=== PATIENT | male | born 1950 | race Caucasian/White ===

== ENCOUNTER 2020-05-22 09:05 | Outpatient (CLI) | payer MEDICARE, SELFPAY ==
--- NOTE | ~2020-05-22 | XR_ITS ---
EXAMINATION: XR hand BI arthritis min 3V DATE: 05/22/2020 09:31 INDICATION: Unspecified osteoarthritis, unspecified site. TECHNIQUE: 4 views of right hand of 4 views of left hand on a total of 7 radiographs were obtained. COMPARISON: Left hand radiographs 12/06/2004 FINDINGS: RIGHT HAND: There is radial subluxation of third distal phalanx with respect to the middle phalanx. N o fracture. There is moderate osteoarthritis of distal radioulnar joint. There is sclerosis of distal ulna and proximal lunate with bone remodeling, consistent with ulnolunate impaction syndrome. There is mild osteoarthritis of first carpometacarpal joint. There is severe osteoarthritis of first, secon d, and third metacarpophalangeal joints and mild osteoarthritis of fourth metacarpophalangeal joint. There is severe osteoarthritis of second and third distal interphalangeal joints, moderate osteoarthr itis of fourth distal interphalangeal joint, and mild osteoarthritis of many other interphalangeal zachery ints. LEFT HAND: Bone alignment is normal. No fracture. There is mild osteoarthritis of triscaphe joint and severe osteoarthritis of first carpometacarpal joint. There is severe osteoarthritis of second and t hird metacarpophalangeal joints. There is moderate osteoarthritis of first metacarpophalangeal joint and mild osteoarthritis of fourth and fifth metacarpophalangeal joints and many of the interphalangea l joints. There is moderate osteoarthritis of second-fourth distal interphalangeal joints and severe osteoarthritis of second proximal interphalangeal joint. There is a loose body dorsal to the carpus. IMPRESSION: 1. Polyarticular osteoarthritis. Reviewed, dictated and finalized at location A. SLITTER
== END 2020-05-22 09:06 | disposition home or self-care (01) ==
PROVIDERS: PCP Family Medicine; Visit Provider Family Medicine
DX: M19.042 Primary osteoarthritis, left hand (principal)
CPT/HCPCS: 73130

== ENCOUNTER 2020-06-18 14:14 | Outpatient (RCR) | payer MEDICARE, SELFPAY ==
--- NOTE | 2020-06-18 16:10 | OTOPEVAL ---
OCCUPATIONAL THERAPY EVALUATION REPORT 06/18/2020 Portillo presents to outpatient OT with dx of OA of bilateral hands. He is 1 week s/p joint injections which has relieved all of his symptoms at this time. He has been educated on joint protection, body mechanics, AROM, and gentle resistive strengthening and is happy with this for now. Recommend that he monitors his symptoms over the next 4 weeks and makes an appointment to return for therapy if he feels his pain returning. If the patient does not follow up in 4 weeks he will be discharged. Thank you for referring Portillo Cooley to [facility] The patient is scheduled to be seen for therapy? 0-1x/week for 4weeks. Please review, sign, date and return this plan of care XIMENA. I agree with and certify that the following plan of care is medically necessary. Referring Physician Date Referring Provider: Blake Henderson MD *OT Outpatient Evaluation Start: 06/18/20 14:28 Freq: Status: Active Protocol: Document 06/18/20 14:30 IGOR (Rec: 06/18/20 16:10 IGOR [id number]) Therapy Assessment Status Assessment Status Assessment Status Evaluation Outpatient Past Medical History Cardiovascular History Hx Hypertension Yes Musculoskeletal History Hx Orthopedic Surgery Yes: left RCR 2009, manish TKR Hx Spinal Surgery Yes: back surgery 09/25/18 Hx Other Musculoskeletal Disorders Yes: tendon tear of right arm Evaluation Information Problem Diagnosis Primary OA bilateral hands Subjective Information Portillo reports long-term Query Text:As Reported By Patient/ degenerative changes in Family bilateral hands and wrists over the past 20+ years. 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 He states that a few weeks ago the pain in his hands got progressively worse to the point where he was unable to work on his cars, make a fist, or even do a light activity like pet his dog without severe pain. He states that a week ago he received injections in both hands from Dr. Henderson and since then he has had no pain and has been feeling great. He states he has returned to working on cars as normally as he was before and is able
--- NOTE | 2020-07-16 10:31 | OTOPEVAL ---
OCCUPATIONAL THERAPY DISCHARGE NOTE 07/16/20 Portillo Cooley was initially seen by OT on 06/18/20 with dx of OA of bilateral hands. He had just received joint injections which had relieved all of his symptoms at that time. On the day of the evaluation he was educated on joint protection, body mechanics, AROM, and gentle resistive strengthening. His chart was left open x4 weeks to allow him to return for therapy if his pain returned. At this time he has not returned for appointments and is being discharged. Goals not re-assessed. Thank you for referring Portillo Cooley to [facility][Note 3].? Please review, sign, date and return this D/C Note XIMENA. I agree with and certify that the following plan of care is medically necessary. Referring Physician Date Referring Provider: Blake Henderson MD
== END 2020-07-16 13:36 | disposition home or self-care (01) ==
LOC: ANHOT 14:14
PROVIDERS: PCP Family Medicine; Referring Provider Orthopaedic Surgery; Visit Provider Orthopaedic Surgery
DX: M19.041 Primary osteoarthritis, right hand (principal); M19.042 Primary osteoarthritis, left hand
CPT/HCPCS: 97165; 97530

== ENCOUNTER → 2021-01-09 07:04 | Outpatient (CLI) | payer MEDICARE, SELFPAY ==
[2021-01-09 17:20] LABS: SARS-CoV-2 RNA PCR Positive
== END ==
PROVIDERS: PCP Family Medicine; Visit Provider Family Medicine
DX: U07.1 COVID-19 (principal)
CPT/HCPCS: C9803; U0003; U0005

== ENCOUNTER 2021-01-10 20:11 | Inpatient (IN) | payer MEDICARE, SELFPAY ==
--- NOTE | ~2021-01-10 | XR_ITS ---
EXAMINATION: XR abdomen NG/feed tube insert INDICATION: OG placement TECHNIQUE: Portable AP KUB-NG at 0811 hours COMPARISON: None available FINDINGS: The enteric tube is in the stomach. There are diffuse patchy opacities of the lungs. Cholec ystectomy clips are noted in the right upper quadrant. IMPRESSION: 1. Enteric tube in the stomach. Reviewed, dictated and finalized at location A.
--- NOTE | ~2021-01-10 | XR_ITS ---
XR chest 1V portable DATE: 02/10/2021 06:00 INDICATION: Pneumonia TECHNIQUE: Portable upright AP chest on 02/10/2021 at 0545 hours COMPARISON: 02/07/2021 portable AP chest at 0513 hours FINDINGS: Tracheostomy tube in satisfactory position. Right upper stomach the catheter tip overlies t he superior vena cava. There are extensive bilateral patchy pulmonary infiltrates, relatively stable since 02/07/2021. No pleu ral effusion or pneumothorax. IMPRESSION: Extensive bilateral patchy pulmonary infiltrates, relatively stable since 02/07/2021 Reviewed, dictated and finalized at location A.
--- NOTE | ~2021-01-10 | XR_ITS ---
EXAMINATION: XR chest ET placement EXAM DATE: 01/21/2021 23:12 INDICATION: Respiratory failure. COVID pneumonia. Desaturation. TECHNIQUE: Portable AP frontal chest x-ray was obtained. Comparison is made to prior examination from earlier same date. FINDINGS: Endotracheal tube tip is 3 centimeters above the heather. There is a nasogastric tube seen with tip collimated off the study, but below the left hemidiaphragm. There is a right-sided PICC line . There is a moderate amount of patchy bilateral acute airspace disease, pneumonia. There is more confl uent consolidation in the left lower lobe, retrocardiac region. There are no sizable pleural effusio ns. There is no pneumothorax suspected. The cardiomediastinal silhouette is prominent but magnifi ed on this AP technique. There are bony degenerative changes. Progression in the retrocardiac consolidation compared to earlier same date. IMPRESSION: 1. Line and tube(s) in position. 2. Moderate bilateral acute airspace disease, some progression in the left lower lobe. Reviewed, dictated and finalized at location G. IMPRESSION: 1. Line and tube(s) in position. 2. Moderate bilateral acute airspace disease, some progression in the left low er lobe.
--- NOTE | ~2021-01-10 | XR_ITS ---
XR chest 1V portable INDICATION: Cough. TECHNIQUE: 2 view chest. FINDINGS: 05/11/2015 There is mild bilateral interstitial prominence and peribronchial cuffing. There is no focal consoli dation, pleural effusion, or pneumothorax. The cardiomediastinal silhouette is normal.] IMPRESSION: 1. Findings most consistent with bronchiolitis versus an atypical or viral pneumonia. Reviewed, dictated and finalized at location A. IMPRESSION: 1. Findings most consistent with bronchiolitis versus an atypical or viral [facility].
--- NOTE | ~2021-01-10 | XR_ITS ---
EXAMINATION: XR chest ET placement INDICATION: Endotracheal tube insertion TECHNIQUE: Portable AP chest at 0716 hours COMPARISON: 01/13/2021 FINDINGS: The endotracheal tube ends 1.9 cm above the heather. Diffuse opacities are present throughou t all lung zones with slight improvement in the lung bases. The cardiomediastinal silhouette is yaima l. There is no pleural effusion or pneumothorax. IMPRESSION: 1. Endotracheal tube 1.9 cm above the heather. 2. Diffuse lung disease with interval improvement, consistent with pneumonia and/or pulmonary edema a nd/or acute respiratory distress syndrome (ARDS). Reviewed, dictated and finalized at location A. IMPRESSION: 1. Endotracheal tube 1.9 cm above the heather. 2. Diffuse lung disease with interval improvement, consistent with pneumonia an d/or pulmonary edema and/or acute respiratory distress syndrome (ARDS).
--- NOTE | ~2021-01-10 | XR_ITS ---
EXAMINATION: XR chest 1V portable INDICATION: Respiratory failure TECHNIQUE: Portable AP chest at 0532 hours COMPARISON: 01/19/2021 FINDINGS: The endotracheal tube ends approximately 2.5 cm above the heather. The nasogastric tube is f ollowed as far as the stomach. Its tip is beyond the inferior margin of the radiograph. A right upper extremity PICC ends with its tip at the superior cavoatrial junction. There is no pleural effusion o r pneumothorax. Diffuse opacities persist throughout all lung zones without significant change. IMPRESSION: 1. Stable diffuse lung disease, consistent with pneumonia and/or pulmonary edema and/or acute respira tory distress syndrome (ARDS). Reviewed, dictated and finalized at location D. IMPRESSION: 1. Stable diffuse lung disease, consistent with pneumonia and/or pulmonary otto a and/or acute respiratory distress syndrome (ARDS).
--- NOTE | ~2021-01-10 | XR_ITS ---
XR chest 1V portable 01/29/2021 05:29 Indication: Acute respiratory failure Procedure: AP portable chest Comparison: Comparison to multiple prior studies sequentially, with oldest reviewed study dated 01/25. Findings: NG tube in the stomach. Endotracheal tube tip 5.4 cm above the heather. PICC line tip in the SVC. Persistent patchy bilateral airspace disease, consistent with pneumonia. No significant effusio n or pneumothorax. Lung apices excluded. Impression: 1: Persistent patchy bilateral airspace disease, compatible with pneumonia. Reviewed, dictated and finalized at location A. Impression: 1: Persistent patchy bilateral airspace disease, compatible with pneumonia.
--- NOTE | ~2021-01-10 | XR_ITS ---
XR chest 1V portable 01/26/2021 05:46 Indication: Respiratory failure Procedure: AP portable chest Comparison: Comparison to multiple prior studies sequentially, with oldest reviewed study dated 01/21. Findings: Persistent extensive patchy bilateral airspace disease. No significant change. Endotracheal tube 3.6 cm above the heather. NG tube in the stomach. No significant effusion. No pneumothorax. No a cute osseous abnormality. Impression: 1: Extensive patchy bilateral airspace disease without significant change, pneumonia versus edema. Reviewed, dictated and finalized at location A. Impression: 1: Extensive patchy bilateral airspace disease without significant change, pneu monia versus edema.
--- NOTE | ~2021-01-10 | CT_ITS ---
EXAMINATION: CTA chest PE protocol DATE: 01/10/2021 22:35 INDICATION: Shortness of breath. Cough. COVID-19 positive on 01/09/21. TECHNIQUE: Computed tomography angiography (CTA) of the chest was performed with 100 mL Omnipaque-350 intravenous contrast timed to evaluate the pulmonary arteries. Coronal maximum intensity projection 3D-reconstructions were created by the technologist. Automated exposure control and iterative reconst ruction technique were employed. The dose-length product was 431.36 mGy-cm. COMPARISON: Chest CT 07/28/2009 FINDINGS: There is chronic mild elevation of right hemidiaphragm. There are patchy groundglass opacit ies involving all lobes. There is mild atelectasis bilaterally. No pleural effusion. There is an aber rant right subclavian artery. The heart size is normal. There is no pulmonary embolus. There are martin ges of cholecystectomy. There are bridging endplate osteophytes at multiple levels in the spine, cons istent with diffuse idiopathic skeletal hyperostosis (DISH). IMPRESSION: 1. No pulmonary embolus. 2. 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 Reviewed, dictated and finalized at location A.
--- NOTE | ~2021-01-10 | XR_ITS ---
EXAMINATION: XR chest 1V portable DATE: 02/04/2021 05:49 INDICATION: Respiratory failure TECHNIQUE: frontal view of the chest was obtained. COMPARISON: Chest radiograph dated 02/03/2021 FINDINGS: Endotracheal tube tip 8.3 cm above the heather. Right upper extremity peripherally inserted central ve nous catheter (PICC) tip at the caudal superior vena cava. No significant interval change in patchy airspace opacities throughout both lungs. No pneumothorax or pleural effusion. The cardiomediastinal silhouette is normal. Cholecystectomy clips at the right upp er quadrant. IMPRESSION: 1. No significant change in patchy bilateral lung disease consistent with pneumonia. Reviewed, dictated and finalized at location A. IMPRESSION: 1. No significant change in patchy bilateral lung disease consistent with pneum onia.
--- NOTE | ~2021-01-10 | XR_ITS ---
EXAMINATION: XR chest 1V portable INDICATION: Endotracheal tube repositioning TECHNIQUE: Portable AP chest at 0812 hours COMPARISON: 0716 hours FINDINGS: The repositioned endotracheal tube ends 3.8 cm above the heather. A nasogastric tube has bee n inserted which is followed as far as stomach. Its tip projects beyond the inferior margin of the ra diograph. Diffuse airspace opacities persist in all lung zones without significant change. The cardio mediastinal silhouette is normal. Cholecystectomy clips are noted in the right upper quadrant. IMPRESSION: 1. Repositioned endotracheal tube 3.8 cm above the heather. Nasogastric tube inserted and followed to the stomach. Otherwise, no significant change. Reviewed, dictated and finalized at location A. IMPRESSION: 1. Repositioned endotracheal tube 3.8 cm above the heather. Nasogastric tube ins erted and followed to the stomach. Otherwise, no significant change.
--- NOTE | ~2021-01-10 | XR_ITS ---
XR chest 1V portable 02/07/2021 05:59 Indication: Respiratory failure. Pneumonia. Procedure: AP portable chest Comparison: Comparison to multiple prior studies sequentially, with oldest reviewed study dated 09/2020. Findings: Tracheostomy catheter present. PICC line tip in the SVC. Heart size normal. Diffuse bilater al airspace disease unchanged. No significant effusion or pneumothorax. No acute osseous abnormality. Impression: 1: Diffuse bilateral airspace disease which may represent pneumonia and/or edema. Reviewed, dictated and finalized at location A. Impression: 1: Diffuse bilateral airspace disease which may represent pneumonia and/or otto a.
--- NOTE | ~2021-01-10 | XR_ITS ---
EXAMINATION: XR chest 1V portable DATE: 01/23/2021 06:36 INDICATION: COVID pneumonia. Acute respiratory failure. TECHNIQUE: frontal view of the chest was obtained. COMPARISON: Chest radiograph dated 01/21/2021 FINDINGS: Endotracheal tube tip 5.3 cm above the heather. Nasogastric tube extends below the left hemidiaphragm with distal tip collimated off the study. Right upper extremity peripherally inserted central venous catheter (PICC) tip at the superior vena cava. Opacities scattered throughout both lungs, relatively mild and unchanged in the right lung with more prominent patchy opacities at the left lower and mid lung zones with some progression at the latter. No pleural effusion or pneumothorax. The cardiomediastinal silhouette is normal. IMPRESSION: 1. Diffuse bilateral lung disease most prominent and less interval progression in the left midlung zo ne consistent with pneumonia. Reviewed, dictated and finalized at location A. IMPRESSION: 1. Diffuse bilateral lung disease most prominent and less interval progression in the left midlung zone consistent with pneumonia.
--- NOTE | ~2021-01-10 | XR_ITS ---
EXAMINATION: XR chest 1V portable INDICATION: Respiratory failure TECHNIQUE: Portable AP chest at 0522 hours COMPARISON: 01/17/2021 FINDINGS: The endotracheal tube ends approximately 4.5 cm above the heather. The nasogastric tube is f ollowed as far as the stomach. Its tip is beyond the inferior margin of the radiograph. A right upper extremity PICC ends with its tip in the distal superior vena cava. Diffuse airspace opacities persis t in all lung zones with slight worsening in the upper lung zones. IMPRESSION: 1. Diffuse lung disease with interval worsening in the upper lung zones, consistent with pneumonia an d/or pulmonary edema and/or acute respiratory distress syndrome (ARDS). Reviewed, dictated and finalized at location A. IMPRESSION: 1. Diffuse lung disease with interval worsening in the upper lung zones, consis tent with pneumonia and/or pulmonary edema and/or acute respiratory distress sy ndrome (ARDS).
--- NOTE | ~2021-01-10 | XR_ITS ---
EXAMINATION: XR chest 1V portable DATE: 02/06/2021 05:51 INDICATION: Respiratory failure TECHNIQUE: frontal view of the chest was obtained. COMPARISON: Chest radiograph dated 02/05/2021 FINDINGS: Tracheostomy tube at the thoracic inlet. No significant interval change in patchy airspace opacities throughout both lungs. No pleural effusion or pneumothorax. The cardiomediastinal silhouette is yaima l. Cholecystectomy clips in right upper quadrant. IMPRESSION: 1. Unchanged patchy bilateral lung disease consistent with pneumonia. Reviewed, dictated and finalized at location A.
--- NOTE | ~2021-01-10 | US_ITS ---
EXAMINATION: US venous doppler UE DATE: 02/07/2021 09:08 INDICATION: Fevers and extremity swelling TECHNIQUE: Casarez scale images with and without compression and Doppler images of the right and left up per extremity veins were obtained. COMPARISON: None. FINDINGS: The right and left internal jugular vein, subclavian vein, axillary vein, brachial veins, basilic vei n, cephalic vein, radial vein, and ulnar vein are patent. IMPRESSION: 1. Patent bilateral upper extremity veins. No evidence of deep venous thrombosis. Reviewed, dictated and finalized at location A. IMPRESSION: 1. Patent bilateral upper extremity veins. No evidence of deep venous thrombosi s.
--- NOTE | ~2021-01-10 | XR_ITS ---
XR chest 1V portable 01/28/2021 05:55 Indication: Acute respiratory failure Procedure: AP portable chest Comparison: Comparison to multiple prior studies sequentially, with oldest reviewed study dated 01/24. Findings: Endotracheal tube tip 6.2 cm above the heather. PICC line tip in the SVC. NG tube in the sto mach. Heart size normal. Patchy bilateral airspace disease, left greater than right. No pneumothorax. Impression: 1: Unchanged patchy bilateral airspace disease, compatible with pneumonia. Reviewed, dictated and finalized at location A. Impression: 1: Unchanged patchy bilateral airspace disease, compatible with pneumonia.
--- NOTE | ~2021-01-10 | XR_ITS ---
EXAMINATION: XR chest 1V portable DATE: 02/02/2021 06:00 INDICATION: Respiratory failure TECHNIQUE: frontal view of the chest was obtained. COMPARISON: Chest radiograph dated 02/01/2021 FINDINGS: Endotracheal tube tip 4.5 cm above the heather. Nasogastric tube tube with proximal side-port in the body of stomach and with distal tip collimated off the study. Right upper extremity peripherally inse rted central venous catheter (PICC) tip at the superior vena cava. Again seen are diffuse bilateral patchy airspace opacities throughout both lungs with some improvemen t in aeration at the lung bases. No pneumothorax or definitive pleural effusion. The cardiomediastina l silhouette is normal. Cholecystectomy clips in right upper quadrant. IMPRESSION: 1. Patchy bilateral lung disease consistent with pneumonia with some improvement in aeration at the l bill bases. Reviewed, dictated and finalized at location A. IMPRESSION: 1. Patchy bilateral lung disease consistent with pneumonia with some improvemen t in aeration at the lung bases.
--- NOTE | ~2021-01-10 | XR_ITS ---
EXAMINATION: XR chest 1V portable DATE: 01/19/2021 06:36 INDICATION: Respiratory failure TECHNIQUE: frontal view of the chest was obtained. COMPARISON: Chest radiograph dated 01/18/2021 FINDINGS: Endotracheal tube tip 2.8 cm above the heather. Nasogastric tube extends below the left hemidiaphragm with distal tip collimated off the study. Right upper extremity peripherally inserted central venous catheter (PICC) tip at the caudal superior vena cava. Persistent airspace opacities scattered throughout the left lung and in the right upper lung zone. No pleural effusion or pneumothorax. Heart size is normal. IMPRESSION: 1. No significant change in scattered bilateral lung disease consistent with COVID pneumonia. Reviewed, dictated and finalized at location A. IMPRESSION: 1. No significant change in scattered bilateral lung disease consistent with CO VID pneumonia.
--- NOTE | ~2021-01-10 | XR_ITS ---
EXAMINATION: XR chest PICC line INDICATION: PICC insertion TECHNIQUE: Portable AP chest at 1035 hours COMPARISON: 0812 hours FINDINGS: A right upper extremity PICC has been inserted which ends with its tip in the midsuperior v alli cava. The endotracheal tube is 4.1 cm above the heather. The nasogastric tube is followed as far a s the stomach. Its tip is beyond the inferior margin of the radiograph. Diffuse airspace opacities pe rsist in all lung zones without significant change. The cardiomediastinal silhouette is normal. IMPRESSION: 1. Right upper extremity PICC inserted ending with its tip in the midsuperior vena cava, otherwise no significant change. Reviewed, dictated and finalized at location A. IMPRESSION: 1. Right upper extremity PICC inserted ending with its tip in the midsuperior v alli cava, otherwise no significant change.
--- NOTE | ~2021-01-10 | XR_ITS ---
XR chest 1V portable DATE: 02/13/2021 05:57 INDICATION: Pneumonia TECHNIQUE: Portable upright AP chest on 02/13/2021 at 0530 hours COMPARISON: 02/11/2021 portable AP chest at 0526 hours FINDINGS: Tracheostomy tube is again noted. Right upper stomach the catheter tip overlying superior vena cava. There are persistent relatively stable extensive bilateral patchy consolidating pulmonary infiltrates scattered throughout both lungs. Heart size appears within normal range. No pleural effusion or pneumothorax. Surgical clips, right upper quadrant, likely due to cholecystectomy. Degenerative spurring of the thoracic spine. IMPRESSION: Persistent extensive bilateral patchy pulmonary consolidation, relatively unchanged since 02/11/2021 Reviewed, dictated and finalized at location A. IMPRESSION: Persistent extensive bilateral patchy pulmonary consolidation, rela tively unchanged since 02/11/2021
--- NOTE | ~2021-01-10 | XR_ITS ---
XR chest 1V portable 01/30/2021 05:35 Indication: Acute respiratory failure Procedure: AP portable chest Comparison: Comparison to multiple prior studies sequentially, with oldest reviewed study dated . Findings: Endotracheal tube tip 4.4 cm above the heather. NG tube in the stomach. PICC line tip in the CC. Patchy diffuse bilateral airspace disease, compatible with pneumonia. No significant effusion or pneumothorax. No acute osseous abnormality. Impression: 1: No significant change to patchy bilateral airspace disease, compatible with pneumonia. Reviewed, dictated and finalized at location A. Impression: 1: No significant change to patchy bilateral airspace disease, compatible with pneumonia.
--- NOTE | ~2021-01-10 | XR_ITS ---
EXAMINATION: XR chest 1V portable DATE: 01/31/2021 06:23 INDICATION: Acute respiratory failure TECHNIQUE: frontal view of the chest was obtained. COMPARISON: Chest radiograph dated 01/30/2021 FINDINGS: Endotracheal tube tip 4.5 cm above the heather. Nasogastric tube in proximal side port in the body of the stomach and distal tip collimated off the study. Right upper extremity peripherally inserted cent ral venous catheter (PICC) tip at the superior vena cava. No significant interval change in bilateral patchy airspace opacities consistent with pneumonia. No p leural effusion or pneumothorax. The cardiomediastinal silhouette is normal. IMPRESSION: 1. No significant change in scattered patchy bilateral airspace opacities consistent with pneumonia. Reviewed, dictated and finalized at location A. IMPRESSION: 1. No significant change in scattered patchy bilateral airspace opacities consi stent with pneumonia.
--- NOTE | ~2021-01-10 | XR_ITS ---
EXAMINATION: XR chest 1V portable DATE: 02/03/2021 05:44 INDICATION: Respiratory failure TECHNIQUE: frontal view of the chest was obtained. COMPARISON: Chest radiograph dated 02/02/2021 FINDINGS: Endotracheal tube tip 3.3 cm above the heather.. Right upper extremity peripherally inserted central v enous catheter (PICC) tip at the mid superior vena cava. No significant interval change in bilateral patchy airspace opacities throughout both lungs. No pneum othorax or definitive pleural effusion. The cardiomediastinal silhouette is normal. Cholecystectomy c lips in right upper quadrant. IMPRESSION: 1. No interval change in patchy bilateral lung disease consistent with pneumonia Reviewed, dictated and finalized at location A. IMPRESSION: 1. No interval change in patchy bilateral lung disease consistent with pneumoni a
--- NOTE | ~2021-01-10 | US_ITS ---
EXAMINATION:US venous doppler LE BI INDICATION:Fever and leg swelling TECHNIQUE: Multiple grayscale, color flow and Doppler images of the right and left lower extremity de ep venous systems were obtained and reviewed. COMPARISON:No prior studies for comparison. FINDINGS: The common femoral, superficial femoral and popliteal veins demonstrate normal respiratory variation, augmentation and compressibility. Color flow is also seen within the posterior tibial, pe roneal, greater saphenous and profunda veins. IMPRESSION: 1: No lower extremity deep venous thrombosis. Reviewed, dictated and finalized at location A.
--- NOTE | ~2021-01-10 | XR_ITS ---
XR chest 1V portable 01/27/2021 05:55 Indication: Acute respiratory failure Procedure: AP portable chest Comparison: Comparison to multiple prior studies sequentially, with oldest reviewed study dated 01/23. Findings: Endotracheal tube tip 5 cm above the heather. NG tube in the stomach. PICC line tip in the S VC. Persistent patchy bilateral airspace disease without significant change. No significant effusion. No pneumothorax. No acute osseous abnormality. Impression: 1: Stable patchy bilateral airspace disease which may represent pneumonia or edema. Reviewed, dictated and finalized at location A. Impression: 1: Stable patchy bilateral airspace disease which may represent pneumonia or ed marguerite.
--- NOTE | ~2021-01-10 | XR_ITS ---
XR chest 1V portable DATE: 01/25/2021 05:31 INDICATION: Covid 19 pneumonia. Acute respiratory failure. TECHNIQUE: Portable AP chest on 01/25/2021 at 0518 hours COMPARISON: 01/24/2021 portable AP chest at 0519 hours FINDINGS: ET tube in satisfactory position 4.5 cm above heather. NG tube in stomach. Right upper extremity PIC catheter tip overlies superior vena cava. There are diffuse patchy bilateral pulmonary infiltrates, left greater than right, relatively stable since 05/27/2021. No pleural effusion or pneumothorax. Heart size appears normal. Aortic calcification. Diffuse idiopathic skeletal hyperostosis of the thoracic spine. IMPRESSION: No significant changes bilateral patchy pulmonary infiltrates since 01/20/2021 Reviewed, dictated and finalized at location A.
--- NOTE | ~2021-01-10 | XR_ITS ---
EXAMINATION: XR chest 1V portable DATE: 02/05/2021 05:54 INDICATION: Respiratory failure TECHNIQUE: frontal view of the chest was obtained. COMPARISON: Chest radiograph dated 02/04/2021 FINDINGS: Endotracheal tube tip 2.8 cm above the heather. Right upper extremity peripherally inserted central ve nous catheter (PICC) tip at the superior vena cava. No significant change accounting for differences in technique in scattered patchy airspace opacities throughout both lungs. No pleural effusion or pneumothorax. The cardiomediastinal silhouette is yaima l. Cholecystectomy clips in right upper quadrant. IMPRESSION: 1. Unchanged patchy bilateral lung disease consistent with pneumonia Reviewed, dictated and finalized at location A.
--- NOTE | ~2021-01-10 | US_ITS ---
EXAMINATION: US right upper quadrant EXAM DATE: 01/20/2021 17:07 INDICATION: Elevated liver function tests. TECHNIQUE: Multiple grayscale and Doppler images of the abdomen right upper quadrant were obtained (b y a technologist who performed the scan) and subsequently reviewed. There is no prior study for eleazar fischer. FINDINGS: The pancreatic head and body are normal in appearance. The pancreatic tail is not visualized. There is echogenic liver parenchyma with poor penetration, hepatic steatosis. There are no focal liver le sions identified. There is no evidence of intrahepatic biliary duct dilation. Portal venous flow w as seen in the hepatopedal, normal direction and has normal Doppler waveform. No right-sided hydrone phrosis. Common bile duct measures 5 mm, which is normal. The gallbladder fossa is unremarkable. IMPRESSION: 1. Hepatic steatosis. Reviewed, dictated and finalized at location A. IMPRESSION: 1. Hepatic steatosis.
--- NOTE | ~2021-01-10 | XR_ITS ---
EXAMINATION: XR chest 1V portable DATE: 01/21/2021 05:50 INDICATION: COVID pneumonia TECHNIQUE: frontal view of the chest was obtained. COMPARISON: Chest radiograph dated 01/20/2021 FINDINGS: Endotracheal tube tip 1.1 cm above the heather. Nasogastric tube extends below the left hemidiaphragm with distal tip collimated off the study. Right upper extremity peripherally inserted central venous catheter (PICC) tip at the caudal superior vena cava. No significant interval change in mild bilateral scattered airspace opacities including linear discoi d atelectasis/scarring at the left lower lung zone. No pleural effusion or pneumothorax. The cardiome diastinal silhouette is normal. IMPRESSION: 1. No significant change in scattered bilateral lung disease consistent with atelectasis and/or pneum onia. Reviewed, dictated and finalized at location A. IMPRESSION: 1. No significant change in scattered bilateral lung disease consistent with at electasis and/or pneumonia.
--- NOTE | ~2021-01-10 | XR_ITS ---
XR chest 1V portable DATE: 01/24/2021 05:33 INDICATION: Acute respiratory failure. Pneumonia. TECHNIQUE: Portable AP chest on 01/20/2021 at 0519 hours COMPARISON: 01/23/2021 portable AP chest at 0610 hours FINDINGS: ET tube in satisfactory position 3.7 cm above heather. NG tube in stomach in satisfactory po sition. Right upper extremity PIC catheter tip overlies superior vena cava. There are patchy bilateral pulmonary infiltrates, left greater than right, increased since 05/26/2021 . No pleural effusion or pneumothorax is detected. Heart size appears normal. IMPRESSION: Patchy left greater than right bilateral pulmonary infiltrates, increased since 01/23/2021 Reviewed, dictated and finalized at location A. IMPRESSION: Patchy left greater than right bilateral pulmonary infiltrates, inc reased since 01/23/2021
--- NOTE | ~2021-01-10 | XR_ITS ---
XR chest 1V portable DATE: 02/11/2021 05:38 INDICATION: Respiratory failure TECHNIQUE: Portable AP chest on 02/11/2021 at 0526 hours COMPARISON: Portable AP chest on 02/10/2021 at 0545 hours FINDINGS: Tracheostomy tube in satisfactory position. Right upper extremity PIC catheter tip overlies the superior vena cava. Heart size appears within normal range. There are extensive patchy bilateral pulmonary infiltrates wi thout improvement since 02/10/2021. Surgical clips overlie the right upper quadrant, consistent with cholecystectomy. IMPRESSION: Extensive bilateral pulmonary infiltrates without significant change since 02/10/2021 Reviewed, dictated and finalized at location A. IMPRESSION: Extensive bilateral pulmonary infiltrates without significant partida e since 02/10/2021
--- NOTE | ~2021-01-10 | CT_ITS ---
EXAMINATION: CT chest abdomen pelvis wo con DATE: 02/11/2021 09:04 INDICATION: Fever. TECHNIQUE: Computed tomography (CT) of the chest, abdomen, and pelvis was performed without intraveno us contrast. Automated exposure control and iterative reconstruction technique were employed. The dos e-length product was 1629.57 mGy-cm. COMPARISON: Chest CT 01/10/2021 FINDINGS: CHEST CT: There are airspace and groundglass opacities throughout the lungs bilaterally without bronchograms. T here is volume loss of the lungs bilaterally. There are small bilateral pleural effusions. The heart size is normal. No pericardial effusion. A right upper extremity peripherally inserted central venous catheter (PICC) is seen with tip in the superior vena cava. There is an aberrant right subclavian ar faith. A tracheostomy tube is noted in expected position. ABDOMEN/PELVIS CT: The liver and spleen are normal. There are changes of cholecystectomy. The pancreas, adrenal glands, and kidneys are normal. There is no urolithiasis. The prostate is mildly enlarged. There is a Flores c atheter in expected position. There is a small volume of hyperdense material in the bladder. There is diverticulosis of the colon without evidence of diverticulitis. There are no dilated loops of bowel. The appendix is normal. There is a gastrostomy tube in expected position. There are changes of right inguinal hernia repair. There are no pathologically enlarged lymph nodes. There is no free intraperi toneal fluid. There is severe lumbar spondylosis. There are changes of posterior fusion procedure fro m L3 to L5 with pedicle screws. There are lucencies around the L5 screws, consistent with loosening. IMPRESSION: 1. Diffuse lung disease, consistent with COVID-19 pneumonia and acute respiratory distress syndrome ( ARDS). 2. Small bilateral pleural effusions. 3. Small volume of hyperdense material in the bladder, which may be hematoma. Reviewed, dictated and finalized at location A. IMPRESSION: 1. Diffuse lung disease, consistent with COVID-19 pneumonia and acute respirato ry distress syndrome (ARDS). 2. Small bilateral pleural effusions. 3. Small volume of hyperdense material in the bladder, which may be hematoma.
--- NOTE | ~2021-01-10 | XR_ITS ---
EXAMINATION: XR chest 1V portable INDICATION: Respiratory failure TECHNIQUE: Portable AP chest at 0818 hours COMPARISON: 02/13/2021 FINDINGS: A tracheostomy is in expected position. There are diffuse opacities throughout all lung zon es with slight interval improvement. No pleural effusion or pneumothorax is identified. The cardiomed iastinal silhouette is normal. IMPRESSION: 1. Diffuse lung disease with interval improvement, consistent with pneumonia and/or pulmonary edema a nd/or acute respiratory distress syndrome (ARDS). Reviewed, dictated and finalized at location A. IMPRESSION: 1. Diffuse lung disease with interval improvement, consistent with pneumonia an d/or pulmonary edema and/or acute respiratory distress syndrome (ARDS).
--- NOTE | ~2021-01-10 | XR_ITS ---
EXAMINATION: XR chest 1V portable DATE: 02/01/2021 12:43 INDICATION: Respiratory failure TECHNIQUE: frontal view of the chest was obtained. COMPARISON: Chest radiograph dated 01/31/2021 FINDINGS: Endotracheal tube tip 5.0 cm above the heather. Nasogastric tube tip in proximal side port in the body of the stomach. Right upper extremity peripherally inserted central venous catheter (PICC) tip at t he superior vena cava. Again seen are patchy airspace opacities throughout both lungs which have increased at the bilateral lower lung zones. No pneumothorax or definitive pleural effusion. The cardiomediastinal silhouette is normal. Cholecystectomy clips in right upper quadrant. IMPRESSION: 1. Patchy bilateral airspace opacities consistent with pneumonia scattered throughout both lungs with interval worsening at the bilateral lower lung zones. Reviewed, dictated and finalized at location A. IMPRESSION: 1. Patchy bilateral airspace opacities consistent with pneumonia scattered thro ughout both lungs with interval worsening at the bilateral lower lung zones.
--- NOTE | ~2021-01-10 | XR_ITS ---
EXAMINATION: XR chest 1V portable DATE: 01/13/2021 13:45 INDICATION: COVID-19 pneumonia. TECHNIQUE: A single frontal view of the chest was obtained. COMPARISON: Chest single view 01/10/2021, chest CT 01/10/2021 FINDINGS: There is chronic mild elevation of right hemidiaphragm. There are patchy airspace opacities in all lung zones bilaterally. No pleural effusion or pneumothorax. The heart size is normal. IMPRESSION: 1. Diffuse lung disease, worsened from 01/10/2021, consistent with COVID-19 pneumonia. Reviewed, dictated and finalized at location A. IMPRESSION: 1. Diffuse lung disease, worsened from 01/10/2021, consistent with COVID-19 pneu monia.
--- NOTE | 2021-01-10 20:15 | ECG_ITS ---
Measurements Intervals [place] Rate: 79 P: 32 [place]: 167 QRS: -50 QRSD: 118 T: 45 QT: 392 QTc: 450 Interpretive Statements SINUS RHYTHM LEFT ANTERIOR FASCICULAR BLOCK VOLTAGE CRITERIA FOR LVH ABNORMAL ECG Electronically Signed On 01-11-2021 7:04:34 CDT by Jose Sanabria D.O.
[2021-01-10 20:19] VITALS: BP 136/76; PULSE 87; RESP 20; TEMP 37.2; O2SAT 98
[2021-01-10 20:25] VITALS: O2SAT 97
[2021-01-10 20:47] LABS: Basophils Percent Auto 0.2 % (0.2-1.2); Hematocrit 39.8 % (42.0-52.0); Hemoglobin 13.3 g/dL (14.0-18.0); Immature Granulocyte Absolute 0.02 K/mm3 (0.00-0.031); Immature Granulocyte Percent A 0.3 % (0-0.5); Lymphocytes Absolute Auto 0.87 K/mm3 (0.9-3.2); Lymphocytes Percent Auto 14.4 % (18.3-44.2); Mean Corpuscular HGB Conc 33.4 g/dl (32-36); Mean Corpuscular Hemoglobin 30.9 pg (26-34); Mean Corpuscular Volume 92.3 fl (80-100); Mean Platelet Volume 9.3 fl (7.4-10.4); Monocytes Absolute Auto 0.4 K/mm3 (0.1-0.6); Monocytes Percent Auto 6.8 % (2.6-8.5); Neutrophils Absolute Auto 4.8 K/mm3 (1.3-6.7); Neutrophils Percent Auto 78.3 % (45.5-73.1); Platelet Count Result 292 k/mm3 (150-375); Red Blood Count 4.31 M/mm3 (4.6-6.20); Red Cell Distribution Width 12.9 % (11.5-14.5); White Blood Count 6.1 K/mm3 (4.5-10.0)
--- NOTE | 2021-01-10 20:53 | ED.SOB ---
HPI - SOB/Dyspnea General Chief Complaint: Shortness of Breath/Dyspnea Stated Complaint: SOB/ [place]/ Covid + Source: RN notes reviewed History of Present Illness HPI Narrative: Patient presents emergency department from home via EMS for shortness of breath. Patient states he has had progressive shortness of breath over the past 2 days was worse today when EMS arrived patient was at 90% on room air and placed on 2 L nasal cannula patient also states he has had associated frontal headache with the symptoms. Patient states that he had been having upper respiratory symptoms for the past 5 days and went to see his PCP and received a positive COVID-19 test that was done yesterday states he has had both vaccinations with the second vaccination in September he denies any fevers or chills, chest pain abdominal pain nausea vomiting or any other symptoms Related Data Home Medications Medication Instructions Recorded Confirmed aspirin 81 mg tablet,delayed 81 mg PO DAILY 05/14/19 01/08/21 release cholecalciferol (vitamin D3) 75 3,000 unit PO DAILY 05/14/19 01/08/21 mcg (3,000 unit) tablet cinnamon bark 500 mg capsule 500 mg PO DAILY 05/14/19 01/08/21 pyridoxine (vitamin B6) 100 mg 100 mg PO DAILY 05/14/19 01/08/21 tablet valsartan 320 mg PO DAILY 01/10/21 01/10/21 Allergies Allergy/AdvReac Type Severity Reaction Status Date / Time isotretinoin Allergy Mild PANCREATIC Verified 01/10/21 23:30 EFFECTS escitalopram Allergy Unknown Nausea And Verified 01/10/21 23:30 Vomiting hydrocodone Allergy Unknown Unknown Verified 01/10/21 23:30 Review of Systems Review of Systems: Narrative: Gen.: Denies fevers or chills ENT: Denies congestion Respiratory: See HPI CV: Denies chest pain or palpitations GI: Denies abdominal pain nausea, emesis or diarrhea Musculoskeletal: Denies back pain or muscle pain Neuro: Denies numbness, tingling, weakness or focal weakness Skin: Denies rash Except as documented, all other systems reviewed and negative [facility] Past Medical History Medical History (Updated 01/11/21 @ 00:17 by Dilan Negro DO) Acute bronchitis Acute non-recurrent maxillary sinusitis Acute pain of left shoulder Arthritis Arthritis of both hands BMI 30.0-30.9,adult Carpal tunnel syndrome on both sides COVID-19 (01/03/21) COVID-19 01/03/2021 after being fully vaccinated in September 2020 Hearing loss Male erectile dysfunction, unspecified Osteoporosis Surgical History Surgical History H/O shoulder surgery left, Dr. eugene History of appendectomy History of cholecystectomy History of lumbar surgery 09/25/2018, Dr. Mi S/P left rotator cuff repair Status post bilateral knee replacements 05-12-09, Dr. Gonzalez Family History Family History Sibling Patient's sister is , Onset Age: 65 Family history of lung cancer Mother Family history of malignant neoplasm Family history of congestive heart failure, Onset Age: 96 Other Diabetes mellitus Family history of coronary artery disease Family history of malignant neoplasm of gastrointestinal tract Social History Social History Smoking status: Former smoker Alcohol intake: never Gender identity (if verbalized by the patient): Male Exam Narrative: Exam Narrative: APPEARANCE: No acute distress, nontoxic, resting in bed EYES: EOMI HEENT: Normocephalic, atraumatic, OMM RESPIRATORY: No respiratory distress wheezing the bilateral upper lung yung no rhonchi CARDIOVASCULAR: Regular rate and rhythm without murmurs rubs or gallops. ABDOMINAL: Soft, nontender, nondistended, no rebound or guarding MUSCULOSKELETAl: Moves all extremities. No clubbing, cyanosis or edema. NEURO: Awake and alert. Following commands, speech normal, no focal deficits SKIN:: Warm, dry. No rashes lesions or abr
[2021-01-10 20:57] LABS: Alanine Aminotransferase 25 U/L (4-50); Albumin Level 3.7 g/dL (3.5-5.1); Alkaline Phosphatase 79 U/L (38-126); Anion Gap 10 mmol/L (8-16); Aspartate Amino Transferase 40 U/L (17-59); Bilirubin,Total 0.3 mg/dL (0.2-1.3); Blood Urea Nitrogen 17 mg/dL (9-20); Calcium 8.5 mg/dL (8.4-10.2); Carbon Dioxide 25 mmol/L (22-30); Chloride 105 mmol/L (98-107); Estimated CRCL calculation 82 ml/min; Estimated Glomerular Filt Rate > 60; Glucose 108 mg/dL (75-110); Potassium 3.6 mmol/L (3.4-5.0); Sodium 140 mmol/L (137-145)
[2021-01-10] MEDS: ALBUTEROL SULFATE (*SP) AEROSOL 1 PUFF 2 PUFF INHALATION (21:05)
[2021-01-10 21:06] LABS: NT Pro B Type Natriuretic Pept 73 pg/mL (5-100)
[2021-01-10 21:16] VITALS: BP 147/81; PULSE 85; RESP 20; O2SAT 95
[2021-01-10 21:33] LABS: Prothrombin Time 12.6 Seconds (11.1-14.7)
[2021-01-10 21:34] LABS: Partial Thromboplastin Time 36.5 SECONDS (22.3-36.8)
[2021-01-10 22:42] VITALS: BP 146/77; PULSE 84; RESP 24; O2SAT 97
[2021-01-11] VITALS (10 sets, daily range): BP systolic 116–147; BP diastolic 56–88; PULSE 75–99; RESP 18–24; TEMP 36.3–37.1; O2SAT 92–97; BMI 29.3
--- NOTE | 2021-01-11 00:38 | PC.NURSE ---
This patient, Portillo Cooley, was admitted to [facility] Room [facility]01. Patient/family oriented to hospital policies and general routines including ID bracelet, bed and alarms, visiting hours, pain management, procedures, bathroom and other care routines, personal items, smoking policy, room service/diet, and visiting hours. Information on how to activate the Rapid Response Team has been discussed. Patient/Family are encouraged to report perceived risks to care and to ask questions if they do not understand what they are told or what they should do.
--- NOTE | 2021-01-11 01:17 | PCRCNOTE ---
Pt does not use a CPAP at home, and does not want one while here.
[2021-01-11] MEDS: DEXAMETHASONE SOD PHOS INJ 4 MG/ML VIAL 6 MG IV PUSH (01:33)
[2021-01-11 07:22] LABS: Hemoglobin 12.7 g/dL (14.0-18.0); Immature Granulocyte Absolute 0.04 K/mm3 (0.00-0.031); Immature Granulocyte Percent A 0.7 % (0-0.5); Lymphocytes Absolute Auto 0.41 K/mm3 (0.9-3.2); Lymphocytes Percent Auto 6.8 % (18.3-44.2); Mean Corpuscular HGB Conc 31.8 g/dl (32-36); Mean Corpuscular Hemoglobin 30.1 pg (26-34); Mean Corpuscular Volume 94.8 fl (80-100); Mean Platelet Volume 9.9 fl (7.4-10.4); Monocytes Absolute Auto 0.2 K/mm3 (0.1-0.6); Monocytes Percent Auto 3.5 % (2.6-8.5); Neutrophils Absolute Auto 5.4 K/mm3 (1.3-6.7); Platelet Count Result 296 k/mm3 (150-375); Red Blood Count 4.22 M/mm3 (4.6-6.20)
[2021-01-11 07:47] LABS: Alanine Aminotransferase 23 U/L (4-50); Albumin Level 3.5 g/dL (3.5-5.1); Alkaline Phosphatase 72 U/L (38-126); Anion Gap 10 mmol/L (8-16); Aspartate Amino Transferase 39 U/L (17-59); Bilirubin,Total 0.4 mg/dL (0.2-1.3); Blood Urea Nitrogen 17 mg/dL (9-20); Calcium 8.1 mg/dL (8.4-10.2); Carbon Dioxide 26 mmol/L (22-30); Chloride 103 mmol/L (98-107); Estimated CRCL calculation 82 ml/min; Estimated Glomerular Filt Rate > 60; Glucose 182 mg/dL (75-110); Potassium 4.4 mmol/L (3.4-5.0); Sodium 139 mmol/L (137-145)
--- NOTE | 2021-01-11 08:27 | PM.IMHP ---
H&P: HPI History of Present Illness Date/Time: 01/11/21 08:27 Chief Complaint: SOB Narrative: Pt is a 70-year-old male who has a past medical history hypertension, both his COVID-19 vaccines (Moderna), and T2DM who presented emergency room for shortness of breath after being COVID-19 positive. patient states he was at a car cruise with many friends last weekend and that next Tuesday he started feeling bad. His symptoms started as weakness and poor appetite with body aches. His friends at the car show ( who were also vaccinated) had similar symptoms but much more mild than he did and did not get tested. He still was not feeling well and started feeling short of breath Tuesday night so he went to his primary care physician on who tested him for COVID-19 the next day 01/09/21 and was positive. he came into the emergency room because his worsening shortness of breath. He states that he had some chest pain when he was very short of breath prior to the ambulance arriving. He said his muscles and chest hurt because he was trying so hard to breathe. Hes not had any CP here. He is not coughing much but is not taking big breaths because it hurts. No diarrhea, leg swelling, abdominal pain, nausea or vomiting. His appetite is good but he can't really smell or taste anything. Review of Systems Review of Systems: All systems reviewed & are unremarkable except as noted in HPI and below PMFSH Past Medical History Medical History (Updated 01/11/21 @ 08:54 by Kimberly Adams PA-C) Acute bronchitis Acute non-recurrent maxillary sinusitis Acute pain of left shoulder Arthritis Arthritis of both hands BMI 30.0-30.9,adult Carpal tunnel syndrome on both sides COVID-19 (01/03/21) COVID-19 01/03/2021 after being fully vaccinated in September 2020 Essential (primary) hypertension Hearing loss Male erectile dysfunction, unspecified Osteoporosis Surgical History Surgical History H/O shoulder surgery left, Dr. eugene History of appendectomy History of cholecystectomy History of lumbar surgery 09/25/2018, Dr. Mi S/P left rotator cuff repair Status post bilateral knee replacements 05-12-09, Dr. Gonzalez Family History Family History Sibling Patient's sister is , Onset Age: 65 Family history of lung cancer Mother Family history of malignant neoplasm Family history of congestive heart failure, Onset Age: 96 Other Diabetes mellitus Family history of coronary artery disease Family history of malignant neoplasm of gastrointestinal tract Social History Social History (Updated 01/11/21 @ 08:56 by Kimberly Adams PA-C) Social History: patient used to smoke cigarettes but quit in 1983. Prior to that he was smoking 2 packs per day. He also quit drinking in 1982. He does not do marijuana or any drugs. 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 If he is unable to make decisions for himself he would like his , sapphire, to make decisions for him. He would like to be a full code unless I am brain then I want to be taken off . Smoking packs per day: 1.5 Smoking cigarettes per day: 30.0 Smoking status: Former smoker Tobacco type: cigarettes Alcohol intake: never Substance use: never Gender identity (if verbalized by the patient): Male Spiritual care concerns: No Meds Home Medications and Allergies Home Medications Medication Instructions Recorded Confirmed Type aspirin 81 mg tablet,delayed 81 mg PO DAILY 05/14/19 01/11/21 History release cholecalciferol (vitamin D3) 75 1,000 unit PO DAILY 05/14/19 01/11/21 History mcg (3,000 unit) tablet cinnamon bark 500 mg capsule 1,000 mg PO DAILY 05/14/19 01/11/21 History cyanocobalamin (vitamin B-12) 1,000 mcg PO DAILY #30 tablet 05/14/19 01/11/21 Rx 1,000 mcg tablet amlodipine 10 mg tablet 10 mg PO DAILY #90 tablet 1
[2021-01-11 08:35] LABS: Glucose Point of Care 209 mg/dl (65-105)
[2021-01-11] MEDS: ENOXAPARIN 40 MG/0.4 ML SYRINGE SUB-Q ×2 (09:49→21:48)
[2021-01-11] MEDS: amLODIPine BESYLATE 5 MG TABLET 10 MG PO (09:49)
[2021-01-11] MEDS: CYANOCOBALAMIN 1,000 MCG TABLET 1000 MCG PO (09:49)
[2021-01-11] MEDS: buPROPion HCL XL (24 HR) 150 MG TABCR 300 MG PO (09:49)
[2021-01-11] MEDS: metFORMIN HCL XR 500 MG TAB.SR.24H 1000 MG PO ×2 (09:49→17:36)
[2021-01-11] MEDS: ASPIRIN 81 MG ENTERIC TABLET PO (09:49)
[2021-01-11] MEDS: REMDESIVIR 200 MG/NS 250 ML 200 MG/250 ML BAG 250 MG IVPB (09:50)
[2021-01-11 09:51] LABS: INR 0.9
[2021-01-11] MEDS: ALBUTEROL SULFATE (*SP) AEROSOL 1 PUFF 2 PUFF INHALATION ×3 (09:51→21:48)
[2021-01-11 09:59] LABS: CRP 12.1 mg/dL (<1.0); Lactate Dehydrogenase 438 U/L (313-618)
[2021-01-11] MEDS: INSULIN ASPART (*BKC) 100 UNITS/ML SUB-Q (17:36)
[2021-01-11 18:53] LABS: Glucose Point of Care 216 mg/dl (65-105)
[2021-01-11 22:07] LABS: Glucose Point of Care 151 mg/dl (65-105)
[2021-01-12] VITALS (15 sets, daily range): BP systolic 128–168; BP diastolic 68–84; PULSE 65–97; RESP 18–30; TEMP 36.3–36.8; O2SAT 91–95
[2021-01-12] MEDS: DEXAMETHASONE SOD PHOS INJ 4 MG/ML VIAL 6 MG IV PUSH (06:01)
[2021-01-12 06:55] LABS: Hematocrit 38.9 % (42.0-52.0); Hemoglobin 13.1 g/dL (14.0-18.0); Mean Corpuscular HGB Conc 33.7 g/dl (32-36); Mean Corpuscular Volume 92.2 fl (80-100); Mean Platelet Volume 9.5 fl (7.4-10.4); Platelet Count Result 292 k/mm3 (150-375); Red Blood Count 4.22 M/mm3 (4.6-6.20); White Blood Count 7.3 K/mm3 (4.5-10.0)
[2021-01-12 07:03] LABS: Alanine Aminotransferase 25 U/L (4-50); Anion Gap 9 mmol/L (8-16); Blood Urea Nitrogen 22 mg/dL (9-20); Calcium 8.5 mg/dL (8.4-10.2); Carbon Dioxide 25 mmol/L (22-30); Chloride 107 mmol/L (98-107); Estimated CRCL calculation 82 ml/min; Estimated Glomerular Filt Rate > 60; Glucose 112 mg/dL (75-110); Sodium 141 mmol/L (137-145)
[2021-01-12 07:22] LABS: Prothrombin Time 12.8 Seconds (11.1-14.7)
[2021-01-12] MEDS: ALBUTEROL SULFATE (*SP) AEROSOL 1 PUFF 2 PUFF INHALATION (09:02)
[2021-01-12 09:13] LABS: Glucose Point of Care 133 mg/dl (65-105)
[2021-01-12] MEDS: ALBUTEROL SULFATE NEB 2.5 MG/3 ML INH INHALATION ×3 (09:15→20:21)
[2021-01-12] MEDS: buPROPion HCL XL (24 HR) 150 MG TABCR 300 MG PO (10:06)
[2021-01-12] MEDS: ENOXAPARIN 40 MG/0.4 ML SYRINGE SUB-Q ×2 (10:06→21:30)
[2021-01-12] MEDS: metFORMIN HCL XR 500 MG TAB.SR.24H 1000 MG PO ×2 (10:06→18:08)
[2021-01-12] MEDS: amLODIPine BESYLATE 5 MG TABLET 10 MG PO (10:07)
[2021-01-12] MEDS: ASPIRIN 81 MG ENTERIC TABLET PO (10:07)
[2021-01-12] MEDS: REMDESIVIR 100 MG/NS 250 ML 100 MG/250 ML BAG 250 MG IVPB (10:07)
[2021-01-12] MEDS: PANTOPRAZOLE 40 MG TABLET PO (10:07)
[2021-01-12] MEDS: CYANOCOBALAMIN 1,000 MCG TABLET 1000 MCG PO (10:07)
[2021-01-12 10:22] LABS: SARS-CoV-2 IgG Reactive (NonReactive)
[2021-01-12 12:14] LABS: Glucose Point of Care 253 mg/dl (65-105)
[2021-01-12] MEDS: INSULIN ASPART (*BKC) 100 UNITS/ML SUB-Q ×3 (12:59→22:14)
--- NOTE | 2021-01-12 15:46 | PM.IMPN ---
Progress Note: A&P Assessment and Plan (1) Pneumonia due to COVID-19 virus: Code(s): U07.1 - COVID-19; J12.82 - Pneumonia due to coronavirus disease 2019 Status: Acute Assessment and Plan: patient tested COVID-19 positive 01/09/21 after starting have symptoms 01/05/21 -he has been fully vaccinated with Moderna in September; antibodies pending -Will start Remdesivir ( day 2) -continue Lovenox and Decadron (day 3) -Continue o2, albuterol, and continous pulse ox. Pt is taking shallow breaths, order incentive spirometer. I have encouraged deep breaths although the patient is not really participating. -Continue abx started by ER for possible secondary bacterial PNA (2) Acute respiratory failure with hypoxia: Code(s): J96.01 - Acute respiratory failure with hypoxia Status: Acute Assessment and Plan: 2/ to above -Continue o2 (3) Type 2 diabetes mellitus without complication, without long-term current use of insulin: Code(s): E11.9 - Type 2 diabetes mellitus without complications Status: Acute Assessment and Plan: Last glucose 253 -Continue metformin and SSI -A1c last May was 6.9 -Decadron will likely increase the glucose. Will adjust as needed. (4) Essential (primary) hypertension: Code(s): I10 - Essential (primary) hypertension Status: Acute Assessment and Plan: Last bp 142/84 -Continue home amlodipine valsartan Time Spent With Patient Time with patient: 25 - 35 minutes Subjective Date/time seen: 01/12/21 15:46 Interval history: Pt is a 70-year-old male here for COVID-19. Patient was seen today and states he feels better than yesterday. He is able to speak in longer sentences. He is eating and drinking well. He has no nausea, vomiting, fevers, chills, chest pain, abdominal pain or leg swelling. He still can't take a very big breath and when asked why he says he just can't Review of Systems Review of Systems: All systems reviewed & are unremarkable except as noted in HPI and below Exam Narrative: Exam Narrative: General:Well developed well nourished patient HEENT: Normocephalic, atraumatic, PERRL, Sclerae anicteric, oral mucosa moist. Neck: Supple Resp: patient is taking shallow breaths and shallow breathing. He has less conversational dyspnea and is wearing 4 L nasal cannula Heart: RRR with no murmurs. tele NSR. occasional PVCs on tele Abd: Soft, nontender. No pain to palpation. Positive bowel sounds Skin: Warm and dry Extremities: No swelling, erythema or pain to palpation Neuro: Alert and Oriented x4 . CN 2-12 intact. No focal neurological deficits. Objective Data Vital Signs Vital Signs: Vital Signs - 24 hr 01/11/21 16:00 01/11/21 20:00 01/11/21 20:35 Temperature 98.1 F 98.0 F Pulse Rate 88 82 Respiratory Rate 18 18 Blood Pressure 135/77 147/70 H Pulse Oximetry 94 96 92 01/12/21 00:00 01/12/21 04:00 01/12/21 08:00 Temperature 97.9 F 97.4 F L 97.5 F L Pulse Rate 68 74 79 Respiratory Rate 18 18 26 H Blood Pressure 128/72 140/68 163/77 H Pulse Oximetry 94 93 95 01/12/21 09:04 01/12/21 09:15 01/12/21 09:24 Temperature Pulse Rate 79 83 80 Respiratory Rate 26 H 20 22 H Blood Pressure Pulse Oximetry 95 01/12/21 12:00 01/12/21 13:10 01/12/21 14:46 Temperature 98.2 F Pulse Rate 67 82 84 Respiratory Rate 18 24 H Blood Pressure 142/84 H Pulse Oximetry 95 01/12/21 14:55 Temperature Pulse Rate 89 Respiratory Rate 24 H Blood Pressure Pulse Oximetry Intake/Output Intake/Output: Intake & Output 01/09/21 01/10/21 01/11/21 01/12/21 23:59 23:59 23:59 23:59 Intake Total 2370 990 Output Total 1250 350 Balance 1120 640 Meds/Results Medications: Active Medications Generic Name Dose Route Start Last Admin Trade Name Freq PRN Reason Stop Dose Admin Acetaminophen 650 mg 01/12/21 10:34 Acetaminophen 325 Mg Tablet PO Q6H PRN
[2021-01-12] MEDS: ACETAMINOPHEN 325 MG TABLET 650 MG PO (18:13)
[2021-01-12 18:16] LABS: Glucose Point of Care 382 mg/dl (65-105)
[2021-01-12 21:39] LABS: Glucose Point of Care 320 mg/dl (65-105)
[2021-01-13] VITALS (24 sets, daily range): BP systolic 115–161; BP diastolic 65–78; PULSE 61–112; RESP 16–24; TEMP 36.3–36.7; O2SAT 78–100
[2021-01-13 00:25] LABS: Glucose Point of Care 227 mg/dl (65-105)
[2021-01-13] MEDS: ALBUTEROL SULFATE NEB 2.5 MG/3 ML INH INHALATION ×4 (02:31→20:36)
--- NOTE | 2021-01-13 04:46 | PC.NURSE ---
pt dessatting to the high 70s when getting up to bathroom. Is normally on 6L w activity. increased to 15 L hi jason via NC. pulse ox still reading in the low 80s. Hospitalist made aware. ordered to apply non-rebreather and have pt be bedrest and attempt to wean if O2 sats increase. non-rebreather mask applied when in bed. RT at bedside. Pt stated he got flustered when in bathroom d/t having a BM accident and made him anxious.denies SOB. O2 decreased to 10L. wearing both mask and nasal cannula. pt states he breathes mostly through mouth. pulse ox reading 96% now. will ctm.
[2021-01-13 06:56] LABS: Basophils Percent Auto 0.1 % (0.2-1.2); Hematocrit 41.4 % (42.0-52.0); Hemoglobin 13.4 g/dL (14.0-18.0); Immature Granulocyte Absolute 0.08 K/mm3 (0.00-0.031); Immature Granulocyte Percent A 0.9 % (0-0.5); Lymphocytes Absolute Auto 0.81 K/mm3 (0.9-3.2); Lymphocytes Percent Auto 8.7 % (18.3-44.2); Mean Corpuscular HGB Conc 32.4 g/dl (32-36); Mean Corpuscular Hemoglobin 30.3 pg (26-34); Mean Corpuscular Volume 93.7 fl (80-100); Mean Platelet Volume 9.2 fl (7.4-10.4); Monocytes Absolute Auto 0.9 K/mm3 (0.1-0.6); Monocytes Percent Auto 9.8 % (2.6-8.5); Neutrophils Absolute Auto 7.5 K/mm3 (1.3-6.7); Neutrophils Percent Auto 80.5 % (45.5-73.1); Platelet Count Result 327 k/mm3 (150-375); Red Blood Count 4.42 M/mm3 (4.6-6.20); White Blood Count 9.3 K/mm3 (4.5-10.0)
[2021-01-13 08:35] LABS: Alanine Aminotransferase 27 U/L (4-50); Albumin Level 3.7 g/dL (3.5-5.1); Alkaline Phosphatase 88 U/L (38-126); Anion Gap 12 mmol/L (8-16); Aspartate Amino Transferase 37 U/L (17-59); Bilirubin,Total 0.3 mg/dL (0.2-1.3); Blood Urea Nitrogen 22 mg/dL (9-20); CRP 10.9 mg/dL (<1.0); Carbon Dioxide 25 mmol/L (22-30); Chloride 106 mmol/L (98-107); Estimated CRCL calculation 82 ml/min; Estimated Glomerular Filt Rate > 60; Glucose 125 mg/dL (75-110); Lactate Dehydrogenase 517 U/L (313-618); Magnesium 2.1 mg/dL (1.6-2.3); Potassium 3.8 mmol/L (3.4-5.0); Sodium 143 mmol/L (137-145)
[2021-01-13 09:27] LABS: Glucose Point of Care 133 mg/dl (65-105)
[2021-01-13] MEDS: ASPIRIN 81 MG ENTERIC TABLET PO (09:34)
[2021-01-13] MEDS: ENOXAPARIN 40 MG/0.4 ML SYRINGE SUB-Q ×2 (09:34→21:23)
[2021-01-13] MEDS: VALSARTAN 160 MG TABLET 320 MG PO (09:34)
[2021-01-13] MEDS: INSULIN GLARGINE (*BKC) 100 UNITS/ML 10 UNITS SUB-Q (09:34)
[2021-01-13] MEDS: PANTOPRAZOLE 40 MG TABLET PO (09:35)
[2021-01-13] MEDS: amLODIPine BESYLATE 5 MG TABLET 10 MG PO (09:35)
[2021-01-13] MEDS: CYANOCOBALAMIN 1,000 MCG TABLET 1000 MCG PO (09:35)
[2021-01-13] MEDS: metFORMIN HCL XR 500 MG TAB.SR.24H 1000 MG PO ×2 (09:35→17:56)
[2021-01-13] MEDS: buPROPion HCL XL (24 HR) 150 MG TABCR 300 MG PO (09:35)
[2021-01-13] MEDS: DEXAMETHASONE SOD PHOS INJ 4 MG/ML VIAL 6 MG IV PUSH (09:36)
--- NOTE | 2021-01-13 09:46 | PCOTNOTE ---
Attempted OT evaluation, per RN patient has increased respiratory needs at this time and to hold therapy until afternoon. Will follow and attempt at later time.
--- NOTE | 2021-01-13 10:36 | PCPTNOTE ---
Attempted PT evaluation, per RN patient has increased respiratory needs at this time and to hold therapy until afternoon. Will follow and attempt at later time. RAFFI LloydT
[2021-01-13 10:51] LABS: Alveolar/Arterial O2 Gradient 587.1 mmHg; Base Excess ABG 0.9 mEq/l (+/-2.0); Carboxyhemoglobin 0.3 % THb (0-2.0); Fractional Inspired Oxygen 100 %; HCO3 ABG 25.8 mEq/l (22.0-26.0); Methemoglobin ABG 0.4 %THb (0-1.5); Oxygen Content ABG 18.9 %vol (16.0-22.0); Oxygen Saturation ABG 96.3 % (95.0-100.0); Oxyhemoglobin 95.2 % THb (90.0-100.0); PO2 ABG 83.9 mmHg (80.0-100.0); PO2 FiO2 Ratio Arterial Blood 0.84 %; Reduced Hemoglobin 4.1 %THb (0-5.0); Total Hemoglobin 14.1 g/dL (12.0-18.0)
[2021-01-13 10:52] LABS: Modified Allen's Test Pass; Site Drawn RIGHT RADIAL
[2021-01-13 10:53] LABS: Device NON-REBREATHER MASK
[2021-01-13 10:54] LABS: pH ABG 7.406 (7.350-7.450)
[2021-01-13] MEDS: REMDESIVIR 100 MG/NS 250 ML 100 MG/250 ML BAG 250 MG IVPB (11:06)
[2021-01-13] MEDS: ACETAMINOPHEN 325 MG TABLET 650 MG PO (11:07)
--- NOTE | 2021-01-13 12:52 | PCOTNOTE ---
Attempted OT evaluation, per RN hold therapy for today due to increased oxygen needs at this time. Will follow and attempt in AM.
--- NOTE | 2021-01-13 13:22 | PCPTNOTE ---
Attempted PT evaluation, per RN hold therapy for today due to increased oxygen needs at this time. Will follow. RAFFI LloydT
--- NOTE | 2021-01-13 13:22 | PM.IMPN ---
Progress Note: A&P Assessment and Plan (1) Pneumonia due to COVID-19 virus: Code(s): U07.1 - COVID-19; J12.82 - Pneumonia due to coronavirus disease 2019 Status: Acute Assessment and Plan: patient tested COVID-19 positive 01/09/21 after starting have symptoms 01/05/21 -he has been fully vaccinated with Moderna in September; antibodies pending -Will start Remdesivir ( day 3) -continue Lovenox and Decadron (day 4) -Pt now requiring 15L of o2 at rest. His abg with this is perfect. Will wean down little bit -He has significant MOSCOSO with hypoxia, will continue bed rest -Continue o2, albuterol, and continuos pulse ox. Pt is taking shallow breaths -I have encouraged deep breaths and reviewed the incentive spirometer with him. He may have an anxiety component to the big breaths because when he is talking he can take deep breaths but when I ask him to breath deeply he is very choppy. -Continue abx started by ER for possible secondary bacterial PNA -guarded prognosis since he went from 4L-15L over night. Check CXR. ABG looks good. (2) Acute respiratory failure with hypoxia: Code(s): J96.01 - Acute respiratory failure with hypoxia Status: Acute Assessment and Plan: 2/2 to above -Continue o2 (3) Type 2 diabetes mellitus without complication, without long-term current use of insulin: Code(s): E11.9 - Type 2 diabetes mellitus without complications Status: Acute Assessment and Plan: Last glucose 133 -Continue metformin and SSI -A1c last May was 6.9 -Decadron will likely increase the glucose. Will adjust treatment as needed. (4) Essential (primary) hypertension: Code(s): I10 - Essential (primary) hypertension Status: Acute Assessment and Plan: Last bp 115/67 -Continue home amlodipine and valsartan Subjective Date/time seen: 01/13/21 13:22 Interval history: Pt is a 70-year-old male here for COVID-19. Patient was seen today and doing about the same. He had some hypoxia and shortness of breath while walking to the bathroom this morning that freaked him out. He says he still can't take big breaths without the air escaping him . He says the breathing treatments really do help him. He has not been using the spirometer because someone told him not to both with it . He is able to speak in longer sentences. He is eating and drinking well. He has no nausea, vomiting, fevers, chills, chest pain, abdominal pain or leg swelling. Exam Narrative: Exam Narrative: General:Well developed well nourished patient HEENT: Normocephalic, atraumatic, PERRL, Sclerae anicteric, oral mucosa moist. Neck: Supple Resp: patient is taking shallow breaths and shallow breathing. He has less conversational dyspnea and is wearing 15 L nasal cannula Heart: RRR with no murmurs. tele NSR. occasional PVCs on tele Abd: Soft, nontender. No pain to palpation. Positive bowel sounds Skin: Warm and dry Extremities: No swelling, erythema or pain to palpation Neuro: Alert and Oriented x4 . CN 2-12 intact. No focal neurological deficits. Objective Data Vital Signs Vital Signs: Vital Signs - 24 hr 01/12/21 14:46 01/12/21 14:55 01/12/21 16:00 Temperature Pulse Rate 84 89 96 Respiratory Rate 24 H 24 H Blood Pressure Pulse Oximetry 01/12/21 16:40 01/12/21 20:00 01/12/21 20:25 Temperature 97.7 F 98 F Pulse Rate 97 89 82 Respiratory Rate 20 20 30 H Blood Pressure 168/81 H 132/72 Pulse Oximetry 92 92 91 01/12/21 20:41 01/13/21 00:00 01/13/21 02:35 Temperature 97.6 F Pulse Rate 93 63 72 Respiratory Rate 28 H 20 24 H Blood Pressure 145/73 H Pulse Oximetry 93 92 01/13/21 02:43 01/13/21 03:50 01/13/21 03:52 Temperature Pulse Rate 75 Respiratory Rate 24 H Blood Pressure Pulse Oximetry 80 L 78 L 01/13/21 03:55 01/13/21 04:00 01/13/21 04:15 Temperature 97.9 F Pulse Rate 88 Respiratory Rate 24 H Blood Pressure 149/74
[2021-01-13 13:58] LABS: Glucose Point of Care 208 mg/dl (65-105)
[2021-01-13] MEDS: INSULIN ASPART (*BKC) 100 UNITS/ML SUB-Q (14:44)
[2021-01-13 18:01] LABS: Glucose Point of Care 171 mg/dl (65-105)
[2021-01-13 20:47] LABS: Glucose Point of Care 185 mg/dl (65-105)
[2021-01-14] VITALS (26 sets, daily range): BP systolic 132–138; BP diastolic 64–73; PULSE 61–104; RESP 18–28; TEMP 36.5–36.8; O2SAT 77–94
[2021-01-14] MEDS: ALBUTEROL SULFATE NEB 2.5 MG/3 ML INH INHALATION ×3 (02:51→13:59)
[2021-01-14 06:45] LABS: Hematocrit 41.8 % (42.0-52.0); Hemoglobin 13.3 g/dL (14.0-18.0); Mean Corpuscular HGB Conc 31.8 g/dl (32-36); Mean Corpuscular Hemoglobin 30.2 pg (26-34); Mean Platelet Volume 9.9 fl (7.4-10.4); Platelet Count Result 366 k/mm3 (150-375); Red Cell Distribution Width 13.2 % (11.5-14.5); White Blood Count 9.6 K/mm3 (4.5-10.0)
[2021-01-14 07:10] LABS: Alanine Aminotransferase 25 U/L (4-50); Albumin Level 3.5 g/dL (3.5-5.1); Alkaline Phosphatase 85 U/L (38-126); Anion Gap 8 mmol/L (8-16); Aspartate Amino Transferase 37 U/L (17-59); Bilirubin,Total 0.3 mg/dL (0.2-1.3); Blood Urea Nitrogen 24 mg/dL (9-20); CRP 7.9 mg/dL (<1.0); Calcium 8.9 mg/dL (8.4-10.2); Carbon Dioxide 30 mmol/L (22-30); Chloride 106 mmol/L (98-107); Estimated CRCL calculation 93 ml/min; Estimated Glomerular Filt Rate > 60; Glucose 153 mg/dL (75-110); Lactate Dehydrogenase 521 U/L (313-618); Magnesium 2.1 mg/dL (1.6-2.3); Sodium 144 mmol/L (137-145)
[2021-01-14 07:58] LABS: Prothrombin Time 13.1 Seconds (11.1-14.7)
[2021-01-14 08:12] LABS: Glucose Point of Care 135 mg/dl (65-105)
[2021-01-14] MEDS: REMDESIVIR 100 MG/NS 250 ML 100 MG/250 ML BAG 250 MG IVPB (09:41)
[2021-01-14] MEDS: VALSARTAN 160 MG TABLET 320 MG PO (09:42)
[2021-01-14] MEDS: INSULIN GLARGINE (*BKC) 100 UNITS/ML 10 UNITS SUB-Q (09:42)
[2021-01-14] MEDS: CYANOCOBALAMIN 1,000 MCG TABLET 1000 MCG PO (09:43)
[2021-01-14] MEDS: DEXAMETHASONE SOD PHOS INJ 4 MG/ML VIAL 6 MG IV PUSH (09:43)
[2021-01-14] MEDS: buPROPion HCL XL (24 HR) 150 MG TABCR 300 MG PO (09:43)
[2021-01-14] MEDS: amLODIPine BESYLATE 5 MG TABLET 10 MG PO (09:44)
[2021-01-14] MEDS: metFORMIN HCL XR 500 MG TAB.SR.24H 1000 MG PO ×2 (09:44→17:39)
[2021-01-14] MEDS: ASPIRIN 81 MG ENTERIC TABLET PO (09:44)
[2021-01-14] MEDS: ENOXAPARIN 40 MG/0.4 ML SYRINGE SUB-Q ×2 (09:44→22:14)
[2021-01-14] MEDS: PANTOPRAZOLE 40 MG TABLET PO (09:46)
[2021-01-14] MEDS: busPIRone HCL 5 MG TABLET PO ×2 (10:01→22:13)
[2021-01-14] MEDS: guaiFENesin 12 HR 600 MG TABCR PO ×2 (10:01→22:13)
--- NOTE | 2021-01-14 12:39 | PM.IMPN ---
Progress Note: A&P Assessment and Plan (1) Pneumonia due to COVID-19 virus: Code(s): U07.1 - COVID-19; J12.82 - Pneumonia due to coronavirus disease 2019 Status: Acute Assessment and Plan: patient tested COVID-19 positive 01/09/21 after starting have symptoms 01/05/21 -he has been fully vaccinated with Moderna in September; antibodies present, no benefit of plasma. -Continue Remdesivir ( day 4) -continue Lovenox and Decadron (day 5) -Pt now on 50L with 80%FIO2 via airvo. -He has significant MOSCOSO with hypoxia, will continue bed rest -Continue o2, albuterol, and continuos pulse ox. Pt is taking shallow breaths. Start mucinex -I have encouraged deep breaths and reviewed the incentive spirometer with him. He may have an anxiety component, buspar started -Continue abx started by ER for possible secondary bacterial PNA -guarded prognosis since he went from 4L-->15L quickly. -CXR 01/13/21 shows worsening PNA (2) Acute respiratory failure with hypoxia: Code(s): J96.01 - Acute respiratory failure with hypoxia Status: Acute Assessment and Plan: 2/2 to above -Continue o2 (3) Type 2 diabetes mellitus without complication, without long-term current use of insulin: Code(s): E11.9 - Type 2 diabetes mellitus without complications Status: Acute Assessment and Plan: Last glucose 152 -Continue metformin and SSI -A1c last May was 6.9 -Decadron will likely increase the glucose. Will adjust treatment as needed. (4) Essential (primary) hypertension: Code(s): I10 - Essential (primary) hypertension Status: Acute Assessment and Plan: Last bp 135/67 -Continue home amlodipine and valsartan Subjective Date/time seen: 01/14/21 12:39 Interval history: Pt is a 70-year-old male here for COVID-19. Patient was seen today and doing about the same. He start arvo and thinks it is helping him breath deeper. He continues to cough but can't get anything up. He says he still can't take big breaths without the air escaping him . He says the breathing treatments really do help him. He is eating and drinking well. He has no nausea, vomiting, fevers, chills, chest pain, abdominal pain or leg swelling. Exam Narrative: Exam Narrative: General:Well developed well nourished patient HEENT: Normocephalic, atraumatic, PERRL, Sclerae anicteric, oral mucosa moist. Neck: Supple Resp: patient is taking shallow breaths and shallow breathing. He has less conversational dyspnea and is wearing airvo. Heart: RRR with no murmurs. tele NSR. occasional PVCs on tele Abd: Soft, nontender. No pain to palpation. Positive bowel sounds Skin: Warm and dry Extremities: No swelling, erythema or pain to palpation Neuro: Alert and Oriented x4 . CN 2-12 intact. No focal neurological deficits. Objective Data Vital Signs Vital Signs: Vital Signs - 24 hr 01/13/21 14:05 01/13/21 14:59 01/13/21 15:10 Temperature 97.8 F Pulse Rate 93 75 68 Respiratory Rate 22 H 24 H 24 H Blood Pressure 154/70 H Pulse Oximetry 93 01/13/21 16:00 01/13/21 20:00 01/13/21 20:36 Temperature 97.4 F L 98.0 F Pulse Rate 79 112 H 72 Respiratory Rate 22 H 20 24 H Blood Pressure 145/72 H 161/78 H Pulse Oximetry 93 93 01/13/21 20:50 01/13/21 23:54 01/14/21 00:00 Temperature 98.0 F Pulse Rate 75 70 92 Respiratory Rate 24 H 20 Blood Pressure 149/65 H Pulse Oximetry 97 100 01/14/21 00:20 01/14/21 02:52 01/14/21 03:00 Temperature Pulse Rate 78 81 Respiratory Rate 24 H 24 H Blood Pressure Pulse Oximetry 85 L 01/14/21 04:00 01/14/21 04:15 01/14/21 04:58 Temperature 97.7 F Pulse Rate 97 Respiratory Rate 22 H Blood Pressure 138/64 Pulse Oximetry 82 L 93 77 L 01/14/21 05:06 01/14/21 08:00 01/14/21 08:51 Temperature 98.2 F Pulse Rate 95 88 Respiratory Rate 18 22 H Blood Pressure 135/67 Pulse Oximetry 91 91 91 01/14/21 09:03 01/14/21 09:50 07
[2021-01-14 12:43] LABS: Glucose Point of Care 152 mg/dl (65-105)
--- NOTE | 2021-01-14 14:50 | PCPTNOTE ---
Attempted PT eval. Clark RN stated to hold PT as pt having decline in respiratory status and transfer to IMU. Will try again tomorrow.
--- NOTE | 2021-01-14 15:15 | PC.NURSE ---
Report given to KEEGAN Zimmer in IMU. Patient made aware of transfer.
--- NOTE | 2021-01-14 16:33 | PC.NURSE ---
This patient, Portillo Swanson Cooley, was received from [facility] on 01/14/21 at 1633. Report received from KEEGAN Clark. Patient oriented to unit policies and routines
[2021-01-14 17:15] LABS: Glucose Point of Care 210 mg/dl (65-105)
[2021-01-14] MEDS: INSULIN ASPART (*BKC) 100 UNITS/ML SUB-Q (17:39)
[2021-01-14 21:34] LABS: Glucose Point of Care 155 mg/dl (65-105)
[2021-01-14] MEDS: ALBUTEROL SULFATE NEB 2.5 MG/3 ML INH (21:34)
[2021-01-15] VITALS (22 sets, daily range): BP systolic 122–156; BP diastolic 68–81; PULSE 65–105; RESP 19–26; TEMP 36.4–37.3; O2SAT 88–95
[2021-01-15] MEDS: ALBUTEROL SULFATE NEB 2.5 MG/3 ML INH INHALATION ×4 (03:00→22:02)
[2021-01-15 05:54] LABS: Prothrombin Time 13.3 Seconds (11.1-14.7)
[2021-01-15 05:55] LABS: Alanine Aminotransferase 27 U/L (4-50); Estimated CRCL calculation 82 ml/min; Estimated Glomerular Filt Rate > 60
[2021-01-15 08:03] LABS: Glucose Point of Care 140 mg/dl (65-105)
[2021-01-15] MEDS: VALSARTAN 160 MG TABLET 320 MG PO (09:23)
[2021-01-15] MEDS: metFORMIN HCL XR 500 MG TAB.SR.24H 1000 MG PO ×2 (09:23→17:16)
[2021-01-15] MEDS: amLODIPine BESYLATE 5 MG TABLET 10 MG PO (09:23)
[2021-01-15] MEDS: ENOXAPARIN 40 MG/0.4 ML SYRINGE SUB-Q ×2 (09:23→21:42)
[2021-01-15] MEDS: CYANOCOBALAMIN 1,000 MCG TABLET 1000 MCG PO (09:24)
[2021-01-15] MEDS: PANTOPRAZOLE 40 MG TABLET PO (09:24)
[2021-01-15] MEDS: buPROPion HCL XL (24 HR) 150 MG TABCR 300 MG PO (09:24)
[2021-01-15] MEDS: guaiFENesin 12 HR 600 MG TABCR PO ×2 (09:24→21:42)
[2021-01-15] MEDS: INSULIN GLARGINE (*BKC) 100 UNITS/ML 10 UNITS SUB-Q (09:25)
[2021-01-15] MEDS: DEXAMETHASONE SOD PHOS INJ 4 MG/ML VIAL 6 MG IV PUSH (09:25)
[2021-01-15] MEDS: ASPIRIN 81 MG ENTERIC TABLET PO (09:25)
--- NOTE | 2021-01-15 10:10 | PCPTNOTE ---
Spoke w/ Dr Ledezma regarding pt's decliine in medical status w/ transfer to IMU. He stated to hold PT today and check again tomorrow.
--- NOTE | 2021-01-15 11:46 | PCOTNOTE ---
Hold skilled OT this date due to decline in medical status. Will attempt OT when medically appropriate
[2021-01-15 12:15] LABS: Glucose Point of Care 165 mg/dl (65-105)
[2021-01-15] MEDS: busPIRone HCL 5 MG TABLET PO ×2 (12:55→21:42)
[2021-01-15] MEDS: REMDESIVIR 100 MG/NS 250 ML 100 MG/250 ML BAG 250 MG IVPB (12:55)
--- NOTE | 2021-01-15 13:35 | PM.IMPN ---
Progress Note: A&P Assessment and Plan (1) Acute respiratory failure with hypoxia: Code(s): J96.01 - Acute respiratory failure with hypoxia Status: Acute Assessment and Plan: Patient with acute hypoxic respiratory failure related to COVID-19. He has completed red does severe. He remains on dexamethasone. CTA chest 01/11 showing no PE but showing COVID. Oxygen requirement is increasing these now to 60 L and 90% Airvo and mask. BuSpar was started for anxiety symptoms. Will check ABG to exclude hypercarbia. Pulmonary consult. Wean oxygen as tolerated. Encourage incentive spirometry use. (2) Pneumonia due to COVID-19 virus: Code(s): U07.1 - COVID-19; J12.82 - Pneumonia due to coronavirus disease 2019 Status: Acute Assessment and Plan: Patient tested COVID-19 positive 01/09/21 after starting have symptoms 01/05/21. He was fully vaccinated with Moderna in September; antibodies present, no benefit of plasma. He completed Remdesivir x5 days. Continue Decadron (Day 5). Continue supplemental O2, albuterol, mucinex and continuos pulse ox. Remains on abx started by ER for possible secondary bacterial PNA though felt less likely. Repeat Remdesivir for another 5 days. (3) Type 2 diabetes mellitus without complication, without long-term current use of insulin: Code(s): E11.9 - Type 2 diabetes mellitus without complications Status: Acute Assessment and Plan: A1c 6.9 in May 2020. The patient's blood glucose was reviewed on 01/15 Glucose remains well controlled. Continue AccuCheks covering with sliding scale. Hypoglycemia protocol available as needed. Continue current medications with metformin and lantus. (4) Essential (primary) hypertension: Code(s): I10 - Essential (primary) hypertension Status: Acute Assessment and Plan: Patient's blood pressure was reviewed on 01/15. Blood pressure elevated at times but overall well controlled. Will continue current medications with home amlodipine and valsartan (5) DVT prophylaxis: Code(s): Z29.9 - Encounter for prophylactic measures, unspecified Status: Acute Assessment and Plan: Lovenox Subjective Date/time seen: 01/15/21 13:35 Interval history: 70yo male here for COVID-19. Assuming care. Chart reviewed. Patient states he feels anxious at times. This is a long-standing problem. He had some mild epigastric /lower chest pain better or after it belching. Shortness of breath is about the same. Cough is improved. Exam Narrative: Exam Narrative: AF 97.7 156/81 92 24 90% 60L 90% AirVo with NRB mask Gen - mildly tachypneic especially when talking Chest - mid and lower lung yung with inspiratory crackles CV - RRR S1/S2; Tele showing no significnant dysrhythmias Abd - Soft, NT/ND, Positive BS Ext - No pedal edema Psych - mildly anxious Skin - Warm and dry Objective Data Vital Signs Vital Signs: Vital Signs - 24 hr 01/14/21 14:01 01/14/21 14:10 01/14/21 14:54 Temperature Pulse Rate 83 77 65 Respiratory Rate 24 H 22 H 22 H Blood Pressure Pulse Oximetry 92 01/14/21 16:00 01/14/21 16:40 01/14/21 16:50 Temperature 97.9 F Pulse Rate 85 88 Respiratory Rate 20 20 Blood Pressure 134/73 Pulse Oximetry 94 91 92 01/14/21 18:00 01/14/21 20:00 01/14/21 21:34 Temperature 97.9 F Pulse Rate 76 61 95 Respiratory Rate 28 H 24 H Blood Pressure 132/72 Pulse Oximetry 93 01/14/21 21:49 01/14/21 21:50 01/14/21 22:00 Temperature Pulse Rate 89 61 Respiratory Rate 24 H Blood Pressure Pulse Oximetry 91 01/15/21 00:00 01/15/21 02:00 01/15/21 02:45 Temperature 97.9 F Pulse Rate 66 84 90 Respiratory Rate 24 H 24 H Blood Pressure 125/79 Pulse Oximetry 95 01/15/21 03:01 01/15/21 04:00 01/15/21 06:00 Temperature 97.8 F Pulse Rate 79 65 66 Respiratory Rate 24 H 22 H Blood Pressure 129/75 Pulse Oximetry 90 0
[2021-01-15 15:21] LABS: Alveolar/Arterial O2 Gradient 615.2 mmHg; Base Excess ABG 1.8 mEq/l (+/-2.0); Fractional Inspired Oxygen 100 %; HCO3 ABG 25.5 mEq/l (22.0-26.0); Oxygen Content ABG 18.1 %vol (16.0-22.0); Oxygen Saturation ABG 92.6 % (95.0-100.0); Oxyhemoglobin 91.2 % THb (90.0-100.0); PCO2 ABG 36.9 mmHg (35.0-45.0); PO2 ABG 60.9 mmHg (80.0-100.0); PO2 FiO2 Ratio Arterial Blood 0.61 %; Total Hemoglobin 14.1 g/dL (12.0-18.0); pH ABG 7.457 (7.350-7.450)
[2021-01-15 15:22] LABS: Device HIGH FLOW THERAPY; Modified Allen's Test Pass; Site Drawn LEFT RADIAL
[2021-01-15 16:16] LABS: Glucose Point of Care 171 mg/dl (65-105)
--- NOTE | 2021-01-15 17:04 | PCRCNOTE ---
PT. STATES HE HAS A HOME CPAP BUT HAS NOT WORN IT IN YEARS.
--- NOTE | 2021-01-15 18:53 | PM.CNPUL ---
Assessment and Plan Assessment and plan (1) Acute respiratory failure with hypoxia: Code(s): J96.01 - Acute respiratory failure with hypoxia Status: Acute Assessment and Plan: COVID pneumonia with acute hypoxemic respiratory failure, on high amounts of O2, Airvo 60 L/min and 90% with progressive infiltrates; has had no convalescent plasma as he has antibodies that prevent cross match. He has had remdesivir and dexamethasone, is not able to tolerate being prone. He is at risk for deterioration. He is a full code, wants intubation if absolutely necessary. He is receiving DVT prophylaxis with enoxaparin, and glucose control, as well as azithromycin and ceftriaxone for empiric coverage of community acquired co-pathogens. (2) Pneumonia due to COVID-19 virus: Code(s): U07.1 - COVID-19; J12.82 - Pneumonia due to coronavirus disease 2018 Status: Acute Assessment and Plan: see above History of Present Illness History of Present Illness Consult date: 01/15/21 Requesting physician: Prasad Ledezma MD Chief complaint: COVID 19, Hypoxia Narrative: NEW: Portillo Cooley is a 70-year-old man who has had a COVID vaccine; a week ago on a Tuesday night he was with a group of 7 people eating dinner at a restaurant. The next day he developed cough, runny nose, and later shortness of breath. His symptoms worsen. The following Tuesday his COVID test was positive. Was more short of breath. He presents to the hospital and was admitted. He is currently on 60 L a minute and 90% as well as a high-flow nasal cannula. Chest CTA on 01/11/2021 = No pulmonary embolus. 2. 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 He cannot have convalescent plasma due to antibodies. He has had Remdesivir and dexamethasone. He is eating with reduced appetite. Smoked until 1984. worked in the [employer]. Has shortness of breath with exertion at baseline. He does not take inhalers for any lung disease. Has EKTA and is not on treatment for this. Review of Systems Review of Systems: All systems reviewed & are unremarkable except as noted in HPI and below (HPI) [facility] Past Medical History Medical History Acute bronchitis Acute non-recurrent maxillary sinusitis Acute pain of left shoulder Arthritis Arthritis of both hands BMI 30.0-30.9,adult Carpal tunnel syndrome on both sides COVID-19 (01/03/21) COVID-19 01/03/2021 after being fully vaccinated in September 2020 Essential (primary) hypertension Hearing loss Male erectile dysfunction, unspecified Osteoporosis Surgical History Surgical History H/O shoulder surgery left, Dr. eugene History of appendectomy History of cholecystectomy History of lumbar surgery 09/25/2018, Dr. Mi S/P left rotator cuff repair Status post bilateral knee replacements 05-12-09, Dr. Gonzalez Family History Family History Sibling Patient's sister is , Onset Age: 65 Family history of lung cancer Mother Family history of malignant neoplasm Family history of congestive heart failure, Onset Age: 96 Other Diabetes mellitus Family history of coronary artery disease Family history of malignant neoplasm of gastrointestinal tract Social History Social History Social History: patient used to smoke cigarettes but quit in 1983. Prior to that he was smoking 2 packs per day. He also quit drinking in 1982. He does not do marijuana or any drugs. He is retired [employer] worker. If he is unable to make decisions for himself he would like his , sapphire, to make decisions for him. He would like to be a full code unless I am brain then I want t
[2021-01-15 20:22] LABS: Glucose Point of Care 197 mg/dl (65-105)
[2021-01-15 23:54] LABS: Alveolar/Arterial O2 Gradient 621.6 mmHg; Base Excess ABG 0.6 mEq/l (+/-2.0); Carboxyhemoglobin 0.3 % THb (0-2.0); Fractional Inspired Oxygen 100 %; HCO3 ABG 24.4 mEq/l (22.0-26.0); Methemoglobin ABG 0.4 %THb (0-1.5); Oxygen Content ABG 16.9 %vol (16.0-22.0); Oxygen Saturation ABG 89.9 % (95.0-100.0); Oxyhemoglobin 88.4 % THb (90.0-100.0); PCO2 ABG 36.5 mmHg (35.0-45.0); PO2 ABG 54.9 mmHg (80.0-100.0); PO2 FiO2 Ratio Arterial Blood 0.55 %; Reduced Hemoglobin 10.9 %THb (0-5.0); Total Hemoglobin 13.6 g/dL (12.0-18.0); pH ABG 7.443 (7.350-7.450)
[2021-01-15 23:55] LABS: Device HIGH FLOW THERAPY; Modified Allen's Test Pass; Site Drawn RIGHT RADIAL
[2021-01-16] VITALS (24 sets, daily range): BP systolic 100–150; BP diastolic 56–79; PULSE 61–99; RESP 16–42; TEMP 36.1–37.1; O2SAT 90–98
[2021-01-16] MEDS: ALBUTEROL SULFATE NEB 2.5 MG/3 ML INH INHALATION ×3 (03:53→21:15)
[2021-01-16 05:27] LABS: Hematocrit 39.9 % (42.0-52.0); Hemoglobin 13.4 g/dL (14.0-18.0); Mean Corpuscular HGB Conc 33.6 g/dl (32-36); Mean Corpuscular Hemoglobin 30.9 pg (26-34); Mean Corpuscular Volume 92.1 fl (80-100); Mean Platelet Volume 9.6 fl (7.4-10.4); Platelet Count Result 373 k/mm3 (150-375); Red Blood Count 4.33 M/mm3 (4.6-6.20); Red Cell Distribution Width 13.1 % (11.5-14.5); White Blood Count 13.3 K/mm3 (4.5-10.0)
[2021-01-16 05:39] LABS: Alanine Aminotransferase 27 U/L (4-50); Albumin Level 3.5 g/dL (3.5-5.1); Alkaline Phosphatase 93 U/L (38-126); Anion Gap 9 mmol/L (8-16); Aspartate Amino Transferase 38 U/L (17-59); Bilirubin,Total 0.5 mg/dL (0.2-1.3); Blood Urea Nitrogen 28 mg/dL (9-20); CRP 5.4 mg/dL (<1.0); Calcium 8.7 mg/dL (8.4-10.2); Carbon Dioxide 26 mmol/L (22-30); Chloride 108 mmol/L (98-107); Estimated CRCL calculation 82 ml/min; Estimated Glomerular Filt Rate > 60; Glucose 126 mg/dL (75-110); Potassium 4.1 mmol/L (3.4-5.0); Sodium 143 mmol/L (137-145)
[2021-01-16 05:46] LABS: Prothrombin Time 13.4 Seconds (11.1-14.7)
[2021-01-16] MEDS: buPROPion HCL XL (24 HR) 150 MG TABCR 300 MG PO (09:07)
[2021-01-16] MEDS: ASPIRIN 81 MG ENTERIC TABLET PO (09:07)
[2021-01-16] MEDS: metFORMIN HCL XR 500 MG TAB.SR.24H 1000 MG PO (09:08)
[2021-01-16] MEDS: VALSARTAN 160 MG TABLET 320 MG PO (09:09)
[2021-01-16] MEDS: guaiFENesin 12 HR 600 MG TABCR PO ×2 (09:09→19:51)
[2021-01-16] MEDS: busPIRone HCL 5 MG TABLET PO ×2 (09:09→19:51)
[2021-01-16] MEDS: amLODIPine BESYLATE 5 MG TABLET 10 MG PO (09:09)
[2021-01-16] MEDS: PANTOPRAZOLE 40 MG TABLET PO (09:10)
[2021-01-16] MEDS: CYANOCOBALAMIN 1,000 MCG TABLET 1000 MCG PO (09:10)
[2021-01-16] MEDS: DEXAMETHASONE SOD PHOS INJ 4 MG/ML VIAL 6 MG IV PUSH (09:10)
[2021-01-16] MEDS: ENOXAPARIN 40 MG/0.4 ML SYRINGE SUB-Q ×2 (09:10→19:51)
[2021-01-16] MEDS: REMDESIVIR 100 MG/NS 250 ML 100 MG/250 ML BAG 250 MG IVPB (09:11)
[2021-01-16 09:50] LABS: Glucose Point of Care 132 mg/dl (65-105)
--- NOTE | 2021-01-16 10:04 | PM.IMPN ---
Progress Note: A&P Assessment and Plan (1) Acute respiratory failure with hypoxia: Code(s): J96.01 - Acute respiratory failure with hypoxia Status: Acute Assessment and Plan: Patient with acute hypoxic respiratory failure related to COVID-19. CTA chest 01/11 showing no PE but showing COVID. Oxygen requirement is increasing these now on BiPAP. He remains on dexamethasone and Remdesivir. BuSpar was started for anxiety symptoms. ABG 7.44/36/55 on Airvo. Pulmonary following along and appreciate their input. Move to ICU 38 minutes spent on critical care time (2) Pneumonia due to COVID-19 virus: Code(s): U07.1 - COVID-19; J12.82 - Pneumonia due to coronavirus disease 2018 Status: Acute Assessment and Plan: Patient tested COVID-19 positive 01/09/21 after starting have symptoms 01/05/21. He was fully vaccinated with Moderna in September; antibodies present, no benefit of plasma. Remdesivir and Decadron say 6. Continue supportive care with BiPAP, supplemental O2, albuterol, mucinex and continuos pulse ox. Remains on abx started by ER for possible secondary bacterial PNA though felt less likely. Move to ICU given the worsening O2 requirement. Discussed about benefits of lying prone but he is not sure he could handle this. Discussed with measurement specialist. (3) Type 2 diabetes mellitus without complication, without long-term current use of insulin: Code(s): E11.9 - Type 2 diabetes mellitus without complications Status: Acute Assessment and Plan: A1c 6.9 in May 2020. The patient's blood glucose was reviewed on 01/16 Glucose remains well controlled. Continue AccuCheks covering with sliding scale. Hypoglycemia protocol available as needed. Not eating so will hold lantus. (4) Essential (primary) hypertension: Code(s): I10 - Essential (primary) hypertension Status: Acute Assessment and Plan: Patient's blood pressure was reviewed on 01/16 Blood pressure overall well controlled. Will continue current medications with home amlodipine and valsartan (5) DVT prophylaxis: Code(s): Z29.9 - Encounter for prophylactic measures, unspecified Status: Acute Assessment and Plan: Lovenox Subjective Date/time seen: 01/16/21 10:04 Interval history: 70yo male here for COVID-19. More hypoxic overnight requiring BiPAP. Slept okay with the BiPAP. No CP. Cough is persistent. Has trouble providing hx due conversational dyspnea. Exam Narrative: Exam Narrative: AF 97.2 150/79 70 32 90% BiPAP Gen - conversational dyspnea Chest - mid and lower lung yung with inspiratory crackles CV - RRR S1/S2; Tele showing no significant dysrhythmias Abd - Soft, NT/ND, Positive BS Ext - No pedal edema Psych - anxious Skin - cool and dry Objective Data Vital Signs Vital Signs: Vital Signs - 24 hr 01/15/21 12:00 01/15/21 14:00 01/15/21 14:19 Temperature 97.7 F Pulse Rate 88 82 95 Respiratory Rate 24 H 24 H Blood Pressure 156/81 H Pulse Oximetry 90 92 01/15/21 14:34 01/15/21 15:52 01/15/21 16:00 Temperature 99.2 F Pulse Rate 98 91 96 Respiratory Rate 22 H 24 H Blood Pressure 122/68 Pulse Oximetry 90 90 01/15/21 18:00 01/15/21 20:00 01/15/21 22:00 Temperature 97.5 F L Pulse Rate 79 105 H 101 H Respiratory Rate 22 H Blood Pressure 148/68 H Pulse Oximetry 90 01/15/21 22:02 01/15/21 22:15 01/15/21 22:39 Temperature Pulse Rate 95 96 95 Respiratory Rate 26 H 24 H Blood Pressure Pulse Oximetry 88 L 01/16/21 00:00 01/16/21 02:00 01/16/21 03:53 Temperature 97.5 F L Pulse Rate 86 91 70 Respiratory Rate 22 H 25 H Blood Pressure 119/56 L Pulse Oximetry 90 01/16/21 03:54 01/16/21 03:58 01/16/21 04:00 Temperature 97.2 F L Pulse Rate 72 69 63 Respiratory Rate 24 H 30 H Blood Pressure 150/79 H Pulse Oximetry 92 90 01/16/21 06:00 01/16/21 07:58 01/16/21 08:22 Temperature Pul
--- NOTE | 2021-01-16 10:51 | PC.NURSE ---
This patient, Portillo Swanson Cooley, was transferred to ICU 10 on 01/16/21 at 1051. Personal belongings sent with patient. Report given to Danette Holguin RN. Appropriate documentation sent with patient.
--- NOTE | 2021-01-16 11:18 | WPDCNINT ---
Assessment and Plan Assessment and plan (1) Acute respiratory failure with hypoxia: Code(s): J96.01 - Acute respiratory failure with hypoxia Status: Acute Assessment and Plan: Acute Respiratory failure secondary to COVID-19 pneumonia worsening hypoxia through the hospital course Now on BiPAP. settings changed to 14/8. currently on 100% Continue NIPPV support to prevent hypoxemia/hypercarbia and end organ damage. Continue close monitoring as if he continues to worsen or does not improve then he will need intubation and mechanical ventilation. He is unable to lay in prone position at this time due to BiPAP ABG and PCXR reviewed Bronchodilators (2) Pneumonia due to COVID-19 virus: Code(s): U07.1 - COVID-19; J12.82 - Pneumonia due to coronavirus disease 2018 Status: Acute Assessment and Plan: patient received Madonna vaccine in September of 2020 has still developed significant COVID-19 pneumonia. his COVID-19 PCR and antibody are both reactive. patient is on Rocephin and azithromycin. he will complete his 5 day course today continue dexamethasone (started 01/12) he has completed a 5 day course of Remdesivir and has been extended to 10 day course initially his CRP was high 12.1 but most recent CRP is 5.4 hence not high enough to start Tocilizumab continue monitoring inflammatory markers isolation (3) Diabetes mellitus: Code(s): E11.9 - Type 2 diabetes mellitus without complications Status: Acute Assessment and Plan: continue metformin Lantus and sliding scale (4) Essential (primary) hypertension: Code(s): I10 - Essential (primary) hypertension Status: Acute Assessment and Plan: continue Diovan Additional Plan DVT prophylaxis - Lovenox q.12 hours Stress ulcer prophylaxis - PPI Nutrition - Tube Feeds Code Status - I spoke to patient in detail and discussed possible need for intubation. Patient is agreeable to intubation if needed and wants to be full code. Total Critical Care Time - 40 minutes Due to a high probability of clinically significant, life threatening deterioration, the patient required my highest level of preparedness to intervene emergently and I personally spent this critical care time directly and personally managing the patient. This critical care time included obtaining a history; examining the patient; pulse oximetry; ordering and review of studies; arranging urgent treatment with development of a management plan; evaluation of patient's response to treatment; frequent reassessment; and discussions with other providers. It was exclusive of separately billable procedures and treating other patients and teaching time. Please see Assessment and Plan section and the rest of the note for further information on patient assessment and treatment Mix Chemist Consult Note Consult date: 01/16/21 Time Seen: 11:00 HPI: Portillo Cooley is a 70 year old male who has a past medical history hypertension, COVID-19 vaccinated (Moderna), and T2DM who presented emergency room for shortness of breath after being COVID-19 positive. patient states he was at a car cruise with many friends last weekend and that next Tuesday he started feeling bad. His symptoms started as weakness and poor appetite with body aches. His friends at the car show ( who were also vaccinated) had similar symptoms but much more mild than he did and did not get tested. He still was not feeling well and started feeling short of breath 01/07 night so he went to his primary care physician on 01/08 who tested him for COVID-19 the next day 01/09 and he was positive. He came into the emergency room because his worsening shortness of breath on 01/11. chest x-ray on presentation showed bilateral infiltrates. patient was admitted with diagnosis of COVID-[address] a of lung did not show any PE and showed multifocal lung disease. patient was started on steroids and remdesivir. Over the course o
[2021-01-16 13:58] LABS: Glucose Point of Care 178 mg/dl (65-105)
--- NOTE | 2021-01-16 14:01 | PCPTNOTE ---
Pt had decline in medical status w/ transfer to ICU. Spoke w/ Dr Almazan, stated to hold therapy. Will reorder when medically stable.
[2021-01-16] MEDS: INSULIN ASPART (*BKC) 100 UNITS/ML SUB-Q (17:41)
[2021-01-16 17:47] LABS: Glucose Point of Care 229 mg/dl (65-105)
--- NOTE | 2021-01-16 19:45 | PM.PNPUL ---
Progress Note: A&P Assessment and Plan (1) Acute respiratory failure with hypoxia: Code(s): J96.01 - Acute respiratory failure with hypoxia Status: Acute Assessment and Plan: Now in the ICU with COVID pneumonia with acute hypoxemic respiratory failure, on high amounts of O2, Airvo 60 L/min and 90% with progressive infiltrates; has had no convalescent plasma as he has antibodies that prevent cross match. He has had remdesivir and dexamethasone, is not able to tolerate being prone. He is at risk for deterioration. He is a full code, wants intubation if absolutely necessary. He is receiving DVT prophylaxis with enoxaparin, and glucose control, as well as azithromycin and ceftriaxone for empiric coverage of community acquired co-pathogens. (2) Pneumonia due to COVID-19 virus: Code(s): U07.1 - COVID-19; J12.82 - Pneumonia due to coronavirus disease 2018 Status: Acute Assessment and Plan: see above Subjective Date/time seen: 01/16/21 19:45 Portillo Cooley is a 70 year old man transferred to ICU for desaturation and worsening COVID pneumonia. He is A&O, able to answer questions. He is NPO due to marginal status and potential for intubation. He drops his saturation to 60% easily with any activity or drinking water. Review of Systems Review of Systems: All systems reviewed & are unremarkable except as noted in HPI and below Exam Narrative: Exam Narrative: GEN: alert, moderately dyspneic, sitting up in bed watching TV, not in distress HEENT: pupils equal, face symmetric NECK: no visible abnormalities, no lymphadenopathy, trachea is midline CHEST: equal expansion; fine crackles especially the right base CV: regular S1-S2 no m/g/r ABD : obese distended active bowel sounds Extremities : no clubbing or cyanosis PSYCH: mild to moderate anxiety; speech is normal. Objective Data Vital Signs Vital Signs: Vital Signs - 24 hr 01/15/21 20:00 01/15/21 22:00 01/15/21 22:02 Temperature 36.4 C L Pulse Rate 105 H 101 H 95 Respiratory Rate 22 H 26 H Blood Pressure 148/68 H Pulse Oximetry 90 01/15/21 22:15 01/15/21 22:39 01/16/21 00:00 Temperature 36.4 C L Pulse Rate 96 95 86 Respiratory Rate 24 H 22 H Blood Pressure 119/56 L Pulse Oximetry 88 L 90 01/16/21 02:00 01/16/21 03:53 01/16/21 03:54 Temperature Pulse Rate 91 70 72 Respiratory Rate 25 H Blood Pressure Pulse Oximetry 92 01/16/21 03:58 01/16/21 04:00 01/16/21 06:00 Temperature 36.2 C L Pulse Rate 69 63 92 Respiratory Rate 24 H 30 H Blood Pressure 150/79 H Pulse Oximetry 90 01/16/21 07:58 01/16/21 08:00 01/16/21 08:22 Temperature 36.1 C L Pulse Rate 70 99 89 Respiratory Rate 28 H 24 H 32 H Blood Pressure 136/77 Pulse Oximetry 91 91 01/16/21 10:00 01/16/21 11:06 01/16/21 12:00 Temperature 37.0 C Pulse Rate 95 86 76 Respiratory Rate 16 25 H Blood Pressure 126/64 Pulse Oximetry 92 90 01/16/21 14:00 01/16/21 16:00 01/16/21 16:58 Temperature 37.0 C Pulse Rate 84 74 90 Respiratory Rate 26 H 34 H Blood Pressure 113/63 Pulse Oximetry 96 98 01/16/21 18:00 Temperature Pulse Rate 66 Respiratory Rate Blood Pressure Pulse Oximetry Intake/Output Intake/Output: Intake & Output 01/13/21 01/14/21 01/15/21 01/16/21 23:59 23:59 23:59 23:59 Intake Total 1480 3420 1580 1205 Output Total 1050 1135 1480 Balance 430 2285 100 1205 Meds/Results Medications: Active Medications Generic Name Dose Route Start Last Admin Trade Name Freq PRN Reason Stop Dose Admin Acetaminophen 650 mg 01/12/21 10:34 01/13/21 11:07 Acetaminophen 325 Mg Tablet PO 650 mg Q6H PRN Administration Mild Pain (1-3) or Fever Albuterol 2.5 mg 01/12/21 09:14 01/16/21 07:56 Albuterol Sulfate Neb 2.5 Mg/3 Ml Inh INHALATION
[2021-01-16 20:10] LABS: Glucose Point of Care 215 mg/dl (65-105)
[2021-01-16] MEDS: ALBUTEROL SULFATE NEB 2.5 MG/0.5 ML INH (21:10)
[2021-01-16 23:25] LABS: Glucose Point of Care 174 mg/dl (65-105)
[2021-01-17] VITALS (43 sets, daily range): BP systolic 86–128; BP diastolic 51–73; PULSE 55–122; RESP 20–45; TEMP 35.9–37.6; O2SAT 92–99
[2021-01-17] MEDS: ALBUTEROL SULFATE NEB 2.5 MG/3 ML INH INHALATION ×4 (03:15→21:08)
[2021-01-17 05:49] LABS: Basophils Absolute Auto 0.1 K/mm3 (0.0-0.1); Basophils Percent Auto 0.3 % (0.2-1.2); Hematocrit 42.9 % (42.0-52.0); Hemoglobin 13.8 g/dL (14.0-18.0); Immature Granulocyte Absolute 0.25 K/mm3 (0.00-0.031); Immature Granulocyte Percent A 1.5 % (0-0.5); Lymphocytes Absolute Auto 0.69 K/mm3 (0.9-3.2); Mean Corpuscular HGB Conc 32.2 g/dl (32-36); Mean Corpuscular Hemoglobin 30.7 pg (26-34); Mean Corpuscular Volume 95.5 fl (80-100); Mean Platelet Volume 9.6 fl (7.4-10.4); Monocytes Absolute Auto 0.6 K/mm3 (0.1-0.6); Monocytes Percent Auto 3.4 % (2.6-8.5); Neutrophils Absolute Auto 15.7 K/mm3 (1.3-6.7); Neutrophils Percent Auto 90.8 % (45.5-73.1); Platelet Count Result 363 k/mm3 (150-375); Red Blood Count 4.49 M/mm3 (4.6-6.20); Red Cell Distribution Width 13.3 % (11.5-14.5); White Blood Count 17.2 K/mm3 (4.5-10.0)
[2021-01-17 06:02] LABS: Alanine Aminotransferase 27 U/L (4-50); Albumin Level 3.3 g/dL (3.5-5.1); Alkaline Phosphatase 85 U/L (38-126); Anion Gap 9 mmol/L (8-16); Aspartate Amino Transferase 39 U/L (17-59); Bilirubin,Total 0.6 mg/dL (0.2-1.3); Blood Urea Nitrogen 25 mg/dL (9-20); Calcium 8.5 mg/dL (8.4-10.2); Carbon Dioxide 27 mmol/L (22-30); Chloride 109 mmol/L (98-107); Estimated CRCL calculation 93 ml/min; Estimated Glomerular Filt Rate > 60; Glucose 147 mg/dL (65-110); Magnesium 2.4 mg/dL (1.6-2.3); Phosphorus 3.2 mg/dL (2.5-4.5); Potassium 4.1 mmol/L (3.4-5.0); Sodium 145 mmol/L (137-145)
[2021-01-17 06:10] LABS: INR 1.3; Prothrombin Time 15.8 Seconds (11.1-14.7)
--- NOTE | 2021-01-17 07:14 | WPDPROCEDUR ---
Procedures Intubation Intubation Date: 01/17/21 Intubation Time: 06:52 A pre-procedural Time-Out was completed immediately before starting the procedure and confirmed: Patient Identification, Site, Procedure, Patient Position and the Availability of Requisite Equipment: Yes Sedative: etomidate Mg given: 15 Paralytic: rocuronium Mg given: 100 Laryngoscope: fiber optic video scope Assist device used: fiber optic device ET tube size: 8 Tube secured depth (cm): 26 Tube secured location: teeth Tube placement confirmation: visualized tube passing through cords Patient tolerated procedure: well and no complications Intubation complications: none
[2021-01-17] MEDS: LORazepam INJ (*CRX) 2 MG/ML VIAL 0.5 MG IV PUSH (07:38)
[2021-01-17] MEDS: FENTANYL 2,500MCG/NS250ML(*CRX 2,500 MCG/250 ML BAG IV CONT (07:39)
[2021-01-17] MEDS: MIDAZOLAM 100MG/NS 100ML(*CRX) 100 MG/100 ML BAG IV CONT (07:40)
[2021-01-17] MEDS: RAPID SEQUENCE INTUBATION KIT 1 EACH (07:43)
[2021-01-17] MEDS: MIDAZOLAM HCL (*CRX) 2 MG/2 ML VIAL 5 MG IV PUSH (07:47)
[2021-01-17 08:22] LABS: Alveolar/Arterial O2 Gradient 615.5 mmHg; Base Excess ABG 2.2 mEq/l (+/-2.0); Fractional Inspired Oxygen 100 %; HCO3 ABG 26.8 mEq/l (22.0-26.0); Oxygen Content ABG 17.7 %vol (16.0-22.0); Oxygen Saturation ABG 89.7 % (95.0-100.0); Oxyhemoglobin 88.4 % THb (90.0-100.0); PCO2 ABG 41.8 mmHg (35.0-45.0); PO2 ABG 55.7 mmHg (80.0-100.0); PO2 FiO2 Ratio Arterial Blood 0.56 %; Total Hemoglobin 14.3 g/dL (12.0-18.0); pH ABG 7.425 (7.350-7.450)
[2021-01-17 08:23] LABS: Device VENTILATOR; Modified Allen's Test Pass; Site Drawn LEFT BRACHIAL
[2021-01-17 08:25] LABS: Arterial Blood Gas PEEP 10 cmH2O; Arterial Blood Gas Tidal Volume 500 ml; Arterial Blood Gas Vent Mode CMV; Arterial Blood Gas Ventilator rate 20 /MIN
--- NOTE | 2021-01-17 08:48 | WPDINTPN ---
Progress Note: A&P Assessment and Plan (1) Acute respiratory failure with hypoxia: Code(s): J96.01 - Acute respiratory failure with hypoxia Status: Acute Assessment and Plan: Acute Respiratory failure secondary to COVID-19 pneumonia with worsening hypoxia through the hospital course Bipap 01/16, intubated 01/17 Continue mechanical ventilation support to prevent hypoxemia/hypercarbia and end organ damage. ABG and PCXR reviewed Bronchodilators change tidal volume to 450 continue sedation with Versed and fentanyl. patient given NMB bolus and may need neuromuscular dayan infusion ETT adjusted after chest x-ray review will plan to prone patient today (2) Pneumonia due to COVID-19 virus: Code(s): U07.1 - COVID-19; J12.82 - Pneumonia due to coronavirus disease 2018 Status: Acute Assessment and Plan: patient received Madonna vaccine in September of 2020 has still developed significant COVID-19 pneumonia. his COVID-19 PCR and antibody are both reactive. patient has completed a course Rocephin and azithromycin. continue dexamethasone (started 01/12) he has completed a 5 day course of Remdesivir and has been extended to 10 day course initially his CRP was high 12.1 but most recent CRP is 5.4 hence not high enough to start Tocilizumab continue monitoring inflammatory markers isolation (3) Diabetes mellitus: Code(s): E11.9 - Type 2 diabetes mellitus without complications Status: Acute Assessment and Plan: continue Lantus and sliding scale start tube feeds (4) Essential (primary) hypertension: Code(s): I10 - Essential (primary) hypertension Status: Acute Assessment and Plan: treat as needed hold p.o. meds as patient is now sedated and blood pressure is controlled Additional Plan DVT prophylaxis - Lovenox q.12 hours Stress ulcer prophylaxis - PPI Nutrition - start Tube Feeds Code Status - I patient is full code. I called and spoke to Taryn diaz patient's . I updated her with overnight events, patient's current status, current treatment plan Total Critical Care Time - 35 minutes Due to a high probability of clinically significant, life threatening deterioration, the patient required my highest level of preparedness to intervene emergently and I personally spent this critical care time directly and personally managing the patient. This critical care time included obtaining a history; examining the patient; pulse oximetry; ordering and review of studies; arranging urgent treatment with development of a management plan; evaluation of patient's response to treatment; frequent reassessment; and discussions with other providers. It was exclusive of separately billable procedures and treating other patients and teaching time. Please see Assessment and Plan section and the rest of the note for further information on patient assessment and treatment Subjective Date/time seen: 01/17/21 overnight patient continued to be hypoxic. Per nurse he was not tolerating his BiPAP and would continue desat with coughing bouts. He was given a low dose of Ativan but that did not help. patient had to be intubated early this morning I overnight physician. Currently sedated intubated Review of Systems Review of Systems: ROS unobtainable: Yes unobtainable due to endotracheal tube Exam Narrative: Exam Narrative: General: Pt is sedated, intubated and on mechanical ventilation Lungs/Chest: Trachea central Coarse BS B/L, No crackles or wheezing. Cardiac: RRR. Normal S1 S2. No murmurs Circulation: Pedal pulses are intact and symmetrical. Abdomen: Decreased bowel sounds. Obese. Soft. NT. ND. Extremities: No clubbing, cyanosis or edema. Warm : Flores in place Neurologic: Unable to assess due to sedation. patient is sedated and chemically paralyzed. PERRL Objective Data Vital Signs Vital Signs: Vital Signs - 24 hr 01/16/21 10:00 01/16/21
[2021-01-17] MEDS: ROCURONIUM BROMIDE 50 MG/5 ML VIAL IV PUSH (08:49)
[2021-01-17] MEDS: PANTOPRAZOLE SODIUM IV 40 MG VIAL IV PUSH (08:50)
[2021-01-17] MEDS: REMDESIVIR 100 MG/NS 250 ML 100 MG/250 ML BAG 250 MG IVPB (09:35)
[2021-01-17] MEDS: ENOXAPARIN 40 MG/0.4 ML SYRINGE SUB-Q ×2 (09:35→21:00)
[2021-01-17] MEDS: ASPIRIN 81 MG ENTERIC TABLET PO (09:36)
[2021-01-17] MEDS: DEXAMETHASONE SOD PHOS INJ 4 MG/ML VIAL 6 MG IV PUSH (09:36)
[2021-01-17] MEDS: ROCURONIUM BROMIDE 50 MG/5 ML VIAL (10:40)
[2021-01-17] MEDS: CISATRACURIUM BESYLATE 200 MG in DEXTROSE 5% 80 ML 8.59 ML IV CONT (12:32)
[2021-01-17 12:43] LABS: Glucose Point of Care 167 mg/dl (65-105)
--- NOTE | 2021-01-17 14:53 | PM.IMPN ---
Progress Note: A&P Assessment and Plan (1) Acute respiratory failure with hypoxia: Code(s): J96.01 - Acute respiratory failure with hypoxia Status: Acute Assessment and Plan: Acute Respiratory failure secondary to COVID-19 pneumonia with worsening hypoxia through the hospital course Bipap 01/16, intubated 01/17 Continue mechanical ventilation support to prevent hypoxemia/hypercarbia and end organ damage. wean FiO2 and PEEP if tolerated. Lung protective strategies should be employed. ABG and PCXR reviewed. Continue to monitor ABG and chest x-ray. Continue bronchodilators. continue sedation with Versed and fentanyl. patient given NMB bolus and may need neuromuscular dayan infusion If continued to have worsening hypoxia. Prone for 16-18 hours a day if tolerated. CT of the chest done 01/11 showed no PE but showed bilateral ground-glass opacities suggestive of COVID-19 infection with acute lung injury/ ARDS. Pulmonary service following and they recommendations appreciated. (2) Pneumonia due to COVID-19 virus: Code(s): U07.1 - COVID-19; J12.82 - Pneumonia due to coronavirus disease 2018 Status: Acute Assessment and Plan: patient received Moderna vaccine in September of 2020 has still developed significant COVID-19 pneumonia. He was tested positive on 01/09 after starting having symptoms starting 01/05. his COVID-19 PCR and antibody are both reactive. patient has completed a course Rocephin and azithromycin. continue dexamethasone (started 01/12). I will recommend to use higher dose of 20 mg IV once a day for 5 days and then decrease it to 10 mg IV once a day considering recent literature. he has completed a 5 day course of Remdesivir and has been extended to 10 day course initially his CRP was high 12.1 but most recent CRP is 5.4 hence not high enough to start Tocilizumab continue monitoring inflammatory markers Continue isolation precaution. (3) Diabetes mellitus: Code(s): E11.9 - Type 2 diabetes mellitus without complications Status: Acute Assessment and Plan: continue Lantus and sliding scale start tube feeds Continue to monitor blood sugar closely. Hemoglobin A1c in May 2020 was 6.9. (4) Essential (primary) hypertension: Code(s): I10 - Essential (primary) hypertension Status: Acute Assessment and Plan: Currently home amlodipine and valsartan is on hold. 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 PICC line was placed today. He is sedated with fentanyl and Versed. He was requiring 100% FiO2 and 10 of PEEP. Review of Systems Review of Systems: All systems reviewed & are unremarkable except as noted in HPI and below ( HPI) ROS unobtainable: Yes unobtainable due to endotracheal tube Exam Narrative: Exam Narrative: General: Pt is sedated, intubated and on mechanical ventilation Lungs/Chest: Trachea central Coarse BS B/L, No crackles or wheezing. Cardiac: RRR. Normal S1 S2. No murmurs Circulation: Pedal pulses are intact and symmetrical. Abdomen: Decreased bowel sounds. Obese. Soft. NT. ND. Extremities: No clubbing, cyanosis or edema. Warm : Flores in place Neurologic: Unable to assess due to sedation. patient is sedated Objective Data Vital Signs Vital Signs: Vital Signs - 24 hr 01/16/21 16:00 01/16/21 16:58 01/16/21 18:00 Temperature 37.0 C Pulse Rate 74 90 66 Respiratory Rate 26 H 34 H Blood Pressure 113/63 Pulse Oximetry 96 98 01/16/21 20:00 01/16/21 21:11 01/16/21 21:23 Temperature 37.1 C Pulse Rate 87 61 62 Respiratory Rate 20 33 H 24 H Blood Pressure 130/70 Pulse Oximetry 93 97 01/16/21 21:25 01/16/21
[2021-01-17] MEDS: MINERAL OIL/WHITE PETROLATUM OINTMENT 1 APPLIC EACH EYE ×2 (18:49→21:00)
[2021-01-17] MEDS: INSULIN ASPART (*BKC) 100 UNITS/ML SUB-Q (18:49)
[2021-01-17 19:03] LABS: Glucose Point of Care 256 mg/dl (65-105)
--- NOTE | 2021-01-17 20:00 | PC.NURSE ---
Versed gtt infusing at 4 mg/hr at first assessment. Reported from med RN at 4 mg/hr and charted at 2 mg/hr.
[2021-01-17] MEDS: CENTRAL LINE FLUSH 10 ML IV PUSH (21:01)
[2021-01-17] MEDS: SODIUM CHLORIDE 0.9% IV 500 ML IV CONT (22:46)
[2021-01-18] VITALS (51 sets, daily range): BP systolic 84–136; BP diastolic 43–70; PULSE 48–101; RESP 20–24; TEMP 35.8–37.4; O2SAT 92–100
[2021-01-18 00:19] LABS: Glucose Point of Care 187 mg/dl (65-105)
[2021-01-18] MEDS: FENTANYL 2,500MCG/NS250ML(*CRX 2,500 MCG/250 ML BAG 12.5 MCG IV CONT (02:13)
[2021-01-18] MEDS: ALBUTEROL SULFATE NEB 2.5 MG/3 ML INH INHALATION ×3 (03:30→14:06)
[2021-01-18] MEDS: NOREPINEPHRINE 8 MG/D5W 250 ML 8 MG/250 ML BAG 9.38 MG IV CONT (04:23)
[2021-01-18] MEDS: CISATRACURIUM BESYLATE 200 MG in DEXTROSE 5% 80 ML IV CONT (04:25)
[2021-01-18 06:13] LABS: Alveolar/Arterial O2 Gradient 370.6 mmHg; Base Excess ABG 1.1 mEq/l (+/-2.0); Carboxyhemoglobin 0.3 % THb (0-2.0); Fractional Inspired Oxygen 85 %; HCO3 ABG 26.7 mEq/l (22.0-26.0); Methemoglobin ABG 0.3 %THb (0-1.5); Oxygen Content ABG 19.1 %vol (16.0-22.0); Oxygen Saturation ABG 99.3 % (95.0-100.0); PO2 ABG 187.7 mmHg (80.0-100.0); PO2 FiO2 Ratio Arterial Blood 2.21 %; Reduced Hemoglobin 1.4 %THb (0-5.0); Total Hemoglobin 13.6 g/dL (12.0-18.0); pH ABG 7.381 (7.350-7.450)
[2021-01-18 06:15] LABS: Device VENTILATOR; Modified Allen's Test Pass; Site Drawn LEFT RADIAL
[2021-01-18 06:17] LABS: Arterial Blood Gas PEEP 10 cmH2O; Arterial Blood Gas Tidal Volume 450 ml; Arterial Blood Gas Vent Mode CMV; Arterial Blood Gas Ventilator rate 20 /MIN
[2021-01-18 06:50] LABS: INR 1.2; Prothrombin Time 14.8 Seconds (11.1-14.7)
[2021-01-18] MEDS: CENTRAL LINE FLUSH 10 ML IV PUSH ×3 (06:50→20:54)
[2021-01-18 06:51] LABS: Hematocrit 36.9 % (42.0-52.0); Hemoglobin 11.7 g/dL (14.0-18.0); Mean Corpuscular HGB Conc 31.7 g/dl (32-36); Mean Corpuscular Hemoglobin 30.1 pg (26-34); Mean Corpuscular Volume 94.9 fl (80-100); Mean Platelet Volume 10.2 fl (7.4-10.4); Platelet Count Result 391 k/mm3 (150-375); Red Blood Count 3.89 M/mm3 (4.6-6.20); Red Cell Distribution Width 13.7 % (11.5-14.5); White Blood Count 13.6 K/mm3 (4.5-10.0)
[2021-01-18 06:55] LABS: Alanine Aminotransferase 87 U/L (4-50); Albumin Level 2.7 g/dL (3.5-5.1); Alkaline Phosphatase 124 U/L (38-126); Anion Gap 7 mmol/L (8-16); Aspartate Amino Transferase 129 U/L (17-59); Bilirubin,Total 0.5 mg/dL (0.2-1.3); Blood Urea Nitrogen 36 mg/dL (9-20); Calcium 8.5 mg/dL (8.4-10.2); Carbon Dioxide 28 mmol/L (22-30); Chloride 110 mmol/L (98-107); Estimated CRCL calculation 61 ml/min; Estimated Glomerular Filt Rate > 60; Glucose 226 mg/dL (65-110); Magnesium 2.7 mg/dL (1.6-2.3); Potassium 4.5 mmol/L (3.4-5.0); Sodium 145 mmol/L (137-145)
[2021-01-18] MEDS: INSULIN ASPART (*BKC) 100 UNITS/ML SUB-Q ×3 (06:57→17:17)
[2021-01-18] MEDS: MIDAZOLAM 100MG/NS 100ML(*CRX) 100 MG/100 ML BAG IV CONT (07:15)
--- NOTE | 2021-01-18 08:16 | WPDINTPN ---
Progress Note: A&P Assessment and Plan (1) Acute respiratory failure with hypoxia: Code(s): J96.01 - Acute respiratory failure with hypoxia Status: Acute Assessment and Plan: Acute Respiratory failure secondary to COVID-19 pneumonia with worsening hypoxia through the hospital course Bipap 01/16, intubated 01/17 placed in prone position- continue daily prone ventilation for 16 hours as tolerated Continue mechanical ventilation support to prevent hypoxemia/hypercarbia and end organ damage. ABG and PCXR reviewed. advance ET tube by 1 cm Bronchodilators continue current vent settings FiO2 currently on 80% and PEEP at 10 continue sedation with Versed and fentanyl. patient also on neuromuscular dayan infusion (2) Pneumonia due to COVID-19 virus: Code(s): U07.1 - COVID-19; J12.82 - Pneumonia due to coronavirus disease 2018 Status: Acute Assessment and Plan: patient received Madonna vaccine in September of 2020 has still developed significant COVID-19 pneumonia. his COVID-19 PCR and antibody are both reactive. patient has completed a course Rocephin and azithromycin. continue dexamethasone (started 01/12) he has completed a 5 day course of Remdesivir and has been extended to 10 day course initially his CRP was high 12.1 but most recent CRP is 5.4 hence not high enough to start Tocilizumab continue monitoring inflammatory markers isolation (3) Diabetes mellitus: Code(s): E11.9 - Type 2 diabetes mellitus without complications Status: Acute Assessment and Plan: increase Lantus and continue sliding scale continue tube feeds (4) Essential (primary) hypertension: Code(s): I10 - Essential (primary) hypertension Status: Acute Assessment and Plan: treat as needed hold p.o. meds as patient is now sedated and blood pressure is controlled (5) Hypotension: Code(s): I95.9 - Hypotension, unspecified Status: Acute Assessment and Plan: mostly secondary to sedation but patient could be intravascularly dry will give 1 L of half-normal saline today conservative fluid management due to COVID-19 pneumonia and ARDS continue Levophed titration to maintain adequate map Additional Plan DVT prophylaxis - Lovenox q.12 hours Stress ulcer prophylaxis - PPI Nutrition - continue Tube Feeds Code Status - I patient is full code. I called and spoke to Taryn diaz patient's 01/17. I updated her with overnight events, patient's current status, current treatment plan Total Critical Care Time - 30 minutes Due to a high probability of clinically significant, life threatening deterioration, the patient required my highest level of preparedness to intervene emergently and I personally spent this critical care time directly and personally managing the patient. This critical care time included obtaining a history; examining the patient; pulse oximetry; ordering and review of studies; arranging urgent treatment with development of a management plan; evaluation of patient's response to treatment; frequent reassessment; and discussions with other providers. It was exclusive of separately billable procedures and treating other patients and teaching time. Please see Assessment and Plan section and the rest of the note for further information on patient assessment and treatment Subjective Date/time seen: 01/18/21 08:16 Overnight events reviewed. Afebrile Continues to be on mechanical ventilation Patient was started on Levophed for low blood pressure He was placed in prone position overnight Sedated and chemically paralyzed Review of Systems Review of Systems: All systems reviewed & are unremarkable except as noted in HPI and below ( HPI) ROS unobtainable: Yes unobtainable due to endotracheal tube Exam Narrative: Exam Narrative: General: Pt is sedated, intubated and In prone position on mechanical ventilation Lungs/Chest: Trachea cent
[2021-01-18] MEDS: SODIUM CHLORIDE 0.45% 1,000 ML 100 ML IV CONT (08:28)
[2021-01-18] MEDS: INSULIN GLARGINE (*BKC) 100 UNITS/ML 15 UNITS SUB-Q (08:32)
[2021-01-18] MEDS: ENOXAPARIN 40 MG/0.4 ML SYRINGE SUB-Q ×2 (08:33→20:53)
[2021-01-18] MEDS: ASPIRIN 81 MG ENTERIC TABLET PO (08:34)
[2021-01-18] MEDS: DEXAMETHASONE SOD PHOS INJ 4 MG/ML VIAL 6 MG IV PUSH (08:34)
[2021-01-18] MEDS: MINERAL OIL/WHITE PETROLATUM OINTMENT 1 APPLIC EACH EYE ×2 (08:37→20:53)
[2021-01-18] MEDS: PANTOPRAZOLE SODIUM IV 40 MG VIAL IV PUSH (08:54)
[2021-01-18] MEDS: REMDESIVIR 100 MG/NS 250 ML 100 MG/250 ML BAG 250 MG IVPB (10:37)
[2021-01-18 11:38] LABS: Glucose Point of Care 234 mg/dl (65-105)
[2021-01-18 17:22] LABS: Glucose Point of Care 305 mg/dl (65-105)
--- NOTE | 2021-01-18 20:00 | PC.NURSE ---
Levophed found infusing at 2 mcg and reported as such by med [facility]. Charted at 6 mcg.
[2021-01-18] MEDS: CISATRACURIUM BESYLATE 200 MG in DEXTROSE 5% 80 ML 8.59 ML IV CONT (23:00)
--- NOTE | 2021-01-18 23:41 | PM.PNPUL ---
Progress Note: A&P Assessment and Plan (1) Acute respiratory failure with hypoxia: Code(s): J96.01 - Acute respiratory failure with hypoxia Status: Acute Assessment and Plan: Worsening COVID pneumonia with acute hypoxemic respiratory failure, intubated 01/17 with falling saturation using Airvo 60 L/min and 90% with worsening infiltrates; hypotension due to intubation and possible volume depletion; he has not had much fluid in attempt to keep him on the dry side to avoid worsening hypoxemia; on norepinephrine; has had no convalescent plasma as he has antibodies that prevent cross match. He has had remdesivir and dexamethasone, was not able to tolerate being prone before intubation. He is receiving DVT prophylaxis with enoxaparin, and glucose control, as well as azithromycin and ceftriaxone for empiric coverage of community acquired co-pathogens. (2) Pneumonia due to COVID-19 virus: Code(s): U07.1 - COVID-19; J12.82 - Pneumonia due to coronavirus disease 2019 Status: Acute Assessment and Plan: see above Subjective Date/time seen: 01/18/21 13:27 Portillo Cooley is a 70-year-old man who has had a COVID vaccine; developed COVID after eating dinner in a restaurant with 7 others who also became ill with COVID, admitted with increased shortness of breath, required intubation 01/17 early am as he was not able to oxygenated on AirVo 60 L/minute 90% with high-flow nasal cannula. He is sedated with versed, fentanyl, and paralyzed with Nimbex. He is on norepinephrine for hypotension which occurred after intubation; has a PICC line and 2 peripherals. CXR Shows worsening bilateral infiltrates. Chest CTA on 01/11/2021 = No pulmonary embolus. 2. 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 01/18 CXR Diffuse lung disease with interval worsening in the upper lung zones, consistent with pneumonia and/or pulmonary edema and/or acute respiratory distress syndrome (ARDS). Review of Systems Review of Systems: All systems reviewed & are unremarkable except as noted in HPI and below (HPI) Exam Narrative: Exam Narrative: GEN: sedated, HOB elevated, not in distress HEENT: orally intubated, face symmetric NECK: no visible abnormalities, no lymphadenopathy, trachea is midline CHEST: equal expansion; decreased breath sounds in bases, fine crackles right base CV: regular S1-S2 no m/g/r ABD : obese distended, active bowel sounds Extremities : no clubbing or cyanosis PSYCH: sedated and paralyzed Objective Data Vital Signs Vital Signs: Vital Signs - 24 hr 01/18/21 00:00 01/18/21 00:01 01/18/21 00:10 Temperature 35.8 C L 35.8 C L Pulse Rate 57 L 57 L 59 L Respiratory Rate 20 20 Blood Pressure 101/55 L Pulse Oximetry 98 99 01/18/21 01:28 01/18/21 02:00 01/18/21 02:01 Temperature 36.2 C L 36.3 C L Pulse Rate 59 L 59 L Respiratory Rate 20 Blood Pressure 104/54 L Pulse Oximetry 98 01/18/21 02:13 01/18/21 03:30 01/18/21 03:32 Temperature Pulse Rate 60 62 61 Respiratory Rate 20 20 Blood Pressure Pulse Oximetry 98 01/18/21 03:37 01/18/21 04:00 01/18/21 04:23 Temperature 37.4 C Pulse Rate 62 61 62 Respiratory Rate 20 20 Blood Pressure 92/52 L 84/46 L Pulse Oximetry 98 01/18/21 04:40 01/18/21 05:37 01/18/21 06:00 Temperature Pulse Rate 60 58 L 55 L Respiratory Rate 20 Blood Pressure 86/43 L Pulse Oximetry 99 01/18/21 06:12 01/18/21 08:00 01/18/21 08:01 Temperature 37.4 C 36.4 C L Pulse Rate 55 L 52 L 68 Respiratory Rate 20 20 20 Blood Pressure 108/50 L 131/57 L Pulse Oximetry 99 99 01/18/21 08:03 01/18/21 08:29 01/18/21 08:37 Temperature Pulse Rate 73 77 62 Respiratory Rate 20 Blood Pressure 122/58 L 122/58 L Pulse Oximetry 99 01/18/21 08:38 01/18/21 08:39 01/18/21 10:00 Temperat
[2021-01-19] VITALS (33 sets, daily range): BP systolic 97–132; BP diastolic 48–73; PULSE 56–669; RESP 18–23; TEMP 36.5–36.7; O2SAT 93–100; BMI 29.1
[2021-01-19] MEDS: FENTANYL 2,500MCG/NS250ML(*CRX 2,500 MCG/250 ML BAG 12.5 MCG IV CONT ×2 (00:21→20:56)
[2021-01-19] MEDS: INSULIN ASPART (*BKC) 100 UNITS/ML SUB-Q ×6 (00:27→20:59)
[2021-01-19 00:43] LABS: Glucose Point of Care 298 mg/dl (65-105)
[2021-01-19] MEDS: MIDAZOLAM 100MG/NS 100ML(*CRX) 100 MG/100 ML BAG IV CONT (04:10)
[2021-01-19 05:21] LABS: Hematocrit 33.9 % (42.0-52.0); Mean Corpuscular HGB Conc 32.4 g/dl (32-36); Mean Corpuscular Hemoglobin 30.1 pg (26-34); Mean Corpuscular Volume 92.9 fl (80-100); Mean Platelet Volume 10.4 fl (7.4-10.4); Platelet Count Result 357 k/mm3 (150-375); Red Blood Count 3.65 M/mm3 (4.6-6.20); Red Cell Distribution Width 13.6 % (11.5-14.5); White Blood Count 11.4 K/mm3 (4.5-10.0)
[2021-01-19 05:32] LABS: Alanine Aminotransferase 120 U/L (4-50); Albumin Level 2.3 g/dL (3.5-5.1); Alkaline Phosphatase 195 U/L (38-126); Anion Gap 8 mmol/L (8-16); Aspartate Amino Transferase 172 U/L (17-59); Bilirubin,Total 0.4 mg/dL (0.2-1.3); Blood Urea Nitrogen 30 mg/dL (9-20); Calcium 8.4 mg/dL (8.4-10.2); Carbon Dioxide 29 mmol/L (22-30); Chloride 109 mmol/L (98-107); Estimated CRCL calculation 82 ml/min; Estimated Glomerular Filt Rate > 60; Glucose 262 mg/dL (65-110); Magnesium 2.7 mg/dL (1.6-2.3); Potassium 4.5 mmol/L (3.4-5.0); Sodium 146 mmol/L (137-145)
[2021-01-19 05:36] LABS: Alveolar/Arterial O2 Gradient 263.2 mmHg; Base Excess ABG 3.8 mEq/l (+/-2.0); Carboxyhemoglobin 0.2 % THb (0-2.0); Fractional Inspired Oxygen 65 %; Methemoglobin ABG 0.3 %THb (0-1.5); Oxygen Saturation ABG 98.9 % (95.0-100.0); Oxyhemoglobin 97.6 % THb (90.0-100.0); PCO2 ABG 46.5 mmHg (35.0-45.0); PO2 ABG 149.7 mmHg (80.0-100.0); Reduced Hemoglobin 1.9 %THb (0-5.0); Total Hemoglobin 12.2 g/dL (12.0-18.0); pH ABG 7.413 (7.350-7.450)
[2021-01-19 05:37] LABS: INR 1.1; Prothrombin Time 14.5 Seconds (11.1-14.7)
[2021-01-19 05:38] LABS: Arterial Blood Gas Vent Mode CMV; Arterial Blood Gas Ventilator rate 20 /MIN; Device VENTILATOR; Modified Allen's Test Pass; Site Drawn LEFT RADIAL
[2021-01-19 05:39] LABS: Arterial Blood Gas PEEP 10 cmH2O; Arterial Blood Gas Tidal Volume 450 ml
[2021-01-19] MEDS: CENTRAL LINE FLUSH 10 ML IV PUSH ×3 (06:54→21:00)
[2021-01-19 07:01] LABS: Glucose Point of Care 313 mg/dl (65-105)
--- NOTE | 2021-01-19 08:29 | WPDINTPN ---
Progress Note: A&P Assessment and Plan (1) Acute respiratory failure with hypoxia: Code(s): J96.01 - Acute respiratory failure with hypoxia Status: Acute Assessment and Plan: Acute Respiratory failure secondary to COVID-19 pneumonia with worsening hypoxia through the hospital course Bipap 01/16, intubated 01/17 Placed in prone position- continue daily prone ventilation for 16 hours as tolerated FiO2 is down to 65% and peep is a 10 Continue mechanical ventilation support to prevent hypoxemia/hypercarbia and end organ damage. ABG and PCXR reviewed. Bronchodilators Continue sedation with Versed and fentanyl. patient also on neuromuscular dayan infusion (2) Pneumonia due to COVID-19 virus: Code(s): U07.1 - COVID-19; J12.82 - Pneumonia due to coronavirus disease 2018 Status: Acute Assessment and Plan: patient received [employer] vaccine in September of 2020 has still developed significant COVID-19 pneumonia. his COVID-19 PCR and antibody are both reactive. patient has completed a course Rocephin and azithromycin. continue dexamethasone (started 01/12) he has completed a 5 day course of Remdesivir and has been extended to 10 day course initially his CRP was high 12.1 but most recent CRP is 5.4 hence not high enough to start Tocilizumab continue monitoring inflammatory markers isolation (3) Diabetes mellitus: Code(s): E11.9 - Type 2 diabetes mellitus without complications Status: Acute Assessment and Plan: increase Lantus to 30 units q.day and increase sliding scale to high and every 4 hours continue tube feeds (4) Hypotension: Code(s): I95.9 - Hypotension, unspecified Status: Acute Assessment and Plan: mostly secondary to sedation but patient could be intravascularly dry patient was given 1 L fluid yesterday conservative fluid management due to COVID-19 pneumonia and ARDS currently off of Levophed (5) Hypernatremia: Code(s): E87.0 - Hyperosmolality and hypernatremia Status: Acute Assessment and Plan: increase free water flush with tube feeding 200 mL Additional Plan DVT prophylaxis - Lovenox q.12 hours Stress ulcer prophylaxis - PPI Nutrition - continue Tube Feeds Code Status - patient is full code Total Critical Care Time - 30 minutes Due to a high probability of clinically significant, life threatening deterioration, the patient required my highest level of preparedness to intervene emergently and I personally spent this critical care time directly and personally managing the patient. This critical care time included obtaining a history; examining the patient; pulse oximetry; ordering and review of studies; arranging urgent treatment with development of a management plan; evaluation of patient's response to treatment; frequent reassessment; and discussions with other providers. It was exclusive of separately billable procedures and treating other patients and teaching time. Please see Assessment and Plan section and the rest of the note for further information on patient assessment and treatment Subjective Date/time seen: 01/19/21 08:29 Overnight events reviewed. Afebrile Continues to be on mechanical ventilation . He was placed in prone position overnight FiO2 is down to 65% and peep is a 10 Continues to be on sedatives and neuromuscular blockers Vitals acceptable Review of Systems Review of Systems: All systems reviewed & are unremarkable except as noted in HPI and below ( HPI) ROS unobtainable: Yes unobtainable due to endotracheal tube Exam Narrative: Exam Narrative: General: Pt is sedated, intubated and In prone position on mechanical ventilation Lungs/Chest: Trachea central Coarse BS B/L, No crackles or wheezing. Cardiac: RRR. Normal S1 S2. No murmurs Circulation: Pedal pulses are intact and symmetrical. Abdomen: Decreased bowel sounds. Obese. Soft. NT. ND. Extremities: No clubbing, cyan
[2021-01-19] MEDS: ALBUTEROL SULFATE NEB 2.5 MG/0.5 ML INH INHALATION ×3 (08:39→20:08)
[2021-01-19] MEDS: INSULIN GLARGINE (*BKC) 100 UNITS/ML 30 UNITS SUB-Q (08:42)
[2021-01-19] MEDS: PANTOPRAZOLE SODIUM IV 40 MG VIAL IV PUSH (08:48)
[2021-01-19] MEDS: MINERAL OIL/WHITE PETROLATUM OINTMENT 1 APPLIC EACH EYE ×2 (08:48→20:58)
[2021-01-19] MEDS: ENOXAPARIN 40 MG/0.4 ML SYRINGE SUB-Q ×2 (08:48→20:57)
[2021-01-19] MEDS: ASPIRIN 81 MG ENTERIC TABLET PO (08:49)
[2021-01-19] MEDS: DEXAMETHASONE SOD PHOS INJ 4 MG/ML VIAL 6 MG IV PUSH (08:49)
[2021-01-19 09:03] LABS: Glucose Point of Care 281 mg/dl (65-105)
[2021-01-19] MEDS: REMDESIVIR 100 MG/NS 250 ML 100 MG/250 ML BAG 250 MG IVPB (10:39)
[2021-01-19] MEDS: CISATRACURIUM BESYLATE 200 MG in DEXTROSE 5% 80 ML 7.16 ML IV CONT (12:24)
[2021-01-19 14:05] LABS: Glucose Point of Care 263 mg/dl (65-105)
--- NOTE | 2021-01-19 14:55 | PCRCNOTE ---
01/19/21 0200 Albuterol dose not given. Window of time for administration has passed. See next scheduled administration.
--- NOTE | 2021-01-19 16:16 | PM.IMPN ---
Progress Note: A&P Assessment and Plan (1) Acute respiratory failure with hypoxia: Code(s): J96.01 - Acute respiratory failure with hypoxia Status: Acute Assessment and Plan: Patient with acute hypoxic respiratory failure related to COVID-19. CTA chest 01/11 showing no PE but showing COVID. Oxygen requirement has been increasing to the point of requiring intubation on 01/17/21. He remains on dexamethasone and Remdesivir. Pulmonary and intensivsit following along and appreciate their input. Prone positioning as tolerated. (2) Hypotension: Code(s): I95.9 - Hypotension, unspecified Status: Acute Assessment and Plan: Patient became HoTN requiring pressor therapy with Levophed yesterday morning possibly related to sedation. Able to be weaned off yesterday evening. Contineu to monitor. (3) Pneumonia due to COVID-19 virus: Code(s): U07.1 - COVID-19; J12.82 - Pneumonia due to coronavirus disease 2019 Status: Acute Assessment and Plan: Patient tested COVID-19 positive 01/09/21 after starting have symptoms 01/05/21. He was fully vaccinated with Moderna in September; antibodies present, no benefit of plasma. Remdesivir and Decadron say 9. Abx have been stopped. Continue supportive care. (4) Type 2 diabetes mellitus without complication, without long-term current use of insulin: Code(s): E11.9 - Type 2 diabetes mellitus without complications Status: Acute Assessment and Plan: A1c 6.9 in May 2020. The patient's blood glucose was reviewed on 01/19 Glucose remains elevated in the 200-300 range. Tolerating TF. Started on lantus this morning. Continue AccuCheks covering with sliding scale. Hypoglycemia protocol available as needed. (5) Essential (primary) hypertension: Code(s): I10 - Essential (primary) hypertension Status: Acute Assessment and Plan: Patient's blood pressure was reviewed on 01/19 Blood pressure overall better. Will continue to hold amlodipine and valsartan (6) DVT prophylaxis: Code(s): Z29.9 - Encounter for prophylactic measures, unspecified Status: Acute Assessment and Plan: Lovenox (7) Elevated LFTs: Code(s): R79.89 - Other specified abnormal findings of blood chemistry Status: Acute Assessment and Plan: AST/ALT climbing. Possibly related to mediations. Follow closely. Subjective Date/time seen: 01/19/21 16:16 Interval history: 70yo male with DM and HTN here for COVID-19 PNA. Assuming care. Chart reviewed. Patient currently intubated, sedated and paralyzed. He was intubated on the morning January 17. He is being placed prone as he tolerates. Tolerating tube feedings. Review of Systems Review of Systems: ROS unobtainable: Yes unobtainable due to endotracheal tube Exam Narrative: Exam Narrative: AF 98.0 104/51 64 20 97% MV Gen - intubated, sedated and paralyzed HEENT - OGT and ETT secured. Chest - clear anteriroly with a few rhonci appreciated in the flanks CV - RRR S1/S2; Tele showing no significant dysrhythmias Abd - Soft, ND, +BS - Flores secured draining clear yellow urine in the bag Ext - trace pedal edema Neuro - paralyzed at this time Skin - cool and dry Objective Data Vital Signs Vital Signs: Vital Signs - 24 hr 01/18/21 17:00 01/18/21 17:10 01/18/21 17:12 Temperature Pulse Rate 51 L 56 L 56 L Respiratory Rate 20 Blood Pressure 136/69 136/69 Pulse Oximetry 97 01/18/21 17:14 01/18/21 17:15 01/18/21 17:16 Temperature Pulse Rate 56 L 56 L 48 L Respiratory Rate 20 20 20 Blood Pressure Pulse Oximetry 01/18/21 18:00 01/18/21 20:00 01/18/21 20:01 Temperature 97.5 F L 97.7 F Pulse Rate 58 L 55 L 55 L Respiratory Rate 20 20 20 Blood Pressure 128/65 127/65 Pulse Oximetry 97 99 01/18/21 20:51 01/18/21 22:00 01/18/21 22:01 Temperature 97.8 F Pulse Rate 101 H 69 69 Respiratory R
[2021-01-19 17:45] LABS: Glucose Point of Care 315 mg/dl (65-105)
[2021-01-19 21:05] LABS: Glucose Point of Care 261 mg/dl (65-105)
[2021-01-20] VITALS (36 sets, daily range): BP systolic 105–151; BP diastolic 53–73; PULSE 57–117; RESP 17–22; TEMP 35.9–36.9; O2SAT 94–98
[2021-01-20] MEDS: INSULIN ASPART (*BKC) 100 UNITS/ML SUB-Q ×6 (00:02→19:48)
[2021-01-20] MEDS: CISATRACURIUM BESYLATE 200 MG in DEXTROSE 5% 80 ML 10.02 ML IV CONT (00:03)
[2021-01-20 01:06] LABS: Glucose Point of Care 240 mg/dl (65-105)
[2021-01-20] MEDS: ALBUTEROL SULFATE NEB 2.5 MG/0.5 ML INH INHALATION ×4 (01:58→21:21)
[2021-01-20] MEDS: MIDAZOLAM 100MG/NS 100ML(*CRX) 100 MG/100 ML BAG IV CONT (03:55)
[2021-01-20 04:30] LABS: Hematocrit 37.8 % (42.0-52.0); Hemoglobin 11.8 g/dL (14.0-18.0); Mean Corpuscular HGB Conc 31.2 g/dl (32-36); Mean Corpuscular Volume 96.2 fl (80-100); Mean Platelet Volume 10.2 fl (7.4-10.4); Platelet Count Result 387 k/mm3 (150-375); Red Blood Count 3.93 M/mm3 (4.6-6.20); Red Cell Distribution Width 14.3 % (11.5-14.5); White Blood Count 13.5 K/mm3 (4.5-10.0)
[2021-01-20 04:42] LABS: Alanine Aminotransferase 221 U/L (4-50); Albumin Level 2.6 g/dL (3.5-5.1); Alkaline Phosphatase 249 U/L (38-126); Anion Gap 5 mmol/L (8-16); Aspartate Amino Transferase 213 U/L (17-59); Bilirubin,Total 0.5 mg/dL (0.2-1.3); Blood Urea Nitrogen 33 mg/dL (9-20); Calcium 8.4 mg/dL (8.4-10.2); Carbon Dioxide 31 mmol/L (22-30); Chloride 110 mmol/L (98-107); Estimated CRCL calculation 93 ml/min; Estimated Glomerular Filt Rate > 60; Glucose 272 mg/dL (65-110); Magnesium 2.6 mg/dL (1.6-2.3); Potassium 4.8 mmol/L (3.4-5.0); Sodium 146 mmol/L (137-145)
[2021-01-20 05:09] LABS: Alveolar/Arterial O2 Gradient 185.2 mmHg; Base Excess ABG 4.2 mEq/l (+/-2.0); Carboxyhemoglobin 0.1 % THb (0-2.0); Device VENTILATOR; Fractional Inspired Oxygen 50 %; HCO3 ABG 31.7 mEq/l (22.0-26.0); Methemoglobin ABG 0.4 %THb (0-1.5); Modified Allen's Test Unable to perform; Oxygen Content ABG 21.5 %vol (16.0-22.0); Oxygen Saturation ABG 97.5 % (95.0-100.0); Oxyhemoglobin 96.8 % THb (90.0-100.0); PCO2 ABG 58.7 mmHg (35.0-45.0); PO2 ABG 105.3 mmHg (80.0-100.0); PO2 FiO2 Ratio Arterial Blood 2.11 %; Reduced Hemoglobin 2.7 %THb (0-5.0); Site Drawn LEFT RADIAL; Total Hemoglobin 15.7 g/dL (12.0-18.0)
[2021-01-20 05:10] LABS: Arterial Blood Gas PEEP 10 cmH2O; Arterial Blood Gas Tidal Volume 450 ml; Arterial Blood Gas Vent Mode CMV; Arterial Blood Gas Ventilator rate 20 /MIN
[2021-01-20 06:03] LABS: Glucose Point of Care 258 mg/dl (65-105)
[2021-01-20] MEDS: ENOXAPARIN 40 MG/0.4 ML SYRINGE SUB-Q ×2 (08:37→19:49)
[2021-01-20] MEDS: PANTOPRAZOLE SODIUM IV 40 MG VIAL IV PUSH (08:37)
[2021-01-20] MEDS: ASPIRIN 81 MG ENTERIC TABLET PO (08:37)
[2021-01-20] MEDS: DEXAMETHASONE SOD PHOS INJ 4 MG/ML VIAL 6 MG IV PUSH (08:38)
[2021-01-20] MEDS: CENTRAL LINE FLUSH 10 ML IV PUSH ×3 (08:38→19:49)
[2021-01-20] MEDS: MINERAL OIL/WHITE PETROLATUM OINTMENT 1 APPLIC EACH EYE ×2 (08:38→19:49)
[2021-01-20] MEDS: INSULIN GLARGINE (*BKC) 100 UNITS/ML 38 UNITS SUB-Q (08:39)
[2021-01-20 08:49] LABS: Glucose Point of Care 270 mg/dl (65-105)
--- NOTE | 2021-01-20 10:10 | PM.IMPN ---
Progress Note: A&P Assessment and Plan (1) Acute respiratory failure with hypoxia: Code(s): J96.01 - Acute respiratory failure with hypoxia Status: Acute Assessment and Plan: Patient with acute hypoxic respiratory failure related to COVID-19. CTA chest 01/11 showing no PE but showing COVID. Oxygen requirement has been increasing to the point of requiring intubation on 01/17/21. He now has completed 10 days of dexamethasone and Remdesivir. FiO2 able to be weaned. Pulmonary and intensivsit following along and appreciate their input. Prone positioning as he tolerates. (2) Hypotension: Code(s): I95.9 - Hypotension, unspecified Status: Acute Assessment and Plan: Patient became HoTN requiring pressor therapy with Levophed 01/18 possibly related to sedation. Able to be weaned off that evening and BP remained stable since. Continue to monitor. (3) Pneumonia due to COVID-19 virus: Code(s): U07.1 - COVID-19; J12.82 - Pneumonia due to coronavirus disease 2019 Status: Acute Assessment and Plan: Patient tested COVID-19 positive 01/09/21 after starting have symptoms 01/05/21. He was fully vaccinated with Moderna in September; antibodies present, no benefit of plasma. Remdesivir and Decadron day 10. Abx have been stopped. Continue supportive care. (4) Type 2 diabetes mellitus without complication, without long-term current use of insulin: Code(s): E11.9 - Type 2 diabetes mellitus without complications Status: Acute Assessment and Plan: A1c 6.9 in May 2020. The patient's blood glucose was reviewed on 01/20 Glucose remains elevated in the 200 range. Tolerating TF. Started on lantus 01/19. Continue AccuCheks covering with sliding scale. Hypoglycemia protocol available as needed. Advance as needed (5) Essential (primary) hypertension: Code(s): I10 - Essential (primary) hypertension Status: Acute Assessment and Plan: Patient's blood pressure was reviewed on 01/20 Blood pressure stable. Will continue to hold amlodipine and valsartan (6) Elevated LFTs: Code(s): R79.89 - Other specified abnormal findings of blood chemistry Status: Acute Assessment and Plan: AST/ALT climbing still. Possibly related to Remdesivir. Remdesivir has addis stopped. Check RUQ. Follow closely. (7) DVT prophylaxis: Code(s): Z29.9 - Encounter for prophylactic measures, unspecified Status: Acute Assessment and Plan: Kriss Subjective Date/time seen: 01/20/21 10:10 Interval history: 70yo male with DM and HTN here for COVID-19 PNA. Patient remains intubated, sedated and paralyzed. He was intubated on the morning January 17. He is being placed prone as he tolerates. Review of Systems Review of Systems: ROS unobtainable: Yes unobtainable due to endotracheal tube Exam Narrative: Exam Narrative: AF 96.7 128/69 66 20 98% MV 35% FiO2, 10 PEEP Gen - intubated, sedated and paralyzed; currently lying prone HEENT - OGT and ETT secured. Chest - improved air exchange posteriroly CV - RRR S1/S2; Tele showing brief run of ATach Abd - Soft, +BS - Flores secured draining clear yellow urine in the bag Ext - trace pedal edema; 2+ DP bilaterally Neuro - sedated and paralyzed Skin - cool and dry; right foot cooler then left Objective Data Vital Signs Vital Signs: Vital Signs - 24 hr 01/19/21 10:54 01/19/21 12:00 01/19/21 14:00 Temperature 98 F Pulse Rate 93 71 64 Respiratory Rate 20 Blood Pressure 104/51 L Pulse Oximetry 98 97 98 01/19/21 14:45 01/19/21 14:47 01/19/21 14:53 Temperature Pulse Rate 69 75 64 Respiratory Rate 20 20 Blood Pressure Pulse Oximetry 97 01/19/21 16:00 01/19/21 17:39 01/19/21 18:00 Temperature 97.9 F Pulse Rate 78 68 70 Respiratory Rate 20 20 Blood Pressure 111/53 L 111/53 L Pulse Oximetry 94 94 94 01/19/21 20:09 01/19/21 20:10
[2021-01-20] MEDS: REMDESIVIR 100 MG/NS 250 ML 100 MG/250 ML BAG 250 MG IVPB (10:48)
[2021-01-20] MEDS: CISATRACURIUM BESYLATE 200 MG in DEXTROSE 5% 80 ML 8.59 ML IV CONT ×2 (12:26→23:55)
--- NOTE | 2021-01-20 12:45 | PCDIET ---
Nutrition Follow-Up Complete: Nutrition Diagnosis: Inadequate oral intake related to oral intubation as evidenced by need for tube feedings. Nutrition Goal: Patient to meet estimated nutritional needs. Goal in progress. Patient tolerating Glucerna 1.2 at 50mL/hr with 100mL water flush every 4 hours. Clarified with RN that Glucerna 1.2 being provided. Recommend goal rate of 70mL/hr Glucerna 1.2 as glucose levels improve. Last recorded weight is 94.6 kg which is stable. Bowel Motility: +BM today. Labs Reviewed: WBC (13.5), RBC (3.93), Hgb (11.8), Hct (37.8), Glu (272), Na (146), Alb (2.6) Meds Noted: Albuterol, Fentanyl, Novolog, Protonix, Nimbex, Lantus, Versed Additional Notes: Left upper lip abrasion. Chin with unstageable area. Will continue to monitor with same goals. Nutrition Monitoring and Evaluation: Follow up every Tuesday/Tuesday. Follow daily in ICU rounds.
--- NOTE | 2021-01-20 13:47 | WPDINTPN ---
Progress Note: A&P Assessment and Plan (1) Acute respiratory failure with hypoxia: Code(s): J96.01 - Acute respiratory failure with hypoxia Status: Acute Assessment and Plan: Acute Respiratory failure secondary to COVID-19 pneumonia with worsening hypoxia through the hospital course Bipap 01/16, intubated 01/17 Placed in prone position- continue daily prone ventilation for 16 hours as tolerated FiO2 is down to 50% and peep is a 10, wean FiO2 as tolerated Continue mechanical ventilation support to prevent hypoxemia/hypercarbia and end organ damage. ABG and PCXR reviewed. Bronchodilators Continue sedation with Versed and fentanyl. patient also on neuromuscular dayan infusion (2) Pneumonia due to COVID-19 virus: Code(s): U07.1 - COVID-19; J12.82 - Pneumonia due to coronavirus disease 2018 Status: Acute Assessment and Plan: Patient received Moderna vaccine in September of 2020 has still developed significant COVID-19 pneumonia. his COVID-19 PCR and antibody are both reactive. patient has completed a course Rocephin and azithromycin. continue dexamethasone (started 01/12) he has completed a 5 day course of Remdesivir and has been extended to 10 day course initially his CRP was high 12.1 but most recent CRP is 5.4 hence not high enough to start Tocilizumab continue monitoring inflammatory markers isolation (3) Diabetes mellitus: Code(s): E11.9 - Type 2 diabetes mellitus without complications Status: Acute Assessment and Plan: increase Lantus - continue high-dose sliding scale continue tube feeds (4) Hypotension: Code(s): I95.9 - Hypotension, unspecified Status: Acute Assessment and Plan: mostly secondary to sedation but patient could be intravascularly dry patient responded well to IV fluids that for given on 01/19. conservative fluid management due to COVID-19 pneumonia and ARDS currently off of Levophed (5) Hypernatremia: Code(s): E87.0 - Hyperosmolality and hypernatremia Status: Acute Assessment and Plan: increase free water flush with tube feeding 200 mL Additional Plan DVT prophylaxis - Lovenox q.12 hours Stress ulcer prophylaxis - PPI Nutrition - continue Tube Feeds Code Status - patient is full code Total Critical Care Time - 34 minutes Due to a high probability of clinically significant, life threatening deterioration, the patient required my highest level of preparedness to intervene emergently and I personally spent this critical care time directly and personally managing the patient. This critical care time included obtaining a history; examining the patient; pulse oximetry; ordering and review of studies; arranging urgent treatment with development of a management plan; evaluation of patient's response to treatment; frequent reassessment; and discussions with other providers. It was exclusive of separately billable procedures and treating other patients and teaching time. Please see Assessment and Plan section and the rest of the note for further information on patient assessment and treatment Subjective Date/time seen: 01/20/21 13:47 Interval history: Reason for consult: COVID-19 pneumonia, acute respiratory failure 01/20/2021: Patient seen and examined the ICU, remains on mechanical ventilation, CMV mode, peep of 10 and 50% FiO2. Patient is sedated with fentanyl, Versed and Nimbex infusion. urine output has been adequate, tolerating tube feeds, hemodynamically stable, afebrile. Positive bowel movements tolerating tube feeds. Patient in prone position Review of Systems Review of Systems: ROS unobtainable: Yes unobtainable due to endotracheal tube Exam Narrative: Exam Narrative: General: Pt is sedated, intubated and In prone position on mechanical ventilation Lungs/Chest: Trachea central Coarse BS B/L, No crackles or wheezing. Cardiac: RRR. Normal S1 S2. No murmurs Circulation:
[2021-01-20] MEDS: FENTANYL 2,500MCG/NS250ML(*CRX 2,500 MCG/250 ML BAG 15 MCG IV CONT (14:39)
[2021-01-20 15:18] LABS: Glucose Point of Care 306 mg/dl (65-105)
[2021-01-20 17:30] LABS: Glucose Point of Care 326 mg/dl (65-105)
[2021-01-20 20:06] LABS: Glucose Point of Care 300 mg/dl (65-105)
--- NOTE | 2021-01-20 22:01 | PC.NURSE ---
Patient placed in prone position.
[2021-01-21] VITALS (45 sets, daily range): BP systolic 107–170; BP diastolic 42–92; PULSE 62–121; RESP 20–22; TEMP 36.2–38.2; O2SAT 92–96
[2021-01-21] MEDS: INSULIN ASPART (*BKC) 100 UNITS/ML SUB-Q ×6 (00:01→21:09)
[2021-01-21 00:06] LABS: Glucose Point of Care 289 mg/dl (65-105)
[2021-01-21] MEDS: MIDAZOLAM 100MG/NS 100ML(*CRX) 100 MG/100 ML BAG 6 MG IV CONT (01:43)
[2021-01-21 04:28] LABS: Hematocrit 34.4 % (42.0-52.0); Hemoglobin 11.2 g/dL (14.0-18.0); Mean Corpuscular HGB Conc 32.6 g/dl (32-36); Mean Corpuscular Hemoglobin 30.3 pg (26-34); Mean Platelet Volume 10.4 fl (7.4-10.4); Platelet Count Result 363 k/mm3 (150-375); Red Cell Distribution Width 14.5 % (11.5-14.5); White Blood Count 12.4 K/mm3 (4.5-10.0)
[2021-01-21 04:38] LABS: Hemoglobin A1C 7.4 % (<5.7)
[2021-01-21 04:40] LABS: Alanine Aminotransferase 284 U/L (4-50); Albumin Level 2.4 g/dL (3.5-5.1); Alkaline Phosphatase 253 U/L (38-126); Anion Gap 2 mmol/L (8-16); Aspartate Amino Transferase 199 U/L (17-59); Bilirubin,Total 0.4 mg/dL (0.2-1.3); Blood Urea Nitrogen 33 mg/dL (9-20); Calcium 8.4 mg/dL (8.4-10.2); Carbon Dioxide 35 mmol/L (22-30); Chloride 105 mmol/L (98-107); Estimated CRCL calculation 93 ml/min; Estimated Glomerular Filt Rate > 60; Glucose 265 mg/dL (65-110); Magnesium 2.4 mg/dL (1.6-2.3); Phosphorus 3.5 mg/dL (2.5-4.5); Potassium 4.8 mmol/L (3.4-5.0); Sodium 142 mmol/L (137-145)
[2021-01-21 05:01] LABS: HCO3 ABG 31.9 mEq/l (22.0-26.0); PCO2 ABG 52.6 mmHg (35.0-45.0); PO2 ABG 92.1 mmHg (80.0-100.0)
[2021-01-21 05:02] LABS: Alveolar/Arterial O2 Gradient 168.9 mmHg; Base Excess ABG 5.8 mEq/l (+/-2.0); Carboxyhemoglobin 0.3 % THb (0-2.0); Fractional Inspired Oxygen 45 %; Methemoglobin ABG 0.3 %THb (0-1.5); Oxygen Content ABG 16.5 %vol (16.0-22.0); Oxygen Saturation ABG 96.9 % (95.0-100.0); Oxyhemoglobin 95.6 % THb (90.0-100.0); PO2 FiO2 Ratio Arterial Blood 2.05 %; Reduced Hemoglobin 3.8 %THb (0-5.0); Total Hemoglobin 12.2 g/dL (12.0-18.0)
[2021-01-21 05:03] LABS: Arterial Blood Gas PEEP 10 cmH2O; Arterial Blood Gas Vent Mode CMV; Arterial Blood Gas Ventilator rate 20 /MIN; Device VENTILATOR; Modified Allen's Test Pass; Site Drawn LEFT RADIAL
[2021-01-21 05:04] LABS: Arterial Blood Gas Tidal Volume 450 ml
[2021-01-21] MEDS: FENTANYL 2,500MCG/NS250ML(*CRX 2,500 MCG/250 ML BAG 15 MCG IV CONT (05:24)
[2021-01-21] MEDS: CENTRAL LINE FLUSH 10 ML IV PUSH ×3 (05:25→19:43)
[2021-01-21] MEDS: ALBUTEROL SULFATE NEB 2.5 MG/0.5 ML INH INHALATION ×3 (08:38→20:58)
[2021-01-21] MEDS: MINERAL OIL/WHITE PETROLATUM OINTMENT 1 APPLIC EACH EYE ×2 (08:46→19:42)
[2021-01-21] MEDS: PANTOPRAZOLE SODIUM IV 40 MG VIAL IV PUSH (08:46)
[2021-01-21] MEDS: ASPIRIN 81 MG ENTERIC TABLET PO (08:46)
[2021-01-21] MEDS: ENOXAPARIN 40 MG/0.4 ML SYRINGE SUB-Q ×2 (08:46→19:42)
[2021-01-21 09:04] LABS: Glucose Point of Care 240 mg/dl (65-105)
[2021-01-21 09:26] LABS: CRP 4.5 mg/dL (<1.0); Lactate Dehydrogenase 1079 U/L (313-618)
[2021-01-21] MEDS: CISATRACURIUM BESYLATE 200 MG in DEXTROSE 5% 80 ML 8.59 ML IV CONT (10:54)
[2021-01-21] MEDS: INSULIN GLARGINE (*BKC) 100 UNITS/ML 50 UNITS SUB-Q (10:55)
--- NOTE | 2021-01-21 11:01 | PCDIET ---
ICU Rounding Note: Patient tolerating Glucerna 1.2 at 50mL/hr with 100mL water flush every 4 hours. Lantus increased due to high blood sugars. Recommend adding Pro-Stat (100kcal, 15g protein) TID for total of 1620kcal and 111g protein daily, given tube feeding infusion x 22 hours/day. This should optimize glucose control versus increasing tube feeding rate since blood sugars were up to 300mg/dL range prior to insulin increase. Last recorded weight is 97.3kg which is increased from last review. Bowel Motility: BM x 1 on 01/20/21. Labs Reviewed: WBC (12.4), RBC (3.70), Hgb (11.2), Hct (34.4), Glu (265), Alb (2.4) Meds Noted: Albuterol, Nimbex, Fentanyl, Novolog, Lantus, Versed, Protonix Additional Notes: Pressure injury to upper lip. Unstageable area to chin. Following daily in ICU rounds. Assessing/reassessing every Tuesday/Tuesday.
[2021-01-21 13:19] LABS: Glucose Point of Care 251 mg/dl (65-105)
--- NOTE | 2021-01-21 14:34 | WPDINTPN ---
Progress Note: A&P Assessment and Plan (1) Acute respiratory failure with hypoxia: Code(s): J96.01 - Acute respiratory failure with hypoxia Status: Acute Assessment and Plan: Acute Respiratory failure secondary to COVID-19 pneumonia with worsening hypoxia through the hospital course Bipap 01/16, intubated 01/17 Placed in prone position- continue daily prone ventilation for 16 hours as tolerated FiO2 is down to 40% and peep is a 10, wean FiO2 as tolerated Continue mechanical ventilation support to prevent hypoxemia/hypercarbia and end organ damage. ABG and PCXR reviewed. Bronchodilators Continue sedation with Versed and fentanyl. patient also on neuromuscular dayan infusion (2) Pneumonia due to COVID-19 virus: Code(s): U07.1 - COVID-19; J12.82 - Pneumonia due to coronavirus disease 2018 Status: Acute Assessment and Plan: Patient received Moderna vaccine in September of 2020 has still developed significant COVID-19 pneumonia. his COVID-19 PCR and antibody are both reactive. patient has completed a course Rocephin and azithromycin. has completed 10 day course of dexamethasone he has completed a 10 day course of Remdesivir a initially his CRP was high 12.1 but most recent CRP is 5.4 hence not high enough to start Tocilizumab continue monitoring inflammatory markers isolation (3) Diabetes mellitus: Code(s): E11.9 - Type 2 diabetes mellitus without complications Status: Acute Assessment and Plan: increase Lantus - continue high-dose sliding scale continue tube feeds (4) Hypotension: Code(s): I95.9 - Hypotension, unspecified Status: Acute Assessment and Plan: mostly secondary to sedation but patient could be intravascularly dry patient responded well to IV fluids that for given on 01/19. conservative fluid management due to COVID-19 pneumonia and ARDS currently off of Levophed (5) Hypernatremia: Code(s): E87.0 - Hyperosmolality and hypernatremia Status: Acute Assessment and Plan: free water flush with tube feeding 200 mL - sodium levels improving Additional Plan DVT prophylaxis - Lovenox q.12 hours Stress ulcer prophylaxis - PPI Nutrition - continue Tube Feeds Code Status - patient is full code Total Critical Care Time - 33 minutes Due to a high probability of clinically significant, life threatening deterioration, the patient required my highest level of preparedness to intervene emergently and I personally spent this critical care time directly and personally managing the patient. This critical care time included obtaining a history; examining the patient; pulse oximetry; ordering and review of studies; arranging urgent treatment with development of a management plan; evaluation of patient's response to treatment; frequent reassessment; and discussions with other providers. It was exclusive of separately billable procedures and treating other patients and teaching time. Please see Assessment and Plan section and the rest of the note for further information on patient assessment and treatment Subjective Date/time seen: 01/21/21 14:34 Interval history: Reason for consult: COVID-19 pneumonia, acute respiratory failure 01/21/2021: Patient seen and examined the ICU, remains on mechanical ventilation, CMV mode, peep of 10 and 40% FiO2. Patient is sedated with fentanyl, Versed and Nimbex infusion. urine output has been adequate, tolerating tube feeds, hemodynamically stable, afebrile. Positive bowel movements tolerating tube feeds. Patient in prone position Review of Systems Review of Systems: ROS unobtainable: Yes unobtainable due to endotracheal tube Exam Narrative: Exam Narrative: General: Pt is sedated, intubated and In prone position on mechanical ventilation Lungs/Chest: Trachea central Coarse BS B/L, No crackles or wheezing. Cardiac: RRR. Normal S1 S2. No murmurs Circulation: Pedal puls
[2021-01-21] MEDS: MIDAZOLAM 100MG/NS 100ML(*CRX) 100 MG/100 ML BAG IV CONT (19:35)
[2021-01-21] MEDS: FENTANYL 2,500MCG/NS250ML(*CRX 2,500 MCG/250 ML BAG 20 MCG IV CONT (19:36)
[2021-01-21] MEDS: CISATRACURIUM BESYLATE 200 MG in DEXTROSE 5% 80 ML 10.02 ML IV CONT (19:38)
[2021-01-21 19:58] LABS: Glucose Point of Care 231 mg/dl (65-105)
[2021-01-21 21:22] LABS: Glucose Point of Care 214 mg/dl (65-105)
--- NOTE | 2021-01-21 23:15 | PCRCNOTE ---
Attempted to prone pt after retaping ETT, pt did not tolerate, SpO2 gradually decreased to 40%, pt placed supine again, bagged, , and tube withdrawn 2 cm to 24 at the lip, and was secured with a [employer] ETT amador. SpO2 gradually increased once again to the 90's.
--- NOTE | 2021-01-21 23:21 | PCRCNOTE ---
Extensive suctioning done, copious amounts thick stroud sputum obtained.
[2021-01-22] VITALS (46 sets, daily range): BP systolic 81–115; BP diastolic 51–76; PULSE 87–123; RESP 20–28; TEMP 37.3–38.3; O2SAT 90–99
[2021-01-22] MEDS: NOREPINEPHRINE 8 MG/D5W 250 ML 8 MG/250 ML BAG 9.38 MG IV CONT (01:04)
[2021-01-22 01:33] LABS: Glucose Point of Care 173 mg/dl (65-105)
[2021-01-22] MEDS: ALBUTEROL SULFATE NEB 2.5 MG/0.5 ML INH INHALATION ×4 (02:56→21:28)
[2021-01-22] MEDS: CISATRACURIUM BESYLATE 200 MG in DEXTROSE 5% 80 ML 10.02 ML IV CONT ×2 (04:33→14:54)
[2021-01-22 04:40] LABS: Alveolar/Arterial O2 Gradient 437.5 mmHg; Base Excess ABG 7.4 mEq/l (+/-2.0); Carboxyhemoglobin 0.3 % THb (0-2.0); Fractional Inspired Oxygen 80 %; HCO3 ABG 33.8 mEq/l (22.0-26.0); Methemoglobin ABG 0.4 %THb (0-1.5); Oxygen Content ABG 16.7 %vol (16.0-22.0); Oxygen Saturation ABG 94.6 % (95.0-100.0); Oxyhemoglobin 93.2 % THb (90.0-100.0); PO2 ABG 74.1 mmHg (80.0-100.0); PO2 FiO2 Ratio Arterial Blood 0.93 %; Reduced Hemoglobin 6.1 %THb (0-5.0); Total Hemoglobin 12.7 g/dL (12.0-18.0); pH ABG 7.399 (7.350-7.450)
[2021-01-22 04:41] LABS: Device VENTILATOR; Modified Allen's Test Pass; Site Drawn LEFT RADIAL
[2021-01-22 04:42] LABS: Arterial Blood Gas PEEP 10 cmH2O; Arterial Blood Gas Tidal Volume 450 ml; Arterial Blood Gas Vent Mode CMV; Arterial Blood Gas Ventilator rate 20 /MIN
[2021-01-22 04:55] LABS: Hematocrit 36.2 % (42.0-52.0); Hemoglobin 11.4 g/dL (14.0-18.0); Mean Corpuscular HGB Conc 31.5 g/dl (32-36); Mean Corpuscular Volume 95.3 fl (80-100); Mean Platelet Volume 10.6 fl (7.4-10.4); Platelet Count Result 316 k/mm3 (150-375); White Blood Count 21.8 K/mm3 (4.5-10.0)
[2021-01-22 05:09] LABS: Alanine Aminotransferase 630 U/L (4-50); Albumin Level 2.3 g/dL (3.5-5.1); Alkaline Phosphatase 301 U/L (38-126); Anion Gap 4 mmol/L (8-16); Aspartate Amino Transferase 736 U/L (17-59); Bilirubin,Total 1.8 mg/dL (0.2-1.3); Blood Urea Nitrogen 36 mg/dL (9-20); Calcium 7.6 mg/dL (8.4-10.2); Carbon Dioxide 33 mmol/L (22-30); Chloride 104 mmol/L (98-107); Estimated CRCL calculation 93 ml/min; Estimated Glomerular Filt Rate > 60; Glucose 203 mg/dL (65-110); Magnesium 2.2 mg/dL (1.6-2.3); Phosphorus 4.5 mg/dL (2.5-4.5); Potassium 4.8 mmol/L (3.4-5.0); Sodium 141 mmol/L (137-145)
[2021-01-22] MEDS: FENTANYL 2,500MCG/NS250ML(*CRX 2,500 MCG/250 ML BAG 20 MCG IV CONT ×2 (06:59→19:57)
[2021-01-22] MEDS: MIDAZOLAM 100MG/NS 100ML(*CRX) 100 MG/100 ML BAG 6 MG IV CONT ×2 (07:03→12:25)
[2021-01-22] MEDS: INSULIN ASPART (*BKC) 100 UNITS/ML SUB-Q ×4 (07:05→23:49)
[2021-01-22] MEDS: CENTRAL LINE FLUSH 10 ML IV PUSH ×3 (07:05→20:14)
[2021-01-22] MEDS: ASPIRIN 81 MG ENTERIC TABLET PO (09:29)
[2021-01-22] MEDS: ENOXAPARIN 40 MG/0.4 ML SYRINGE SUB-Q ×2 (09:29→19:59)
[2021-01-22] MEDS: INSULIN GLARGINE (*BKC) 100 UNITS/ML 60 UNITS SUB-Q (09:30)
[2021-01-22] MEDS: MINERAL OIL/WHITE PETROLATUM OINTMENT 1 APPLIC EACH EYE ×2 (09:30→20:01)
[2021-01-22] MEDS: PANTOPRAZOLE SODIUM IV 40 MG VIAL IV PUSH (09:30)
[2021-01-22 09:41] LABS: Glucose Point of Care 148 mg/dl (65-105)
[2021-01-22 09:56] LABS: Add Urine Microscopic? YES; Appearance Urine Clear (Clear); Bilirubin Urine Negative (Negative); Blood Urine Negative (Negative); Color Urine Amber (Yellow); Glucose Urine UA Negative (Negative); Ketones Urine Negative (Negative); Leukocyte Esterase Ur Negative LEU/UL (NEGATIVE); Mucus Urine Rare /lpf; Nitrate Urine Negative (Negative); Protein Urine Negative (Negative); Squamous Epithelial Cell Urine Rare /hpf (Few); WBC Urine 0-3 /hpf (0-3)
--- NOTE | 2021-01-22 10:47 | PCDIET ---
ICU Rounding Note: Patient tolerating Glucerna 1.2 at 50mL/hr goal rate with 100mL water flush every 4 hours and Pro-Stat protein flush TID. No new recommendations at this time. Last recorded weight is 95kg which is down from last review, but stable with admission. Bowel Motility: Last documented BM on 01/20/21 x 1. Labs Reviewed: WBC (21.8), RBC (3.80), Hgb (11.4), Hct (36.2), Glu (203), BUN (36), Alb (2.3), Han Ca (8.96) Meds Noted: Albuterol, Nimbex, Versed, Protonix, Fentanyl, Novolog, Lantus, Levophed Additional Notes: Upper lip with deep tissue ulcer; chin with unstageable area. Following daily in ICU rounds. Assessing/reassessing every Tuesday/Tuesday.
[2021-01-22 11:25] LABS: Hepatitis B Surface Antigen Negative (Negative)
[2021-01-22 11:31] LABS: HAV RESULT Negative (Negative); Hepatitis B Core IgM Result Negative (Negative)
[2021-01-22 11:42] LABS: Hepatitis C Virus Antibody Negative (Negative)
--- NOTE | 2021-01-22 12:50 | WPDINTPN ---
Progress Note: A&P Assessment and Plan (1) Acute respiratory failure with hypoxia: Code(s): J96.01 - Acute respiratory failure with hypoxia Status: Acute Assessment and Plan: Acute Respiratory failure secondary to COVID-19 pneumonia with worsening hypoxia through the hospital course Bipap 01/16, intubated 01/17 01/21: after being placed in prone position last night patient desaturated, likely his ETT and advanced, patient dropped his blood pressures, so he was placed back in the supine position. FiO2 has increased to 80%, increased the PEEP to 12 this morning - 01/22/2021 chest x-ray shows moderate bilateral airspace disease some progression of the left lower lobe FiO2 is down to 40% and peep is a 10, wean FiO2 as tolerated Continue mechanical ventilation support to prevent hypoxemia/hypercarbia and end organ damage. Bronchodilators Continue sedation with Versed and fentanyl. patient also on neuromuscular dayan infusion (2) Pneumonia due to COVID-19 virus: Code(s): U07.1 - COVID-19; J12.82 - Pneumonia due to coronavirus disease 2018 Status: Acute Assessment and Plan: Patient received Moderna vaccine in September of 2020 has still developed significant COVID-19 pneumonia. his COVID-19 PCR and antibody are both reactive. patient has completed a course Rocephin and azithromycin. has completed 10 day course of dexamethasone he has completed a 10 day course of Remdesivir a initially his CRP was high 12.1 but most recent CRP is 5.4 hence not high enough to start Tocilizumab continue monitoring inflammatory markers isolation (3) Diabetes mellitus: Code(s): E11.9 - Type 2 diabetes mellitus without complications Status: Acute Assessment and Plan: increase Lantus - continue high-dose sliding scale continue tube feeds (4) Hypotension: Code(s): I95.9 - Hypotension, unspecified Status: Acute Assessment and Plan: mostly secondary to sedation but patient could be intravascularly dry patient responded well to IV fluids that for given on 01/19. conservative fluid management due to COVID-19 pneumonia and ARDS 01/22: patient with hypotension, shock. started on Levophed, will maintain MAP > 65 mmHg at all times - will obtain blood, urine, sputum cultures - started on cefepime and vancomycin - source of infection could be urine, lungs, patient has a PICC line which could be a source of infection, (5) Hypernatremia: Code(s): E87.0 - Hyperosmolality and hypernatremia Status: Acute Assessment and Plan: free water flush with tube feeding 200 mL - sodium levels improving (6) Elevated LFTs: Code(s): R79.89 - Other specified abnormal findings of blood chemistry Status: Acute Assessment and Plan: RUQ ultrasound 01/20/2021 showed hepatic steatosis - hepatitis panel was negative - GI has been consulted Additional Plan DVT prophylaxis - Lovenox q.12 hours Stress ulcer prophylaxis - PPI Nutrition - continue Tube Feeds Code Status - patient is full code Total Critical Care Time - 35 minutes Due to a high probability of clinically significant, life threatening deterioration, the patient required my highest level of preparedness to intervene emergently and I personally spent this critical care time directly and personally managing the patient. This critical care time included obtaining a history; examining the patient; pulse oximetry; ordering and review of studies; arranging urgent treatment with development of a management plan; evaluation of patient's response to treatment; frequent reassessment; and discussions with other providers. It was exclusive of separately billable procedures and treating other patients and teaching time. Please see Assessment and Plan section and the rest of the note for further information on patient assessment and treatment Subjective Date/time seen: 01/22/21 12:50 Interval histo
[2021-01-22 14:43] LABS: Glucose Point of Care 140 mg/dl (65-105)
--- NOTE | 2021-01-22 16:42 | WPDGICN ---
Assessment and Plan Assessment and plan (1) Elevated LFTs: Code(s): R79.89 - Other specified abnormal findings of blood chemistry Status: Acute Assessment and Plan: on admission had normal liver enzymes that slowly has gone up probably from severe COVID with respiratory failure, also use of antibiotics and now on pressors ultrasound abdomen reviewed and fatty liver (probably he had some liver dysfunction at baseline from h/o dm, htn) hepatitis panel negative (2) Pneumonia due to COVID-19 virus: Code(s): U07.1 - COVID-19; J12.82 - Pneumonia due to coronavirus disease 2019 Status: Acute Assessment and Plan: by primary team critically ill despite recent vaccine (3) Acute respiratory failure with hypoxia: Code(s): J96.01 - Acute respiratory failure with hypoxia Status: Acute Assessment and Plan: intubated (4) Hypotension: Code(s): I95.9 - Hypotension, unspecified Status: Acute Assessment and Plan: on levophed (5) Type 2 diabetes mellitus without complication, without long-term current use of insulin: Code(s): E11.9 - Type 2 diabetes mellitus without complications Status: Acute GI Consult Note Consult date/time: 01/22/21 16:42 Reason for consult: elevated liver enzymes, COVID-19 HPI: Portillo Cooley is a 70 year old male with history hypertension, DM who received both COVID-19 vaccines (Moderna) admitted to the hospital after worsening shortness of breath after being COVID-19 positive. Noted obtained from records, apparently he was exposed to others in a car event developed cough, feeling sick and lack of taste. Finally admitted to the hospital few days ago, developed respiratory failure and was intubated, now in icu. On admission he had normal liver enzymes but progressively raising transaminases now 600-700. Hepatitis panel negative, abdominal us reviewed with normal doppler, only fatty liver. No previous history of liver disease. Also worsening leukocytosis. BP running low and started on levophed. Treated also for pneumonia. Review of Systems Review of Systems: ROS unobtainable: Yes unobtainable due to endotracheal tube, unobtainable due to medical condition and unobtainable due to mental status PMFSH Past Medical History Medical History Acute bronchitis Acute non-recurrent maxillary sinusitis Acute pain of left shoulder Arthritis Arthritis of both hands BMI 30.0-30.9,adult Carpal tunnel syndrome on both sides COVID-19 (01/03/21) COVID-19 01/03/2021 after being fully vaccinated in September 2020 Essential (primary) hypertension Hearing loss Male erectile dysfunction, unspecified Osteoporosis Surgical History Surgical History H/O shoulder surgery left, Dr. eugene History of appendectomy History of cholecystectomy History of lumbar surgery 09/25/2018, Dr. Mi S/P left rotator cuff repair Status post bilateral knee replacements 05-12-09, Dr. Gonzalez Family History Family History Sibling Patient's sister is , Onset Age: 65 Family history of lung cancer Mother Family history of malignant neoplasm Family history of congestive heart failure, Onset Age: 96 Other Diabetes mellitus Family history of coronary artery disease Family history of malignant neoplasm of gastrointestinal tract Social History Social History Social History: patient used to smoke cigarettes but quit in 1983. Prior to that he was smoking 2 packs per day. He also quit drinking in 1982. He does not do marijuana or any drugs. 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 If he is unable to make decisions for himself he would like his , sapphire, to make decisions for him. He would like to be a full code unless I am brain then I want to be taken off
[2021-01-22 17:12] LABS: Glucose Point of Care 227 mg/dl (65-105)
[2021-01-22 21:19] LABS: Glucose Point of Care 238 mg/dl (65-105)
[2021-01-23] VITALS (72 sets, daily range): BP systolic 73–147; BP diastolic 39–69; PULSE 62–779; RESP 20; TEMP 36.7–37.7; O2SAT 96–100
[2021-01-23] MEDS: ALBUTEROL SULFATE NEB 2.5 MG/0.5 ML INH INHALATION ×4 (02:13→21:14)
[2021-01-23] MEDS: CISATRACURIUM BESYLATE 200 MG in DEXTROSE 5% 80 ML 11.45 ML IV CONT ×2 (02:26→10:49)
[2021-01-23 04:02] LABS: Glucose Point of Care 266 mg/dl (65-105)
[2021-01-23 04:31] LABS: Hematocrit 33.8 % (42.0-52.0); Hemoglobin 10.7 g/dL (14.0-18.0); Mean Corpuscular HGB Conc 31.7 g/dl (32-36); Mean Corpuscular Hemoglobin 30.3 pg (26-34); Mean Corpuscular Volume 95.8 fl (80-100); Mean Platelet Volume 10.8 fl (7.4-10.4); Platelet Count Result 257 k/mm3 (150-375); Red Blood Count 3.53 M/mm3 (4.6-6.20); Red Cell Distribution Width 15.5 % (11.5-14.5); White Blood Count 28.8 K/mm3 (4.5-10.0)
[2021-01-23] MEDS: MIDAZOLAM 100MG/NS 100ML(*CRX) 100 MG/100 ML BAG 6 MG IV CONT ×2 (04:36→20:27)
[2021-01-23 04:42] LABS: Alanine Aminotransferase 596 U/L (4-50); Albumin Level 2.5 g/dL (3.5-5.1); Alkaline Phosphatase 286 U/L (38-126); Anion Gap 3 mmol/L (8-16); Aspartate Amino Transferase 310 U/L (17-59); Bilirubin,Total 0.8 mg/dL (0.2-1.3); Blood Urea Nitrogen 40 mg/dL (9-20); Calcium 8.5 mg/dL (8.4-10.2); Carbon Dioxide 34 mmol/L (22-30); Chloride 98 mmol/L (98-107); Estimated CRCL calculation 67 ml/min; Estimated Glomerular Filt Rate > 60; Glucose 273 mg/dL (65-110); Magnesium 2.7 mg/dL (1.6-2.3); Phosphorus 4.4 mg/dL (2.5-4.5); Potassium 5.2 mmol/L (3.4-5.0); Sodium 135 mmol/L (137-145)
[2021-01-23] MEDS: INSULIN ASPART (*BKC) 100 UNITS/ML SUB-Q ×5 (05:35→20:30)
[2021-01-23] MEDS: CENTRAL LINE FLUSH 10 ML IV PUSH ×3 (05:37→21:34)
[2021-01-23 05:42] LABS: Alveolar/Arterial O2 Gradient 396.2 mmHg; Base Excess ABG 6.2 mEq/l (+/-2.0); Carboxyhemoglobin 0.3 % THb (0-2.0); Fractional Inspired Oxygen 80 %; HCO3 ABG 32.9 mEq/l (22.0-26.0); Methemoglobin ABG 0.4 %THb (0-1.5); Oxygen Content ABG 16.7 %vol (16.0-22.0); Oxygen Saturation ABG 97.9 % (95.0-100.0); PCO2 ABG 57.9 mmHg (35.0-45.0); PO2 ABG 113.4 mmHg (80.0-100.0); PO2 FiO2 Ratio Arterial Blood 1.42 %; Reduced Hemoglobin 2.3 %THb (0-5.0); Total Hemoglobin 12.1 g/dL (12.0-18.0); pH ABG 7.373 (7.350-7.450)
[2021-01-23 05:43] LABS: Device VENTILATOR; Modified Allen's Test Unable to perform; Site Drawn LEFT RADIAL
[2021-01-23 05:44] LABS: Arterial Blood Gas PEEP 12 cmH2O; Arterial Blood Gas Tidal Volume 450 ml; Arterial Blood Gas Vent Mode CMV; Arterial Blood Gas Ventilator rate 20 /MIN
[2021-01-23 06:16] LABS: Glucose Point of Care 267 mg/dl (65-105)
[2021-01-23] MEDS: NOREPINEPHRINE 8 MG/D5W 250 ML 8 MG/250 ML BAG 7.5 MG IV CONT (07:36)
[2021-01-23] MEDS: FENTANYL 2,500MCG/NS250ML(*CRX 2,500 MCG/250 ML BAG 20 MCG IV CONT ×2 (07:37→20:26)
--- NOTE | 2021-01-23 07:44 | P.CDI_ITS ---
CDI Query Clarification Request - patient with hypotension, shock. started on Levophed has been documented Please further specify type of shock: * Anaphylactic * Cardiogenic * Hypovolemic * Septic * Post procedural * Traumatic/ Post traumatic * Other * Unable to determine <Jossie Keene RN - Last Filed: 01/23/21 07:45>
--- NOTE | 2021-01-23 07:44 | WPDCDIQUERY2 ---
CDI Query Clarification Request - patient with hypotension, shock. started on Levophed has been documented Please further specify type of shock: Anaphylactic Cardiogenic Hypovolemic Septic Post procedural Traumatic/ Post traumatic Other Unable to determine <Jossie Keene RN - Last Filed: 01/23/21 07:45>
[2021-01-23] MEDS: ENOXAPARIN 40 MG/0.4 ML SYRINGE SUB-Q ×2 (08:44→20:32)
[2021-01-23] MEDS: ASPIRIN 81 MG ENTERIC TABLET PO (08:44)
[2021-01-23] MEDS: PANTOPRAZOLE SODIUM IV 40 MG VIAL IV PUSH (08:45)
[2021-01-23] MEDS: MINERAL OIL/WHITE PETROLATUM OINTMENT 1 APPLIC EACH EYE ×2 (08:45→20:33)
[2021-01-23 09:27] LABS: Glucose Point of Care 244 mg/dl (65-105)
[2021-01-23 09:40] LABS: D Dimer 0.67 ug/mL (<0.48)
[2021-01-23] MEDS: INSULIN GLARGINE (*BKC) 100 UNITS/ML 40 UNITS SUB-Q ×2 (10:53→21:33)
--- NOTE | 2021-01-23 11:06 | PCDIET ---
Nutrition Follow-Up Complete: Nutrition Diagnosis: Inadequate oral intake related to oral intubation as evidenced by need for tube feedings. Nutrition Goal: Patient to meet estimated nutritional needs. Goal in progress. Patient tolerating Glucerna 1.2 at 50mL/hr goal rate with 100mL water flush every 4 hours and Pro-Stat protein flush TID. Last recorded weight is 95.8 kg which is slightly increased from last review. +I/O. Bowel Motility: Last documented BM on 01/20/21 x 1. Labs Reviewed: WBC (28.8), RBC (3.53), Hgb (10.7), Hct (33.8), Glu (273), BUN (40), K (5.2), Na (135), Alb (2.5), Mg (2.7) Meds Noted: Albuterol, Fentanyl, Versed, Vancomycin, Cefepime, Novolog, Levophed, Nimbex, Lantus, Protonix Additional Notes: RN reporting edema. Residual of 280mL documented overnight, but RN reports 75mL on last check. Monitoring potassium level; if further increases, may need to consider change to Nepro. Will continue to monitor with same goal. Nutrition Monitoring and Evaluation: Follow up every Tuesday/Tuesday. Follow daily in ICU rounds.
[2021-01-23] MEDS: DORNASE ALFA INH SOLN 1 MG/ML 2.5 ML AMP 2.5 MG INHALATION ×2 (11:07→21:15)
[2021-01-23 11:13] LABS: CRP 35.3 mg/dL (<1.0); Lactate Dehydrogenase 470 U/L (313-618)
[2021-01-23 12:59] LABS: Ferritin > 2000.00 ng/mL (11.1-264)
--- NOTE | 2021-01-23 13:23 | WPDGIPROGNO ---
Progress Note: A&P Assessment and Plan (1) Elevated LFTs: Code(s): R79.89 - Other specified abnormal findings of blood chemistry Status: Acute Assessment and Plan: transaminases trending back down today, continue to monitor probably from acute illness/covid pneumonia and most likely he has underlying fatty liver (2) Acute respiratory failure with hypoxia: Code(s): J96.01 - Acute respiratory failure with hypoxia Status: Acute Assessment and Plan: supportive care in icu, still intubated CXR reviewed, persistent infiltrates (3) Pneumonia due to COVID-19 virus: Code(s): U07.1 - COVID-19; J12.82 - Pneumonia due to coronavirus disease 2019 Status: Acute (4) Hypotension: Code(s): I95.9 - Hypotension, unspecified Status: Acute Subjective Date/time seen: 01/23/21 13:23 Interval history: no major changes, still sedated and intubated Review of Systems Review of Systems: All systems reviewed & are unremarkable except as noted in HPI and below Exam Const: Other: acutely ill, intubated and sedated HENMT: General nose exam: Normal nares present Eyes: Sclera: sclerae normal Neck: Neck: supple Resp: Auscultation: rhonchi and diminished lung sounds Cardio: Rate: regular rate GI: GI Palp: Yes Soft to palpation, No Tenderness to palpation present (GI) and No Guarding due to palpation present (GI) Auscultation: normal bowel sounds Skin: General skin exam: no rashes or lesions noted Neuro: Other: sedated, unable to assess Extrem: General: pedal edema Objective Data Vital Signs Vital Signs: Vital Signs - 24 hr 01/22/21 13:45 01/22/21 14:00 01/22/21 14:32 Temperature 100.6 F H Pulse Rate 110 H 110 H 110 H Respiratory Rate 20 20 Blood Pressure 95/76 L 95/76 L 95/76 L Pulse Oximetry 95 01/22/21 14:50 01/22/21 14:54 01/22/21 15:26 Temperature Pulse Rate 104 H 110 H 104 H Respiratory Rate 20 20 Blood Pressure 81/55 L 95/76 L Pulse Oximetry 95 01/22/21 16:00 01/22/21 17:00 01/22/21 17:58 Temperature 99.9 F H Pulse Rate 94 94 93 Respiratory Rate 28 H 28 H Blood Pressure 96/62 L 95/60 L Pulse Oximetry 97 97 01/22/21 18:00 01/22/21 19:29 01/22/21 19:50 Temperature 99.2 F Pulse Rate 94 90 90 Respiratory Rate 28 H 20 20 Blood Pressure 95/60 L 96/54 L Pulse Oximetry 97 01/22/21 19:57 01/22/21 20:00 01/22/21 20:14 Temperature 99.4 F Pulse Rate 90 87 92 Respiratory Rate 20 20 Blood Pressure 101/58 L 101/58 L Pulse Oximetry 98 01/22/21 20:15 01/22/21 21:28 01/22/21 21:38 Temperature Pulse Rate 91 92 97 Respiratory Rate 20 20 20 Blood Pressure Pulse Oximetry 98 01/22/21 22:00 01/22/21 23:15 01/22/21 23:16 Temperature 99.5 F Pulse Rate 97 103 H 102 H Respiratory Rate 20 20 20 Blood Pressure 115/61 108/63 Pulse Oximetry 98 01/22/21 23:17 01/22/21 23:50 01/22/21 23:52 Temperature 99.3 F Pulse Rate 103 H 99 103 H Respiratory Rate 20 Blood Pressure 108/63 111/67 Pulse Oximetry 97 98 01/23/21 00:00 01/23/21 00:04 01/23/21 01:47 Temperature Pulse Rate 106 H 102 H 99 Respiratory Rate 20 Blood Pressure 111/67 103/63 Pulse Oximetry 01/23/21 02:00 01/23/21 02:12 01/23/21 02:19 Temperature 99.3 F Pulse Rate 102 H 104 H 92 Respiratory Rate 20 20 Blood Pressure 103/63 Pulse Oximetry 98 98 01/23/21 02:26 01/23/21 04:00 01/23/21 04:36 Temperature 99 F Pulse Rate 99 96 93 Respiratory Rate 20 20 20 Blood Pressure 103/63 112/59 L Pulse Oximetry 99 01/23/21 04:52 01/23/21 04:53 01/23/21 04:54 Temperature Pulse Rate 103 H 102 H 101 H Respiratory Rate 20 20 Blood Pressure 99/50 L 99/50 L Pulse Oximetry 01/23/21 05:33 01/23/21 06:32 01/23/21 06:46 Temperature 99.0 F Pulse Rate 96 89 88 Respiratory Rate 20 Blood Pressure 87/49 L Pulse Oximetry 99 99 01/23/21 06:48 01/23/21 07:36 01/23/21 07:37 Temperature
[2021-01-23 13:45] LABS: Glucose Point of Care 226 mg/dl (65-105)
--- NOTE | 2021-01-23 13:57 | WPDINTPN ---
Progress Note: A&P Assessment and Plan (1) Septic shock: Code(s): A41.9 - Sepsis, unspecified organism; R65.21 - Severe sepsis with septic shock Status: Acute Assessment and Plan: 01/22/2021: Patient was hypotensive, requiring Levophed, increasing oxygen requirement on mechanical ventilation and slightly worsening chest x-ray - sputum cultures from 01/22 growing gram-negative bacilli - patient was started on cefepime and vancomycin - blood cultures pending - likely related to septic shock from possible ventilator associated pneumonia - infectious disease has been consulted (2) Acute respiratory failure with hypoxia: Code(s): J96.01 - Acute respiratory failure with hypoxia Status: Acute Assessment and Plan: Acute Respiratory failure secondary to COVID-19 pneumonia with worsening hypoxia through the hospital course Bipap 01/16, intubated 01/17 - 01/23: overnight O2 requirements have increasing patient is currently on 80% FiO2. Peep of 12, O2 sats have been between 98-100%, will wean PEEP down to 10 to prevent any pneumothorax/ pneumomediastinum which has been frequently seen in patients COVID-19 19 - will start weaning FiO2 gradually as tolerated to maintain O2 sats > 92% Continue mechanical ventilation support to prevent hypoxemia/hypercarbia and end organ damage. Bronchodilators Continue sedation with Versed and fentanyl. patient also on neuromuscular dayan infusion (3) Pneumonia due to COVID-19 virus: Code(s): U07.1 - COVID-19; J12.82 - Pneumonia due to coronavirus disease 2019 Status: Acute Assessment and Plan: Patient received Moderna vaccine in September of 2020 has still developed significant COVID-19 pneumonia. his COVID-19 PCR and antibody are both reactive. patient has completed a course Rocephin and azithromycin. has completed 10 day course of dexamethasone he has completed a 10 day course of Remdesivir a initially his CRP was high 12.1 but most recent CRP is 5.4 hence not high enough to start Tocilizumab continue monitoring inflammatory markers isolation (4) Diabetes mellitus: Code(s): E11.9 - Type 2 diabetes mellitus without complications Status: Acute Assessment and Plan: change Lantus to b.i.d. - continue high-dose sliding scale continue tube feeds (5) Hypotension: Code(s): I95.9 - Hypotension, unspecified Status: Acute Assessment and Plan: mostly secondary to sedation but patient could be intravascularly dry patient responded well to IV fluids that for given on 01/19. conservative fluid management due to COVID-19 pneumonia and ARDS 01/22: patient with hypotension, shock. started on Levophed, will maintain MAP > 65 mmHg at all times - will obtain blood, urine, sputum cultures - started on cefepime and vancomycin - source of infection could be urine, lungs, patient has a PICC line which could be a source of infection, (6) Hypernatremia: Code(s): E87.0 - Hyperosmolality and hypernatremia Status: Acute Assessment and Plan: sodium levels normalized to 135, - decreased water flushes to 50 mL Q 6 (7) Elevated LFTs: Code(s): R79.89 - Other specified abnormal findings of blood chemistry Status: Acute Assessment and Plan: RUQ ultrasound 01/20/2021 showed hepatic steatosis - hepatitis panel was negative - appreciate GI evaluation recommendation - increase in LFTs could be related to septic shock, shock liver, will continue to maintain mean arterial pressures > 65 mmHg for adequate Additional Plan discussed with Taryn, updated her with patient's condition and plan of care. I answered all questions DVT prophylaxis - Lovenox q.12 hours Stress ulcer prophylaxis - PPI Nutrition - continue Tube Feeds Code Status - patient is full code Total Critical Care Time - 35 minutes Due to a high probability of clinically significant, life threatening d
--- NOTE | 2021-01-23 15:08 | PM.IMPN ---
Progress Note: A&P Assessment and Plan (1) Septic shock: Code(s): A41.9 - Sepsis, unspecified organism; R65.21 - Severe sepsis with septic shock Status: Acute Assessment and Plan: CONTINUE EARLY GOAL-DIRECTED THERAPY 01/22/2021: Patient was hypotensive, requiring Levophed, increasing oxygen requirement on mechanical ventilation and slightly worsening chest x-ray - sputum cultures from 01/22 growing gram-negative bacilli - patient was started on cefepime and vancomycin - blood cultures pending - likely related to septic shock from possible ventilator associated pneumonia - infectious disease has been consulted (2) Acute respiratory failure with hypoxia: Code(s): J96.01 - Acute respiratory failure with hypoxia Status: Acute Assessment and Plan: CONTINUE VENTILATOR SUPPORT Acute Respiratory failure secondary to COVID-19 pneumonia with worsening hypoxia through the hospital course Bipap 01/16, intubated 01/17 - 01/23: overnight O2 requirements have increasing patient is currently on 80% FiO2. Peep of 12, O2 sats have been between 98-100%, will wean PEEP down to 10 to prevent any pneumothorax/ pneumomediastinum which has been frequently seen in patients COVID-19 19 - will start weaning FiO2 gradually as tolerated to maintain O2 sats > 92% Continue mechanical ventilation support to prevent hypoxemia/hypercarbia and end organ damage. Bronchodilators Continue sedation with Versed and fentanyl. patient also on neuromuscular dayan infusion (3) Pneumonia due to COVID-19 virus: Code(s): U07.1 - COVID-19; J12.82 - Pneumonia due to coronavirus disease 2018 Status: Acute Assessment and Plan: CONTINUE PRESENT MANAGEMENT Patient received Moderna vaccine in September of 2020 has still developed significant COVID-19 pneumonia. his COVID-19 PCR and antibody are both reactive. patient has completed a course Rocephin and azithromycin. has completed 10 day course of dexamethasone he has completed a 10 day course of Remdesivir a initially his CRP was high 12.1 but most recent CRP is 5.4 hence not high enough to start Tocilizumab continue monitoring inflammatory markers isolation (4) Diabetes mellitus: Code(s): E11.9 - Type 2 diabetes mellitus without complications Status: Acute Assessment and Plan: change Lantus to b.i.d. - continue high-dose sliding scale continue tube feeds (5) Hypotension: Code(s): I95.9 - Hypotension, unspecified Status: Acute Assessment and Plan: CONTINUE VASOPRESSOR mostly secondary to sedation but patient could be intravascularly dry patient responded well to IV fluids that for given on 01/19. conservative fluid management due to COVID-19 pneumonia and ARDS 01/22: patient with hypotension, shock. started on Levophed, will maintain MAP > 65 mmHg at all times - will obtain blood, urine, sputum cultures - started on cefepime and vancomycin - source of infection could be urine, lungs, patient has a PICC line which could be a source of infection, (6) Hypernatremia: Code(s): E87.0 - Hyperosmolality and hypernatremia Status: Acute Assessment and Plan: CONTINUE TO MONITOR sodium levels normalized to 135, - decreased water flushes to 50 mL Q 6 (7) Elevated LFTs: Code(s): R79.89 - Other specified abnormal findings of blood chemistry Status: Acute Assessment and Plan: RUQ ultrasound 01/20/2021 showed hepatic steatosis - hepatitis panel was negative - appreciate GI evaluation recommendation - increase in LFTs could be related to septic shock, shock liver, will continue to maintain mean arterial pressures > 65 mmHg for adequate Additional Plan discussed with Taryn, updated her with patient's condition and plan of care. I answered all questions DVT prophylaxis - Lovenox q.12 hours Stress ulcer prophylaxis - PPI Nutrition - continue Tube Feeds Code Stat
[2021-01-23 17:35] LABS: Glucose Point of Care 262 mg/dl (65-105)
[2021-01-23] MEDS: CISATRACURIUM BESYLATE 200 MG in DEXTROSE 5% 80 ML 12.88 ML IV CONT (18:22)
[2021-01-23] MEDS: NOREPINEPHRINE 8 MG/D5W 250 ML 8 MG/250 ML BAG 15 MG IV CONT (20:25)
[2021-01-23 21:31] LABS: Glucose Point of Care 224 mg/dl (65-105)
[2021-01-24] VITALS (67 sets, daily range): BP systolic 90–124; BP diastolic 50–78; PULSE 56–74; RESP 19–20; TEMP 36.9–37.8; O2SAT 92–97
[2021-01-24 00:17] LABS: Glucose Point of Care 172 mg/dl (65-105)
[2021-01-24] MEDS: CISATRACURIUM BESYLATE 200 MG in DEXTROSE 5% 80 ML 12.88 ML IV CONT (01:18)
[2021-01-24] MEDS: ALBUTEROL SULFATE NEB 2.5 MG/0.5 ML INH INHALATION ×4 (03:01→20:21)
[2021-01-24 03:06] LABS: Vancomycin Trough 12.3 ug/mL (10.0-20.0)
[2021-01-24 05:08] LABS: Hematocrit 27.8 % (42.0-52.0); Hemoglobin 8.7 g/dL (14.0-18.0); Mean Corpuscular HGB Conc 31.3 g/dl (32-36); Mean Corpuscular Volume 95.9 fl (80-100); Mean Platelet Volume 11.5 fl (7.4-10.4); Platelet Count Result 185 k/mm3 (150-375); White Blood Count 18.5 K/mm3 (4.5-10.0)
[2021-01-24 05:32] LABS: Alanine Aminotransferase 298 U/L (4-50); Albumin Level 2.1 g/dL (3.5-5.1); Alkaline Phosphatase 212 U/L (38-126); Anion Gap 2 mmol/L (8-16); Aspartate Amino Transferase 76 U/L (17-59); Bilirubin,Total 0.5 mg/dL (0.2-1.3); Blood Urea Nitrogen 31 mg/dL (9-20); Calcium 7.9 mg/dL (8.4-10.2); Carbon Dioxide 33 mmol/L (22-30); Chloride 95 mmol/L (98-107); Estimated CRCL calculation 93 ml/min; Estimated Glomerular Filt Rate > 60; Glucose 320 mg/dL (65-110); Lactic Acid Reflex 1.2 mmol/L (0.7-2.1); Magnesium 2.3 mg/dL (1.6-2.3); Phosphorus 2.5 mg/dL (2.5-4.5); Potassium 4.5 mmol/L (3.4-5.0); Sodium 130 mmol/L (137-145)
[2021-01-24] MEDS: INSULIN ASPART (*BKC) 100 UNITS/ML SUB-Q (06:06)
[2021-01-24] MEDS: CENTRAL LINE FLUSH 10 ML IV PUSH ×3 (06:07→21:33)
[2021-01-24 06:42] LABS: Alveolar/Arterial O2 Gradient 309.2 mmHg; Base Excess ABG 7.3 mEq/l (+/-2.0); Carboxyhemoglobin 0.3 % THb (0-2.0); Fractional Inspired Oxygen 60 %; HCO3 ABG 31.7 mEq/l (22.0-26.0); Methemoglobin ABG 0.4 %THb (0-1.5); Oxygen Content ABG 13.8 %vol (16.0-22.0); Oxygen Saturation ABG 94.9 % (95.0-100.0); Oxyhemoglobin 93.9 % THb (90.0-100.0); PCO2 ABG 44.4 mmHg (35.0-45.0); PO2 ABG 69.8 mmHg (80.0-100.0); PO2 FiO2 Ratio Arterial Blood 1.16 %; Reduced Hemoglobin 5.4 %THb (0-5.0); Total Hemoglobin 10.4 g/dL (12.0-18.0); pH ABG 7.472 (7.350-7.450)
[2021-01-24 06:43] LABS: Arterial Blood Gas Vent Mode CMV; Arterial Blood Gas Ventilator rate 20 /MIN; Device VENTILATOR; Modified Allen's Test Pass; Site Drawn RIGHT RADIAL
[2021-01-24 06:44] LABS: Arterial Blood Gas PEEP 10 cmH2O; Arterial Blood Gas Tidal Volume 450 ml
[2021-01-24] MEDS: FENTANYL 2,500MCG/NS250ML(*CRX 2,500 MCG/250 ML BAG 20 MCG IV CONT ×2 (07:10→18:58)
[2021-01-24] MEDS: CISATRACURIUM BESYLATE 200 MG in DEXTROSE 5% 80 ML 14.31 ML IV CONT (08:03)
[2021-01-24] MEDS: MIDAZOLAM 100MG/NS 100ML(*CRX) 100 MG/100 ML BAG 6 MG IV CONT (08:04)
[2021-01-24] MEDS: PANTOPRAZOLE SODIUM IV 40 MG VIAL IV PUSH (08:10)
[2021-01-24] MEDS: MINERAL OIL/WHITE PETROLATUM OINTMENT 1 APPLIC EACH EYE ×2 (08:10→20:00)
[2021-01-24] MEDS: ASPIRIN 81 MG ENTERIC TABLET PO (08:10)
[2021-01-24] MEDS: ENOXAPARIN 40 MG/0.4 ML SYRINGE SUB-Q ×2 (08:10→19:56)
[2021-01-24] MEDS: INSULIN GLARGINE (*BKC) 100 UNITS/ML 50 UNITS SUB-Q ×2 (08:11→19:57)
[2021-01-24] MEDS: DORNASE ALFA INH SOLN 1 MG/ML 2.5 ML AMP 2.5 MG INHALATION ×2 (08:37→20:21)
--- NOTE | 2021-01-24 08:56 | WPDINFPN2 ---
Progress Note: A&P Assessment and Plan (1) Pneumonia due to COVID-19 virus: Code(s): U07.1 - COVID-19; J12.82 - Pneumonia due to coronavirus disease 2019 Status: Acute Assessment and Plan: IMP SARS CoV2 infection (vaccinated) with viral pneumonia, treated, now with breakthrough leukocytosis and pressor dependence and mildly worse CXR, suspect superimposed bacterial HCAP REC Sputum in process, Cefepime #3, hold vanc. Adjust gram negative treatment based on culture. Call if Qs Subjective Date/time seen: 01/24/21 08:56 Objective Data Vital Signs Vital Signs: Vital Signs - 24 hr 01/23/21 09:05 01/23/21 09:07 01/23/21 09:19 Temperature Pulse Rate 80 Respiratory Rate 20 Blood Pressure 73/51 L 73/41 L 101/45 L Pulse Oximetry 01/23/21 09:22 01/23/21 09:23 01/23/21 09:28 Temperature Pulse Rate 78 108 H 99 Respiratory Rate 20 20 Blood Pressure Pulse Oximetry 99 01/23/21 10:00 01/23/21 10:39 01/23/21 10:49 Temperature 37.2 C Pulse Rate 779 H 74 Respiratory Rate 20 20 20 Blood Pressure 98/58 L 97/54 L Pulse Oximetry 100 01/23/21 10:51 01/23/21 10:52 01/23/21 10:53 Temperature Pulse Rate 74 77 Respiratory Rate 20 20 Blood Pressure 97/54 L Pulse Oximetry 01/23/21 11:08 01/23/21 12:00 01/23/21 13:16 Temperature 37.2 C Pulse Rate 70 71 66 Respiratory Rate 20 Blood Pressure 98/52 L 98/49 L Pulse Oximetry 100 100 01/23/21 13:17 01/23/21 13:18 01/23/21 13:19 Temperature Pulse Rate 63 65 71 Respiratory Rate 20 20 20 Blood Pressure 98/52 L Pulse Oximetry 01/23/21 14:00 01/23/21 15:18 01/23/21 15:25 Temperature 37.1 C Pulse Rate 77 69 76 Respiratory Rate 20 20 Blood Pressure 115/63 Pulse Oximetry 98 100 01/23/21 15:27 01/23/21 16:00 01/23/21 16:30 Temperature 36.7 C Pulse Rate 74 71 72 Respiratory Rate 20 20 20 Blood Pressure 147/68 H 143/68 H Pulse Oximetry 98 01/23/21 16:31 01/23/21 16:33 01/23/21 16:44 Temperature Pulse Rate 72 72 71 Respiratory Rate 20 20 Blood Pressure 142/69 H 136/67 Pulse Oximetry 01/23/21 17:42 01/23/21 17:43 01/23/21 17:45 Temperature Pulse Rate 70 73 67 Respiratory Rate 20 20 Blood Pressure 133/61 Pulse Oximetry 01/23/21 17:46 01/23/21 18:00 01/23/21 18:11 Temperature 36.8 C Pulse Rate 65 71 68 Respiratory Rate 20 20 Blood Pressure 134/63 122/63 Pulse Oximetry 99 99 01/23/21 18:22 01/23/21 19:51 01/23/21 19:54 Temperature 37.2 C Pulse Rate 74 90 Respiratory Rate 20 20 Blood Pressure 127/65 119/57 L Pulse Oximetry 99 99 01/23/21 20:00 01/23/21 20:25 01/23/21 20:26 Temperature Pulse Rate 73 71 74 Respiratory Rate 20 Blood Pressure 116/60 Pulse Oximetry 01/23/21 20:27 01/23/21 20:28 01/23/21 21:00 Temperature Pulse Rate 72 71 72 Respiratory Rate 20 20 20 Blood Pressure 116/60 Pulse Oximetry 01/23/21 21:05 01/23/21 21:08 01/23/21 22:00 Temperature 37.4 C Pulse Rate 78 75 72 Respiratory Rate 20 20 Blood Pressure 108/60 Pulse Oximetry 96 96 01/23/21 23:45 01/23/21 23:53 01/23/21 23:54 Temperature Pulse Rate 72 66 63 Respiratory Rate 20 Blood Pressure 104/50 L 104/50 L Pulse Oximetry 96 01/23/21 23:55 01/23/21 23:59 01/24/21 00:00 Temperature 37.7 C H Pulse Rate 62 71 65 Respiratory Rate 20 20 Blood Pressure 104/50 L Pulse Oximetry 96 95 01/24/21 01:18 01/24/21 02:00 01/24/21 02:37 Temperature 37.8 C H Pulse Rate 62 69 69 Respiratory Rate 20 20 20 Blood Pressure 90/50 L 107/53 L 106/53 L Pulse Oximetry 96 01/24/21 02:38 01/24/21 02:47 01/24/21 02:49 Temperature Pulse Rate 69 66 66 Respiratory Rate 20 19 Blood Pressure Pulse Oximetry 96 01/24/21 02:59 01/24/21 04:00 01/24/21 04:47 Temperature 37.7 C H Pulse Rate 66 67 67 Respiratory Rate 20 20 20 Blood Pressure 124/61 124/61 Pulse Oximetry 96 01/24/21 04:
[2021-01-24 09:40] LABS: Glucose Point of Care 151 mg/dl (65-105)
--- NOTE | 2021-01-24 12:23 | CONS_ITS ---
DATE OF CONSULTATION: 01/24/2021 REASON FOR CONSULTATION: Leukocytosis. HISTORY OF PRESENT ILLNESS: 70-year-old male who cannot provide any history as he is sedated, intubated, and paralyzed. He was originally admitted to the hospital on January 10 with 2 days of shortness of breath and onset of hypoxemia. He also had had 5 days of headache and coryza. He had a positive coronavirus test one day before admission despite Moderna vaccine series in September. His hospital course here has been complicated by respiratory failure requiring mechanical ventilation, hyperglycemia, electrolyte abnormalities, elevated liver function tests, and finding of hepatic steatosis. He earlier received remdesivir and dexamethasone with the steroids being stopped approximately 4 days ago. He also received for unknown reasons, ceftriaxone, azithromycin, and vancomycin earlier in his hospital stay. His nurse says no bowel movements in the last 4 days. He has tolerated tube feeding without difficulty. He is now on norepinephrine 5 mcg. ALLERGIES: NONE PERTINENT. HABITS: Ex-smoker 1983 and no alcohol since 1982. PRESENT MEDICATIONS: No ongoing immunosuppressants. List reviewed. PAST MEDICAL HISTORY: In addition to the above, bilateral knee replacements or knee surgery, rotator cuff repair, lumbar spine surgery, removal of appendix and gallbladder, shoulder surgery, osteoporosis, ED, hearing loss, hypertension, CTS, acute sinusitis and bronchitis in the past. REVIEW OF SYSTEMS: 14-point review otherwise negative, not obtainable from the patient, however, due to intubated status. SOCIAL HISTORY: He is . No family at the bedside. FAMILY HISTORY: Diabetes, CAD, lung cancer. PHYSICAL EXAMINATION: GENERAL: This is an elderly male, who appears older than his actual age. Well nourished. No acute distress. VITAL SIGNS: T-max 37.8, three days ago up to 38.3, and previously was afebrile. Temperature on admission was normal. 93/57, 64, 20, 60% FiO2. SKIN: No rashes. Warm and dry. NODES: He has no axillary or cervical adenopathy. 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 No neck masses. No asymmetry. EENT: Paranasal sinuses without erythema, warmth or focal swelling. Pupils are miotic. No conjunctival injection. The oral mucosa is obscured by tubes but inspection normal. LUNGS: Rales in the right mid to lower lung field. Breath sounds are vesicular. Clear to percussion. No crepitus. CARDIAC: Distant S1, S2. No murmur or gallop. ABDOMEN: Normal bowel sounds. Nondistended. No mass. No organomegaly. : Flores catheter draining clear yellow urine. No scrotal edema. EXTREMITIES: He has dressings in place from previous prone positioning but no decubitus ulcers. 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 LAB: Sputum with moderate white cells, moderate gram-negative rods to be identified. Blood cultures, no growth after 2 days incubation. Urine culture, no pathogens. White blood cell count normal on admission, marianne up to 13.3 eight days ago, 28.8 yesterday, 18.5 today; hemoglobin 8.7; platelets are 185. Other recent labs notable for 7.47, 44, 70, 32, 95% on the noted ventilator settings. He has mild hyponatremia, CO2 elevated at 33, BUN 31, creatinine 0.8. Accu-Cheks high and variable. A1c 7.4% without prior history of diabetes. Ferritin over 2000, previously 1650. Bilirubin marianne briefly, now normal. Transaminases also high, though declined since yesterday. LDH normal. CRP 35. Urinalysis, no evidence of infection. Hepatitis panel nonreactive. RADIOLOGY: I personally reviewed his chest x-ray. He has diffuse interstitial lung infiltrates, most prominent left upper lobe and right perihilar, the latter is more prominent compared to recent days.
[2021-01-24] MEDS: polyethylene glycoL 3350 17 GM POWD.PACK PO (12:39)
[2021-01-24 12:54] LABS: Glucose Point of Care 130 mg/dl (65-105)
--- NOTE | 2021-01-24 13:08 | WPDINTPN ---
Progress Note: A&P Assessment and Plan (1) Septic shock: Code(s): A41.9 - Sepsis, unspecified organism; R65.21 - Severe sepsis with septic shock Status: Acute Assessment and Plan: 01/22/2021: Patient was hypotensive, requiring Levophed, increasing oxygen requirement on mechanical ventilation and slightly worsening chest x-ray - sputum cultures from 01/22 growing pseudomonas, sensitivities Pending - blood cultures coag neg staph - likely related to septic shock from possible ventilator associated pneumonia - Appreciated ID evaluation and recommendations, continue cefepime, D/c Vancomycin (2) Acute respiratory failure with hypoxia: Code(s): J96.01 - Acute respiratory failure with hypoxia Status: Acute Assessment and Plan: Acute Respiratory failure secondary to COVID-19 pneumonia with worsening hypoxia through the hospital course Bipap 01/16, intubated 01/17 - 01/23: overnight O2 requirements have increasing patient is currently on 80% FiO2. Peep of 10, O2 sats have been between 98-100%, - will start weaning FiO2 gradually as tolerated to maintain O2 sats > 92% Continue mechanical ventilation support to prevent hypoxemia/hypercarbia and end organ damage. Bronchodilators Continue sedation with Versed and fentanyl. patient also on neuromuscular dayan infusion (3) Pneumonia due to COVID-19 virus: Code(s): U07.1 - COVID-19; J12.82 - Pneumonia due to coronavirus disease 2019 Status: Acute Assessment and Plan: Patient received Moderna vaccine in September of 2020 has still developed significant COVID-19 pneumonia. his COVID-19 PCR and antibody are both reactive. patient has completed a course Rocephin and azithromycin. has completed 10 day course of dexamethasone he has completed a 10 day course of Remdesivir a initially his CRP was high 12.1 but most recent CRP is 5.4 hence not high enough to start Tocilizumab continue monitoring inflammatory markers isolation (4) Diabetes mellitus: Code(s): E11.9 - Type 2 diabetes mellitus without complications Status: Acute Assessment and Plan: change Lantus to b.i.d. - continue high-dose sliding scale continue tube feeds (5) Hypotension: Code(s): I95.9 - Hypotension, unspecified Status: Acute Assessment and Plan: mostly secondary to sedation but patient could be intravascularly dry patient responded well to IV fluids that for given on 01/19. conservative fluid management due to COVID-19 pneumonia and ARDS 01/22: patient with hypotension, shock. started on Levophed, will maintain MAP > 65 mmHg at all times - will obtain blood, urine, sputum cultures - started on cefepime and vancomycin - source of infection could be urine, lungs, patient has a PICC line which could be a source of infection, (6) Hypernatremia: Code(s): E87.0 - Hyperosmolality and hypernatremia Status: Acute Assessment and Plan: sodium levels normalized to 135, - decreased water flushes to 50 mL Q 6 (7) Elevated LFTs: Code(s): R79.89 - Other specified abnormal findings of blood chemistry Status: Acute Assessment and Plan: RUQ ultrasound 01/20/2021 showed hepatic steatosis - hepatitis panel was negative - appreciate GI evaluation recommendation - increase in LFTs could be related to septic shock, shock liver, will continue to maintain mean arterial pressures > 65 mmHg for adequate Additional Plan discussed with Taryn, updated her with patient's condition and plan of care. I answered all questions DVT prophylaxis - Lovenox q.12 hours Stress ulcer prophylaxis - PPI Nutrition - continue Tube Feeds Code Status - patient is full code D/w Dr. Dang Total Critical Care Time - 32 minutes Due to a high probability of clinically significant, life threatening deterioration, the patient required my highest level of preparedness to intervene emergently and I
--- NOTE | 2021-01-24 13:52 | WPDGIPROGNO ---
Progress Note: A&P Assessment and Plan (1) Elevated LFTs: Code(s): R79.89 - Other specified abnormal findings of blood chemistry Status: Acute Assessment and Plan: transaminases improving probably from acute sickness and hypotension- treated medically and weaning levophed (2) Septic shock: Code(s): A41.9 - Sepsis, unspecified organism; R65.21 - Severe sepsis with septic shock Status: Acute Assessment and Plan: started on levophed 2 days ago, weaning as tolerated on antibiotics (3) Acute respiratory failure with hypoxia: Code(s): J96.01 - Acute respiratory failure with hypoxia Status: Acute Assessment and Plan: on iv antibiotics, remained intubated, ID on board (4) Pneumonia due to COVID-19 virus: Code(s): U07.1 - COVID-19; J12.82 - Pneumonia due to coronavirus disease 2019 Status: Acute (5) Leukocytosis: Code(s): D72.829 - Elevated white blood cell count, unspecified Status: Acute Assessment and Plan: trending down Subjective Date/time seen: 01/24/21 13:52 Interval history: still intubated, weaning levophed with improvement of BP Review of Systems Review of Systems: All systems reviewed & are unremarkable except as noted in HPI and below Exam Const: Other: acutely ill, intubated and sedated HENMT: General nose exam: Normal nares present Other: tube feeding by OGT Eyes: Sclera: sclerae normal Neck: Neck: supple Resp: Auscultation: rhonchi and diminished lung sounds Cardio: Rate: regular rate GI: GI Palp: Yes Soft to palpation, No Tenderness to palpation present (GI) and No Guarding due to palpation present (GI) Auscultation: normal bowel sounds Skin: General skin exam: no rashes or lesions noted Neuro: Other: sedated, unable to assess Extrem: General: pedal edema Objective Data Vital Signs Vital Signs: Vital Signs - 24 hr 01/23/21 14:00 01/23/21 15:18 01/23/21 15:25 Temperature 98.8 F Pulse Rate 77 69 76 Respiratory Rate 20 20 Blood Pressure 115/63 Pulse Oximetry 98 100 01/23/21 15:27 01/23/21 16:00 01/23/21 16:30 Temperature 98.0 F Pulse Rate 74 71 72 Respiratory Rate 20 20 20 Blood Pressure 147/68 H 143/68 H Pulse Oximetry 98 01/23/21 16:31 01/23/21 16:33 01/23/21 16:44 Temperature Pulse Rate 72 72 71 Respiratory Rate 20 20 Blood Pressure 142/69 H 136/67 Pulse Oximetry 01/23/21 17:42 01/23/21 17:43 01/23/21 17:45 Temperature Pulse Rate 70 73 67 Respiratory Rate 20 20 Blood Pressure 133/61 Pulse Oximetry 01/23/21 17:46 01/23/21 18:00 01/23/21 18:11 Temperature 98.3 F Pulse Rate 65 71 68 Respiratory Rate 20 20 Blood Pressure 134/63 122/63 Pulse Oximetry 99 99 01/23/21 18:22 01/23/21 19:51 01/23/21 19:54 Temperature 98.9 F Pulse Rate 74 90 Respiratory Rate 20 20 Blood Pressure 127/65 119/57 L Pulse Oximetry 99 99 01/23/21 20:00 01/23/21 20:25 01/23/21 20:26 Temperature Pulse Rate 73 71 74 Respiratory Rate 20 Blood Pressure 116/60 Pulse Oximetry 01/23/21 20:27 01/23/21 20:28 01/23/21 21:00 Temperature Pulse Rate 72 71 72 Respiratory Rate 20 20 20 Blood Pressure 116/60 Pulse Oximetry 01/23/21 21:05 01/23/21 21:08 01/23/21 22:00 Temperature 99.4 F Pulse Rate 78 75 72 Respiratory Rate 20 20 Blood Pressure 108/60 Pulse Oximetry 96 96 01/23/21 23:45 01/23/21 23:53 01/23/21 23:54 Temperature Pulse Rate 72 66 63 Respiratory Rate 20 Blood Pressure 104/50 L 104/50 L Pulse Oximetry 96 01/23/21 23:55 01/23/21 23:59 01/24/21 00:00 Temperature 99.8 F H Pulse Rate 62 71 65 Respiratory Rate 20 20 Blood Pressure 104/50 L Pulse Oximetry 96 95 01/24/21 01:18 01/24/21 02:00 01/24/21 02:37 Temperature 100.1 F H Pulse Rate 62 69 69 Respiratory Rate 20 20 20 Blood Pressure 90/50 L 107/53 L 106/53 L Pulse Oximetry 96 01/24/21 02:38 07/24/21 02:47 07
--- NOTE | 2021-01-24 14:28 | P.PNIM_ITS ---
Progress Note: A&P Assessment and Plan (1) Septic shock: Code(s): A41.9 - Sepsis, unspecified organism; R65.21 - Severe sepsis with septic shock Status: Acute Assessment and Plan: 01/22/2021: Patient was hypotensive, requiring Levophed, increasing oxygen requirement on mechanical ventilation and slightly worsening chest x-ray - sputum cultures from 01/22 growing pseudomonas, sensitivities Pending - blood cultures coag neg staph - likely related to septic shock from possible ventilator associated pneumonia - Appreciated ID evaluation and recommendations, continue cefepime, D/c Vancomycin (2) Acute respiratory failure with hypoxia: Code(s): J96.01 - Acute respiratory failure with hypoxia Status: Acute Assessment and Plan: Acute Respiratory failure secondary to COVID-19 pneumonia with worsening hypoxia through the hospital course Bipap 01/16, intubated 01/17 - 01/23: overnight O2 requirements have increasing patient is currently on 80% FiO2. Peep of 10, O2 sats have been between 98-100%, - will start weaning FiO2 gradually as tolerated to maintain O2 sats > 92% Continue mechanical ventilation support to prevent hypoxemia/hypercarbia and end organ damage. Bronchodilators Continue sedation with Versed and fentanyl. patient also on neuromuscular dayan infusion (3) Pneumonia due to COVID-19 virus: Code(s): U07.1 - COVID-19; J12.82 - Pneumonia due to coronavirus disease 2019 Status: Acute Assessment and Plan: Patient received Moderna vaccine in September of 2020 has still developed significant COVID-19 pneumonia. his COVID-19 PCR and antibody are both reactive. patient has completed a course Rocephin and azithromycin. has completed 10 day course of dexamethasone he has completed a 10 day course of Remdesivir a initially his CRP was high 12.1 but most recent CRP is 5.4 hence not high enough to start Tocilizumab continue monitoring inflammatory markers isolation (4) Diabetes mellitus: Code(s): E11.9 - Type 2 diabetes mellitus without complications Status: Acute Assessment and Plan: change Lantus to b.i.d. - continue high-dose sliding scale continue tube feeds (5) Hypotension: Code(s): I95.9 - Hypotension, unspecified Status: Acute Assessment and Plan: mostly secondary to sedation but patient could be intravascularly dry patient responded well to IV fluids that for given on 01/19. conservative fluid management due to COVID-19 pneumonia and ARDS 01/22: patient with hypotension, shock. started on Levophed, will maintain MAP > 65 mmHg at all times - will obtain blood, urine, sputum cultures - started on cefepime and vancomycin - source of infection could be urine, lungs, patient has a PICC line which could be a source of infection, (6) Hypernatremia: Code(s): E87.0 - Hyperosmolality and hypernatremia Status: Acute Assessment and Plan: sodium levels normalized to 135, - decreased water flushes to 50 mL Q 6 (7) Elevated LFTs: Code(s): R79.89 - Other specified abnormal findings of blood chemistry Status: Acute Assessment and Plan: RUQ ultrasound 01/20/2021 showed hepatic steatosis - hepatitis panel was negative - appreciate GI evaluation recommendation - increase in LFTs could be related to septic shock, shock liver, will continue to maintain mean arterial pressures > 65 mmHg for adequate Additional Plan discussed with Taryn, updated her with patient's condition and plan of care. I answered all questions DVT prophy
[2021-01-24] MEDS: CISATRACURIUM BESYLATE 200 MG in DEXTROSE 5% 80 ML 15.74 ML IV CONT (14:57)
[2021-01-24 17:46] LABS: Glucose Point of Care 112 mg/dl (65-105)
[2021-01-24 20:27] LABS: Glucose Point of Care 109 mg/dl (65-105)
[2021-01-24] MEDS: CISATRACURIUM BESYLATE 200 MG in DEXTROSE 5% 80 ML 17.17 ML IV CONT (21:23)
[2021-01-25] VITALS (54 sets, daily range): BP systolic 89–120; BP diastolic 52–69; PULSE 59–85; RESP 18–20; TEMP 35.8–37.3; O2SAT 92–98
[2021-01-25 00:14] LABS: Glucose Point of Care 99 mg/dl (65-105)
[2021-01-25] MEDS: MIDAZOLAM 100MG/NS 100ML(*CRX) 100 MG/100 ML BAG 6 MG IV CONT ×2 (01:00→16:03)
[2021-01-25] MEDS: CISATRACURIUM BESYLATE 200 MG in DEXTROSE 5% 80 ML 17.17 ML IV CONT ×2 (01:08→10:37)
[2021-01-25] MEDS: ALBUTEROL SULFATE NEB 2.5 MG/0.5 ML INH INHALATION ×4 (03:22→19:29)
[2021-01-25 05:29] LABS: Alveolar/Arterial O2 Gradient 235.2 mmHg; Carboxyhemoglobin 0.3 % THb (0-2.0); Device VENTILATOR; Fractional Inspired Oxygen 50 %; HCO3 ABG 31.1 mEq/l (22.0-26.0); Methemoglobin ABG 0.2 %THb (0-1.5); Modified Allen's Test Unable to perform; Oxygen Content ABG 13.7 %vol (16.0-22.0); Oxygen Saturation ABG 95.7 % (95.0-100.0); Oxyhemoglobin 93.8 % THb (90.0-100.0); PCO2 ABG 42.5 mmHg (35.0-45.0); PO2 ABG 73.5 mmHg (80.0-100.0); PO2 FiO2 Ratio Arterial Blood 1.47 %; Reduced Hemoglobin 5.7 %THb (0-5.0); Site Drawn RIGHT RADIAL; Total Hemoglobin 10.3 g/dL (12.0-18.0); pH ABG 7.482 (7.350-7.450)
[2021-01-25 05:30] LABS: Arterial Blood Gas PEEP 10 cmH2O; Arterial Blood Gas Tidal Volume 450 ml; Arterial Blood Gas Vent Mode CMV; Arterial Blood Gas Ventilator rate 20 /MIN
[2021-01-25 06:27] LABS: Basophils Percent Auto 0.4 % (0.2-1.2); Eosinophils Absolute Auto 0.2 K/mm3 (0-0.3); Eosinophils Percent Auto 1.9 % (0-4.4); Hemoglobin 8.9 g/dL (14.0-18.0); Immature Granulocyte Absolute 0.71 K/mm3 (0.00-0.031); Immature Granulocyte Percent A 6.7 % (0-0.5); Lymphocytes Absolute Auto 0.78 K/mm3 (0.9-3.2); Lymphocytes Percent Auto 7.4 % (18.3-44.2); Mean Corpuscular Hemoglobin 30.2 pg (26-34); Mean Corpuscular Volume 91.5 fl (80-100); Mean Platelet Volume 11.5 fl (7.4-10.4); Monocytes Absolute Auto 0.6 K/mm3 (0.1-0.6); Monocytes Percent Auto 5.9 % (2.6-8.5); Neutrophils Absolute Auto 8.2 K/mm3 (1.3-6.7); Neutrophils Percent Auto 77.7 % (45.5-73.1); Platelet Count Result 193 k/mm3 (150-375); Red Blood Count 2.95 M/mm3 (4.6-6.20); Red Cell Distribution Width 15.1 % (11.5-14.5); White Blood Count 10.5 K/mm3 (4.5-10.0)
[2021-01-25] MEDS: FENTANYL 2,500MCG/NS250ML(*CRX 2,500 MCG/250 ML BAG 20 MCG IV CONT ×2 (06:28→18:22)
[2021-01-25] MEDS: CISATRACURIUM BESYLATE 200 MG in DEXTROSE 5% 80 ML 18.6 ML IV CONT (06:30)
[2021-01-25] MEDS: CENTRAL LINE FLUSH 10 ML IV PUSH ×3 (06:32→20:56)
[2021-01-25 06:48] LABS: Alanine Aminotransferase 206 U/L (4-50); Albumin Level 2.2 g/dL (3.5-5.1); Alkaline Phosphatase 187 U/L (38-126); Anion Gap 5 mmol/L (8-16); Aspartate Amino Transferase 50 U/L (17-59); Bilirubin,Total 0.5 mg/dL (0.2-1.3); Blood Urea Nitrogen 33 mg/dL (9-20); Calcium 8.4 mg/dL (8.4-10.2); Carbon Dioxide 32 mmol/L (22-30); Chloride 97 mmol/L (98-107); Estimated CRCL calculation 94 ml/min; Estimated Glomerular Filt Rate > 60; Glucose 141 mg/dL (65-110); Lactate Dehydrogenase 299 U/L (313-618); Magnesium 2.1 mg/dL (1.6-2.3); Phosphorus 4.5 mg/dL (2.5-4.5); Potassium 4.5 mmol/L (3.4-5.0); Sodium 134 mmol/L (137-145)
[2021-01-25 06:55] LABS: CRP 26.8 mg/dL (<1.0)
[2021-01-25] MEDS: MINERAL OIL/WHITE PETROLATUM OINTMENT 1 APPLIC EACH EYE ×2 (08:10→20:55)
[2021-01-25] MEDS: polyethylene glycoL 3350 17 GM POWD.PACK PO (08:10)
[2021-01-25] MEDS: ASPIRIN 81 MG ENTERIC TABLET PO (08:10)
[2021-01-25] MEDS: PANTOPRAZOLE SODIUM IV 40 MG VIAL IV PUSH (08:10)
[2021-01-25] MEDS: ENOXAPARIN 40 MG/0.4 ML SYRINGE SUB-Q ×2 (08:10→20:55)
[2021-01-25 09:26] LABS: Glucose Point of Care 81 mg/dl (65-105)
[2021-01-25] MEDS: DORNASE ALFA INH SOLN 1 MG/ML 2.5 ML AMP 2.5 MG INHALATION ×2 (10:21→19:44)
[2021-01-25 15:11] LABS: Glucose Point of Care 85 mg/dl (65-105)
--- NOTE | 2021-01-25 15:32 | WPDINTPN ---
Progress Note: A&P Assessment and Plan (1) Septic shock: Code(s): A41.9 - Sepsis, unspecified organism; R65.21 - Severe sepsis with septic shock Status: Acute Assessment and Plan: 01/22/2021: Patient was hypotensive, requiring Levophed, increasing oxygen requirement on mechanical ventilation and slightly worsening chest x-ray - sputum cultures from 01/22 growing pseudomonas, Pansensitive - blood cultures coag neg staph - likely related to septic shock from possible ventilator associated pneumonia - Appreciated ID evaluation and recommendations, continue cefepime (initiated on 01/22) - Vancomycin was discotinued on 01/24 (2) Acute respiratory failure with hypoxia: Code(s): J96.01 - Acute respiratory failure with hypoxia Status: Acute Assessment and Plan: Acute Respiratory failure secondary to COVID-19 pneumonia with worsening hypoxia through the hospital course Bipap 01/16, intubated 01/17 - 01/23: overnight O2 requirements have increasing patient is currently on 80% FiO2. Peep of 10, O2 sats have been between 98-100%, - will start weaning FiO2 gradually as tolerated to maintain O2 sats > 92% Continue mechanical ventilation support to prevent hypoxemia/hypercarbia and end organ damage. - no polyp patient developed Pseudomonas pneumonia on top of COVID-19 pneumonia Bronchodilators Continue sedation with Versed and fentanyl. - start weaning Nimbex (3) Pneumonia due to COVID-19 virus: Code(s): U07.1 - COVID-19; J12.82 - Pneumonia due to coronavirus disease 2019 Status: Acute Assessment and Plan: Patient received Moderna vaccine in September of 2020 has still developed significant COVID-19 pneumonia. his COVID-19 PCR and antibody are both reactive. patient has completed a course Rocephin and azithromycin. has completed 10 day course of dexamethasone he has completed a 10 day course of Remdesivir a initially his CRP was high 12.1 but most recent CRP is 5.4 hence not high enough to start Tocilizumab continue monitoring inflammatory markers isolation (4) Diabetes mellitus: Code(s): E11.9 - Type 2 diabetes mellitus without complications Status: Acute Assessment and Plan: change Lantus to b.i.d. - continue high-dose sliding scale continue tube feeds (5) Hypotension: Code(s): I95.9 - Hypotension, unspecified Status: Acute Assessment and Plan: mostly secondary to sedation but patient could be intravascularly dry patient responded well to IV fluids that for given on 01/19. conservative fluid management due to COVID-19 pneumonia and ARDS 01/22: patient with hypotension, shock. started on Levophed, will maintain MAP > 65 mmHg at all times - sputum cultures growing Pseudomonas, pansensitive, continue cefepime - (6) Hypernatremia: Code(s): E87.0 - Hyperosmolality and hypernatremia Status: Acute Assessment and Plan: sodium levels normalized to 135, - decreased water flushes to 50 mL Q 6 (7) Elevated LFTs: Code(s): R79.89 - Other specified abnormal findings of blood chemistry Status: Acute Assessment and Plan: RUQ ultrasound 01/20/2021 showed hepatic steatosis - hepatitis panel was negative - appreciate GI evaluation recommendation - increase in LFTs could be related to septic shock, shock liver, will continue to maintain mean arterial pressures > 65 mmHg for adequate Additional Plan discussed with Taryn, updated her with patient's condition and plan of care. I answered all questions DVT prophylaxis - Lovenox q.12 hours Stress ulcer prophylaxis - PPI Nutrition - continue Tube Feeds Code Status - full code Total Critical Care Time: 2 4 minutes Due to a high probability of clinically significant, life threatening deterioration, the patient required my highest level of preparedness to intervene emergently and I personally spent this critical care time directly a
--- NOTE | 2021-01-25 15:49 | PM.IMPN ---
Progress Note: A&P Assessment and Plan (1) Septic shock: Code(s): A41.9 - Sepsis, unspecified organism; R65.21 - Severe sepsis with septic shock Status: Acute Assessment and Plan: continue present management 01/22/2021: Patient was hypotensive, requiring Levophed, increasing oxygen requirement on mechanical ventilation and slightly worsening chest x-ray - sputum cultures from 01/22 growing pseudomonas, Pansensitive - blood cultures coag neg staph - likely related to septic shock from possible ventilator associated pneumonia - Appreciated ID evaluation and recommendations, continue cefepime (initiated on 01/22) - Vancomycin was discotinued on 01/24 (2) Acute respiratory failure with hypoxia: Code(s): J96.01 - Acute respiratory failure with hypoxia Status: Acute Assessment and Plan: ventilator management as per Critical Care Acute Respiratory failure secondary to COVID-19 pneumonia with worsening hypoxia through the hospital course Bipap 01/16, intubated 01/17 - 01/23: overnight O2 requirements have increasing patient is currently on 80% FiO2. Peep of 10, O2 sats have been between 98-100%, - will start weaning FiO2 gradually as tolerated to maintain O2 sats > 92% Continue mechanical ventilation support to prevent hypoxemia/hypercarbia and end organ damage. - no polyp patient developed Pseudomonas pneumonia on top of COVID-19 pneumonia Bronchodilators Continue sedation with Versed and fentanyl. - start weaning Nimbex (3) Pneumonia due to COVID-19 virus: Code(s): U07.1 - COVID-19; J12.82 - Pneumonia due to coronavirus disease 2019 Status: Acute Assessment and Plan: Patient received Moderna vaccine in September of 2020 has still developed significant COVID-19 pneumonia. his COVID-19 PCR and antibody are both reactive. patient has completed a course Rocephin and azithromycin. has completed 10 day course of dexamethasone he has completed a 10 day course of Remdesivir a initially his CRP was high 12.1 but most recent CRP is 5.4 hence not high enough to start Tocilizumab continue monitoring inflammatory markers isolation (4) Diabetes mellitus: Code(s): E11.9 - Type 2 diabetes mellitus without complications Status: Acute Assessment and Plan: change Lantus to b.i.d. - continue high-dose sliding scale continue tube feeds (5) Hypotension: Code(s): I95.9 - Hypotension, unspecified Status: Acute Assessment and Plan: mostly secondary to sedation but patient could be intravascularly dry patient responded well to IV fluids that for given on 01/19. conservative fluid management due to COVID-19 pneumonia and ARDS 01/22: patient with hypotension, shock. started on Levophed, will maintain MAP > 65 mmHg at all times - sputum cultures growing Pseudomonas, pansensitive, continue cefepime - (6) Hypernatremia: Code(s): E87.0 - Hyperosmolality and hypernatremia Status: Acute Assessment and Plan: sodium levels normalized to 135, - decreased water flushes to 50 mL Q 6 (7) Elevated LFTs: Code(s): R79.89 - Other specified abnormal findings of blood chemistry Status: Acute Assessment and Plan: RUQ ultrasound 01/20/2021 showed hepatic steatosis - hepatitis panel was negative - appreciate GI evaluation recommendation - increase in LFTs could be related to septic shock, shock liver, will continue to maintain mean arterial pressures > 65 mmHg for adequate Additional Plan discussed with Taryn, updated her with patient's condition and plan of care. I answered all questions DVT prophylaxis - Lovenox q.12 hours Stress ulcer prophylaxis - PPI Nutrition - continue Tube Feeds Code Status - full code Total Critical Care Time: 2 4 minutes Due to a high probability of clinically significant, life threatening deterioration, the patient required my highest level of preparedness to int
[2021-01-25 16:35] LABS: Glucose Point of Care 94 mg/dl (65-105)
[2021-01-25 17:55] LABS: Ferritin > 2000.00 ng/mL (11.1-264)
[2021-01-25 21:05] LABS: Glucose Point of Care 82 mg/dl (65-105)
[2021-01-25] MEDS: CISATRACURIUM BESYLATE 200 MG in DEXTROSE 5% 80 ML 10.02 ML IV CONT (21:38)
[2021-01-25 23:41] LABS: Glucose Point of Care 98 mg/dl (65-105)
[2021-01-26] VITALS (41 sets, daily range): BP systolic 101–137; BP diastolic 58–69; PULSE 67–97; RESP 18–20; TEMP 36.9–37.4; O2SAT 93–96
[2021-01-26] MEDS: ALBUTEROL SULFATE NEB 2.5 MG/0.5 ML INH INHALATION ×4 (02:36→19:47)
[2021-01-26 04:15] LABS: Hemoglobin 9.6 g/dL (14.0-18.0); Mean Corpuscular Hemoglobin 29.5 pg (26-34); Mean Corpuscular Volume 92.3 fl (80-100); Mean Platelet Volume 11.2 fl (7.4-10.4); Platelet Count Result 229 k/mm3 (150-375); Red Blood Count 3.25 M/mm3 (4.6-6.20); Red Cell Distribution Width 15.2 % (11.5-14.5); White Blood Count 11.3 K/mm3 (4.5-10.0)
[2021-01-26 04:26] LABS: Alanine Aminotransferase 200 U/L (4-50); Albumin Level 2.4 g/dL (3.5-5.1); Alkaline Phosphatase 202 U/L (38-126); Anion Gap 1 mmol/L (8-16); Aspartate Amino Transferase 108 U/L (17-59); Bilirubin,Total 0.5 mg/dL (0.2-1.3); Blood Urea Nitrogen 35 mg/dL (9-20); Calcium 8.9 mg/dL (8.4-10.2); Carbon Dioxide 34 mmol/L (22-30); Chloride 100 mmol/L (98-107); Estimated CRCL calculation 93 ml/min; Estimated Glomerular Filt Rate > 60; Glucose 143 mg/dL (65-110); Magnesium 2.3 mg/dL (1.6-2.3); Potassium 5.5 mmol/L (3.4-5.0); Sodium 135 mmol/L (137-145)
[2021-01-26 05:57] LABS: Alveolar/Arterial O2 Gradient 216.8 mmHg; Base Excess ABG 8.8 mEq/l (+/-2.0); Carboxyhemoglobin 0.3 % THb (0-2.0); Device VENTILATOR; Fractional Inspired Oxygen 50 %; Methemoglobin ABG 0.4 %THb (0-1.5); Modified Allen's Test Unable to perform; Oxygen Content ABG 17.1 %vol (16.0-22.0); Oxygen Saturation ABG 95.4 % (95.0-100.0); Oxyhemoglobin 93.9 % THb (90.0-100.0); PCO2 ABG 55.3 mmHg (35.0-45.0); PO2 ABG 77.5 mmHg (80.0-100.0); PO2 FiO2 Ratio Arterial Blood 1.55 %; Reduced Hemoglobin 5.4 %THb (0-5.0); Site Drawn RIGHT RADIAL; Total Hemoglobin 12.9 g/dL (12.0-18.0); pH ABG 7.419 (7.350-7.450)
[2021-01-26 05:58] LABS: Arterial Blood Gas PEEP 10 cmH2O; Arterial Blood Gas Tidal Volume 450 ml; Arterial Blood Gas Vent Mode CMV; Arterial Blood Gas Ventilator rate 18 /MIN
[2021-01-26] MEDS: FENTANYL 2,500MCG/NS250ML(*CRX 2,500 MCG/250 ML BAG 20 MCG IV CONT ×2 (06:02→19:19)
[2021-01-26] MEDS: CENTRAL LINE FLUSH 10 ML IV PUSH ×3 (06:03→20:48)
[2021-01-26] MEDS: DORNASE ALFA INH SOLN 1 MG/ML 2.5 ML AMP 2.5 MG INHALATION ×2 (08:05→19:47)
[2021-01-26 08:39] LABS: Glucose Point of Care 174 mg/dl (65-105)
[2021-01-26] MEDS: MINERAL OIL/WHITE PETROLATUM OINTMENT 1 APPLIC EACH EYE ×2 (08:47→20:48)
[2021-01-26] MEDS: PANTOPRAZOLE SODIUM IV 40 MG VIAL IV PUSH (08:47)
[2021-01-26] MEDS: ENOXAPARIN 40 MG/0.4 ML SYRINGE SUB-Q ×2 (08:50→20:48)
[2021-01-26] MEDS: polyethylene glycoL 3350 17 GM POWD.PACK PO (08:51)
[2021-01-26] MEDS: ASPIRIN 81 MG ENTERIC TABLET PO (08:52)
[2021-01-26] MEDS: MIDAZOLAM 100MG/NS 100ML(*CRX) 100 MG/100 ML BAG 6 MG IV CONT (09:00)
[2021-01-26] MEDS: FUROSEMIDE INJ 40 MG/4 ML VIAL IV PUSH (09:13)
[2021-01-26] MEDS: CISATRACURIUM BESYLATE 200 MG in DEXTROSE 5% 80 ML 7.16 ML IV CONT ×2 (11:00→22:47)
[2021-01-26 11:37] LABS: Glucose Point of Care 196 mg/dl (65-105)
--- NOTE | 2021-01-26 12:11 | PCDIET ---
ICU Rounding Note: Patient tolerating Glucerna 1.2 at 50mL/hr goal rate with Pro-Stat flush TID and 50mL water flush every 4 hours. Discussed increased potassium with MD. No change in tube feeding at this time. Last recorded weight is 100.9kg which is increased from last review. +I/O. Bowel Motility: Last documented BM on 01/20/21 x 1. Discussed during rounds. Labs Reviewed: WBC (11.3), RBC (3.25), Hgb (9.6), Hct (30.0), Glu (143), BUN (35), K (5.5), Alb (2.4) Meds Noted: Albuterol, Versed, Cefepime, Novolog, Nimbex, Fentanyl, Miralax, Lasix Additional Notes: Upper lip and chin with pressure ulcers. No other skin issues reported. Following daily in ICU rounds. Assessing/reassessing every Tuesday/Tuesday.
--- NOTE | 2021-01-26 13:20 | PC.NURSE ---
Updated spouse via telephone on patient progress and plan of care.
--- NOTE | 2021-01-26 13:23 | WPDINTPN ---
Progress Note: A&P Assessment and Plan (1) Septic shock: Code(s): A41.9 - Sepsis, unspecified organism; R65.21 - Severe sepsis with septic shock Status: Acute Assessment and Plan: 01/22/2021: Patient was hypotensive, requiring Levophed, increasing oxygen requirement on mechanical ventilation and slightly worsening chest x-ray - blood cultures coag neg staph - likely related to septic shock from possible ventilator associated pneumonia - sputum cultures from 01/22 growing pseudomonas, Pansensitive - Appreciated ID evaluation and recommendations, continue cefepime (initiated on 01/22) - Vancomycin was discontinued on 01/24 - will repeat sputum cultures (2) Acute respiratory failure with hypoxia: Code(s): J96.01 - Acute respiratory failure with hypoxia Status: Acute Assessment and Plan: Acute Respiratory failure secondary to COVID-19 pneumonia with worsening hypoxia through the hospital course Bipap 01/16, intubated 01/17 - 01/23: overnight O2 requirements have increasing patient is currently on 80% FiO2. Peep of 10, O2 sats have been between 98-100%, - will start weaning FiO2 gradually as tolerated to maintain O2 sats > 92% Continue mechanical ventilation support to prevent hypoxemia/hypercarbia and end organ damage. - no polyp patient developed Pseudomonas pneumonia on top of COVID-19 pneumonia Bronchodilators Continue sedation with Versed and fentanyl. - wean Nimbex (3) Pneumonia due to COVID-19 virus: Code(s): U07.1 - COVID-19; J12.82 - Pneumonia due to coronavirus disease 2019 Status: Acute Assessment and Plan: Patient received Moderna vaccine in September of 2020 has still developed significant COVID-19 pneumonia. his COVID-19 PCR and antibody are both reactive. patient has completed a course Rocephin and azithromycin. has completed 10 day course of dexamethasone he has completed a 10 day course of Remdesivir a initially his CRP was high 12.1 but most recent CRP is 5.4 hence not high enough to start Tocilizumab continue monitoring inflammatory markers isolation (4) Diabetes mellitus: Code(s): E11.9 - Type 2 diabetes mellitus without complications Status: Acute Assessment and Plan: decrease Lantus dose - continue high-dose sliding scale continue tube feeds (5) Hypotension: Code(s): I95.9 - Hypotension, unspecified Status: Acute Assessment and Plan: mostly likely secondary to sedation but patient could be intravascularly dry patient responded well to IV fluids that for given on 01/19. conservative fluid management due to COVID-19 pneumonia and ARDS 01/22: patient with hypotension, shock. started on Levophed, will maintain MAP > 65 mmHg at all times, off Levophed since 01/24 - sputum cultures growing Pseudomonas, pansensitive, continue cefepime - (6) Hypernatremia: Code(s): E87.0 - Hyperosmolality and hypernatremia Status: Acute Assessment and Plan: sodium levels normalized to 135, - decreased water flushes (7) Elevated LFTs: Code(s): R79.89 - Other specified abnormal findings of blood chemistry Status: Acute Assessment and Plan: RUQ ultrasound 01/20/2021 showed hepatic steatosis - hepatitis panel was negative - appreciate GI evaluation recommendation - increase in LFTs could be related to septic shock, shock liver, will continue to maintain mean arterial pressures > 65 mmHg for adequate Additional Plan 01/26/2021: discussed with Taryn, updated her with patient's condition and plan of care. I answered all questions DVT prophylaxis - Lovenox q.12 hours Stress ulcer prophylaxis - PPI Nutrition - continue Tube Feeds Code Status - full code Total Critical Care Time: 34 minutes Due to a high probability of clinically significant, life threatening deterioration, the patient required my highest level of preparedness to intervene emergently and I per
[2021-01-26 16:08] LABS: Glucose Point of Care 181 mg/dl (65-105)
--- NOTE | 2021-01-26 16:26 | PM.IMPN ---
Progress Note: A&P Assessment and Plan (1) Acute respiratory failure with hypoxia: Code(s): J96.01 - Acute respiratory failure with hypoxia Status: Acute Assessment and Plan: Patient with acute hypoxic respiratory failure related to COVID-19. CTA chest 01/11 showing no PE but showing COVID. Oxygen requirement was increasing to the point of requiring intubation on 01/17/21. He now has completed 10 days of dexamethasone and Remdesivir. Pulmonary and psychologist research assistant following along and appreciate their input. Prone positioning as he tolerates. (2) Septic shock: Code(s): A41.9 - Sepsis, unspecified organism; R65.21 - Severe sepsis with septic shock Status: Acute Assessment and Plan: Patient became HoTN requiring pressor therapy with Levophed 01/18 possibly related to sedation. Able to be weaned off but BP dropped again requiring Levophed to 12mcg/min felt related to septic shock but able to be weaned off again 01/24. Continue to monitor. (3) Pneumonia due to COVID-19 virus: Code(s): U07.1 - COVID-19; J12.82 - Pneumonia due to coronavirus disease 2019 Status: Acute Assessment and Plan: Patient tested COVID-19 positive 01/09/21 after starting have symptoms 01/05/21. He was fully vaccinated with Moderna in September; antibodies present, no benefit of plasma. Completed Remdesivir and Decadron. Sputum now positive for Pseudomonas. Continue supportive care. Continue Cefepime. (4) Type 2 diabetes mellitus without complication, without long-term current use of insulin: Code(s): E11.9 - Type 2 diabetes mellitus without complications Status: Acute Assessment and Plan: A1c 6.9 in May 2020. The patient's blood glucose was reviewed on 01/26 Glucose remains well controlled. Tolerating TF. Continue lantus that was started 01/19. Continue AccuCheks covering with sliding scale. Hypoglycemia protocol available as needed. (5) Essential (primary) hypertension: Code(s): I10 - Essential (primary) hypertension Status: Acute Assessment and Plan: Patient's blood pressure was reviewed on 01/26 Blood pressure stable off levophed. Will continue to hold amlodipine and valsartan (6) Elevated LFTs: Code(s): R79.89 - Other specified abnormal findings of blood chemistry Status: Acute Assessment and Plan: AST/ALT better. Possibly related to Remdesivir. Remdesivir has addis stopped. RUQ okay. Follow closely. (7) DVT prophylaxis: Code(s): Z29.9 - Encounter for prophylactic measures, unspecified Status: Acute Assessment and Plan: Lovenox Subjective Date/time seen: 01/26/21 16:26 Interval history: 70yo male with DM and HTN here for COVID-19 PNA. Resuming care. Chart reviewed. Patient remains intubated, sedated and paralyzed. He was intubated on the morning January 17. He is being placed prone as he tolerates. Review of Systems Review of Systems: ROS unobtainable: Yes unobtainable due to endotracheal tube Exam Narrative: Exam Narrative: AF 98.7 119/64 73 18 94% MV Gen - intubated, sedated and paralyzed HEENT - OGT and ETT secured. black eschar to the upper lip and chin Chest - clear, distant BS anteriorly CV - RRR S1/S2; Tele showing no significant dysrhythmias Abd - Soft, +BS - Flores secured draining clear yellow urine in the bag Ext - no pedal edema; 2+ DP bilaterally Neuro - sedated and paralyzed Skin - cool and dry Objective Data Vital Signs Vital Signs: Vital Signs - 24 hr 01/25/21 18:00 01/25/21 18:22 01/25/21 18:25 Temperature 98.2 F Pulse Rate 69 71 71 Respiratory Rate 20 20 20 Blood Pressure 103/52 L 103/52 L Pulse Oximetry 96 01/25/21 19:30 01/25/21 20:00 01/25/21 20:01 Temperature 98.8 F Pulse Rate 76 77 79 Respiratory Rate 18 18 Blood Pressure 108/53 L Pulse Oximetry 97 97 01/25/21 20:30 01/25/21 20:53 01/25/21 21:01 Temperature 98.9 F
[2021-01-26 21:06] LABS: Glucose Point of Care 172 mg/dl (65-105)
[2021-01-27] VITALS (33 sets, daily range): BP systolic 103–153; BP diastolic 49–72; PULSE 65–95; RESP 18–22; TEMP 36.8–37.4; O2SAT 93–97
[2021-01-27 00:02] LABS: Glucose Point of Care 185 mg/dl (65-105)
[2021-01-27] MEDS: MIDAZOLAM 100MG/NS 100ML(*CRX) 100 MG/100 ML BAG 6 MG IV CONT ×2 (01:01→18:42)
[2021-01-27] MEDS: ALBUTEROL SULFATE NEB 2.5 MG/0.5 ML INH INHALATION ×4 (03:10→19:43)
[2021-01-27 04:39] LABS: Hematocrit 30.3 % (42.0-52.0); Hemoglobin 9.8 g/dL (14.0-18.0); Mean Corpuscular HGB Conc 32.3 g/dl (32-36); Mean Corpuscular Hemoglobin 29.8 pg (26-34); Mean Corpuscular Volume 92.1 fl (80-100); Mean Platelet Volume 11.1 fl (7.4-10.4); Platelet Count Result 259 k/mm3 (150-375); Red Blood Count 3.29 M/mm3 (4.6-6.20); Red Cell Distribution Width 15.1 % (11.5-14.5); White Blood Count 9.3 K/mm3 (4.5-10.0)
[2021-01-27 04:51] LABS: Alanine Aminotransferase 172 U/L (4-50); Albumin Level 2.6 g/dL (3.5-5.1); Alkaline Phosphatase 195 U/L (38-126); Anion Gap 2 mmol/L (8-16); Aspartate Amino Transferase 93 U/L (17-59); Bilirubin,Total 0.5 mg/dL (0.2-1.3); Blood Urea Nitrogen 36 mg/dL (9-20); Calcium 8.8 mg/dL (8.4-10.2); Carbon Dioxide 35 mmol/L (22-30); Chloride 99 mmol/L (98-107); Estimated CRCL calculation 105 ml/min; Estimated Glomerular Filt Rate > 60; Glucose 217 mg/dL (65-110); Magnesium 2.2 mg/dL (1.6-2.3); Potassium 4.7 mmol/L (3.4-5.0); Sodium 136 mmol/L (137-145)
[2021-01-27 04:58] LABS: Lactate Dehydrogenase 394 U/L (313-618)
[2021-01-27 05:00] LABS: D Dimer 0.94 ug/mL (<0.48)
[2021-01-27] MEDS: CENTRAL LINE FLUSH 10 ML IV PUSH ×3 (05:11→20:32)
[2021-01-27] MEDS: INSULIN ASPART (*BKC) 100 UNITS/ML SUB-Q (05:11)
[2021-01-27 05:16] LABS: Alveolar/Arterial O2 Gradient 154.1 mmHg; Base Excess ABG 8.4 mEq/l (+/-2.0); Carboxyhemoglobin 0.3 % THb (0-2.0); Fractional Inspired Oxygen 40 %; HCO3 ABG 32.6 mEq/l (22.0-26.0); Methemoglobin ABG 0.2 %THb (0-1.5); Oxygen Content ABG 14.3 %vol (16.0-22.0); Oxygen Saturation ABG 96.6 % (95.0-100.0); Oxyhemoglobin 94.2 % THb (90.0-100.0); PCO2 ABG 44.1 mmHg (35.0-45.0); PO2 ABG 80.4 mmHg (80.0-100.0); PO2 FiO2 Ratio Arterial Blood 2.01 %; Reduced Hemoglobin 5.3 %THb (0-5.0); Total Hemoglobin 10.7 g/dL (12.0-18.0); pH ABG 7.487 (7.350-7.450)
[2021-01-27 05:17] LABS: Device VENTILATOR; Modified Allen's Test Pass; Site Drawn RIGHT RADIAL
[2021-01-27 05:18] LABS: Arterial Blood Gas PEEP 10 cmH2O; Arterial Blood Gas Tidal Volume 450 ml; Arterial Blood Gas Vent Mode CMV; Arterial Blood Gas Ventilator rate 18 /MIN
[2021-01-27 05:20] LABS: CRP 17.7 mg/dL (<1.0)
[2021-01-27 07:15] LABS: Ferritin > 2000.00 ng/mL (11.1-264)
[2021-01-27] MEDS: MINERAL OIL/WHITE PETROLATUM OINTMENT 1 APPLIC EACH EYE ×2 (08:11→20:32)
[2021-01-27] MEDS: ASPIRIN 81 MG ENTERIC TABLET PO (08:11)
[2021-01-27] MEDS: PANTOPRAZOLE SODIUM IV 40 MG VIAL IV PUSH (08:11)
[2021-01-27] MEDS: polyethylene glycoL 3350 17 GM POWD.PACK PO (08:12)
[2021-01-27] MEDS: ENOXAPARIN 40 MG/0.4 ML SYRINGE SUB-Q ×2 (08:12→20:32)
[2021-01-27] MEDS: INSULIN GLARGINE (*BKC) 100 UNITS/ML 20 UNITS SUB-Q ×2 (09:22→20:31)
[2021-01-27] MEDS: FENTANYL 2,500MCG/NS250ML(*CRX 2,500 MCG/250 ML BAG 20 MCG IV CONT ×2 (09:24→20:33)
[2021-01-27 09:34] LABS: Glucose Point of Care 189 mg/dl (65-105)
--- NOTE | 2021-01-27 10:50 | PC.NURSE ---
Updated spouse, Taryn, via telephone with plan of care and patient condition.
--- NOTE | 2021-01-27 11:04 | PCDIET ---
Nutrition Follow-Up Complete: Nutrition Diagnosis: Inadequate oral intake related to oral intubation as evidenced by need for tube feedings. Nutrition Goal: Patient to meet estimated nutritional needs. Goal met. Patient tolerating Glucerna 1.2 at 50mL/hr with 50mL water flush every 4 hours. Pro-Stat flush continued TID. Last recorded weight is 100.3 kg which is slightly down from last review. -I/O. Bowel Motility: Last documented BM on 01/20/21. Miralax given. adding Dulcolax today. Labs Reviewed: RBC (3.29), Hgb (9.8), Hct (30.3), Glu (217), BUN (36), Na (136), Alb (2.6) Meds Noted: Pulmozyme, Albuterol, Cefepime, Fentanyl, Lantus, Versed, Levophed, Protonix Additional Notes: Residuals 300mL and below. Upper lip and chin with deep tissue ulcers. Will continue to monitor with same goal. Nutrition Monitoring and Evaluation: Follow up every Tuesday/Tuesday. Follow daily in ICU rounds.
--- NOTE | 2021-01-27 11:26 | WPDINTPN ---
Progress Note: A&P Assessment and Plan (1) Septic shock: Code(s): A41.9 - Sepsis, unspecified organism; R65.21 - Severe sepsis with septic shock Status: Acute Assessment and Plan: 01/22/2021: Patient was hypotensive, requiring Levophed, increasing oxygen requirement on mechanical ventilation and slightly worsening chest x-ray - blood cultures coag neg staph - likely related to septic shock from possible ventilator associated pneumonia - sputum cultures from 01/22 growing pseudomonas, Pansensitive - Appreciated ID evaluation and recommendations, continue cefepime (initiated on 01/22) - Vancomycin was discontinued on 01/24 - repeat sputum cultures negative [place] now (2) Acute respiratory failure with hypoxia: Code(s): J96.01 - Acute respiratory failure with hypoxia Status: Acute Assessment and Plan: Acute Respiratory failure secondary to COVID-19 pneumonia with worsening hypoxia through the hospital course Bipap 01/16, intubated 01/17. patient has been chemically paralyzed with neuromuscular blockers since then and was prone ventilated for multiple days - will DC NMB infusion today and monitor - currently on 10 of PEEP and 40% FiO2 - Continue mechanical ventilation support to prevent hypoxemia/hypercarbia and end organ damage. - Patient developed Pseudomonas pneumonia on top of COVID-19 pneumonia Bronchodilators Continue sedation with Versed and fentanyl. (3) Pneumonia due to COVID-19 virus: Code(s): U07.1 - COVID-19; J12.82 - Pneumonia due to coronavirus disease 2019 Status: Acute Assessment and Plan: Patient received Moderna vaccine in September of 2020 has still developed significant COVID-19 pneumonia. his COVID-19 PCR and antibody are both reactive. patient has completed a course Rocephin and azithromycin. has completed 10 day course of dexamethasone he has completed a 10 day course of Remdesivir initially his CRP was high 12.1 but his repeat CRP was 5.4 hence not high enough to start Tocilizumab continue monitoring inflammatory markers which continue to be high isolation (4) Diabetes mellitus: Code(s): E11.9 - Type 2 diabetes mellitus without complications Status: Acute Assessment and Plan: continue Lantus and sliding scale continue tube feeds (5) Hypotension: Code(s): I95.9 - Hypotension, unspecified Status: Acute Assessment and Plan: mostly likely secondary to sedation but patient could be intravascularly dry patient responded well to IV fluids that for given on 01/19. conservative fluid management due to COVID-19 pneumonia and ARDS 01/22: patient with hypotension, shock. started on Levophed, will maintain MAP > 65 mmHg at all times, off Levophed since 01/24 - sputum cultures growing Pseudomonas, pansensitive, continue cefepime - (6) Hypernatremia: Code(s): E87.0 - Hyperosmolality and hypernatremia Status: Acute Assessment and Plan: sodium levels normalized to 135, - decreased water flushes (7) Elevated LFTs: Code(s): R79.89 - Other specified abnormal findings of blood chemistry Status: Acute Assessment and Plan: RUQ ultrasound 01/20/2021 showed hepatic steatosis - hepatitis panel was negative - appreciate GI evaluation recommendation - increase in LFTs could be related to septic shock, shock liver, will continue to maintain mean arterial pressures > 65 mmHg for adequate - liver enzymes are decreasing Additional Plan DVT prophylaxis - Lovenox q.12 hours Stress ulcer prophylaxis - PPI Nutrition - continue Tube Feeds Code Status - full code Total Critical Care Time: 30 minutes Due to a high probability of clinically significant, life threatening deterioration, the patient required my highest level of preparedness to intervene emergently and I personally spent this critical care time directly and personally managing the patient. This critical care
[2021-01-27 12:55] LABS: Glucose Point of Care 158 mg/dl (65-105)
--- NOTE | 2021-01-27 14:21 | PM.IMPN ---
Progress Note: A&P Assessment and Plan (1) Acute respiratory failure with hypoxia: Code(s): J96.01 - Acute respiratory failure with hypoxia Status: Acute Assessment and Plan: Patient with acute hypoxic respiratory failure related to COVID-19. CTA chest 01/11 showing no PE but showing COVID. Oxygen requirement was increasing to the point of requiring intubation on 01/17/21. He now has completed 10 days of dexamethasone and Remdesivir. Remains stable on MV. Weaning off paralytic today. Curently on PEEP 10 and 40% FiO2. Wean vent as toelrated Pulmonary and battery technician following along and appreciate their input. (2) Septic shock: Code(s): A41.9 - Sepsis, unspecified organism; R65.21 - Severe sepsis with septic shock Status: Acute Assessment and Plan: Patient became HoTN requiring pressor therapy with Levophed 01/18 possibly related to sedation. Able to be weaned off but BP dropped again requiring Levophed to 12mcg/min felt related to septic shock but able to be weaned off again 01/24. Related to Pseudomonas PNA. Continue to monitor. (3) Pneumonia due to COVID-19 virus: Code(s): U07.1 - COVID-19; J12.82 - Pneumonia due to coronavirus disease 2019 Status: Acute Assessment and Plan: Patient tested COVID-19 positive 01/09/21 after starting have symptoms 01/05/21. He was fully vaccinated with Moderna in September; antibodies present, no benefit of plasma. Completed Remdesivir and Decadron. Sputum now positive for Pseudomonas. Continue supportive care. Continue Cefepime. (4) Type 2 diabetes mellitus without complication, without long-term current use of insulin: Code(s): E11.9 - Type 2 diabetes mellitus without complications Status: Acute Assessment and Plan: A1c 6.9 in May 2020. The patient's blood glucose was reviewed on 01/27 Glucose remains reasonably well controlled. Tolerating TF. Continue Lantus that was started 01/19. Continue AccuCheks covering with sliding scale. Hypoglycemia protocol available as needed. (5) Essential (primary) hypertension: Code(s): I10 - Essential (primary) hypertension Status: Acute Assessment and Plan: Patient's blood pressure was reviewed on 01/27 Blood pressure stable off levophed. Amlodipine and valsartan on hold (6) Elevated LFTs: Code(s): R79.89 - Other specified abnormal findings of blood chemistry Status: Acute Assessment and Plan: AST/ALT slowly improving. RUQ okay. Hepatitis panel negative. [place] related to clinical condition and/or medications. Continue to follow. (7) DVT prophylaxis: Code(s): Z29.9 - Encounter for prophylactic measures, unspecified Status: Acute Assessment and Plan: Lovenox Subjective Date/time seen: 01/27/21 14:21 Interval history: 70yo male with DM and HTN here for COVID-19 PNA. Patient remains intubated, sedated and paralyzed. He was intubated on the morning January 17. Plan to wean off paralytics today. Review of Systems Review of Systems: ROS unobtainable: Yes unobtainable due to endotracheal tube Exam Narrative: Exam Narrative: AF 99.1 115/60 86 18 95% MV Gen - intubated, sedated and paralyzed HEENT - OGT and ETT secured. black eschar to the upper lip and chin Chest - clear, distant BS anteriorly CV - RRR S1/S2; Tele showing no significant dysrhythmias Abd - Soft, +BS - Flores secured draining clear yellow urine Ext - no pedal edema Neuro - sedated and paralyzed Skin - cool and dry Objective Data Vital Signs Vital Signs: Vital Signs - 24 hr 01/26/21 15:00 01/26/21 16:00 01/26/21 17:00 Temperature 98.5 F Pulse Rate 73 72 70 Respiratory Rate 18 18 18 Blood Pressure 119/64 137/67 124/62 Pulse Oximetry 93 01/26/21 17:07 01/26/21 18:00 01/26/21 18:33 Temperature 98.5 F Pulse Rate 69 68 70 Respiratory Rate 18 18 Blood Pressure 112/67 Pulse Oximetry 94 94 07
[2021-01-27 18:59] LABS: Glucose Point of Care 172 mg/dl (65-105)
[2021-01-27] MEDS: DORNASE ALFA INH SOLN 1 MG/ML 2.5 ML AMP 2.5 MG INHALATION (19:43)
[2021-01-27 20:40] LABS: Glucose Point of Care 180 mg/dl (65-105)
[2021-01-28] VITALS (38 sets, daily range): BP systolic 123–188; BP diastolic 69–95; PULSE 22–120; RESP 18–95; TEMP 37.1–38; O2SAT 92–100
[2021-01-28 01:22] LABS: Glucose Point of Care 145 mg/dl (65-105)
[2021-01-28] MEDS: ALBUTEROL SULFATE NEB 2.5 MG/0.5 ML INH INHALATION ×4 (01:58→21:02)
[2021-01-28 04:21] LABS: Hematocrit 30.6 % (42.0-52.0); Hemoglobin 9.8 g/dL (14.0-18.0); Mean Corpuscular Volume 93.6 fl (80-100); Mean Platelet Volume 10.7 fl (7.4-10.4); Platelet Count Result 286 k/mm3 (150-375); Red Blood Count 3.27 M/mm3 (4.6-6.20); Red Cell Distribution Width 15.5 % (11.5-14.5); White Blood Count 10.9 K/mm3 (4.5-10.0)
[2021-01-28 04:41] LABS: Alanine Aminotransferase 139 U/L (4-50); Albumin Level 2.6 g/dL (3.5-5.1); Alkaline Phosphatase 187 U/L (38-126); Anion Gap 3 mmol/L (8-16); Aspartate Amino Transferase 66 U/L (17-59); Bilirubin,Total 0.5 mg/dL (0.2-1.3); Blood Urea Nitrogen 34 mg/dL (9-20); Calcium 8.9 mg/dL (8.4-10.2); Carbon Dioxide 35 mmol/L (22-30); Chloride 101 mmol/L (98-107); Estimated CRCL calculation 121 ml/min; Estimated Glomerular Filt Rate > 60; Glucose 165 mg/dL (65-110); Magnesium 2.1 mg/dL (1.6-2.3); Phosphorus 3.6 mg/dL (2.5-4.5); Potassium 4.5 mmol/L (3.4-5.0); Sodium 139 mmol/L (137-145)
[2021-01-28] MEDS: CENTRAL LINE FLUSH 10 ML IV PUSH ×3 (04:59→20:41)
[2021-01-28 05:03] LABS: Alveolar/Arterial O2 Gradient 145.7 mmHg; Carboxyhemoglobin 0.3 % THb (0-2.0); Fractional Inspired Oxygen 40 %; HCO3 ABG 33.9 mEq/l (22.0-26.0); Methemoglobin ABG 0.2 %THb (0-1.5); Oxygen Content ABG 14.7 %vol (16.0-22.0); Oxygen Saturation ABG 95.4 % (95.0-100.0); Oxyhemoglobin 93.7 % THb (90.0-100.0); PO2 ABG 77.4 mmHg (80.0-100.0); PO2 FiO2 Ratio Arterial Blood 1.94 %; Reduced Hemoglobin 5.8 %THb (0-5.0); Total Hemoglobin 11.1 g/dL (12.0-18.0); pH ABG 7.416 (7.350-7.450)
[2021-01-28 05:04] LABS: Modified Allen's Test Pass; Site Drawn RIGHT RADIAL
[2021-01-28 05:05] LABS: Device VENTILATOR
[2021-01-28] MEDS: DORNASE ALFA INH SOLN 1 MG/ML 2.5 ML AMP 2.5 MG INHALATION ×2 (08:24→22:54)
[2021-01-28 08:48] LABS: Arterial Blood Gas PEEP 10 cmH2O; Arterial Blood Gas Tidal Volume 450 ml; Arterial Blood Gas Vent Mode CMV; Arterial Blood Gas Ventilator rate 18 /MIN
[2021-01-28] MEDS: BISACODYL 10 MG SUPPOSITORY RECTAL (08:57)
[2021-01-28] MEDS: polyethylene glycoL 3350 17 GM POWD.PACK PO (08:57)
[2021-01-28] MEDS: ENOXAPARIN 40 MG/0.4 ML SYRINGE SUB-Q ×2 (08:57→20:34)
[2021-01-28] MEDS: MINERAL OIL/WHITE PETROLATUM OINTMENT 1 APPLIC EACH EYE ×2 (08:58→20:33)
[2021-01-28] MEDS: ASPIRIN 81 MG ENTERIC TABLET PO (08:58)
[2021-01-28] MEDS: INSULIN GLARGINE (*BKC) 100 UNITS/ML 20 UNITS SUB-Q ×2 (08:58→20:41)
[2021-01-28] MEDS: PANTOPRAZOLE SODIUM IV 40 MG VIAL IV PUSH (08:58)
[2021-01-28 09:19] LABS: Glucose Point of Care 144 mg/dl (65-105)
--- NOTE | 2021-01-28 09:28 | WPDINTPN ---
Progress Note: A&P Assessment and Plan (1) Septic shock: Code(s): A41.9 - Sepsis, unspecified organism; R65.21 - Severe sepsis with septic shock Status: Acute Assessment and Plan: 01/22/2021: Patient was hypotensive, requiring Levophed, increasing oxygen requirement on mechanical ventilation and slightly worsening chest x-ray - blood cultures coag neg staph - likely related to septic shock from possible ventilator associated pneumonia - sputum cultures from 01/22 growing pseudomonas, Pansensitive - Appreciated ID evaluation and recommendations, continue cefepime (initiated on 01/22) - Vancomycin was discontinued on 01/24 - repeat sputum cultures negative till now (2) Acute respiratory failure with hypoxia: Code(s): J96.01 - Acute respiratory failure with hypoxia Status: Acute Assessment and Plan: Acute Respiratory failure secondary to COVID-19 pneumonia with worsening hypoxia through the hospital course Bipap 01/16, intubated 01/17. patient has been chemically paralyzed with neuromuscular blockers since then and was prone ventilated for multiple days - 01/27 NMB infusion discontinue - currently on 10 of PEEP and 40% FiO2. will change the PEEP to 8 - sedation holiday today - Continue mechanical ventilation support to prevent hypoxemia/hypercarbia and end organ damage. - Patient developed Pseudomonas pneumonia on top of COVID-19 pneumonia Bronchodilators (3) Pneumonia due to COVID-19 virus: Code(s): U07.1 - COVID-19; J12.82 - Pneumonia due to coronavirus disease 2019 Status: Acute Assessment and Plan: Patient received Moderna vaccine in September of 2020 has still developed significant COVID-19 pneumonia. his COVID-19 PCR and antibody are both reactive. patient has completed a course Rocephin and azithromycin. has completed 10 day course of dexamethasone he has completed a 10 day course of Remdesivir initially his CRP was high 12.1 but his repeat CRP was 5.4 hence not high enough to start Tocilizumab continue monitoring inflammatory markers which continue to be high isolation (4) Diabetes mellitus: Code(s): E11.9 - Type 2 diabetes mellitus without complications Status: Acute Assessment and Plan: continue Lantus and sliding scale continue tube feeds (5) Hypotension: Code(s): I95.9 - Hypotension, unspecified Status: Acute Assessment and Plan: mostly likely secondary to sedation but patient could be intravascularly dry patient responded well to IV fluids that for given on 01/19. conservative fluid management due to COVID-19 pneumonia and ARDS 01/22: patient with hypotension, shock. started on Levophed, will maintain MAP > 65 mmHg at all times, off Levophed since 01/24 - sputum cultures growing Pseudomonas, pansensitive, continue cefepime (6) Elevated LFTs: Code(s): R79.89 - Other specified abnormal findings of blood chemistry Status: Acute Assessment and Plan: RUQ ultrasound 01/20/2021 showed hepatic steatosis - hepatitis panel was negative - appreciate GI evaluation recommendation - increase in LFTs could be related to septic shock, shock liver, will continue to maintain mean arterial pressures > 65 mmHg for adequate - liver enzymes are decreasing Additional Plan DVT prophylaxis - Lovenox q.12 hours Stress ulcer prophylaxis - PPI Nutrition - continue Tube Feeds Code Status - full code Total Critical Care Time: 32 minutes Due to a high probability of clinically significant, life threatening deterioration, the patient required my highest level of preparedness to intervene emergently and I personally spent this critical care time directly and personally managing the patient. This critical care time included obtaining a history; examining the patient; pulse oximetry; ordering and review of studies; arranging urgent treatment with development of a management plan; evaluation of patient
--- NOTE | 2021-01-28 10:45 | PC.NURSE ---
Updated, spouse, Taryn, on plan of care.
--- NOTE | 2021-01-28 13:06 | PCDIET ---
ICU Rounding Note: Patient tolerating Glucerna 1.2 at 50mL/hr goal rate with 50mL water flush every 4 hours. Documented residuals 220mL and below. Last recorded weight is 98.8kg which is down from last review. Bowel Motility: Last documented BM on 01/20/21. Discussed during rounds. Miralax and Dulcolax continued. Labs Reviewed: WBC (10.9), RBC (3.27), Glu (165), BUN (34), Cr (0.6), Alb (2.6) Meds Noted: Albuterol, Dulcolax, Novolog, Cefepime, Lantus, Nimbex, Pulmozyme, Protonix, Miralax Additional Notes: Deep tissue ulcers to chin and upper lip. Following daily in ICU rounds. Assessing/reassessing every Tuesday/Tuesday.
--- NOTE | 2021-01-28 13:13 | PM.IMPN ---
Progress Note: A&P Assessment and Plan (1) Acute respiratory failure with hypoxia: Code(s): J96.01 - Acute respiratory failure with hypoxia Status: Acute Assessment and Plan: Patient with acute hypoxic respiratory failure related to COVID-19. CTA chest 01/11 showing no PE but showing COVID. Oxygen requirement was increasing to the point of requiring intubation on 01/17/21. He now has completed 10 days of dexamethasone and Remdesivir. Remains stable on MV. Off paralytic yesterday. Currently on PEEP 8 and 40% FiO2. Wean vent as toelrated Pulmonary and senior information systems architect following along and appreciate their input. (2) Septic shock: Code(s): A41.9 - Sepsis, unspecified organism; R65.21 - Severe sepsis with septic shock Status: Acute Assessment and Plan: Patient became HoTN requiring pressor therapy with Levophed 01/18 possibly related to sedation. Able to be weaned off but BP dropped again on 01/22 requiring Levophed up to 12mcg/min felt related to septic shock but able to be weaned off again 01/24. Related to Pseudomonas PNA. Continue to monitor. (3) Pneumonia due to COVID-19 virus: Code(s): U07.1 - COVID-19; J12.82 - Pneumonia due to coronavirus disease 2019 Status: Acute Assessment and Plan: Patient tested COVID-19 positive 01/09/21 after starting have symptoms 01/05/21. He was fully vaccinated with Moderna in September; antibodies present, no benefit of plasma. Completed Remdesivir and Decadron. Sputum now positive for Pseudomonas. Continue supportive care. Continue Cefepime. (4) Type 2 diabetes mellitus without complication, without long-term current use of insulin: Code(s): E11.9 - Type 2 diabetes mellitus without complications Status: Acute Assessment and Plan: A1c 6.9 in May 2020. The patient's blood glucose was reviewed on 01/28 Glucose remains reasonably well controlled. Tolerating TF. Continue Lantus that was started 01/19. Continue AccuCheks covering with sliding scale. Hypoglycemia protocol available as needed. (5) Essential (primary) hypertension: Code(s): I10 - Essential (primary) hypertension Status: Acute Assessment and Plan: Patient's blood pressure was reviewed on 01/28 Blood pressure stable off Levophed and now elevated at times. Amlodipine and valsartan remain on hold (6) Elevated LFTs: Code(s): R79.89 - Other specified abnormal findings of blood chemistry Status: Acute Assessment and Plan: AST/ALT slowly improving. RUQ okay. Hepatitis panel negative. [place] related to clinical condition and/or medications. Continue to follow. (7) DVT prophylaxis: Code(s): Z29.9 - Encounter for prophylactic measures, unspecified Status: Acute Assessment and Plan: Lovenox Subjective Date/time seen: 01/28/21 13:13 Interval history: 70yo male with DM and HTN here for COVID-19 PNA. Patient remains intubated and sedated. Paralytics stopped yesterday. He was intubated on the morning January 17. Review of Systems Review of Systems: ROS unobtainable: Yes unobtainable due to endotracheal tube Exam Narrative: AF 997.7 158/79 101 19 96% MV PEEP 8 at 40% FiO2 Gen - intubated and sedated HEENT - OGT and ETT secured. black eschar to the upper lip and chin Chest - clear, distant BS anteriorly CV - RRR S1/S2; Tele showing episodes of bigeminy and PVCs Abd - Soft, +BS - Flores secured draining clear yellow urine Ext - mild diffuse UE/LE edema Neuro - sedated. eyes open but not responsive Skin - cool and dry Objective Data Vital Signs Vital Signs: Vital Signs - 24 hr 01/27/21 14:00 01/27/21 14:05 01/27/21 14:10 Temperature 99.1 F Pulse Rate 66 67 86 Respiratory Rate 18 18 18 Blood Pressure 115/60 Pulse Oximetry 95 96 01/27/21 16:00 01/27/21 17:10 01/27/21 18:00 Temperature 99.3 F 98.9 F Pulse Rate 83 66 90 Respiratory Rate 18 18 Blood Press
[2021-01-28] MEDS: PROPOFOL IV EMULSION 100 ML 2.96 MG IV CONT (16:30)
[2021-01-28] MEDS: ACETAMINOPHEN ELIXIR 325 MG/10.15 ML UDC 650 MG FEED TUBE (16:46)
[2021-01-28 17:15] LABS: Glucose Point of Care 165 mg/dl (65-105)
[2021-01-28 17:15] LABS: Glucose Point of Care 184 mg/dl (65-105)
[2021-01-28 20:46] LABS: Glucose Point of Care 164 mg/dl (65-105)
[2021-01-28] MEDS: PROPOFOL IV EMULSION 100 ML 17.78 MG IV CONT (22:21)
[2021-01-29] VITALS (41 sets, daily range): BP systolic 131–172; BP diastolic 74–106; PULSE 60–116; RESP 20–40; TEMP 36.9–38.4; O2SAT 90–96
[2021-01-29 00:18] LABS: Glucose Point of Care 124 mg/dl (65-105)
[2021-01-29] MEDS: ALBUTEROL SULFATE NEB 2.5 MG/0.5 ML INH INHALATION ×4 (02:57→20:29)
[2021-01-29] MEDS: PROPOFOL IV EMULSION 100 ML 14.82 MG IV CONT (03:47)
[2021-01-29 04:07] LABS: Hematocrit 29.6 % (42.0-52.0); Hemoglobin 9.5 g/dL (14.0-18.0); Mean Corpuscular HGB Conc 32.1 g/dl (32-36); Mean Corpuscular Hemoglobin 29.7 pg (26-34); Mean Corpuscular Volume 92.5 fl (80-100); Mean Platelet Volume 10.2 fl (7.4-10.4); Platelet Count Result 316 k/mm3 (150-375); White Blood Count 9.2 K/mm3 (4.5-10.0)
[2021-01-29 04:20] LABS: D Dimer 1.17 ug/mL (<0.48)
[2021-01-29 04:49] LABS: Alanine Aminotransferase 105 U/L (4-50); Albumin Level 2.5 g/dL (3.5-5.1); Alkaline Phosphatase 171 U/L (38-126); Anion Gap 3 mmol/L (8-16); Aspartate Amino Transferase 48 U/L (17-59); Bilirubin,Total 0.5 mg/dL (0.2-1.3); Blood Urea Nitrogen 27 mg/dL (9-20); CRP 15.1 mg/dL (<1.0); Calcium 8.6 mg/dL (8.4-10.2); Carbon Dioxide 36 mmol/L (22-30); Chloride 100 mmol/L (98-107); Estimated CRCL calculation 120 ml/min; Estimated Glomerular Filt Rate > 60; Glucose 78 mg/dL (65-110); Lactate Dehydrogenase 502 U/L (313-618); Magnesium 2.2 mg/dL (1.6-2.3); Phosphorus 3.2 mg/dL (2.5-4.5); Potassium 3.5 mmol/L (3.4-5.0); Sodium 139 mmol/L (137-145)
[2021-01-29 05:14] LABS: Alveolar/Arterial O2 Gradient 131.3 mmHg; Base Excess ABG 9.4 mEq/l (+/-2.0); Carboxyhemoglobin 0.3 % THb (0-2.0); Fractional Inspired Oxygen 35 %; HCO3 ABG 33.5 mEq/l (22.0-26.0); Methemoglobin ABG 0.2 %THb (0-1.5); Oxygen Content ABG 18.7 %vol (16.0-22.0); Oxygen Saturation ABG 94.9 % (95.0-100.0); PCO2 ABG 43.5 mmHg (35.0-45.0); PO2 ABG 67.7 mmHg (80.0-100.0); PO2 FiO2 Ratio Arterial Blood 1.93 %; Reduced Hemoglobin 6.5 %THb (0-5.0); Total Hemoglobin 14.3 g/dL (12.0-18.0); pH ABG 7.505 (7.350-7.450)
[2021-01-29 05:17] LABS: Modified Allen's Test Pass; Site Drawn RIGHT RADIAL
[2021-01-29 05:18] LABS: Arterial Blood Gas Vent Mode CMV; Arterial Blood Gas Ventilator rate 18 /MIN; Device VENTILATOR
[2021-01-29 05:19] LABS: Arterial Blood Gas PEEP 8 cmH2O; Arterial Blood Gas Tidal Volume 450 ml
--- NOTE | 2021-01-29 05:21 | PCRCNOTE ---
pH critical value 7.505 was called to Felice Turpin RN.
[2021-01-29] MEDS: CENTRAL LINE FLUSH 10 ML IV PUSH ×3 (05:44→21:42)
[2021-01-29 06:15] LABS: Glucose Point of Care 78 mg/dl (65-105)
[2021-01-29] MEDS: DORNASE ALFA INH SOLN 1 MG/ML 2.5 ML AMP 2.5 MG INHALATION ×2 (08:14→20:29)
[2021-01-29] MEDS: ENOXAPARIN 40 MG/0.4 ML SYRINGE SUB-Q ×2 (09:29→20:04)
[2021-01-29] MEDS: PANTOPRAZOLE SODIUM IV 40 MG VIAL IV PUSH (09:30)
[2021-01-29] MEDS: MINERAL OIL/WHITE PETROLATUM OINTMENT 1 APPLIC EACH EYE ×2 (09:30→20:04)
[2021-01-29] MEDS: ASPIRIN 81 MG ENTERIC TABLET PO (09:30)
--- NOTE | 2021-01-29 11:38 | PCDIET ---
ICU Rounding Note: Patient tolerating Glucerna 1.2 at 50mL/hr with 50mL water flush every 4 hours and Pro-Stat flush TID. Last recorded weight is 98.3kg which is stable. Bowel Motility: BM x 2 today. Labs Reviewed: RBC (3.20), Hgb (9.5), Hct (29.6), Glu (124), BUN (27), Cr (0.6), Alb (2.5) Meds Noted: Versed, Cefepime, Albuterol, Fentanyl, Lantus, Protonix Additional Notes: Upper lip and chin with unstageable areas. Following daily in ICU rounds. Assessing/reassessing every Tuesday/Tuesday.
[2021-01-29] MEDS: PROPOFOL IV EMULSION 100 ML 5.93 MG IV CONT (11:46)
--- NOTE | 2021-01-29 11:50 | WPDINTPN ---
Progress Note: A&P Assessment and Plan (1) Septic shock: Code(s): A41.9 - Sepsis, unspecified organism; R65.21 - Severe sepsis with septic shock Status: Acute Assessment and Plan: 01/22/2021: Patient was hypotensive, requiring Levophed, increasing oxygen requirement on mechanical ventilation and slightly worsening chest x-ray - blood cultures coag neg staph - likely related to septic shock from possible ventilator associated pneumonia - sputum cultures from 01/22 growing pseudomonas, Pansensitive. patient was started on cefepime (initiated on 01/22) - Vancomycin was discontinued on 01/24 - repeat sputum cultures on 01/27 is again growing Pseudomonas - will discuss with infectious disease (2) Acute respiratory failure with hypoxia: Code(s): J96.01 - Acute respiratory failure with hypoxia Status: Acute Assessment and Plan: Acute Respiratory failure secondary to COVID-19 pneumonia with worsening hypoxia through the hospital course Bipap 01/16, intubated 01/17. patient has been chemically paralyzed with neuromuscular blockers since then and was prone ventilated for multiple days - 01/27 NMB infusion discontinued - 01/28 sedation switched to shorter acting propofol - currently on 8 of PEEP and 35% FiO2. patient change to ASV mode - sedation holiday today was done today but patient was not following commands. Patient became asynchronous with the ventilator and desaturated. Low-dose propofol was resume - Continue mechanical ventilation support to prevent hypoxemia/hypercarbia and end organ damage. - Patient developed Pseudomonas pneumonia on top of COVID-19 pneumonia which is being treated with cefepime - will give a dose of Lasix today - Bronchodilators - patient was intubated on 01/17 and may need tracheostomy if unable to extubated in next few days (3) Pneumonia due to COVID-19 virus: Code(s): U07.1 - COVID-19; J12.82 - Pneumonia due to coronavirus disease 2019 Status: Acute Assessment and Plan: Patient received Moderna vaccine in September of 2020 has still developed significant COVID-19 pneumonia. his COVID-19 PCR and antibody are both reactive. patient has completed a course Rocephin and azithromycin. has completed 10 day course of dexamethasone he has completed a 10 day course of Remdesivir initially his CRP was high 12.1 but his repeat CRP was 5.4 hence not high enough to start Tocilizumab continue monitoring inflammatory markers which continue to be high isolation (4) Diabetes mellitus: Code(s): E11.9 - Type 2 diabetes mellitus without complications Status: Acute Assessment and Plan: continue Lantus and sliding scale continue tube feeds (5) Hypotension: Code(s): I95.9 - Hypotension, unspecified Status: Acute Assessment and Plan: mostly likely secondary to sedation but patient could be intravascularly dry patient responded well to IV fluids that for given on 01/19. conservative fluid management due to COVID-19 pneumonia and ARDS 01/22: patient with hypotension, shock. started on Levophed, will maintain MAP > 65 mmHg at all times, off Levophed since 01/24 - sputum cultures growing Pseudomonas, pansensitive, continue cefepime (6) Elevated LFTs: Code(s): R79.89 - Other specified abnormal findings of blood chemistry Status: Acute Assessment and Plan: RUQ ultrasound 01/20/2021 showed hepatic steatosis - hepatitis panel was negative - appreciate GI evaluation recommendation - increase in LFTs could be related to septic shock, shock liver, will continue to maintain mean arterial pressures > 65 mmHg for adequate - liver enzymes are decreasing Additional Plan DVT prophylaxis - Lovenox q.12 hours Stress ulcer prophylaxis - PPI Nutrition - continue Tube Feeds Code Status - full code tried calling patient's on the listed phone number and left a voicemail Total Critical Care [place]
--- NOTE | 2021-01-29 12:00 | PC.NURSE ---
Updated via telephone on patient condition.
[2021-01-29 12:03] LABS: Glucose Point of Care 83 mg/dl (65-105)
--- NOTE | 2021-01-29 12:46 | PM.IMPN ---
Progress Note: A&P Assessment and Plan (1) Acute respiratory failure with hypoxia: Code(s): J96.01 - Acute respiratory failure with hypoxia Status: Acute Assessment and Plan: Patient with acute hypoxic respiratory failure related to COVID-19. CTA chest 01/11 showing no PE but showing findings consistent with COVID. Oxygen requirement was increasing to the point of requiring intubation on 01/17/21. He now has completed 10 days of dexamethasone and Remdesivir. Remains stable on MV. Off paralytic 01/27. Currently on PEEP 8 and 40% FiO2. Wean vent as tolerated. Agree with [facility] and service center specialist following along and appreciate their input. (2) Septic shock: Code(s): A41.9 - Sepsis, unspecified organism; R65.21 - Severe sepsis with septic shock Status: Acute Assessment and Plan: Patient became HoTN requiring pressor therapy with Levophed 01/18 possibly related to sedation. Able to be weaned off but BP dropped again on 01/22 requiring Levophed up to 12mcg/min felt related to septic shock but able to be weaned off again 01/24. Related to Pseudomonas PNA. Continue to monitor. (3) Pneumonia due to COVID-19 virus: Code(s): U07.1 - COVID-19; J12.82 - Pneumonia due to coronavirus disease 2018 Status: Acute Assessment and Plan: Patient tested COVID-19 positive 01/09/21 after starting have symptoms 01/05/21. He was fully vaccinated with Moderna in September; antibodies present. Completed Remdesivir and Decadron. Sputum now positive for Pseudomonas. Continue supportive care. Continue Cefepime. (4) Type 2 diabetes mellitus without complication, without long-term current use of insulin: Code(s): E11.9 - Type 2 diabetes mellitus without complications Status: Acute Assessment and Plan: A1c 6.9 in May 2020. The patient's blood glucose was reviewed on 01/29 Glucose remains very well controlled. Tolerating TF. Lantus held today. Continue AccuCheks covering with sliding scale. Hypoglycemia protocol available as needed. Decrease Lantus dose. (5) Essential (primary) hypertension: Code(s): I10 - Essential (primary) hypertension Status: Acute Assessment and Plan: Patient's blood pressure was reviewed on 01/29 Blood pressure stable off Levophed and now elevated at times. Amlodipine and valsartan remain on hold (6) Elevated LFTs: Code(s): R79.89 - Other specified abnormal findings of blood chemistry Status: Acute Assessment and Plan: AST/ALT slowly improving. RUQ okay. Hepatitis panel negative. [place] related to clinical condition and/or medications. Continue to follow. (7) DVT prophylaxis: Code(s): Z29.9 - Encounter for prophylactic measures, unspecified Status: Acute Assessment and Plan: Lovenox Subjective Date/time seen: 01/29/21 12:46 Interval history: 70yo male with DM and HTN here for COVID-19 PNA. Patient remains intubated and sedated. Paralytics stopped 01/27. He was intubated on the morning January 17. He is restless but not following commands. Exam Narrative: Tm 100.4 99.8 148/80 94 20 92% MV Gen - intubated and sedated HEENT - OGT and ETT secured. black eschar to the upper lip and chin Chest - clear, distant BS anteriorly CV - RRR S1/S2; Tele showing episodes of NSVT and PVCs Abd - Soft, +BS, ND - Flores secured draining clear yellow urine Ext - mild diffuse UE/LE edema Neuro - sedated. eyes open but not responsive and does not follow commands Skin - warm and dry Objective Data Vital Signs Vital Signs: Vital Signs - 24 hr 01/28/21 13:22 01/28/21 13:26 01/28/21 13:46 Temperature Pulse Rate 85 96 96 Respiratory Rate 23 H 23 H Blood Pressure Pulse Oximetry 94 01/28/21 14:00 01/28/21 16:00 01/28/21 16:23 Temperature 99.5 F 100.4 F H Pulse Rate 95 116 H 118 H Respiratory Rate 95 H 33 H Blood Pressure 177/91 H 181/95 H Pulse Oximetry 94
[2021-01-29] MEDS: FUROSEMIDE INJ 40 MG/4 ML VIAL IV PUSH (13:42)
--- NOTE | 2021-01-29 13:59 | PC.NURSE ---
Updated daughter, Jie, via telephone on patient condition
[2021-01-29 18:57] LABS: Glucose Point of Care 118 mg/dl (65-105)
[2021-01-29] MEDS: PROPOFOL IV EMULSION 100 ML 11.86 MG IV CONT (20:01)
[2021-01-29 20:51] LABS: Glucose Point of Care 113 mg/dl (65-105)
[2021-01-29] MEDS: INSULIN GLARGINE (*BKC) 100 UNITS/ML 10 UNITS SUB-Q (20:52)
[2021-01-29] MEDS: ACETAMINOPHEN ELIXIR 325 MG/10.15 ML UDC 650 MG FEED TUBE (22:11)
[2021-01-30] VITALS (28 sets, daily range): BP systolic 119–166; BP diastolic 68–92; PULSE 63–100; RESP 18–35; TEMP 37.4–38.1; O2SAT 92–99
[2021-01-30] MEDS: PROPOFOL IV EMULSION 100 ML 14.82 MG IV CONT (01:31)
[2021-01-30 01:43] LABS: Glucose Point of Care 138 mg/dl (65-105)
[2021-01-30 05:17] LABS: Alveolar/Arterial O2 Gradient 169.3 mmHg; Base Excess ABG 11.6 mEq/l (+/-2.0); Carboxyhemoglobin 0.8 % THb (0-2.0); Fractional Inspired Oxygen 40 %; HCO3 ABG 36.1 mEq/l (22.0-26.0); Methemoglobin ABG 0.3 %THb (0-1.5); Oxygen Content ABG 18.7 %vol (16.0-22.0); PCO2 ABG 45.7 mmHg (35.0-45.0); PO2 ABG 63.3 mmHg (80.0-100.0); PO2 FiO2 Ratio Arterial Blood 1.58 %; Reduced Hemoglobin 6.9 %THb (0-5.0); Total Hemoglobin 14.5 g/dL (12.0-18.0)
[2021-01-30 05:19] LABS: Arterial Blood Gas Vent Mode CMV; Arterial Blood Gas Ventilator rate 15 /MIN; Device VENTILATOR; Modified Allen's Test Pass; Site Drawn RIGHT RADIAL; pH ABG 7.515 (7.350-7.450)
[2021-01-30 05:20] LABS: Arterial Blood Gas PEEP 8 cmH2O; Arterial Blood Gas Tidal Volume 450 ml
[2021-01-30] MEDS: CENTRAL LINE FLUSH 10 ML IV PUSH ×3 (05:33→21:00)
[2021-01-30 05:45] LABS: Glucose Point of Care 96 mg/dl (65-105)
[2021-01-30 06:05] LABS: Hematocrit 28.5 % (42.0-52.0); Hemoglobin 9.3 g/dL (14.0-18.0); Mean Corpuscular HGB Conc 32.6 g/dl (32-36); Mean Corpuscular Volume 91.9 fl (80-100); Mean Platelet Volume 10.4 fl (7.4-10.4); Platelet Count Result 379 k/mm3 (150-375); Red Cell Distribution Width 14.7 % (11.5-14.5); White Blood Count 11.3 K/mm3 (4.5-10.0)
[2021-01-30 06:17] LABS: Alanine Aminotransferase 75 U/L (4-50); Alkaline Phosphatase 156 U/L (38-126); Anion Gap 2 mmol/L (8-16); Aspartate Amino Transferase 45 U/L (17-59); Bilirubin,Total 0.4 mg/dL (0.2-1.3); Blood Urea Nitrogen 25 mg/dL (9-20); Calcium 7.8 mg/dL (8.4-10.2); Carbon Dioxide 35 mmol/L (22-30); Chloride 101 mmol/L (98-107); Estimated CRCL calculation 126 ml/min; Estimated Glomerular Filt Rate > 60; Glucose 125 mg/dL (65-110); Magnesium 2.1 mg/dL (1.6-2.3); Phosphorus 3.4 mg/dL (2.5-4.5); Potassium 3.4 mmol/L (3.4-5.0); Sodium 138 mmol/L (137-145)
[2021-01-30] MEDS: ALBUTEROL SULFATE NEB 2.5 MG/0.5 ML INH INHALATION ×3 (08:22→21:45)
[2021-01-30] MEDS: DORNASE ALFA INH SOLN 1 MG/ML 2.5 ML AMP 2.5 MG INHALATION (08:23)
[2021-01-30] MEDS: PROPOFOL IV EMULSION 100 ML 11.86 MG IV CONT ×2 (09:30→18:15)
[2021-01-30] MEDS: ENOXAPARIN 40 MG/0.4 ML SYRINGE SUB-Q ×2 (09:50→20:21)
[2021-01-30] MEDS: ASPIRIN 81 MG ENTERIC TABLET PO (09:50)
[2021-01-30] MEDS: polyethylene glycoL 3350 17 GM POWD.PACK PO (09:50)
[2021-01-30] MEDS: INSULIN GLARGINE (*BKC) 100 UNITS/ML 10 UNITS SUB-Q ×2 (09:51→20:56)
[2021-01-30] MEDS: MINERAL OIL/WHITE PETROLATUM OINTMENT 1 APPLIC EACH EYE ×2 (09:51→20:21)
[2021-01-30] MEDS: PANTOPRAZOLE SODIUM IV 40 MG VIAL IV PUSH (09:53)
[2021-01-30 10:06] LABS: Glucose Point of Care 138 mg/dl (65-105)
[2021-01-30] MEDS: POTASSIUM CHLORIDE 20 MEQ PACKET (FOR LIQUID) 40 MEQ FEED TUBE (11:04)
--- NOTE | 2021-01-30 11:49 | PCDIET ---
Nutrition Follow-Up Complete: Nutrition Diagnosis: Inadequate oral intake related to oral intubation as evidenced by need for tube feedings. Nutrition Goal: Patient to meet estimated nutritional needs. Goal met. Patient tolerating Glucerna 1.2 at 50mL/hr goal rate with 50mL water flush every 4 hours and Pro-Stat flush TID. Last recorded weight is 95.1 kg which is down from last review. -I/O. Bowel Motility: BM x 1 today. Labs Reviewed: WBC (11.3), RBC (3.10), Hgb (9.3), Hct (28.5), Glu (125), BUN (25), Cr (0.5), [place] (9.4), Alb (2.0) Meds Noted: Albuterol, Cefepime, Pulmozyme, Lantus, Protonix, Miralax, KCl Additional Notes: Propofol on hold. No change reported to areas on upper lip and chin. Will continue to monitor with same goal. Nutrition Monitoring and Evaluation: Follow up every Tuesday/Tuesday. Follow daily in ICU rounds.
--- NOTE | 2021-01-30 13:02 | WPDINTPN ---
Progress Note: A&P Assessment and Plan (1) Acute respiratory failure with hypoxia: Code(s): J96.01 - Acute respiratory failure with hypoxia Status: Acute Assessment and Plan: Acute Respiratory failure secondary to COVID-19 pneumonia with worsening hypoxia through the hospital course Bipap 01/16, intubated 01/17. patient has been chemically paralyzed with neuromuscular blockers since then and was prone ventilated for multiple days - 01/27 NMB infusion discontinued - 01/28 sedation switched to shorter acting propofol - currently on 5 of PEEP and 35% FiO2. on ASV mode - patient on sedation held a and I have placed patient on pressure support ventilation 06/07 - Continue mechanical ventilation support to prevent hypoxemia/hypercarbia and end organ damage. - Patient developed Pseudomonas pneumonia on top of COVID-19 pneumonia which is being treated with cefepime - patient was given a dose of Lasix yesterday with good response - patient was intubated on 01/17 and may need tracheostomy if unable to extubated in next few days. I have spoken to patient's about this and she wants to discuss with other family members before making a decision (2) Septic shock: Code(s): A41.9 - Sepsis, unspecified organism; R65.21 - Severe sepsis with septic shock Status: Acute Assessment and Plan: 01/22/2021: Patient was hypotensive, requiring Levophed, increasing oxygen requirement on mechanical ventilation and slightly worsening chest x-ray - blood cultures coag neg staph - likely related to septic shock from possible ventilator associated pneumonia - sputum cultures from 01/22 growing pseudomonas, Pansensitive. patient was started on cefepime (initiated on 01/22) - Vancomycin was discontinued on 01/24 - repeat sputum cultures on 01/27 is again growing Pseudomonas - will discuss with infectious disease (3) Pneumonia due to COVID-19 virus: Code(s): U07.1 - COVID-19; J12.82 - Pneumonia due to coronavirus disease 2019 Status: Acute Assessment and Plan: Patient received Moderna vaccine in September of 2020 has still developed significant COVID-19 pneumonia. his COVID-19 PCR and antibody are both reactive. patient has completed a course Rocephin and azithromycin. has completed 10 day course of dexamethasone he has completed a 10 day course of Remdesivir initially his CRP was high 12.1 but his repeat CRP was 5.4 hence not high enough to start Tocilizumab continue monitoring inflammatory markers which continue to be high isolation (4) Diabetes mellitus: Code(s): E11.9 - Type 2 diabetes mellitus without complications Status: Acute Assessment and Plan: continue Lantus and sliding scale Lantus dose was decreased yesterday continue tube feeds (5) Hypotension: Code(s): I95.9 - Hypotension, unspecified Status: Acute Assessment and Plan: mostly likely secondary to sedation but patient could be intravascularly dry patient responded well to IV fluids that for given on 01/19. conservative fluid management due to COVID-19 pneumonia and ARDS 01/22: patient with hypotension, shock. started on Levophed, will maintain MAP > 65 mmHg at all times, off Levophed since 01/24 - sputum cultures growing Pseudomonas, pansensitive, continue cefepime (6) Elevated LFTs: Code(s): R79.89 - Other specified abnormal findings of blood chemistry Status: Acute Assessment and Plan: RUQ ultrasound 01/20/2021 showed hepatic steatosis - hepatitis panel was negative - appreciate GI evaluation recommendation - increase in LFTs could be related to septic shock, shock liver, will continue to maintain mean arterial pressures > 65 mmHg for adequate - liver enzymes are decreasing (7) Hypokalemia: Code(s): E87.6 - Hypokalemia Status: Acute Assessment and Plan: replace low potassium Additional Plan DVT prophylaxis - Lovenox Stres
[2021-01-30 14:20] LABS: Glucose Point of Care 117 mg/dl (65-105)
--- NOTE | 2021-01-30 15:32 | PM.IMPN ---
Progress Note: A&P Assessment and Plan (1) Acute respiratory failure with hypoxia: Code(s): J96.01 - Acute respiratory failure with hypoxia Status: Acute Assessment and Plan: Patient with acute hypoxic respiratory failure related to COVID-19. CTA chest 01/11 showing no PE but showing findings consistent with COVID. Oxygen requirement was increasing to the point of requiring intubation on 01/17/21. He now has completed 10 days of dexamethasone and Remdesivir. Remains stable on MV. Off paralytic 01/27. Wean vent as tolerated. Agree with Lasix. Pulmonary and reel assembler following along and appreciate their input. (2) Septic shock: Code(s): A41.9 - Sepsis, unspecified organism; R65.21 - Severe sepsis with septic shock Status: Acute Assessment and Plan: Patient became HoTN requiring pressor therapy with Levophed 01/18 possibly related to sedation. Able to be weaned off but BP dropped again on 01/22 requiring Levophed up to 12mcg/min felt related to septic shock but able to be weaned off again 01/24. Related to Pseudomonas PNA. Continue to monitor. (3) Pneumonia due to COVID-19 virus: Code(s): U07.1 - COVID-19; J12.82 - Pneumonia due to coronavirus disease 2019 Status: Acute Assessment and Plan: Patient tested COVID-19 positive 01/09/21 after starting have symptoms 01/05/21. He was fully vaccinated with Moderna in September; antibodies present. Completed Remdesivir and Decadron. Sputum was positive for Pseudomonas on 01/22 and noted again 01/27. Continue supportive care. Continue Cefepime. (4) Type 2 diabetes mellitus without complication, without long-term current use of insulin: Code(s): E11.9 - Type 2 diabetes mellitus without complications Status: Acute Assessment and Plan: A1c 6.9 in May 2020. The patient's blood glucose was reviewed on 01/30 Glucose remains very well controlled. Tolerating TF. Continue Lantus. Continue AccuCheks covering with sliding scale. Hypoglycemia protocol available as needed. (5) Essential (primary) hypertension: Code(s): I10 - Essential (primary) hypertension Status: Acute Assessment and Plan: Patient's blood pressure was reviewed on 01/30 Blood pressure stable off Levophed and now elevated at times. Amlodipine and valsartan remain on hold (6) Elevated LFTs: Code(s): R79.89 - Other specified abnormal findings of blood chemistry Status: Acute Assessment and Plan: AST to 739 and ALT 630. AST normal now and ALT down to 75. RUQ okay. Hepatitis panel negative. [place] related to clinical condition and/or medications. Continue to follow. (7) DVT prophylaxis: Code(s): Z29.9 - Encounter for prophylactic measures, unspecified Status: Acute Assessment and Plan: Lovenox (8) Pressure sore: Code(s): L89.90 - Pressure ulcer of unspecified site, unspecified stage Status: Acute Assessment and Plan: Patietn with facial pressure sore and dark eschar. Wound care consulted and following. Does not appear to be infected Subjective Date/time seen: 01/30/21 15:32 Interval history: 70yo male with DM and HTN here for COVID-19 PNA. He was intubated on the morning January 17. Patient remains intubated and sedated. Paralytics stopped 01/27. He followed commands for other providers but not at this time. No issues overnight. Review of Systems Review of Systems: ROS unobtainable: Yes unobtainable due to endotracheal tube Exam Narrative: Tm 101.5 99.4 157/80 100 30 95% MV Gen - intubated and sedated HEENT - OGT and ETT secured. black eschar to the upper lip and chin Chest - mildly coarse BS. tachycpneic due to trial CV - RRR S1/S2; Tele showing no significant dysrhythmias Abd - Soft, +BS, ND - Flores secured draining clear yellow urine Ext - mild diffuse UE/LE edema that is improved Neuro - sedated. eyes open but not responsive and does not fol
[2021-01-30 18:28] LABS: Glucose Point of Care 104 mg/dl (65-105)
[2021-01-30 21:13] LABS: Glucose Point of Care 113 mg/dl (65-105)
[2021-01-31] VITALS (27 sets, daily range): BP systolic 124–153; BP diastolic 61–74; PULSE 55–77; RESP 20–35; TEMP 37.4–37.9; O2SAT 92–100
[2021-01-31 00:15] LABS: Glucose Point of Care 136 mg/dl (65-105)
[2021-01-31] MEDS: ALBUTEROL SULFATE NEB 2.5 MG/0.5 ML INH INHALATION ×4 (02:05→21:21)
[2021-01-31 03:24] LABS: Base Excess ABG 9.4 mEq/l (+/-2.0); Carboxyhemoglobin 0.3 % THb (0-2.0); Fractional Inspired Oxygen 40 %; HCO3 ABG 32.6 mEq/l (22.0-26.0); Methemoglobin ABG 0.4 %THb (0-1.5); Oxygen Content ABG 13.2 %vol (16.0-22.0); Oxygen Saturation ABG 89.5 % (95.0-100.0); Oxyhemoglobin 86.3 % THb (90.0-100.0); PCO2 ABG 38.7 mmHg (35.0-45.0); PO2 FiO2 Ratio Arterial Blood 1.24 %; Total Hemoglobin 10.9 g/dL (12.0-18.0)
[2021-01-31 03:28] LABS: pH ABG 7.543 (7.350-7.450)
[2021-01-31 03:29] LABS: Device VENTILATOR; Modified Allen's Test Pass; PO2 ABG 49.7 mmHg (80.0-100.0); Site Drawn RIGHT RADIAL
[2021-01-31 03:30] LABS: Arterial Blood Gas PEEP 8 cmH2O; Arterial Blood Gas Tidal Volume 450 ml; Arterial Blood Gas Vent Mode CMV; Arterial Blood Gas Ventilator rate 15 /MIN
[2021-01-31] MEDS: PROPOFOL IV EMULSION 100 ML 11.86 MG IV CONT ×2 (03:40→19:01)
[2021-01-31] MEDS: CENTRAL LINE FLUSH 10 ML IV PUSH ×3 (05:31→21:51)
[2021-01-31 05:53] LABS: Hemoglobin 9.5 g/dL (14.0-18.0); Mean Corpuscular HGB Conc 33.9 g/dl (32-36); Mean Corpuscular Hemoglobin 31.7 pg (26-34); Mean Corpuscular Volume 93.3 fl (80-100); Mean Platelet Volume 10.5 fl (7.4-10.4); Platelet Count Result 384 k/mm3 (150-375); White Blood Count 8.9 K/mm3 (4.5-10.0)
[2021-01-31 06:21] LABS: Alanine Aminotransferase 66 U/L (4-50); Albumin Level 2.3 g/dL (3.5-5.1); Alkaline Phosphatase 129 U/L (38-126); Anion Gap 8 mmol/L (8-16); Aspartate Amino Transferase 51 U/L (17-59); Bilirubin,Total 0.3 mg/dL (0.2-1.3); Blood Urea Nitrogen 23 mg/dL (9-20); Calcium 7.7 mg/dL (8.4-10.2); Carbon Dioxide 30 mmol/L (22-30); Chloride 98 mmol/L (98-107); Estimated CRCL calculation 153 ml/min; Estimated Glomerular Filt Rate > 60; Glucose 86 mg/dL (65-110); Magnesium 2.2 mg/dL (1.6-2.3); Phosphorus 3.6 mg/dL (2.5-4.5); Potassium 3.5 mmol/L (3.4-5.0); Sodium 136 mmol/L (137-145)
--- NOTE | 2021-01-31 06:27 | PC.NURSE ---
Osito PADILLA notified of MD order to decrease Tidal Volume to 400 as patient has been in CMV mode on ventilator overnight with a TV of 450.
--- NOTE | 2021-01-31 07:57 | PM.IMPN ---
Progress Note: A&P Assessment and Plan (1) Acute respiratory failure with hypoxia: Code(s): J96.01 - Acute respiratory failure with hypoxia Status: Acute Assessment and Plan: Patient with acute hypoxic respiratory failure related to COVID-19. CTA chest 01/11 showing no PE but showing Diffuse bilateral patchy airspace diseaseconsistent with COVID. Oxygen requirement was increasing to the point of requiring intubation on 01/17/21. He now has completed 10 days of dexamethasone and Remdesivir. Off paralytic 01/27. Remains stable on MV. Wean vent as tolerated. he is not tolerating SBT trials. Pulmonary and assembling fabricator following along and appreciate their input. ICU service spoke to the family for needs for tracheostomy and PEG tube placement. Patient is agreeable. ENT and gastroenterology service has been consulted and will likely need to tracheostomy and PEG tube placement sometime next week. Continue Lasix as per fluid status. Strict intake output record and daily weight. Continue to monitor renal parameters and electrolytes. (2) Septic shock: Code(s): A41.9 - Sepsis, unspecified organism; R65.21 - Severe sepsis with septic shock Status: Acute Assessment and Plan: Patient became HoTN requiring pressor therapy with Levophed 01/18 possibly related to sedation. Able to be weaned off but BP dropped again on 01/22 requiring Levophed up to 12mcg/min felt related to septic shock but able to be weaned off again 01/24. Continue to monitor. (3) Pneumonia due to COVID-19 virus: Code(s): U07.1 - COVID-19; J12.82 - Pneumonia due to coronavirus disease 2019 Status: Acute Assessment and Plan: Patient tested COVID-19 positive 01/09/21 after starting to have symptoms 01/05/21. He was fully vaccinated with Moderna in September; antibodies present. Completed Remdesivir and Decadron. Sputum was positive for Pseudomonas on 01/22 and noted again 01/27. Continue supportive care. Continue Cefepime Started on 01/22 But he will finish his course of 10 days with cefepime. No significant secretions reported. (4) Type 2 diabetes mellitus without complication, without long-term current use of insulin: Code(s): E11.9 - Type 2 diabetes mellitus without complications Status: Acute Assessment and Plan: A1c 6.9 in May 2020. The patient's blood glucose was reviewed on 01/31 Glucose remains very well controlled. Tolerating TF. Continue Lantus. Continue AccuCheks covering with sliding scale. Hypoglycemia protocol available as needed. (5) Essential (primary) hypertension: Code(s): I10 - Essential (primary) hypertension Status: Acute Assessment and Plan: Patient's blood pressure was reviewed on 01/31 Blood pressure stable off Levophed and now elevated at times. Amlodipine and valsartan remain on hold (6) Elevated LFTs: Code(s): R79.89 - Other specified abnormal findings of blood chemistry Status: Acute Assessment and Plan: AST to 739 and ALT 630. AST normal now and ALT down to 75. RUQ okay. Hepatitis panel negative. [place] related to clinical condition and/or medications. Continue to follow. (7) DVT prophylaxis: Code(s): Z29.9 - Encounter for prophylactic measures, unspecified Status: Acute Assessment and Plan: Lovenox (8) Pressure sore: Code(s): L89.90 - Pressure ulcer of unspecified site, unspecified stage Status: Acute Assessment and Plan: Patietn with facial pressure sore and dark eschar. Wound care consulted and following. Does not appear to be infected Additional Plan DVT prophylaxis - Lovenox Stress ulcer prophylaxis - PPI Nutrition - Tube Feeds Code Status - Full Code Total Critical Care Time - 32 minutes Due to a high probability of clinically significant, life threatening deterioration, the patient required my highest level of preparedness to intervene
[2021-01-31] MEDS: POTASSIUM CHLORIDE 20 MEQ PACKET (FOR LIQUID) 40 MEQ FEED TUBE (09:15)
[2021-01-31] MEDS: ENOXAPARIN 40 MG/0.4 ML SYRINGE SUB-Q ×2 (09:16→21:50)
[2021-01-31] MEDS: ASPIRIN 81 MG ENTERIC TABLET PO (09:16)
[2021-01-31] MEDS: PANTOPRAZOLE SODIUM IV 40 MG VIAL IV PUSH (09:16)
[2021-01-31] MEDS: MINERAL OIL/WHITE PETROLATUM OINTMENT 1 APPLIC EACH EYE ×2 (09:16→21:49)
[2021-01-31] MEDS: INSULIN GLARGINE (*BKC) 100 UNITS/ML 10 UNITS SUB-Q ×2 (09:17→21:49)
[2021-01-31] MEDS: PROPOFOL IV EMULSION 100 ML 14.82 MG IV CONT (09:30)
--- NOTE | 2021-01-31 10:23 | WPDINTPN ---
Progress Note: A&P Assessment and Plan (1) Acute respiratory failure with hypoxia: Code(s): J96.01 - Acute respiratory failure with hypoxia Status: Acute Assessment and Plan: Acute Respiratory failure secondary to COVID-19 pneumonia with worsening hypoxia through the hospital course Bipap 01/16, intubated 01/17. patient has been chemically paralyzed with neuromuscular blockers since then and was prone ventilated for multiple days - 01/27 NMB infusion discontinued - 01/28 sedation switched to shorter acting propofol - currently on 5 of PEEP and 35% FiO2. decrease tidal volume to 400 - patient on sedation and I have placed patient on pressure support ventilation 06/07 but he developed high RSBI within few minutes - Continue mechanical ventilation support to prevent hypoxemia/hypercarbia and end organ damage. - Patient developed Pseudomonas pneumonia on top of COVID-19 pneumonia which is being treated with cefepime - patient was given a dose of Lasix yesterday with good response and will give another dose today - patient was intubated on 01/17 and will likely need tracheostomy. I have spoken to patient's about this and she wanted to discuss with other family members before making a decision. I called her again today and left a voicemail. (2) Septic shock: Code(s): A41.9 - Sepsis, unspecified organism; R65.21 - Severe sepsis with septic shock Status: Acute Assessment and Plan: 01/22/2021: Patient was hypotensive, requiring Levophed, increasing oxygen requirement on mechanical ventilation and slightly worsening chest x-ray - blood cultures coag neg staph - likely related to septic shock from possible ventilator associated pneumonia - sputum cultures from 01/22 growing pseudomonas, Pansensitive. patient was started on cefepime (initiated on 01/22) - Vancomycin was discontinued on 01/24 - repeat sputum cultures on 01/27 is again growing Pseudomonas But is pansensitive - continue antibiotics for 10-14 days - will discuss with infectious disease (3) Pneumonia due to COVID-19 virus: Code(s): U07.1 - COVID-19; J12.82 - Pneumonia due to coronavirus disease 2019 Status: Acute Assessment and Plan: Patient received Moderna vaccine in September of 2020 has still developed significant COVID-19 pneumonia. his COVID-19 PCR and antibody are both reactive. patient has completed a course Rocephin and azithromycin. has completed 10 day course of dexamethasone he has completed a 10 day course of Remdesivir initially his CRP was high 12.1 but his repeat CRP was 5.4 hence not high enough to start Tocilizumab continue monitoring inflammatory markers which continue to be high isolation (4) Diabetes mellitus: Code(s): E11.9 - Type 2 diabetes mellitus without complications Status: Acute Assessment and Plan: continue Lantus and sliding scale Lantus dose was decreased yesterday continue tube feeds (5) Hypotension: Code(s): I95.9 - Hypotension, unspecified Status: Acute Assessment and Plan: mostly likely secondary to sedation but patient could be intravascularly dry patient responded well to IV fluids that for given on 01/19. conservative fluid management due to COVID-19 pneumonia and ARDS 01/22: patient with hypotension, shock. started on Levophed, will maintain MAP > 65 mmHg at all times, off Levophed since 01/24 - sputum cultures growing Pseudomonas, pansensitive, continue cefepime (6) Elevated LFTs: Code(s): R79.89 - Other specified abnormal findings of blood chemistry Status: Acute Assessment and Plan: RUQ ultrasound 01/20/2021 showed hepatic steatosis - hepatitis panel was negative - appreciate GI evaluation recommendation - increase in LFTs could be related to septic shock, shock liver, will continue to maintain mean arterial pressures > 65 mmHg for adequate - liver enzymes are decreasing (7) Hypokale
[2021-01-31 11:47] LABS: Glucose Point of Care 102 mg/dl (65-105)
[2021-01-31 18:15] LABS: Glucose Point of Care 106 mg/dl (65-105)
[2021-01-31 23:12] LABS: Glucose Point of Care 140 mg/dl (65-105)
[2021-01-31 23:13] LABS: Glucose Point of Care 144 mg/dl (65-105)
[2021-02-01] VITALS (30 sets, daily range): BP systolic 119–152; BP diastolic 65–105; PULSE 53–89; RESP 22–37; TEMP 36.8–38.3; O2SAT 93–97
[2021-02-01] MEDS: ALBUTEROL SULFATE NEB 2.5 MG/0.5 ML INH INHALATION ×4 (02:10→20:34)
[2021-02-01] MEDS: PROPOFOL IV EMULSION 100 ML 11.86 MG IV CONT ×2 (03:27→12:06)
[2021-02-01 05:33] LABS: Base Excess ABG 8.2 mEq/l (+/-2.0); Carboxyhemoglobin 0.2 % THb (0-2.0); Fractional Inspired Oxygen 40 %; HCO3 ABG 30.9 mEq/l (22.0-26.0); Methemoglobin ABG 0.3 %THb (0-1.5); Oxygen Content ABG 13.6 %vol (16.0-22.0); Oxyhemoglobin 92.5 % THb (90.0-100.0); PCO2 ABG 36.1 mmHg (35.0-45.0); PO2 ABG 64.7 mmHg (80.0-100.0); PO2 FiO2 Ratio Arterial Blood 1.62 %; Total Hemoglobin 10.4 g/dL (12.0-18.0)
[2021-02-01 05:36] LABS: Device VENTILATOR; Modified Allen's Test Pass; Site Drawn RIGHT RADIAL; pH ABG 7.551 (7.350-7.450)
[2021-02-01 05:37] LABS: Arterial Blood Gas PEEP 5 cmH2O; Arterial Blood Gas Tidal Volume 400 ml; Arterial Blood Gas Vent Mode CMV; Arterial Blood Gas Ventilator rate 15 /MIN
[2021-02-01] MEDS: CENTRAL LINE FLUSH 10 ML IV PUSH ×3 (06:39→21:04)
[2021-02-01 07:24] LABS: Anion Gap 2 mmol/L (8-16); Blood Urea Nitrogen 19 mg/dL (9-20); Calcium 8.1 mg/dL (8.4-10.2); Carbon Dioxide 32 mmol/L (22-30); Chloride 105 mmol/L (98-107); Estimated CRCL calculation 126 ml/min; Estimated Glomerular Filt Rate > 60; Glucose 124 mg/dL (65-110); Potassium 3.8 mmol/L (3.4-5.0); Sodium 139 mmol/L (137-145)
[2021-02-01 07:32] LABS: Basophils Absolute Auto 0.1 K/mm3 (0.0-0.1); Basophils Percent Auto 0.5 % (0.2-1.2); Eosinophils Absolute Auto 0.2 K/mm3 (0-0.3); Eosinophils Percent Auto 1.8 % (0-4.4); Hematocrit 28.3 % (42.0-52.0); Hemoglobin 9.1 g/dL (14.0-18.0); Immature Granulocyte Absolute 0.34 K/mm3 (0.00-0.031); Immature Granulocyte Percent A 2.7 % (0-0.5); Lymphocytes Absolute Auto 0.85 K/mm3 (0.9-3.2); Lymphocytes Percent Auto 6.7 % (18.3-44.2); Mean Corpuscular HGB Conc 32.2 g/dl (32-36); Mean Corpuscular Volume 93.4 fl (80-100); Mean Platelet Volume 10.1 fl (7.4-10.4); Monocytes Absolute Auto 0.4 K/mm3 (0.1-0.6); Monocytes Percent Auto 3.5 % (2.6-8.5); Neutrophils Absolute Auto 10.7 K/mm3 (1.3-6.7); Neutrophils Percent Auto 84.8 % (45.5-73.1); Platelet Count Result 452 k/mm3 (150-375); Red Blood Count 3.03 M/mm3 (4.6-6.20); Red Cell Distribution Width 15.1 % (11.5-14.5); White Blood Count 12.6 K/mm3 (4.5-10.0)
[2021-02-01 07:45] LABS: Glucose Point of Care 119 mg/dl (65-105)
[2021-02-01 08:04] LABS: Lipase 420 U/L (23-300)
--- NOTE | 2021-02-01 08:21 | WPDINTPN ---
Progress Note: A&P Assessment and Plan (1) Acute respiratory failure with hypoxia: Code(s): J96.01 - Acute respiratory failure with hypoxia Status: Acute Assessment and Plan: Acute Respiratory failure secondary to COVID-19 pneumonia with worsening hypoxia through the hospital course Bipap 01/16, intubated 01/17. patient has been chemically paralyzed with neuromuscular blockers since then and was prone ventilated for multiple days - 01/27 NMB infusion discontinued - 01/28 sedation switched to shorter acting propofol - currently on 5 of PEEP and 40% FiO2. decrease tidal volume to 350 - patient has been failing weaning trial every day despite high pressure support. Will try again today - Continue mechanical ventilation support to prevent hypoxemia/hypercarbia and end organ damage. - Patient developed Pseudomonas pneumonia on top of COVID-19 pneumonia which is being treated with cefepime - patient was given a dose of Lasix yesterday with good response and will give another dose today - patient was intubated on 01/17 and will likely need tracheostomy. I spoke to patient's by phone 01/31. I discussed options of tracheostomy and PEG tube placement for continued mechanical ventilation support. She is agreeable.. I have consulted ENT and GI (2) Fever: Code(s): R50.9 - Fever, unspecified Status: Acute Assessment and Plan: 01/22/2021: Patient was hypotensive, requiring Levophed, increasing oxygen requirement on mechanical ventilation and slightly worsening chest x-ray - blood cultures coag neg staph - sputum cultures from 01/22 growing pseudomonas, Pansensitive. patient was started on cefepime (initiated on 01/22) and will complete today - Vancomycin was discontinued on 01/24 - patient continues to have low-grade fever. will repeat cultures and check lipase - Flores was changed on Tuesday (3) Pneumonia due to COVID-19 virus: Code(s): U07.1 - COVID-19; J12.82 - Pneumonia due to coronavirus disease 2019 Status: Acute Assessment and Plan: Patient received Moderna vaccine in September of 2020 has still developed significant COVID-19 pneumonia. his COVID-19 PCR and antibody are both reactive. patient has completed a course Rocephin and azithromycin. has completed 10 day course of dexamethasone he has completed a 10 day course of Remdesivir initially his CRP was high 12.1 but his repeat CRP was 5.4 hence not high enough to start Tocilizumab continue monitoring inflammatory markers which continue to be high isolation (4) Diabetes mellitus: Code(s): E11.9 - Type 2 diabetes mellitus without complications Status: Acute Assessment and Plan: continue Lantus and sliding scale Lantus dose was decreased yesterday continue tube feeds (5) Elevated LFTs: Code(s): R79.89 - Other specified abnormal findings of blood chemistry Status: Acute Assessment and Plan: RUQ ultrasound 01/20/2021 showed hepatic steatosis - hepatitis panel was negative - appreciate GI evaluation recommendation - increase in LFTs could be related to septic shock, shock liver, will continue to maintain mean arterial pressures > 65 mmHg for adequate - liver enzymes are decreasing Additional Plan DVT prophylaxis - Lovenox Stress ulcer prophylaxis - PPI Nutrition - Tube Feeds Code Status - Full Code Total Critical Care Time - 30 minutes Due to a high probability of clinically significant, life threatening deterioration, the patient required my highest level of preparedness to intervene emergently and I personally spent this critical care time directly and personally managing the patient. This critical care time included obtaining a history; examining the patient; pulse oximetry; ordering and review of studies; arranging urgent treatment with development of a management plan; evaluation of patient's response to treatment; frequent reassessment; and discussions
[2021-02-01] MEDS: ENOXAPARIN 40 MG/0.4 ML SYRINGE SUB-Q ×2 (08:39→21:02)
[2021-02-01] MEDS: PANTOPRAZOLE SODIUM IV 40 MG VIAL IV PUSH (08:40)
[2021-02-01] MEDS: INSULIN GLARGINE (*BKC) 100 UNITS/ML 10 UNITS SUB-Q ×2 (08:40→21:03)
[2021-02-01] MEDS: MINERAL OIL/WHITE PETROLATUM OINTMENT 1 APPLIC EACH EYE ×2 (08:40→21:02)
[2021-02-01] MEDS: ASPIRIN 81 MG ENTERIC TABLET PO (08:40)
--- NOTE | 2021-02-01 11:31 | WPDGIPROGNO ---
Progress Note: A&P Assessment and Plan (1) Feeding difficulty in adult: Code(s): R63.3 - Feeding difficulties Status: Acute Assessment and Plan: prolonged hospitalization in ICU due to severe covid-19 pneumonia primary team discussed with family and agreeable to proceed with G-tube placement endoscopically for roasterman feeding (2) Acute respiratory failure with hypoxia: Code(s): J96.01 - Acute respiratory failure with hypoxia Status: Acute Assessment and Plan: still intubated, primary also will consult ENT for trach placement (3) Pneumonia due to COVID-19 virus: Code(s): U07.1 - COVID-19; J12.82 - Pneumonia due to coronavirus disease 2018 Status: Acute Assessment and Plan: severe covid-19 despite receiving vaccine (4) Elevated LFTs: Code(s): R79.89 - Other specified abnormal findings of blood chemistry Status: Acute Assessment and Plan: resolved, this was multifactorial (5) Septic shock: Code(s): A41.9 - Sepsis, unspecified organism; R65.21 - Severe sepsis with septic shock Status: Acute Assessment and Plan: resolved, no more pressors (6) Leukocytosis: Code(s): D72.829 - Elevated white blood cell count, unspecified Status: Acute (7) Fever: Code(s): R50.9 - Fever, unspecified Status: Acute Assessment and Plan: low grade fever, on antibiotics (8) Type 2 diabetes mellitus without complication, without long-term current use of insulin: Code(s): E11.9 - Type 2 diabetes mellitus without complications Status: Acute Subjective Date/time seen: 02/01/21 11:31 Interval history: I was called again by primary team to reevaluate patient in order to place G-tube due to inability to eat. I saw him earlier during this hospitalization because elevated liver enzymes which normalized now, that was in setting of septic shock, severe COVID-19 pneumonia, etc. He still remains intubated, no more need of pressors. He is tolerating tube feeding by OGT. Review of Systems Review of Systems: All systems reviewed & are unremarkable except as noted in HPI and below Exam Const: Other: sedated and intubated HENMT: General nose exam: Normal nares present Other: ETT and OGT in place Eyes: Sclera: sclerae normal Neck: Neck: supple Resp: Auscultation: no wheezes and diminished lung sounds Cardio: Rate: regular rate GI: GI Palp: Yes Soft to palpation, No Tenderness to palpation present (GI) and No Guarding due to palpation present (GI) Auscultation: normal bowel sounds Urinary Catheter: Urinary Catheter: patent and draining Skin: General skin exam: no rashes or lesions noted Neuro: Other: intubated, open eyes- on minimal sedation Extrem: General: normal exam except as noted Psych: Other: unable to assess Objective Data Vital Signs Vital Signs: Vital Signs - 24 hr 01/31/21 12:00 01/31/21 13:48 01/31/21 13:58 Temperature 99.5 F Pulse Rate 56 L 68 67 Respiratory Rate 27 H 35 H 34 H Blood Pressure 124/67 Pulse Oximetry 96 94 01/31/21 14:00 01/31/21 16:00 01/31/21 16:15 Temperature 99.9 F H 99.4 F Pulse Rate 61 63 71 Respiratory Rate 28 H 27 H 20 Blood Pressure 128/65 128/66 Pulse Oximetry 94 94 01/31/21 17:14 01/31/21 18:00 01/31/21 19:01 Temperature 99.6 F Pulse Rate 63 71 71 Respiratory Rate 20 20 Blood Pressure 127/69 Pulse Oximetry 94 94 01/31/21 20:00 01/31/21 21:21 01/31/21 21:22 Temperature 100.2 F H Pulse Rate 65 61 62 Respiratory Rate 29 H 24 H Blood Pressure 130/61 Pulse Oximetry 96 100 01/31/21 21:28 01/31/21 22:00 01/31/21 23:22 Temperature 100.3 F H Pulse Rate 77 66 75 Respiratory Rate 33 H 34 H Blood Pressure 131/62 Pulse Oximetry 94 93 02/01/21 00:00 02/01/21 02:00 02/01/21 02:10 Temperature 99.5 F 99.9 F H Pulse Rate 72 65 75 Respiratory Rate 31 H 31 H 34 H Blood Pressure 134/65 136/74 Pulse Oximetry 9
--- NOTE | 2021-02-01 14:56 | PM.IMPN ---
Progress Note: A&P Assessment and Plan (1) Acute respiratory failure with hypoxia: Code(s): J96.01 - Acute respiratory failure with hypoxia Status: Acute Assessment and Plan: Patient with acute hypoxic respiratory failure related to COVID-19. CTA chest 01/11 showing no PE but showing Diffuse bilateral patchy airspace diseaseconsistent with COVID. Oxygen requirement was increasing to the point of requiring intubation on 01/17/21. He now has completed 10 days of dexamethasone and Remdesivir. He was on Nimbex for paralysis for better ventilator synchrony but now off off paralytic 01/27. Remains stable on MV. Wean vent as tolerated. He is not tolerating SBT trials and gets tachycardic and tachypneic within few minutes of SBT trial. Pulmonary and operations specialist following along and appreciate their inputs. ICU service spoke to the family for needs for tracheostomy and PEG tube placement. Patient is agreeable. ENT and gastroenterology service has been consulted. PEG tube will be placed in the a.m. by gastroenterology service. ENT service will plan for tracheostomy sometime next week. Continue Lasix as per fluid status. Strict intake output record and daily weight. Continue to monitor renal parameters and electrolytes. (2) Septic shock: Code(s): A41.9 - Sepsis, unspecified organism; R65.21 - Severe sepsis with septic shock Status: Acute Assessment and Plan: Patient became HoTN requiring pressor therapy with Levophed 01/18 possibly related to sedation. Able to be weaned off but BP dropped again on 01/22 requiring Levophed up to 12mcg/min felt related to septic shock but able to be weaned off again 01/24. Continue to monitor. (3) Pneumonia due to COVID-19 virus: Code(s): U07.1 - COVID-19; J12.82 - Pneumonia due to coronavirus disease 2019 Status: Acute Assessment and Plan: Patient tested COVID-19 positive 01/09/21 after starting to have symptoms 01/05/21. He was fully vaccinated with Moderna in September; antibodies present. Completed Remdesivir and Decadron. Sputum was positive for Pseudomonas on 01/22 and noted again 01/27. He has finished cefepime course for 10 days which was started on 01/22. No significant secretions reported. He is still having low-grade fever. Continue to monitor off antibiotics with monitoring of fever curve and WBC count. (4) Type 2 diabetes mellitus without complication, without long-term current use of insulin: Code(s): E11.9 - Type 2 diabetes mellitus without complications Status: Acute Assessment and Plan: A1c 6.9 in May 2020. The patient's blood glucose was reviewed on 02/01 Glucose remains very well controlled. Tolerating TF. Continue Lantus. Continue AccuCheks covering with sliding scale. Hypoglycemia protocol available as needed. (5) Essential (primary) hypertension: Code(s): I10 - Essential (primary) hypertension Status: Acute Assessment and Plan: Patient's blood pressure was reviewed on 02/01 Blood pressure stable off Levophed and now elevated at times. Amlodipine and valsartan remain on hold (6) Elevated LFTs: Code(s): R79.89 - Other specified abnormal findings of blood chemistry Status: Acute Assessment and Plan: AST to 739 and ALT 630. AST normal now and ALT down to 75. RUQ okay. Hepatitis panel negative. [place] related to clinical condition and/or medications. Continue to follow. (7) DVT prophylaxis: Code(s): Z29.9 - Encounter for prophylactic measures, unspecified Status: Acute Assessment and Plan: Lovenox (8) Pressure sore: Code(s): L89.90 - Pressure ulcer of unspecified site, unspecified stage Status: Acute Assessment and Plan: Patient with facial pressure sore and dark eschar. Wound care consulted and following. Does not appear to be infected Additional Plan DVT prophylaxis - Lovenox Stress ul
[2021-02-01] MEDS: PROPOFOL IV EMULSION 100 ML 17.78 MG IV CONT ×2 (17:12→23:16)
[2021-02-01 17:14] LABS: Glucose Point of Care 133 mg/dl (65-105)
[2021-02-01 17:28] LABS: Glucose Point of Care 117 mg/dl (65-105)
[2021-02-01 21:38] LABS: Glucose Point of Care 116 mg/dl (65-105)
[2021-02-01 23:40] LABS: Glucose Point of Care 132 mg/dl (65-105)
[2021-02-02] VITALS (34 sets, daily range): BP systolic 128–148; BP diastolic 61–82; PULSE 48–86; RESP 18–36; TEMP 36.3–37.5; O2SAT 91–98
[2021-02-02] MEDS: ALBUTEROL SULFATE NEB 2.5 MG/0.5 ML INH INHALATION ×4 (02:15→20:53)
[2021-02-02] MEDS: PROPOFOL IV EMULSION 100 ML 17.78 MG IV CONT ×3 (05:08→19:04)
[2021-02-02] MEDS: CENTRAL LINE FLUSH 10 ML IV PUSH ×3 (05:12→20:35)
[2021-02-02 05:34] LABS: Hematocrit 29.3 % (42.0-52.0); Hemoglobin 9.6 g/dL (14.0-18.0); Mean Corpuscular HGB Conc 32.8 g/dl (32-36); Mean Corpuscular Hemoglobin 30.4 pg (26-34); Mean Corpuscular Volume 92.7 fl (80-100); Mean Platelet Volume 10.4 fl (7.4-10.4); Platelet Count Result 516 k/mm3 (150-375); Red Blood Count 3.16 M/mm3 (4.6-6.20); White Blood Count 11.3 K/mm3 (4.5-10.0)
[2021-02-02 05:50] LABS: Alanine Aminotransferase 73 U/L (4-50); Albumin Level 2.1 g/dL (3.5-5.1); Alkaline Phosphatase 129 U/L (38-126); Anion Gap 1 mmol/L (8-16); Aspartate Amino Transferase 48 U/L (17-59); Bilirubin,Total < 0.1 mg/dL (0.2-1.3); Blood Urea Nitrogen 15 mg/dL (9-20); Calcium 8.1 mg/dL (8.4-10.2); Carbon Dioxide 32 mmol/L (22-30); Chloride 108 mmol/L (98-107); Estimated CRCL calculation 153 ml/min; Estimated Glomerular Filt Rate > 60; Glucose 92 mg/dL (65-110); Magnesium 2.3 mg/dL (1.6-2.3); Potassium 3.8 mmol/L (3.4-5.0); Sodium 141 mmol/L (137-145)
[2021-02-02 06:04] LABS: Lipase 339 U/L (23-300)
[2021-02-02 06:07] LABS: Alveolar/Arterial O2 Gradient 185.5 mmHg; Base Excess ABG 10.8 mEq/l (+/-2.0); Fractional Inspired Oxygen 40 %; HCO3 ABG 34.6 mEq/l (22.0-26.0); Methemoglobin ABG 0.1 %THb (0-1.5); Oxygen Content ABG 3.5 %vol (16.0-22.0); Oxygen Saturation ABG 88.6 % (95.0-100.0); Oxyhemoglobin 90.4 % THb (90.0-100.0); PCO2 ABG 43.5 mmHg (35.0-45.0); PO2 FiO2 Ratio Arterial Blood 1.24 %; Reduced Hemoglobin 9.5 %THb (0-5.0)
[2021-02-02 06:10] LABS: PO2 ABG 49.7 mmHg (80.0-100.0); pH ABG 7.519 (7.350-7.450)
[2021-02-02 06:11] LABS: Device VENTILATOR; Modified Allen's Test Pass; Site Drawn RIGHT RADIAL; Total Hemoglobin 2.7 g/dL (12.0-18.0)
[2021-02-02] MEDS: MINERAL OIL/WHITE PETROLATUM OINTMENT 1 APPLIC EACH EYE ×2 (08:52→20:35)
[2021-02-02] MEDS: PANTOPRAZOLE SODIUM IV 40 MG VIAL IV PUSH (08:53)
--- NOTE | 2021-02-02 09:09 | PM.IMPN ---
Progress Note: A&P Assessment and Plan (1) Acute respiratory failure with hypoxia: Code(s): J96.01 - Acute respiratory failure with hypoxia Status: Acute Assessment and Plan: Patient with acute hypoxic respiratory failure related to COVID-19. CTA chest 01/11 showing no PE but showing findings consistent with COVID. Oxygen requirement was increasing to the point of requiring intubation on 01/17/21. He now has completed 10 days of dexamethasone and Remdesivir. He was on Nimbex for paralysis for better ventilator synchrony but now off off paralytic 01/27. Remains stable on MV. He is not tolerating SBT and gets tachycardic and tachypneic within few minutes of trial. Wean vent as tolerated. ICU service spoke to the family for needs for tracheostomy and PEG tube placement. Patient's is agreeable. ENT and gastroenterology service has been consulted. PEG tube will be placed today. ENT service will plan for tracheostomy sometime this week. Pulmonary and new account interviewer following along and appreciate their input. Consider further diuresis. (2) Septic shock: Code(s): A41.9 - Sepsis, unspecified organism; R65.21 - Severe sepsis with septic shock Status: Acute Assessment and Plan: Patient became HoTN requiring pressor therapy with Levophed 01/18 possibly related to sedation. Able to be weaned off but BP dropped again on 01/22 requiring Levophed up to 12mcg/min felt related to septic shock but able to be weaned off again 01/24. Continue to monitor. (3) Pneumonia due to COVID-19 virus: Code(s): U07.1 - COVID-19; J12.82 - Pneumonia due to coronavirus disease 2019 Status: Acute Assessment and Plan: Patient tested COVID-19 positive 01/09/21 after starting have symptoms 01/05/21. He was fully vaccinated with Moderna in September; antibodies present. Completed Remdesivir and Decadron. Sputum was positive for Pseudomonas on 01/22 and noted again 01/27. Sputum 02/01 pending. He has finished cefepime course for 10 days which was started on 01/22. No significant secretions reported. He is still having low-grade fevers. Continue to monitor off antibiotics with monitoring of fever curve and WBC count. Continue supportive care. (4) Type 2 diabetes mellitus without complication, without long-term current use of insulin: Code(s): E11.9 - Type 2 diabetes mellitus without complications Status: Acute Assessment and Plan: A1c 7.4. The patient's blood glucose was reviewed on 02/02 Glucose remains very well controlled. Tolerating TF. Lantus held this morning for PEG procedure. Resume Lantus when TF resumed. Continue AccuCheks covering with sliding scale. Hypoglycemia protocol available as needed. (5) Essential (primary) hypertension: Code(s): I10 - Essential (primary) hypertension Status: Acute Assessment and Plan: Patient's blood pressure was reviewed on 02/02 Blood pressure stable off Levophed and now elevated at times. Amlodipine and valsartan remain on hold (6) Elevated LFTs: Code(s): R79.89 - Other specified abnormal findings of blood chemistry Status: Acute Assessment and Plan: Liver tests elevated with AST to 739 and ALT 630. Levels much better. RUQ okay. Hepatitis panel negative. [place] related to clinical condition and/or medications. Continue to follow. (7) DVT prophylaxis: Code(s): Z29.9 - Encounter for prophylactic measures, unspecified Status: Acute Assessment and Plan: Lovenox (8) Pressure sore: Code(s): L89.90 - Pressure ulcer of unspecified site, unspecified stage Status: Acute Assessment and Plan: Patietn with facial pressure sore and dark eschar. Wound care consulted and following. Does not appear to be infected. Subjective Date/time seen: 02/02/21 09:09 Interval history: 70yo male with DM and HTN here for COVID-19 PNA. Resuming care. Chart reviewed. He was intubated
[2021-02-02 09:34] LABS: Glucose Point of Care 89 mg/dl (65-105)
--- NOTE | 2021-02-02 09:41 | WPDINTPN ---
Progress Note: A&P Assessment and Plan (1) Acute respiratory failure with hypoxia: Code(s): J96.01 - Acute respiratory failure with hypoxia Status: Acute Assessment and Plan: Acute Respiratory failure secondary to COVID-19 pneumonia with worsening hypoxia through the hospital course Bipap 01/16, intubated 01/17. patient has been chemically paralyzed with neuromuscular blockers since then and was prone ventilated for multiple days - 01/27 NMB infusion discontinued - 01/28 sedation switched to shorter acting propofol - currently on 5 of PEEP and 40% FiO2. decrease tidal volume to 300 after review of ABG - patient has been failing weaning trial every day despite high pressure support. Will try again today - Continue mechanical ventilation support to prevent hypoxemia/hypercarbia and end organ damage. - Patient developed Pseudomonas pneumonia on top of COVID-19 pneumonia which is being treated with cefepime - patient was given a dose of Lasix yesterday with good response and will give another dose today - patient was intubated on 01/17 and will likely need tracheostomy. I spoke to patient's by phone 01/31. I discussed options of tracheostomy and PEG tube placement for continued mechanical ventilation support. She is agreeable.. I have consulted ENT and GI (2) Fever: Code(s): R50.9 - Fever, unspecified Status: Acute Assessment and Plan: 01/22/2021: Patient was hypotensive, requiring Levophed, increasing oxygen requirement on mechanical ventilation and slightly worsening chest x-ray - blood cultures coag neg staph - sputum cultures from 01/22 growing pseudomonas, Pansensitive. patient completed a course of cefepime (initiated on 01/22) - Vancomycin was discontinued on 01/24 - afebrile overnight - Lipase is mildly elevated. monitor - Flores was changed on Tuesday (3) Pneumonia due to COVID-19 virus: Code(s): U07.1 - COVID-19; J12.82 - Pneumonia due to coronavirus disease 2019 Status: Acute Assessment and Plan: Patient received Moderna vaccine in September of 2020 has still developed significant COVID-19 pneumonia. his COVID-19 PCR and antibody are both reactive. patient has completed a course Rocephin and azithromycin. has completed 10 day course of dexamethasone he has completed a 10 day course of Remdesivir initially his CRP was high 12.1 but his repeat CRP was 5.4 hence not high enough to start Tocilizumab continue monitoring inflammatory markers which continue to be high isolation (4) Diabetes mellitus: Code(s): E11.9 - Type 2 diabetes mellitus without complications Status: Acute Assessment and Plan: continue Lantus and sliding scale continue tube feeds (5) Elevated LFTs: Code(s): R79.89 - Other specified abnormal findings of blood chemistry Status: Acute Assessment and Plan: RUQ ultrasound 01/20/2021 showed hepatic steatosis - hepatitis panel was negative - appreciate GI evaluation recommendation - increase in LFTs could be related to septic shock, shock liver, will continue to maintain mean arterial pressures > 65 mmHg for adequate - liver enzymes are decreasing Additional Plan DVT prophylaxis - Lovenox Stress ulcer prophylaxis - PPI Nutrition - Tube Feeds are on hold for PEG tube placement Code Status - Full Code Total Critical Care Time - 30 minutes Due to a high probability of clinically significant, life threatening deterioration, the patient required my highest level of preparedness to intervene emergently and I personally spent this critical care time directly and personally managing the patient. This critical care time included obtaining a history; examining the patient; pulse oximetry; ordering and review of studies; arranging urgent treatment with development of a management plan; evaluation of patient's response to treatment; frequent reassessment; and discussions with other providers.
[2021-02-02] MEDS: FUROSEMIDE INJ 40 MG/4 ML VIAL IV PUSH (10:13)
--- NOTE | 2021-02-02 11:50 | PCDIET ---
Nutrition Follow-Up Complete: Nutrition Diagnosis: Inadequate oral intake related to oral intubation as evidenced by need for tube feedings. Nutrition Goal: Patient to meet estimated nutritional needs. Goal in progress. Tube feedings held for feeding tube placement. Expect feedings to resume once procedures complete. Last recorded weight is 91.2 kg which is down from last review. -I/O. Bowel Motility: +BM today x 1. Labs Reviewed: WBC (11.3), RBC (3.16), Hgb (9.6), Hct (29.3), Cr (0.4), Alb (2.1), Han Ca (9.62), Lipase (339) Meds Noted: Albuterol, Ancef, Levophed, Protonix, Propofol (rate of 17.78mL/hr provides 469kcal per day) Additional Notes: Upper lip and chin with unstageable ulcers. Will continue to monitor with same goal. Nutrition Monitoring and Evaluation: Follow up every Tuesday/Tuesday. Follow daily in ICU rounds.
[2021-02-02 14:56] LABS: Arterial Blood Gas PEEP 8 cmH2O; Arterial Blood Gas Tidal Volume 350 ml; Arterial Blood Gas Vent Mode CMV; Arterial Blood Gas Ventilator rate 15 /MIN
[2021-02-02] MEDS: PROPOFOL IV EMULSION 100 ML 29.64 MG IV CONT (15:03)
[2021-02-02 17:48] LABS: Glucose Point of Care 76 mg/dl (65-105)
[2021-02-02] MEDS: ENOXAPARIN 40 MG/0.4 ML SYRINGE SUB-Q (20:35)
[2021-02-02 20:56] LABS: Glucose Point of Care 81 mg/dl (65-105)
--- NOTE | 2021-02-02 21:03 | PC.NURSE ---
Spoke with Dr. Almazan regarding RR 34-36 and noticeable facial grimacing. Patient is currently on 40mcg of propofol. Give 50mcg Fent Q2h PRN as needed.
[2021-02-02] MEDS: fentaNYL CITRATE INJ (*CRX) 100 MCG/2 ML VIAL 50 MCG IV PUSH ×2 (21:13→23:33)
[2021-02-02] MEDS: PROPOFOL IV EMULSION 100 ML 23.71 MG IV CONT (22:11)
[2021-02-02 23:42] LABS: Glucose Point of Care 88 mg/dl (65-105)
[2021-02-03] VITALS (40 sets, daily range): BP systolic 97–177; BP diastolic 64–104; PULSE 54–110; RESP 19–36; TEMP 36.6–37.8; O2SAT 91–100
[2021-02-03] MEDS: PROPOFOL IV EMULSION 100 ML 23.71 MG IV CONT ×2 (01:15→06:09)
[2021-02-03] MEDS: ALBUTEROL SULFATE NEB 2.5 MG/0.5 ML INH INHALATION ×4 (01:53→20:03)
[2021-02-03 04:54] LABS: Base Excess ABG 6.8 mEq/l (+/-2.0); Carboxyhemoglobin 0.2 % THb (0-2.0); Fractional Inspired Oxygen 40 %; HCO3 ABG 31.3 mEq/l (22.0-26.0); Methemoglobin ABG 0.3 %THb (0-1.5); Oxygen Content ABG 14.7 %vol (16.0-22.0); Oxygen Saturation ABG 96.1 % (95.0-100.0); Oxyhemoglobin 94.4 % THb (90.0-100.0); PCO2 ABG 44.2 mmHg (35.0-45.0); PO2 ABG 77.4 mmHg (80.0-100.0); PO2 FiO2 Ratio Arterial Blood 1.94 %; Reduced Hemoglobin 5.1 %THb (0-5.0); pH ABG 7.468 (7.350-7.450)
[2021-02-03 04:55] LABS: Device VENTILATOR; Modified Allen's Test Pass; Site Drawn RIGHT RADIAL
[2021-02-03 04:56] LABS: Arterial Blood Gas PEEP 8 cmH2O; Arterial Blood Gas Tidal Volume 300 ml; Arterial Blood Gas Vent Mode CMV; Arterial Blood Gas Ventilator rate 15 /MIN
[2021-02-03 05:55] LABS: Hematocrit 29.9 % (42.0-52.0); Hemoglobin 9.5 g/dL (14.0-18.0); Mean Corpuscular HGB Conc 31.8 g/dl (32-36); Mean Corpuscular Volume 94.3 fl (80-100); Platelet Count Result 535 k/mm3 (150-375); Red Blood Count 3.17 M/mm3 (4.6-6.20); Red Cell Distribution Width 14.7 % (11.5-14.5); White Blood Count 9.9 K/mm3 (4.5-10.0)
[2021-02-03 06:00] LABS: Alanine Aminotransferase 58 U/L (4-50); Albumin Level 2.2 g/dL (3.5-5.1); Alkaline Phosphatase 116 U/L (38-126); Anion Gap 6 mmol/L (8-16); Aspartate Amino Transferase 38 U/L (17-59); Bilirubin,Total 0.4 mg/dL (0.2-1.3); Blood Urea Nitrogen 18 mg/dL (9-20); Calcium 8.2 mg/dL (8.4-10.2); Carbon Dioxide 31 mmol/L (22-30); Chloride 103 mmol/L (98-107); Estimated CRCL calculation 126 ml/min; Estimated Glomerular Filt Rate > 60; Glucose 94 mg/dL (65-110); Magnesium 2.3 mg/dL (1.6-2.3); Sodium 140 mmol/L (137-145)
[2021-02-03] MEDS: fentaNYL CITRATE INJ (*CRX) 100 MCG/2 ML VIAL 50 MCG IV PUSH ×5 (06:09→23:50)
[2021-02-03] MEDS: CENTRAL LINE FLUSH 10 ML IV PUSH ×3 (06:10→20:52)
[2021-02-03] MEDS: ASPIRIN 81 MG ENTERIC TABLET PO (08:57)
[2021-02-03] MEDS: PANTOPRAZOLE SODIUM IV 40 MG VIAL IV PUSH (08:57)
[2021-02-03] MEDS: ENOXAPARIN 40 MG/0.4 ML SYRINGE SUB-Q ×2 (08:57→20:51)
[2021-02-03] MEDS: MINERAL OIL/WHITE PETROLATUM OINTMENT 1 APPLIC EACH EYE ×2 (08:58→20:52)
[2021-02-03] MEDS: INSULIN GLARGINE (*BKC) 100 UNITS/ML 10 UNITS SUB-Q ×2 (08:58→20:51)
[2021-02-03 09:06] LABS: Glucose Point of Care 128 mg/dl (65-105)
--- NOTE | 2021-02-03 09:10 | WPDINTPN ---
Progress Note: A&P Assessment and Plan (1) Acute respiratory failure with hypoxia: Code(s): J96.01 - Acute respiratory failure with hypoxia Status: Acute Assessment and Plan: Acute Respiratory failure secondary to COVID-19 pneumonia with worsening hypoxia through the hospital course Bipap 01/16, intubated 01/17. patient has been chemically paralyzed with neuromuscular blockers since then and was prone ventilated for multiple days - 01/27 NMB infusion discontinued - 01/28 sedation switched to shorter acting propofol - currently on 5 of PEEP and 40% FiO2. Tidal volume is at 300 -chest x-ray shows no interval change - patient has been failing weaning trial every day despite high pressure support. Will try again today - Continue mechanical ventilation support to prevent hypoxemia/hypercarbia and end organ damage. - Patient developed Pseudomonas pneumonia on top of COVID-19 pneumonia which was treated with cefepime - patient was given a dose of Lasix for last few days. Continue as needed - patient was intubated on 01/17 I spoke to patient's by phone 01/31. I discussed options of tracheostomy and PEG tube placement for continued mechanical ventilation support. She is agreeable.. I have consulted ENT and trach is pending (2) Fever: Code(s): R50.9 - Fever, unspecified Status: Acute Assessment and Plan: 01/22/2021: Patient was hypotensive, requiring Levophed, increasing oxygen requirement on mechanical ventilation and slightly worsening chest x-ray - blood cultures coag neg staph - sputum cultures from 01/22 growing pseudomonas, Pansensitive. patient completed a course of cefepime (initiated on 01/22) - Vancomycin was discontinued on 01/24 - afebrile overnight - Lipase is mildly elevated. monitor - Flores was changed on Tuesday (3) Pneumonia due to COVID-19 virus: Code(s): U07.1 - COVID-19; J12.82 - Pneumonia due to coronavirus disease 2019 Status: Acute Assessment and Plan: Patient received Moderna vaccine in September of 2020 has still developed significant COVID-19 pneumonia. his COVID-19 PCR and antibody are both reactive. patient has completed a course Rocephin and azithromycin. has completed 10 day course of dexamethasone he has completed a 10 day course of Remdesivir initially his CRP was high 12.1 but his repeat CRP was 5.4 hence not high enough to start Tocilizumab continue monitoring inflammatory markers which continue to be high isolation (4) Diabetes mellitus: Code(s): E11.9 - Type 2 diabetes mellitus without complications Status: Acute Assessment and Plan: continue Lantus and sliding scale continue tube feeds (5) Elevated LFTs: Code(s): R79.89 - Other specified abnormal findings of blood chemistry Status: Acute Assessment and Plan: RUQ ultrasound 01/20/2021 showed hepatic steatosis - hepatitis panel was negative - appreciate GI evaluation recommendation - increase in LFTs could be related to septic shock, shock liver, will continue to maintain mean arterial pressures > 65 mmHg for adequate - liver enzymes are decreasing and a close to normal Additional Plan DVT prophylaxis - Lovenox Stress ulcer prophylaxis - PPI Nutrition -tube feeds through PEG tube Code Status - Full Code Total Critical Care Time - 30 minutes Due to a high probability of clinically significant, life threatening deterioration, the patient required my highest level of preparedness to intervene emergently and I personally spent this critical care time directly and personally managing the patient. This critical care time included obtaining a history; examining the patient; pulse oximetry; ordering and review of studies; arranging urgent treatment with development of a management plan; evaluation of patient's response to treatment; frequent reassessment; and discussions with other providers. It was exclusive of separately billabl
--- NOTE | 2021-02-03 11:24 | PCDIET ---
Nutrition Follow-Up Complete: Nutrition Diagnosis: Inadequate oral intake related to oral intubation as evidenced by need for tube feedings. Nutrition Goal: Patient to meet estimated nutritional needs. Goal in progress. Tube feedings were resumed post-PEG and have been well-tolerated, per nursing. Receiving Glucerna 1.2 at 50mL/hr with 30mL water flush every 6 hours with Pro-Stat flush TID. Plan for tracheostomy 02/04/21. Last recorded weight is 91.5 kg which is stable with last review. Bowel Motility: Last documented BM on 02/02/21 x 1. Labs Reviewed: RBC (3.17), Hgb (9.5), Hct (29.9), Glu (128), Cr (0.5), Alb (2.2), Han Ca (9.64) Meds Noted: Albuterol, Fentanyl, Lantus, Levophed, Protonix Additional Notes: Propofol currently off. Upper lip and chin with unstageable ulcers. Will continue to monitor with same goal. Nutrition Monitoring and Evaluation: Follow up every Tuesday/Tuesday. Follow daily in ICU rounds.
[2021-02-03] MEDS: PROPOFOL IV EMULSION 100 ML 11.86 MG IV CONT (14:51)
[2021-02-03 15:00] LABS: Glucose Point of Care 144 mg/dl (65-105)
--- NOTE | 2021-02-03 15:30 | WPDGIPROGNO ---
Progress Note: A&P Assessment and Plan (1) Acute respiratory failure with hypoxia: Code(s): J96.01 - Acute respiratory failure with hypoxia Status: Acute Assessment and Plan: still on mechanical ventilation, plan is trach in few days (2) Pneumonia due to COVID-19 virus: Code(s): U07.1 - COVID-19; J12.82 - Pneumonia due to coronavirus disease 2019 Status: Acute Assessment and Plan: on treatment, also iv antibiotics (3) Feeding difficulty in adult: Code(s): R63.3 - Feeding difficulties Status: Acute Assessment and Plan: tolerating tube feeding by G-tube Subjective Date/time seen: 02/03/21 15:30 Interval history: tolerating g-tube at 50ml/h, no new events Review of Systems Review of Systems: All systems reviewed & are unremarkable except as noted in HPI and below Exam Const: Other: sedated and intubated HENMT: General nose exam: Normal nares present Other: black eschar in lip-unchanged Eyes: Sclera: sclerae normal Neck: Neck: supple Resp: Auscultation: rales and diminished lung sounds Cardio: Rate: regular rate GI: GI Palp: Yes Soft to palpation and No Guarding due to palpation present (GI) Auscultation: normal bowel sounds Other: g-tube site clean Urinary Catheter: Urinary Catheter: patent and draining Neuro: Other: sedated Extrem: General: normal to inspection Objective Data Vital Signs Vital Signs: Vital Signs - 24 hr 02/02/21 16:00 02/02/21 17:18 02/02/21 17:51 Temperature Pulse Rate 85 62 74 Respiratory Rate 25 H 26 H Blood Pressure 137/73 Pulse Oximetry 96 96 02/02/21 18:00 02/02/21 18:49 02/02/21 19:04 Temperature Pulse Rate 80 72 72 Respiratory Rate 23 H 25 H 25 H Blood Pressure 139/76 Pulse Oximetry 97 02/02/21 20:00 02/02/21 20:32 02/02/21 20:40 Temperature 98.3 F Pulse Rate 62 85 81 Respiratory Rate 22 H 36 H 26 H Blood Pressure 135/61 Pulse Oximetry 98 02/02/21 20:48 02/02/21 22:00 02/02/21 22:11 Temperature 97.8 F Pulse Rate 73 71 75 Respiratory Rate 25 H 24 H Blood Pressure 132/76 Pulse Oximetry 95 98 02/02/21 23:49 02/03/21 00:00 02/03/21 00:15 Temperature 97.9 F Pulse Rate 61 61 56 L Respiratory Rate 18 26 H Blood Pressure 135/69 Pulse Oximetry 98 99 99 02/03/21 01:15 02/03/21 01:53 02/03/21 01:56 Temperature Pulse Rate 72 86 79 Respiratory Rate 21 H 33 H Blood Pressure Pulse Oximetry 100 02/03/21 02:00 02/03/21 02:05 02/03/21 03:17 Temperature 98.1 F Pulse Rate 83 89 68 Respiratory Rate 30 H 32 H 23 H Blood Pressure 136/75 Pulse Oximetry 97 98 02/03/21 04:00 02/03/21 04:27 02/03/21 05:29 Temperature 98.5 F Pulse Rate 54 L 86 70 Respiratory Rate 22 H 28 H Blood Pressure 130/77 Pulse Oximetry 99 97 02/03/21 06:00 02/03/21 06:09 02/03/21 08:00 Temperature 98.4 F 98.3 F Pulse Rate 77 80 72 Respiratory Rate 21 H 28 H 23 H Blood Pressure 143/69 H 124/64 Pulse Oximetry 97 94 02/03/21 08:05 02/03/21 08:06 02/03/21 08:11 Temperature Pulse Rate 77 77 77 Respiratory Rate 19 22 H Blood Pressure Pulse Oximetry 97 02/03/21 10:00 02/03/21 10:47 02/03/21 12:00 Temperature 99.8 F H 98.2 F Pulse Rate 83 62 91 Respiratory Rate 25 H 24 H Blood Pressure 120/99 H 97/83 L Pulse Oximetry 98 97 95 02/03/21 13:36 02/03/21 13:37 02/03/21 13:50 Temperature Pulse Rate 89 89 99 Respiratory Rate 26 H 24 H Blood Pressure Pulse Oximetry 94 02/03/21 14:00 02/03/21 14:51 Temperature Pulse Rate 109 H 108 H Respiratory Rate 20 34 H Blood Pressure 177/82 H Pulse Oximetry 91 Intake/Output Intake/Output: Intake & Output 01/31/21 02/01/21 02/02/21 02/03/21 23:59 23:59 23:59 23:59 Intake Total 1593 1740 977 830 Output Total 1675 1750 3250 600 Balance -82 -10 -2273 230 Meds/Results Medications: Active Medications Generic Name Dose Route Start Last Admin Trade Name
--- NOTE | 2021-02-03 16:32 | PM.IMPN ---
Progress Note: A&P Assessment and Plan (1) Acute respiratory failure with hypoxia: Code(s): J96.01 - Acute respiratory failure with hypoxia Status: Acute Assessment and Plan: Patient with acute hypoxic respiratory failure related to COVID-19. CTA chest 01/11 showing no PE but showing findings consistent with COVID. Oxygen requirement was increasing to the point of requiring intubation on 01/17/21. He now has completed 10 days of dexamethasone and Remdesivir. He was on Nimbex for paralysis for better ventilator synchrony but now off off paralytic 01/27. Remains stable on MV. He is not tolerating SBT and gets tachycardic and tachypneic within few minutes of trial. Wean vent as tolerated. ICU service spoke to the family for needs for tracheostomy and PEG tube placement. Patient's is agreeable. ENT and gastroenterology service has been consulted. PEG tube was placed 02/02. ENT service will plan for tracheostomy sometime this week. Pulmonary and conservation officer following along and appreciate their input. (2) Septic shock: Code(s): A41.9 - Sepsis, unspecified organism; R65.21 - Severe sepsis with septic shock Status: Acute Assessment and Plan: Patient became HoTN requiring pressor therapy with Levophed 01/18 possibly related to sedation. Able to be weaned off but BP dropped again on 01/22 requiring Levophed up to 12mcg/min felt related to septic shock but able to be weaned off again 01/24. Continue to monitor. (3) Pneumonia due to COVID-19 virus: Code(s): U07.1 - COVID-19; J12.82 - Pneumonia due to coronavirus disease 2019 Status: Acute Assessment and Plan: Patient tested COVID-19 positive 01/09/21 after starting have symptoms 01/05/21. He was fully vaccinated with Moderna in September; antibodies present. Completed Remdesivir and Decadron. Sputum was positive for Pseudomonas on 01/22 and noted again 01/27 and probably on 02/01. He has finished cefepime course for 10 days which was started on 01/22. Low-grade fevers have resolved and WBC remaining normal. Continue to monitor off antibiotics with monitoring of fever curve and WBC count. Continue supportive care. Primary care provider was updated about the hospital course (4) Type 2 diabetes mellitus without complication, without long-term current use of insulin: Code(s): E11.9 - Type 2 diabetes mellitus without complications Status: Acute Assessment and Plan: A1c 7.4. The patient's blood glucose was reviewed on 02/03 Glucose remains very well controlled. Tolerating TF. Continue AccuCheks covering with sliding scale. Hypoglycemia protocol available as needed. Continue Lantus (5) Essential (primary) hypertension: Code(s): I10 - Essential (primary) hypertension Status: Acute Assessment and Plan: Patient's blood pressure was reviewed on 02/03 Blood pressure stable off Levophed and now elevated at times but with wide fluctuations. Amlodipine and valsartan remain on hold (6) Elevated LFTs: Code(s): R79.89 - Other specified abnormal findings of blood chemistry Status: Acute Assessment and Plan: Liver tests became elevated with AST to 739 and ALT 630. RUQ okay. Hepatitis panel negative. [place] related to clinical condition and/or medications. Levels much better. Continue to follow. (7) DVT prophylaxis: Code(s): Z29.9 - Encounter for prophylactic measures, unspecified Status: Acute Assessment and Plan: Lovenox (8) Pressure sore: Code(s): L89.90 - Pressure ulcer of unspecified site, unspecified stage Status: Acute Assessment and Plan: Patietn with facial pressure sore and dark eschar. Wound care consulted and following. Slow improvement Subjective Date/time seen: 02/03/21 16:32 Interval history: 70yo male with DM and HTN here for COVID-19 PNA. Patient was intubated on the morning January 17. Patient remains intubated and sedated.
[2021-02-03 18:29] LABS: Glucose Point of Care 137 mg/dl (65-105)
[2021-02-03] MEDS: PROPOFOL IV EMULSION 100 ML 26.68 MG IV CONT (19:23)
[2021-02-03 20:55] LABS: Glucose Point of Care 142 mg/dl (65-105)
[2021-02-03] MEDS: PROPOFOL IV EMULSION 100 ML 29.64 MG IV CONT (22:43)
[2021-02-03 23:57] LABS: Glucose Point of Care 147 mg/dl (65-105)
[2021-02-04] VITALS (39 sets, daily range): BP systolic 119–148; BP diastolic 64–85; PULSE 62–105; RESP 15–32; TEMP 36.1–38.2; O2SAT 90–98
[2021-02-04] MEDS: PROPOFOL IV EMULSION 100 ML 29.64 MG IV CONT ×2 (02:01→05:43)
[2021-02-04] MEDS: ALBUTEROL SULFATE NEB 2.5 MG/0.5 ML INH INHALATION ×4 (02:29→20:21)
[2021-02-04] MEDS: fentaNYL CITRATE INJ (*CRX) 100 MCG/2 ML VIAL 50 MCG IV PUSH ×2 (03:35→05:58)
[2021-02-04 04:15] LABS: Hematocrit 30.5 % (42.0-52.0); Hemoglobin 9.5 g/dL (14.0-18.0); Mean Corpuscular HGB Conc 31.1 g/dl (32-36); Mean Corpuscular Hemoglobin 30.3 pg (26-34); Mean Corpuscular Volume 97.1 fl (80-100); Mean Platelet Volume 9.7 fl (7.4-10.4); Platelet Count Result 571 k/mm3 (150-375); Red Blood Count 3.14 M/mm3 (4.6-6.20); Red Cell Distribution Width 14.8 % (11.5-14.5); White Blood Count 10.7 K/mm3 (4.5-10.0)
[2021-02-04 04:22] LABS: Alanine Aminotransferase 49 U/L (4-50); Albumin Level 2.1 g/dL (3.5-5.1); Alkaline Phosphatase 128 U/L (38-126); Anion Gap 3 mmol/L (8-16); Aspartate Amino Transferase 31 U/L (17-59); Bilirubin,Total < 0.1 mg/dL (0.2-1.3); Blood Urea Nitrogen 16 mg/dL (9-20); Calcium 8.2 mg/dL (8.4-10.2); Carbon Dioxide 35 mmol/L (22-30); Chloride 100 mmol/L (98-107); Estimated CRCL calculation 126 ml/min; Estimated Glomerular Filt Rate > 60; Glucose 153 mg/dL (65-110); Magnesium 2.3 mg/dL (1.6-2.3); Potassium 3.6 mmol/L (3.4-5.0); Sodium 138 mmol/L (137-145)
[2021-02-04 04:54] LABS: Alveolar/Arterial O2 Gradient 137.5 mmHg; Base Excess ABG 8.8 mEq/l (+/-2.0); Carboxyhemoglobin 0.3 % THb (0-2.0); Fractional Inspired Oxygen 40 %; HCO3 ABG 35.7 mEq/l (22.0-26.0); Methemoglobin ABG 0.4 %THb (0-1.5); Oxygen Saturation ABG 95.3 % (95.0-100.0); Oxyhemoglobin 94.1 % THb (90.0-100.0); PCO2 ABG 59.7 mmHg (35.0-45.0); PO2 FiO2 Ratio Arterial Blood 1.98 %; Reduced Hemoglobin 5.2 %THb (0-5.0); Total Hemoglobin 12.8 g/dL (12.0-18.0); pH ABG 7.394 (7.350-7.450)
[2021-02-04 04:56] LABS: Device VENTILATOR; Modified Allen's Test Pass; Site Drawn RIGHT RADIAL
[2021-02-04 04:57] LABS: Arterial Blood Gas PEEP 8 cmH2O; Arterial Blood Gas Tidal Volume 300 ml; Arterial Blood Gas Vent Mode CMV; Arterial Blood Gas Ventilator rate 15 /MIN
[2021-02-04] MEDS: ALTEPLASE 2 MG VIAL (CATHFLO) IV PUSH ×2 (05:58→11:58)
[2021-02-04] MEDS: CENTRAL LINE FLUSH 10 ML IV PUSH ×3 (06:22→21:03)
[2021-02-04] MEDS: PANTOPRAZOLE SODIUM IV 40 MG VIAL IV PUSH (08:58)
[2021-02-04] MEDS: MINERAL OIL/WHITE PETROLATUM OINTMENT 1 APPLIC EACH EYE ×2 (08:58→20:40)
[2021-02-04] MEDS: ASPIRIN 81 MG ENTERIC TABLET PO (08:58)
[2021-02-04] MEDS: ENOXAPARIN 40 MG/0.4 ML SYRINGE SUB-Q ×2 (08:58→20:40)
[2021-02-04] MEDS: INSULIN GLARGINE (*BKC) 100 UNITS/ML 10 UNITS SUB-Q ×2 (09:05→20:39)
[2021-02-04] MEDS: PROPOFOL IV EMULSION 100 ML 17.78 MG IV CONT ×3 (09:07→20:38)
[2021-02-04 09:11] LABS: Glucose Point of Care 143 mg/dl (65-105)
--- NOTE | 2021-02-04 11:17 | PCDIET ---
ICU Rounding Note: Patient tolerating Glucerna 1.2 at 50mL/hr goal rate with 30mL water flush every 6 hours. Continues on Pro-Stat TID. Plan for tracheostomy tomorrow. Last recorded weight is 92.5kg which is increased from last review. +I/O. Bowel Motility: +BM today. Labs Reviewed: WBC (10.7), RBC (3.14), Hgb (9.5), Hct (30.5), Glu (153), Cr (0.5), Alb (2.1), Han Ca (9.72) Meds Noted: Propofol (rate of 17.78mL/hr provides 469kcal per day), Albuterol, Fentanyl, Lantus, Protonix Additional Notes: Upper lip/chin with unstageable areas. Plan for tracheostomy tomorrow. Tube feedings over 22 hours/day with Pro-Stat and Propofol at current rate providing 22kcal/kg. Following daily in ICU rounds. Assessing/reassessing every Tuesday/Tuesday.
[2021-02-04 12:21] LABS: Glucose Point of Care 146 mg/dl (65-105)
--- NOTE | 2021-02-04 12:30 | WPDINTPN ---
Progress Note: A&P Assessment and Plan (1) Acute respiratory failure with hypoxia: Code(s): J96.01 - Acute respiratory failure with hypoxia Status: Acute Assessment and Plan: Acute Respiratory failure secondary to COVID-19 pneumonia with worsening hypoxia through the hospital course Bipap 01/16, intubated 01/17. was proned for multiple days - 01/27 NMB infusion discontinued - 01/28 sedation switched to shorter acting propofol - currently on 8 of PEEP and 40% FiO2. Tidal volume increased to 450, which is mL/kg - chest x-ray shows no interval change - patient has been failing weaning trial every day despite high pressure support. Will try again today - Continue mechanical ventilation support to prevent hypoxemia/hypercarbia and end organ damage. - Patient developed Pseudomonas pneumonia on top of COVID-19 pneumonia which was treated with cefepime - patient was given a dose of Lasix for last few days. Continue as needed - patient was intubated on 01/17 I spoke to patient's by phone 01/31. - 02/02/2021: PEG tube placed - Tracheostomy scheduled for 02/04/2021 (2) Fever: Code(s): R50.9 - Fever, unspecified Status: Acute Assessment and Plan: 01/22/2021: Patient was hypotensive, requiring Levophed, increasing oxygen requirement on mechanical ventilation and slightly worsening chest x-ray - blood cultures coag neg staph - sputum cultures from 01/22 growing pseudomonas, Pansensitive. patient completed a course of cefepime (initiated on 01/22) - Vancomycin was discontinued on 01/24 - afebrile overnight - Lipase is mildly elevated. monitor - Flores was changed on Tuesday (3) Pneumonia due to COVID-19 virus: Code(s): U07.1 - COVID-19; J12.82 - Pneumonia due to coronavirus disease 2019 Status: Acute Assessment and Plan: Patient received Moderna vaccine in September of 2020 has still developed significant COVID-19 pneumonia. his COVID-19 PCR and antibody are both reactive. patient has completed a course Rocephin and azithromycin. has completed 10 day course of dexamethasone he has completed a 10 day course of Remdesivir initially his CRP was high 12.1 but his repeat CRP was 5.4 hence not high enough to start Tocilizumab continue monitoring inflammatory markers which continue to be high No more isolation as he has been covid positive > 20 days (4) Diabetes mellitus: Code(s): E11.9 - Type 2 diabetes mellitus without complications Status: Acute Assessment and Plan: continue Lantus and sliding scale continue tube feeds (5) Elevated LFTs: Code(s): R79.89 - Other specified abnormal findings of blood chemistry Status: Acute Assessment and Plan: RUQ ultrasound 01/20/2021 showed hepatic steatosis - hepatitis panel was negative - appreciate GI evaluation recommendation - increase in LFTs could be related to septic shock, shock liver, will continue to maintain mean arterial pressures > 65 mmHg for adequate - liver enzymes are decreasing and a close to normal Additional Plan DVT prophylaxis - Lovenox Stress ulcer prophylaxis - PPI Nutrition -tube feeds through PEG tube Code Status - Full Code Discussed with at bedside updated her with patient's condition, plan of care. She is aware that he is going to get tracheostomy done on 02/05/2021. Total Critical Care Time - 32 minutes Due to a high probability of clinically significant, life threatening deterioration, the patient required my highest level of preparedness to intervene emergently and I personally spent this critical care time directly and personally managing the patient. This critical care time included obtaining a history; examining the patient; pulse oximetry; ordering and review of studies; arranging urgent treatment with development of a management plan; evaluation of patient's response to treatment; frequent reassessment; and discussions with other provider
--- NOTE | 2021-02-04 14:49 | WPDANESEPPF ---
Anes - Initial Pre Proc Eval Procedure: Operation Date: 02/02/21 13:30 Proposed Procedures p Percutaneous Endoscopic Gastrostomy - Salazar Solano MD Operation Date: 02/05/21 10:30 Proposed Procedures p Tracheostomy - Toni Israel MD Date/Time: 02/04/21 14:49 Surgeon: Kimberly Adams PA-C Pre Op Diagnosis: COVID 19, Hypoxia Patient Data Age: 70 Gender: M Height: 1.8 m Weight: 92.5 kg Last Vital Signs Temp 37.9 C H 02/04/21 14:00 Pulse 91 02/04/21 14:00 Resp 21 H 02/04/21 14:00 BP 143/71 H 02/04/21 14:00 Pulse Ox 94 02/04/21 14:00 Allergies Allergy/AdvReac Type Severity Reaction Status Date / Time isotretinoin Allergy Mild PANCREATIC Verified 01/10/21 23:30 EFFECTS hydrocodone Allergy Unknown Fever Verified 01/11/21 00:54 escitalopram AdvReac Unknown Nausea And Verified 02/01/21 12:10 Vomiting Home Medications Medication Instructions Recorded Confirmed Type aspirin 81 mg tablet,delayed 81 mg PO DAILY 05/14/19 01/11/21 History release cholecalciferol (vitamin D3) 75 1,000 unit PO DAILY 05/14/19 01/11/21 History mcg (3,000 unit) tablet cinnamon bark 500 mg capsule 1,000 mg PO DAILY 05/14/19 01/11/21 History cyanocobalamin (vitamin B-12) 1,000 mcg PO DAILY #30 tablet 05/14/19 01/11/21 Rx 1,000 mcg tablet amlodipine 10 mg tablet 10 mg PO DAILY #90 tablet 05/22/20 01/11/21 Rx bupropion HCl 300 mg 24 hr tablet, 300 mg PO QAM #90 tablet 05/22/20 01/11/21 Rx extended release metformin 500 mg tablet,extended 1,000 mg PO BID #360 tablet 05/22/20 01/11/21 Rx release 24 hr esomeprazole magnesium 40 mg PO EVERY OTHER DAY 01/11/21 01/11/21 History valsartan 320 mg tablet 320 mg PO DAILY #90 tablet 01/26/21 Rx Laboratory Tests 02/03/21 02/03/21 02/03/21 13:07 18:24 20:49 WBC RBC Hgb Hct MCV MCH MCHC RDW Plt Count MPV Puncture Site ABG pH ABG pCO2 ABG pO2 ABG PO2/FiO2 Ratio ABG HCO3 ABG O2 Saturation ABG O2 Content ABG Base Excess A-a Gradient Oxyhemoglobin Carboxyhemoglobin Methemoglobin Reduced Hemoglobin Total Hemoglobin O2 Delivery Device O2 Liters/Min Minute Volume Vent Rate Vent Mode FiO2 Tidal Volume PEEP Peak Inspir Pressure Pressure Support Sodium Potassium Chloride Carbon Dioxide Anion Gap BUN Creatinine Estim Creat Clear Calc Estimated GFR Glucose POC Capillary Glucose 144 mg/dl H mg/dl 137 mg/dl H mg/dl 142 mg/dl H mg/dl (65-105) (65-105) (65-105) Calcium Magnesium Total Bilirubin AST ALT Alkaline Phosphatase Total Protein Albumin 02/03/21 02/04/21 02/04/21 23:55 03:58 03:58 WBC 10.7 K/mm3 H K/mm3 (4.5-10.0) RBC 3.14 M/mm3 L M/mm3 (4.6-6.20) Hgb 9.5 g/dL L g/dL (14.0-18.0) Hct 30.5 % L % (42.0-52.0) MCV 97.1 fl fl (80-100) MCH 30.3 pg pg (26-34) MCHC 31.1 g/dl L g/dl (32-36) RDW 14.8 % H % (11.5-14.5) Plt Count 571 k/mm3 H k/mm3 (150-375) MPV 9.7 fl fl (7.4-10.4) Puncture Site ABG pH ABG pCO2 ABG pO2 ABG PO2/FiO2 Ratio ABG HCO3 ABG O2 Saturation ABG O2 Content ABG Base Excess A-a Gradient Oxyhemoglobin Carboxyh
--- NOTE | 2021-02-04 15:10 | PM.IMPN ---
Progress Note: A&P Assessment and Plan (1) Acute respiratory failure with hypoxia: Code(s): J96.01 - Acute respiratory failure with hypoxia Status: Acute Assessment and Plan: Patient with acute hypoxic respiratory failure related to COVID-19. CTA chest 01/11 showing no PE but showing findings consistent with COVID. Oxygen requirement was increasing to the point of requiring intubation on 01/17/21. He now has completed 10 days of dexamethasone and Remdesivir. He was on Nimbex for paralysis for better ventilator synchrony but now off off paralytic 01/27. Remains stable on MV. He did not tolerate SBT and gets tachycardic and tachypneic within few minutes of trial. Wean vent as tolerated. ICU service spoke to the family for needs for tracheostomy and PEG tube placement. Patient's was agreeable. PEG tube was placed 02/02. ENT service will plan for tracheostomy sometime this week. pH better but now with pCO2 60. Vent adjustments per docketing specialist. Pulmonary and docketing specialist following along and appreciate their input. Discussed. Lasix once. (2) Septic shock: Code(s): A41.9 - Sepsis, unspecified organism; R65.21 - Severe sepsis with septic shock Status: Acute Assessment and Plan: Patient became HoTN requiring pressor therapy with Levophed 01/18 possibly related to sedation. Able to be weaned off but BP dropped again on 01/22 requiring Levophed up to 12mcg/min felt related to septic shock but able to be weaned off again 01/24. Continue to monitor. (3) Pneumonia due to COVID-19 virus: Code(s): U07.1 - COVID-19; J12.82 - Pneumonia due to coronavirus disease 2019 Status: Acute Assessment and Plan: Patient tested COVID-19 positive 01/09/21 after starting have symptoms 01/05/21. He was fully vaccinated with Moderna in September; antibodies present. Completed Remdesivir and Decadron. Sputum was positive for Pseudomonas on 01/22 and noted again 01/27 and probably on 02/01. He has finished cefepime course for 10 days which was started on 01/22. Persistent low-grade fevers and WBC up slightly to 10.7K. Continue to monitor off antibiotics with monitoring of fever curve and WBC count. Continue supportive care. (4) Type 2 diabetes mellitus without complication, without long-term current use of insulin: Code(s): E11.9 - Type 2 diabetes mellitus without complications Status: Acute Assessment and Plan: A1c 7.4. The patient's blood glucose was reviewed on 02/04 Glucose remains very well controlled. Tolerating TF. Continue AccuCheks covering with sliding scale. Hypoglycemia protocol available as needed. Continue Lantus (5) Essential (primary) hypertension: Code(s): I10 - Essential (primary) hypertension Status: Acute Assessment and Plan: Patient's blood pressure was reviewed on 02/04 Blood pressure stable off Levophed. Amlodipine and valsartan remain on hold (6) Elevated LFTs: Code(s): R79.89 - Other specified abnormal findings of blood chemistry Status: Acute Assessment and Plan: Liver tests became elevated with AST to 739 and ALT 630. RUQ okay. Hepatitis panel negative. [place] related to clinical condition and/or medications. Levels normal now. Follow intermittently. (7) DVT prophylaxis: Code(s): Z29.9 - Encounter for prophylactic measures, unspecified Status: Acute Assessment and Plan: Lovenox (8) Pressure sore: Code(s): L89.90 - Pressure ulcer of unspecified site, unspecified stage Status: Acute Assessment and Plan: Patietn with facial pressure sore and dark eschar. Wound care consulted and following. Slow improvement Subjective Date/time seen: 02/04/21 15:10 Interval history: 70yo male with DM and HTN here for COVID-19 PNA. Patient was intubated on the morning January 17. Patient remains intubated and sedated. Paralytics stopped 01/27. PEG placed 02/02/21. Trach placement this week.
[2021-02-04] MEDS: ACETAMINOPHEN ELIXIR 325 MG/10.15 ML UDC 650 MG FEED TUBE (16:16)
[2021-02-04] MEDS: FUROSEMIDE INJ 40 MG/4 ML VIAL IV PUSH (16:17)
[2021-02-04 21:07] LABS: Glucose Point of Care 149 mg/dl (65-105)
[2021-02-05] VITALS (40 sets, daily range): BP systolic 120–138; BP diastolic 52–77; PULSE 8–103; RESP 14–25; TEMP 36.6–38; O2SAT 92–97
[2021-02-05] MEDS: ACETAMINOPHEN ELIXIR 325 MG/10.15 ML UDC 650 MG FEED TUBE (00:31)
[2021-02-05 00:50] LABS: Glucose Point of Care 150 mg/dl (65-105)
[2021-02-05] MEDS: PROPOFOL IV EMULSION 100 ML 17.78 MG IV CONT ×4 (02:45→19:20)
[2021-02-05] MEDS: ALBUTEROL SULFATE NEB 2.5 MG/0.5 ML INH INHALATION ×4 (02:54→20:31)
[2021-02-05 04:42] LABS: Hematocrit 29.2 % (42.0-52.0); Hemoglobin 9.1 g/dL (14.0-18.0); Mean Corpuscular HGB Conc 31.2 g/dl (32-36); Mean Corpuscular Hemoglobin 29.7 pg (26-34); Mean Corpuscular Volume 95.4 fl (80-100); Mean Platelet Volume 9.8 fl (7.4-10.4); Platelet Count Result 611 k/mm3 (150-375); Red Blood Count 3.06 M/mm3 (4.6-6.20); Red Cell Distribution Width 14.4 % (11.5-14.5); White Blood Count 10.4 K/mm3 (4.5-10.0)
[2021-02-05 04:58] LABS: Alanine Aminotransferase 41 U/L (4-50); Albumin Level 2.2 g/dL (3.5-5.1); Alkaline Phosphatase 116 U/L (38-126); Anion Gap 3 mmol/L (8-16); Aspartate Amino Transferase 30 U/L (17-59); Bilirubin,Total 0.3 mg/dL (0.2-1.3); Blood Urea Nitrogen 15 mg/dL (9-20); Calcium 8.3 mg/dL (8.4-10.2); Carbon Dioxide 35 mmol/L (22-30); Chloride 102 mmol/L (98-107); Estimated CRCL calculation 107 ml/min; Estimated Glomerular Filt Rate > 60; Glucose 135 mg/dL (65-110); Magnesium 2.1 mg/dL (1.6-2.3); Potassium 3.6 mmol/L (3.4-5.0); Sodium 140 mmol/L (137-145); Triglycerides 154 mg/dL (<150)
[2021-02-05] MEDS: CENTRAL LINE FLUSH 10 ML IV PUSH ×3 (05:14→21:06)
[2021-02-05 05:27] LABS: Alveolar/Arterial O2 Gradient 167.1 mmHg; Base Excess ABG 11.6 mEq/l (+/-2.0); Carboxyhemoglobin 0.2 % THb (0-2.0); Fractional Inspired Oxygen 40 %; HCO3 ABG 36.5 mEq/l (22.0-26.0); Methemoglobin ABG 0.4 %THb (0-1.5); Oxygen Content ABG 19.5 %vol (16.0-22.0); Oxygen Saturation ABG 93.7 % (95.0-100.0); Oxyhemoglobin 92.4 % THb (90.0-100.0); PCO2 ABG 47.8 mmHg (35.0-45.0); PO2 ABG 63.1 mmHg (80.0-100.0); PO2 FiO2 Ratio Arterial Blood 1.58 %
[2021-02-05 05:29] LABS: Device VENTILATOR; Modified Allen's Test Pass; Site Drawn LEFT RADIAL; pH ABG 7.501 (7.350-7.450)
[2021-02-05 05:30] LABS: Arterial Blood Gas PEEP 8 cmH2O; Arterial Blood Gas Tidal Volume 450 ml; Arterial Blood Gas Vent Mode CMV; Arterial Blood Gas Ventilator rate 15 /MIN
--- NOTE | 2021-02-05 06:11 | WPDCN ---
HPI Data of Consult Date/Time: 02/05/21 06:11 Requesting Physician: Kimberly Adams PA-C Primary Care Provider: Thanh Robles MD Consult Narrative Narrative: Portillo Cooley is a 70 year old male ICU patient prolonged intubation for tracheotomy PMFSH Past Medical History Medical History (Updated 02/01/21 @ 11:34 by Salazar Solano MD) Acute bronchitis Acute non-recurrent maxillary sinusitis Acute pain of left shoulder Arthritis Arthritis of both hands BMI 30.0-30.9,adult Carpal tunnel syndrome on both sides COVID-19 (01/03/21) COVID-19 01/03/2021 after being fully vaccinated in September 2020 Essential (primary) hypertension Feeding difficulty in adult Hearing loss Leukocytosis Male erectile dysfunction, unspecified Osteoporosis Surgical History Surgical History H/O shoulder surgery left, Dr. eugene History of appendectomy History of cholecystectomy History of lumbar surgery 09/25/2018, Dr. Mi S/P left rotator cuff repair Status post bilateral knee replacements 05-12-09, Dr. Gonzalez Family History Family History Sibling Patient's sister is , Onset Age: 65 Family history of lung cancer Mother Family history of malignant neoplasm Family history of congestive heart failure, Onset Age: 96 Other Diabetes mellitus Family history of coronary artery disease Family history of malignant neoplasm of gastrointestinal tract Social History Social History Social History: patient used to smoke cigarettes but quit in 1983. Prior to that he was smoking 2 packs per day. He also quit drinking in 1982. He does not do marijuana or any drugs. 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 If he is unable to make decisions for himself he would like his , sapphire, to make decisions for him. He would like to be a full code unless I am brain then I want to be taken off . Smoking packs per day: 1.5 Smoking cigarettes per day: 30.0 Smoking status: Former smoker Tobacco type: cigarettes Alcohol intake: never Substance use: never Gender identity (if verbalized by the patient): Male Spiritual care concerns: No Meds Home Medications and Allergies Home Medications Medication Instructions Recorded Confirmed Type aspirin 81 mg tablet,delayed 81 mg PO DAILY 05/14/19 01/11/21 History release cholecalciferol (vitamin D3) 75 1,000 unit PO DAILY 05/14/19 01/11/21 History mcg (3,000 unit) tablet cinnamon bark 500 mg capsule 1,000 mg PO DAILY 05/14/19 01/11/21 History cyanocobalamin (vitamin B-12) 1,000 mcg PO DAILY #30 tablet 05/14/19 01/11/21 Rx 1,000 mcg tablet amlodipine 10 mg tablet 10 mg PO DAILY #90 tablet 05/22/20 01/11/21 Rx bupropion HCl 300 mg 24 hr tablet, 300 mg PO QAM #90 tablet 05/22/20 01/11/21 Rx extended release metformin 500 mg tablet,extended 1,000 mg PO BID #360 tablet 05/22/20 01/11/21 Rx release 24 hr esomeprazole magnesium 40 mg PO EVERY OTHER DAY 01/11/21 01/11/21 History valsartan 320 mg tablet 320 mg PO DAILY #90 tablet 01/26/21 Rx Allergies Allergy/AdvReac Type Severity Reaction Status Date / Time isotretinoin Allergy Mild PANCREATIC Verified 01/10/21 23:30 EFFECTS hydrocodone Allergy Unknown Fever Verified 01/11/21 00:54 escitalopram AdvReac Unknown Nausea And Verified 02/01/21 12:10 Vomiting Vital Signs Vital Signs - 24 hr 02/04/21 08:00 02/04/21 08:26 02/04/21 08:31 Temperature 36.1 C L Pulse Rate 73 88 95 Respiratory Rate 26 H 25 H Blood Pressure 123/64 Pulse Oximetry 97 92 02/04/21 08:35 02/04/21 09:06 02/04/21 09:07 Temperature Pulse Rate 89 91 90 Respiratory Rate 25 H 24 H 21 H Blood Pressure Pulse Oximetry 02/04/21 10:00 02/04/21 12:00 02/04/21 12:15 Temperature 36.8 C 37.7 C H Pulse Rate 92 92 91
[2021-02-05] MEDS: FUROSEMIDE INJ 40 MG/4 ML VIAL IV PUSH (08:32)
[2021-02-05] MEDS: MINERAL OIL/WHITE PETROLATUM OINTMENT 1 APPLIC EACH EYE ×2 (08:32→20:19)
[2021-02-05] MEDS: PANTOPRAZOLE SODIUM IV 40 MG VIAL IV PUSH (08:32)
[2021-02-05 08:39] LABS: INR 1.1; Prothrombin Time 14.1 Seconds (11.1-14.7)
[2021-02-05 08:40] LABS: Partial Thromboplastin Time 35.1 SECONDS (22.3-36.8)
--- NOTE | 2021-02-05 09:03 | PM.IMPN ---
Progress Note: A&P Assessment and Plan (1) Acute respiratory failure with hypoxia: Code(s): J96.01 - Acute respiratory failure with hypoxia Status: Acute Assessment and Plan: Patient with acute hypoxic respiratory failure related to COVID-19. CTA chest 01/11 showing no PE but showing findings consistent with COVID. Oxygen requirement was increasing to the point of requiring intubation on 01/17/21. He now has completed 10 days of dexamethasone and Remdesivir. He was on Nimbex for paralysis for better ventilator synchrony but now off off paralytic 01/27. Remains stable on MV. He did not tolerate SBT and gets tachycardic and tachypneic within few minutes of trial. Wean vent as tolerated. ICU service spoke to the family for needs for tracheostomy and PEG tube placement. Patient's was agreeable. PEG tube was placed 02/02. ENT service will plan for tracheostomy today. pH up to 7.50 but pCO2 beter at 48. Vent adjustments per inspector fabric. Pulmonary and inspector fabric following along and appreciate their input. Lasix to be repeated. (2) Septic shock: Code(s): A41.9 - Sepsis, unspecified organism; R65.21 - Severe sepsis with septic shock Status: Acute Assessment and Plan: Patient became HoTN requiring pressor therapy with Levophed 01/18 possibly related to sedation. Able to be weaned off but BP dropped again on 01/22 requiring Levophed up to 12mcg/min felt related to septic shock but able to be weaned off again 01/24. Continue to monitor. (3) Pneumonia due to COVID-19 virus: Code(s): U07.1 - COVID-19; J12.82 - Pneumonia due to coronavirus disease 2019 Status: Acute Assessment and Plan: Patient tested COVID-19 positive 01/09/21 after starting have symptoms 01/05/21. He was fully vaccinated with Moderna in September; antibodies present. Completed Remdesivir and Decadron. Sputum was positive for Pseudomonas on 01/22 and noted again 01/27 and on 02/01; all diaz-sensitive. He finished cefepime course for 10 days on 02/01/21. Persistent low-grade fevers and WBC up slightly to 10.4K. Continue to monitor off antibiotics with monitoring of fever curve and WBC count. Continue supportive care. Add Cipro for treatment and suppressive coverage. (4) Type 2 diabetes mellitus without complication, without long-term current use of insulin: Code(s): E11.9 - Type 2 diabetes mellitus without complications Status: Acute Assessment and Plan: A1c 7.4. The patient's blood glucose was reviewed on 02/05 Glucose remains very well controlled. Tolerating TF but curently on hold. Continue AccuCheks covering with sliding scale. Hypoglycemia protocol available as needed. Continue Lantus (held at this time since NPO) (5) Essential (primary) hypertension: Code(s): I10 - Essential (primary) hypertension Status: Acute Assessment and Plan: Patient's blood pressure was reviewed on 02/05 Blood pressure stable off Levophed. Amlodipine and valsartan remain on hold (6) Elevated LFTs: Code(s): R79.89 - Other specified abnormal findings of blood chemistry Status: Acute Assessment and Plan: Liver tests became elevated with AST to 739 and ALT 630. RUQ okay. Hepatitis panel negative. [place] related to clinical condition and/or medications. Levels normal now. Follow intermittently. (7) Pressure sore: Code(s): L89.90 - Pressure ulcer of unspecified site, unspecified stage Status: Acute Assessment and Plan: Patietn with facial pressure sore and dark eschar. Wound care consulted and following. Slow improvement (8) DVT prophylaxis: Code(s): Z29.9 - Encounter for prophylactic measures, unspecified Status: Acute Assessment and Plan: Lovenox Subjective Date/time seen: 02/05/21 09:03 Interval history: 70yo male with DM and HTN here for COVID-19 PNA. Patient was intubated on the morning January 17. Patient remains intubated and sedat
[2021-02-05] MEDS: CIPROFLOXACIN 400 MG/D5W 200ML 200 ML 200 MG IVPB ×2 (09:51→17:58)
[2021-02-05] MEDS: LIDO 1%/EPINEPHRINE 1:100,000 50 ML VIAL INFILTRATE (11:00)
--- NOTE | 2021-02-05 11:09 | W.PM.PROC2 ---
Procedure Note - Detailed Date of Procedure 02/05/21 Pre-op Diagnosis COVID 19, Hypoxia Post-op Diagnosis same Procedure Performed tracheotomy Surgeon Toni Israel MD Description of Procedure patient was prepped and draped fashion general anesthesia vertical incision was made after injecting with xylocaine with adrenaline dissection carried down to the through the subcutaneous tissue the trachea was identified slightly off of the midline of the trachea identified with pain at the the periosteum of the tracheal wall was cleaned off bovied a trach hook placed in an incision made in 6. Shiherb placed in hemostasis and were bipolar cautery the trach screens trach strings placed on and us sutured with 2 0 silk Urine Output 850 Complications No immediate complications
--- NOTE | 2021-02-05 11:15 | PC.NURSE ---
Patient to OR via bed. Bedside report given to KEEGAN Guerrero.
--- NOTE | 2021-02-05 11:26 | PC.NURSE ---
Patient returned to room following surgery. Report received from KEEGAN Guerrero and LAWRENCE Reagan.
--- NOTE | 2021-02-05 11:51 | PCDIET ---
Nutrition Follow-Up Complete: Nutrition Diagnosis: Inadequate oral intake related to oral intubation as evidenced by need for tube feedings. Nutrition Goal: Patient to meet estimated nutritional needs. Goal not met. Tube feedings held for trach placement. Expect tube feedings to resume later today. Last recorded weight is 90.9 kg which is down from last review. +I/O noted. Bowel Motility: BM x 1 today. Labs Reviewed: WBC (10.4), RBC (3.06), Hgb (9.1), Hct (29.2), Glu (135), Cr (0.6), Alb (2.2), TG (154) Meds Noted: Albuterol, Fentanyl, Lantus, LR at 30mL/hr, Protonix, Lasix, Propofol (rate of 17.78mL/hr provides 469kcal per day) Additional Notes: Corrected calcium WNL. Unstageable areas to upper lip and chin. Will continue to monitor with same goal. Nutrition Monitoring and Evaluation: Follow up every Tuesday/Tuesday. Follow daily in ICU rounds.
[2021-02-05 12:21] LABS: Glucose Point of Care 125 mg/dl (65-105)
--- NOTE | 2021-02-05 13:31 | WPDINTPN ---
Progress Note: A&P Assessment and Plan (1) Acute respiratory failure with hypoxia: Code(s): J96.01 - Acute respiratory failure with hypoxia Status: Acute Assessment and Plan: Acute Respiratory failure secondary to COVID-19 pneumonia with worsening hypoxia through the hospital course Bipap 01/16, intubated 01/17. was proned for multiple days - 01/27 NMB infusion discontinued - 01/28 sedation switched to shorter acting propofol - currently on 8 of PEEP and 40% FiO2. Tidal volume increased to 450, which is 6 mL/kg, decreased resp rate - chest x-ray shows no interval change - patient has been failing weaning trial every day despite high pressure support. Will try again today - Continue mechanical ventilation support to prevent hypoxemia/hypercarbia and end organ damage. - Patient developed Pseudomonas pneumonia on top of COVID-19 pneumonia which was treated with cefepime, Now started on ciprofloxacin (02/05) - patient was intubated on 01/17 I spoke to patient's by phone 01/31. - 02/02/2021: PEG tube placed - Tracheostomy scheduled for today, 02/05/2021 Patient responded well to diuresis yesterday, will repeat diuresis again today (2) Fever: Code(s): R50.9 - Fever, unspecified Status: Acute Assessment and Plan: 01/22/2021: Patient was hypotensive, requiring Levophed, increasing oxygen requirement on mechanical ventilation and slightly worsening chest x-ray - blood cultures coag neg staph - sputum cultures from 01/22 growing pseudomonas, Pansensitive. patient completed a course of cefepime (initiated on 01/22) - Vancomycin was discontinued on 01/24 - afebrile overnight - Lipase is mildly elevated. monitor - Flores was changed on Tuesday -given low-grade fevers, chest x-ray with bilateral diffuse infiltrates, repeat sputum cultures from 02/01/2021 growing Pseudomonas, started on ciprofloxacin on 02/05/2021 (3) Pneumonia due to COVID-19 virus: Code(s): U07.1 - COVID-19; J12.82 - Pneumonia due to coronavirus disease 2019 Status: Acute Assessment and Plan: Patient received Moderna vaccine in September of 2020 has still developed significant COVID-19 pneumonia. his COVID-19 PCR and antibody are both reactive. patient has completed a course Rocephin and azithromycin. has completed 10 day course of dexamethasone he has completed a 10 day course of Remdesivir initially his CRP was high 12.1 but his repeat CRP was 5.4 hence not high enough to start Tocilizumab continue monitoring inflammatory markers which continue to be high No more isolation as he has been covid positive > 20 days (4) Diabetes mellitus: Code(s): E11.9 - Type 2 diabetes mellitus without complications Status: Acute Assessment and Plan: continue Lantus and sliding scale continue tube feeds (5) Elevated LFTs: Code(s): R79.89 - Other specified abnormal findings of blood chemistry Status: Acute Assessment and Plan: RUQ ultrasound 01/20/2021 showed hepatic steatosis - hepatitis panel was negative - appreciate GI evaluation recommendation - increase in LFTs could be related to septic shock, shock liver, will continue to maintain mean arterial pressures > 65 mmHg for adequate -liver enzymes have normalized Additional Plan DVT prophylaxis - Lovenox Stress ulcer prophylaxis - PPI Nutrition -tube feeds through PEG tube Code Status - Full Code Discussed with , Taryn, at bedside updated her with patient's condition, plan of care. She is aware that he is going to get tracheostomy done on 02/05/2021. Total Critical Care Time - 32 minutes Due to a high probability of clinically significant, life threatening deterioration, the patient required my highest level of preparedness to intervene emergently and I personally spent this critical care time directly and personally managing the patient. This critical care time included obtaining a history; examining the pa
[2021-02-05 18:10] LABS: Glucose Point of Care 152 mg/dl (65-105)
[2021-02-05] MEDS: ENOXAPARIN 40 MG/0.4 ML SYRINGE SUB-Q (20:19)
[2021-02-05] MEDS: INSULIN GLARGINE (*BKC) 100 UNITS/ML 10 UNITS SUB-Q (20:45)
[2021-02-05 20:58] LABS: Glucose Point of Care 131 mg/dl (65-105)
[2021-02-06] VITALS (43 sets, daily range): BP systolic 113–136; BP diastolic 56–73; PULSE 59–115; RESP 14–27; TEMP 37.2–37.8; O2SAT 91–98
[2021-02-06] MEDS: PROPOFOL IV EMULSION 100 ML 17.78 MG IV CONT (00:07)
[2021-02-06 00:16] LABS: Glucose Point of Care 161 mg/dl (65-105)
[2021-02-06] MEDS: CIPROFLOXACIN 400 MG/D5W 200ML 200 ML 200 MG IVPB ×3 (02:05→17:28)
[2021-02-06] MEDS: ALBUTEROL SULFATE NEB 2.5 MG/0.5 ML INH INHALATION ×4 (02:26→19:29)
[2021-02-06 04:34] LABS: Hematocrit 27.3 % (42.0-52.0); Hemoglobin 8.8 g/dL (14.0-18.0); Mean Corpuscular HGB Conc 32.2 g/dl (32-36); Mean Corpuscular Hemoglobin 29.9 pg (26-34); Mean Corpuscular Volume 92.9 fl (80-100); Mean Platelet Volume 9.2 fl (7.4-10.4); Platelet Count Result 619 k/mm3 (150-375); Red Blood Count 2.94 M/mm3 (4.6-6.20); Red Cell Distribution Width 14.3 % (11.5-14.5); White Blood Count 7.4 K/mm3 (4.5-10.0)
[2021-02-06] MEDS: CENTRAL LINE FLUSH 10 ML IV PUSH ×3 (04:36→20:48)
[2021-02-06 04:43] LABS: Alanine Aminotransferase 39 U/L (4-50); Albumin Level 2.2 g/dL (3.5-5.1); Alkaline Phosphatase 110 U/L (38-126); Anion Gap 2 mmol/L (8-16); Aspartate Amino Transferase 36 U/L (17-59); Bilirubin,Total 0.3 mg/dL (0.2-1.3); Blood Urea Nitrogen 17 mg/dL (9-20); Calcium 8.3 mg/dL (8.4-10.2); Carbon Dioxide 37 mmol/L (22-30); Chloride 100 mmol/L (98-107); Estimated CRCL calculation 126 ml/min; Estimated Glomerular Filt Rate > 60; Glucose 173 mg/dL (65-110); Magnesium 2.2 mg/dL (1.6-2.3); Potassium 3.5 mmol/L (3.4-5.0); Sodium 139 mmol/L (137-145)
[2021-02-06] MEDS: PROPOFOL IV EMULSION 100 ML 14.82 MG IV CONT (06:10)
[2021-02-06 06:42] LABS: Alveolar/Arterial O2 Gradient 165.8 mmHg; Carboxyhemoglobin 0.3 % THb (0-2.0); Fractional Inspired Oxygen 40 %; HCO3 ABG 36.2 mEq/l (22.0-26.0); Methemoglobin ABG 0.5 %THb (0-1.5); Oxyhemoglobin 92.8 % THb (90.0-100.0); PCO2 ABG 45.2 mmHg (35.0-45.0); PO2 ABG 67.4 mmHg (80.0-100.0); PO2 FiO2 Ratio Arterial Blood 1.69 %; Reduced Hemoglobin 6.4 %THb (0-5.0); Total Hemoglobin 10.7 g/dL (12.0-18.0)
[2021-02-06 06:44] LABS: Device VENTILATOR; Modified Allen's Test Pass; Site Drawn RIGHT RADIAL; pH ABG 7.521 (7.350-7.450)
[2021-02-06 06:45] LABS: Arterial Blood Gas Tidal Volume 450 ml; Arterial Blood Gas Vent Mode CMV; Arterial Blood Gas Ventilator rate 14 /MIN
[2021-02-06] MEDS: MINERAL OIL/WHITE PETROLATUM OINTMENT 1 APPLIC EACH EYE ×2 (08:23→20:48)
[2021-02-06] MEDS: ASPIRIN 81 MG ENTERIC TABLET PO (08:23)
[2021-02-06] MEDS: ENOXAPARIN 40 MG/0.4 ML SYRINGE SUB-Q ×2 (08:23→20:47)
[2021-02-06] MEDS: PANTOPRAZOLE SODIUM IV 40 MG VIAL IV PUSH (08:23)
[2021-02-06] MEDS: INSULIN GLARGINE (*BKC) 100 UNITS/ML 10 UNITS SUB-Q ×2 (08:25→20:46)
--- NOTE | 2021-02-06 10:06 | WPDANESPN ---
Anes - Prog Note Post-Op Date/Time: 02/06/21 10:06 Cardiovascular status: normal Respiratory status: normal Airway patency: baseline Mental status: baseline Post-Op hydration status: normal Vital Signs: Last Vital Signs Temp 99.1 F 02/06/21 08:00 Pulse 80 02/06/21 08:40 Resp 18 02/06/21 08:40 BP 128/67 02/06/21 08:00 Pulse Ox 92 02/06/21 08:00 Pain Score (VAS): 0/10 I/O: Intake & Output 02/05/21 02/06/21 02/06/21 23:59 07:59 15:59 Intake Total 892 967 Output Total 525 650 Balance 367 317 Laboratory Tests 02/06/21 04:22 02/06/21 04:22 02/05/21 02/05/21 02/05/21 12:12 17:57 20:43 WBC RBC Hgb Hct MCV MCH MCHC RDW Plt Count MPV Puncture Site ABG pH ABG pCO2 ABG pO2 ABG PO2/FiO2 Ratio ABG HCO3 ABG O2 Saturation ABG O2 Content ABG Base Excess A-a Gradient Oxyhemoglobin Carboxyhemoglobin Methemoglobin Reduced Hemoglobin Total Hemoglobin O2 Delivery Device O2 Liters/Min Minute Volume Vent Rate Vent Mode FiO2 Tidal Volume PEEP Peak Inspir Pressure Pressure Support Sodium Potassium Chloride Carbon Dioxide Anion Gap BUN Creatinine Estim Creat Clear Calc Estimated GFR Glucose POC Capillary Glucose 125 H 152 H 131 H Calcium Magnesium Total Bilirubin AST ALT Alkaline Phosphatase Total Protein Albumin 02/06/21 02/06/21 02/06/21 00:05 04:22 04:22 WBC 7.4 RBC 2.94 L Hgb 8.8 L Hct 27.3 L MCV 92.9 MCH 29.9 MCHC 32.2 RDW 14.3 Plt Count 619 H MPV 9.2 Puncture Site ABG pH ABG pCO2 ABG pO2 ABG PO2/FiO2 Ratio ABG HCO3 ABG O2 Saturation ABG O2 Content ABG Base Excess A-a Gradient Oxyhemoglobin Carboxyhemoglobin Methemoglobin Reduced Hemoglobin Total Hemoglobin O2 Delivery Device O2 Liters/Min Minute Volume Vent Rate Vent Mode FiO2 Tidal Volume PEEP Peak Inspir Pressure Pressure Support Sodium 139 Potassium 3.5 Chloride 100 Carbon Dioxide 37 H Anion Gap 2 L BUN 17 Creatinine 0.50 L Estim Creat Clear Calc 126 Estimated GFR > 60 Glucose 173 H POC Capillary Glucose 161 H Calcium 8.3 L Magnesium 2.2 Total Bilirubin 0.3 AST 36 ALT 39 Alkaline Phosphatase 110 Total Protein 5.0 L Albumin 2.2 L 02/06/21 06:24 WBC RBC Hgb Hct MCV MCH MCHC RDW Plt Count MPV Puncture Site Right radial ABG pH 7.521 H* ABG pCO2 45.2 H ABG pO2 67.4 L ABG PO2/FiO2 Ratio 1.69 ABG HCO3 36.2 H ABG O2 Saturation 95.0 ABG O2 Content 14.0 L ABG Base Excess 12.0 A-a Gradient 165.8 Oxyhemoglobin 92.8 Carboxyhemoglobin 0.3 Methemoglobin 0.5 Reduced Hemoglobin 6.4 H Total Hemoglobin 10.7 L O2 Delivery Device Ventilator O2 Liters/Min Not Reportable Minute Volume Not Reportable Vent Rate 14 Vent Mode Cmv FiO2 40 Tidal Volume 450 PEEP Not Reportable Peak Inspir Pressure Pending Pressure Support Not Reportable Sodium Potassium Chloride Carbon Dioxide Anion Gap BUN Creatinine Estim Creat Clear Calc Estimated GFR Glucose POC Capillary Glucose Calcium Magnesium Total Bilirubin AST ALT Alkaline Phosphatase Total Protein Albumin Post-procedural complaints: none Patient Feedback: Patient satisfied with anesthetic care.
--- NOTE | 2021-02-06 10:09 | WPDANESPN ---
Anes - Prog Note Post-Op Date/Time: 02/06/21 10:09 Cardiovascular status: normal Respiratory status: other (trach) Airway patency: other (see above) Mental status: other (HEMANTH) Post-Op hydration status: normal Vital Signs: Last Vital Signs Temp 99.1 F 02/06/21 08:00 Pulse 80 02/06/21 08:40 Resp 18 02/06/21 08:40 BP 128/67 02/06/21 08:00 Pulse Ox 92 02/06/21 08:00 Pain Score (VAS): 0/10 hemanth I/O: Intake & Output 02/05/21 02/06/21 02/06/21 23:59 07:59 15:59 Intake Total 892 967 Output Total 525 650 Balance 367 317 Laboratory Tests 02/06/21 04:22 02/06/21 04:22 02/05/21 02/05/21 02/05/21 12:12 17:57 20:43 WBC RBC Hgb Hct MCV MCH MCHC RDW Plt Count MPV Puncture Site ABG pH ABG pCO2 ABG pO2 ABG PO2/FiO2 Ratio ABG HCO3 ABG O2 Saturation ABG O2 Content ABG Base Excess A-a Gradient Oxyhemoglobin Carboxyhemoglobin Methemoglobin Reduced Hemoglobin Total Hemoglobin O2 Delivery Device O2 Liters/Min Minute Volume Vent Rate Vent Mode FiO2 Tidal Volume PEEP Peak Inspir Pressure Pressure Support Sodium Potassium Chloride Carbon Dioxide Anion Gap BUN Creatinine Estim Creat Clear Calc Estimated GFR Glucose POC Capillary Glucose 125 H 152 H 131 H Calcium Magnesium Total Bilirubin AST ALT Alkaline Phosphatase Total Protein Albumin 02/06/21 02/06/21 02/06/21 00:05 04:22 04:22 WBC 7.4 RBC 2.94 L Hgb 8.8 L Hct 27.3 L MCV 92.9 MCH 29.9 MCHC 32.2 RDW 14.3 Plt Count 619 H MPV 9.2 Puncture Site ABG pH ABG pCO2 ABG pO2 ABG PO2/FiO2 Ratio ABG HCO3 ABG O2 Saturation ABG O2 Content ABG Base Excess A-a Gradient Oxyhemoglobin Carboxyhemoglobin Methemoglobin Reduced Hemoglobin Total Hemoglobin O2 Delivery Device O2 Liters/Min Minute Volume Vent Rate Vent Mode FiO2 Tidal Volume PEEP Peak Inspir Pressure Pressure Support Sodium 139 Potassium 3.5 Chloride 100 Carbon Dioxide 37 H Anion Gap 2 L BUN 17 Creatinine 0.50 L Estim Creat Clear Calc 126 Estimated GFR > 60 Glucose 173 H POC Capillary Glucose 161 H Calcium 8.3 L Magnesium 2.2 Total Bilirubin 0.3 AST 36 ALT 39 Alkaline Phosphatase 110 Total Protein 5.0 L Albumin 2.2 L 02/06/21 06:24 WBC RBC Hgb Hct MCV MCH MCHC RDW Plt Count MPV Puncture Site Right radial ABG pH 7.521 H* ABG pCO2 45.2 H ABG pO2 67.4 L ABG PO2/FiO2 Ratio 1.69 ABG HCO3 36.2 H ABG O2 Saturation 95.0 ABG O2 Content 14.0 L ABG Base Excess 12.0 A-a Gradient 165.8 Oxyhemoglobin 92.8 Carboxyhemoglobin 0.3 Methemoglobin 0.5 Reduced Hemoglobin 6.4 H Total Hemoglobin 10.7 L O2 Delivery Device Ventilator O2 Liters/Min Not Reportable Minute Volume Not Reportable Vent Rate 14 Vent Mode Cmv FiO2 40 Tidal Volume 450 PEEP Not Reportable Peak Inspir Pressure Pending Pressure Support Not Reportable Sodium Potassium Chloride Carbon Dioxide Anion Gap BUN Creatinine Estim Creat Clear Calc Estimated GFR Glucose POC Capillary Glucose Calcium Magnesium Total Bilirubin AST ALT Alkaline Phosphatase Total Protein Albumin Post-procedural complaints: none Patient Feedback: Patient satisfied with anesthetic care.
--- NOTE | 2021-02-06 10:57 | PCDIET ---
Nutrition Follow-Up Complete: Nutrition Diagnosis: Inadequate oral intake related to oral intubation as evidenced by need for tube feedings. Nutrition Goal: Patient to meet estimated nutritional needs. Goal in progress. Glucerna 1.2 has been resumed at 50mL/hr goal rate with 30mL water flush every 6 hours and Pro-Stat TID. Last recorded weight is 90.5 kg which is stable with last review. Bowel Motility: Last documented BM on 02/05/21 x 1. Labs Reviewed: RBC (2.94), Hgb (8.8), Hct (27.3), Glu (173), Cr (0.5), Alb (2.2) Meds Noted: Albuterol, Cipro, Fentanyl, Lantus, Protonix, Propofol (rate of 8.89mL/hr provides 234kcal per day) Additional Notes: Upper lip/chin unstageable areas. RN contacting wound nurse today for additional recommendations. Will continue to monitor with same goal. Nutrition Monitoring and Evaluation: Follow up every Tuesday/Tuesday. Follow daily in ICU rounds.
--- NOTE | 2021-02-06 12:59 | WPDINTPN ---
Progress Note: A&P Assessment and Plan (1) Acute respiratory failure with hypoxia: Code(s): J96.01 - Acute respiratory failure with hypoxia Status: Acute Assessment and Plan: Acute Respiratory failure secondary to COVID-19 pneumonia with worsening hypoxia through the hospital course Bipap 01/16, intubated 01/17. was proned for multiple days - 01/27 NMB infusion discontinued - 01/28 sedation switched to shorter acting propofol - currently on 8 of PEEP and 40% FiO2. Tidal volume increased to 450, which is 6 mL/kg, decreased resp rate - chest x-ray shows no interval change - patient has been failing weaning trial every day despite high pressure support. -switch patient to ASV mode of ventilation and is tolerating well - Patient developed Pseudomonas pneumonia on top of COVID-19 pneumonia which was treated with cefepime, Now started on ciprofloxacin (02/05) - patient was intubated on 01/17 - 02/02/2021: PEG tube placed -02/05/2021, tracheostomy was placed Patient responded well to diuresis yesterday, will repeat diuresis again today (2) Fever: Code(s): R50.9 - Fever, unspecified Status: Acute Assessment and Plan: 01/22/2021: Patient was hypotensive, requiring Levophed, increasing oxygen requirement on mechanical ventilation and slightly worsening chest x-ray - blood cultures coag neg staph - sputum cultures from 01/22 growing pseudomonas, Pansensitive. patient completed a course of cefepime (initiated on 01/22) - Vancomycin was discontinued on 01/24 - afebrile overnight - Lipase is mildly elevated. monitor - Flores was changed on Tuesday -T-max 100.0?, chest x-ray with bilateral diffuse infiltrates, repeat sputum cultures from 02/01/2021 growing Pseudomonas, started on ciprofloxacin on 02/05/2021 (3) Pneumonia due to COVID-19 virus: Code(s): U07.1 - COVID-19; J12.82 - Pneumonia due to coronavirus disease 2019 Status: Acute Assessment and Plan: Patient received Moderna vaccine in September of 2020 has still developed significant COVID-19 pneumonia. his COVID-19 PCR and antibody are both reactive. patient has completed a course Rocephin and azithromycin. has completed 10 day course of dexamethasone he has completed a 10 day course of Remdesivir initially his CRP was high 12.1 but his repeat CRP was 5.4 hence not high enough to start Tocilizumab No more isolation as he has been covid positive > 20 days (4) Diabetes mellitus: Code(s): E11.9 - Type 2 diabetes mellitus without complications Status: Acute Assessment and Plan: continue Lantus and sliding scale continue tube feeds (5) Elevated LFTs: Code(s): R79.89 - Other specified abnormal findings of blood chemistry Status: Acute Assessment and Plan: RUQ ultrasound 01/20/2021 showed hepatic steatosis - hepatitis panel was negative - appreciate GI evaluation recommendation - increase in LFTs could be related to septic shock, shock liver, will continue to maintain mean arterial pressures > 65 mmHg for adequate -liver enzymes have normalized Additional Plan DVT prophylaxis - Lovenox Stress ulcer prophylaxis - PPI Nutrition -tube feeds through PEG tube Code Status - Full Code Discussed with , Taryn, at bedside updated her with patient's condition, plan of care. She is aware that he will have to wait for 1 week after his tracheostomy due to insurance issues before being placed in an LTAC facility Total Critical Care Time - 32 minutes Due to a high probability of clinically significant, life threatening deterioration, the patient required my highest level of preparedness to intervene emergently and I personally spent this critical care time directly and personally managing the patient. This critical care time included obtaining a history; examining the patient; pulse oximetry; ordering and review of studies; arranging urgent treatment with development of a management
[2021-02-06] MEDS: FUROSEMIDE INJ 40 MG/4 ML VIAL IV PUSH (13:08)
[2021-02-06 13:12] LABS: Glucose Point of Care 119 mg/dl (65-105)
[2021-02-06] MEDS: PROPOFOL IV EMULSION 100 ML 23.71 MG IV CONT (16:05)
--- NOTE | 2021-02-06 16:10 | PM.IMPN ---
Progress Note: A&P Assessment and Plan (1) Acute respiratory failure with hypoxia: Code(s): J96.01 - Acute respiratory failure with hypoxia Status: Acute Assessment and Plan: Patient with acute hypoxic respiratory failure related to COVID-19. CTA chest 01/11 showing no PE but showing findings consistent with COVID. Oxygen requirement was increasing to the point of requiring intubation on 01/17/21. He now has completed 10 days of dexamethasone and Remdesivir. He was on Nimbex for paralysis for better ventilator synchrony but now off off paralytic 01/27. Remains stable on MV. He did not tolerate SBT and gets tachycardic and tachypneic within few minutes of trial. ICU service spoke to the family for needs for tracheostomy and PEG tube placement. Patient's was agreeable so PEG tube was placed 02/02 and tracheostomy placed 02/05. ABG 7.52/ on MV. Vent adjustments per antique furniture reproducer. Pulmonary and antique furniture reproducer following along and appreciate their input. Receiving intermittent doses of Lasix IV with good UOP. Labs remaining stable (2) Septic shock: Code(s): A41.9 - Sepsis, unspecified organism; R65.21 - Severe sepsis with septic shock Status: Acute Assessment and Plan: Patient became HoTN requiring pressor therapy with Levophed 01/18 possibly related to sedation. Able to be weaned off but BP dropped again on 01/22 requiring Levophed up to 12mcg/min felt related to septic shock but able to be weaned off again 01/24. Blood pressure remaining stable. Continue to monitor. (3) Pneumonia due to COVID-19 virus: Code(s): U07.1 - COVID-19; J12.82 - Pneumonia due to coronavirus disease 2019 Status: Acute Assessment and Plan: Patient tested COVID-19 positive 01/09/21 after starting have symptoms 01/05/21. He was fully vaccinated with Moderna in September; antibodies present. Completed Remdesivir and Decadron. Sputum was positive for Pseudomonas on 01/22 and noted again 01/27 and on 02/01; all diaz-sensitive. He finished cefepime course for 10 days on 02/01/21. Persistent low-grade fevers and WBC was up slightly to 10.4K so we added Cipro 02/05/21. Fever curve better and WBC normal. Continue supportive care. (4) Type 2 diabetes mellitus without complication, without long-term current use of insulin: Code(s): E11.9 - Type 2 diabetes mellitus without complications Status: Acute Assessment and Plan: A1c 7.4. The patient's blood glucose was reviewed on 02/06 Glucose remains very well controlled. Tolerating TF. Continue Accu[employer]ks covering with sliding scale. Hypoglycemia protocol available as needed. Continue Lantus (5) Essential (primary) hypertension: Code(s): I10 - Essential (primary) hypertension Status: Acute Assessment and Plan: Patient's blood pressure was reviewed on 02/06 Blood pressure stable off Levophed. Amlodipine and valsartan remain on hold (6) Elevated LFTs: Code(s): R79.89 - Other specified abnormal findings of blood chemistry Status: Acute Assessment and Plan: Liver tests became elevated with AST to 739 and ALT 630. RUQ okay. Hepatitis panel negative. [place] related to clinical condition and/or medications. Levels normal now. Follow intermittently. (7) Pressure sore: Code(s): L89.90 - Pressure ulcer of unspecified site, unspecified stage Status: Acute Assessment and Plan: Patietn with facial pressure sore and dark eschar. Wound care consulted and following. Not much change (8) DVT prophylaxis: Code(s): Z29.9 - Encounter for prophylactic measures, unspecified Status: Acute Assessment and Plan: Lovenox Subjective Date/time seen: 02/06/21 16:10 Interval history: 70yo male with DM and HTN here for COVID-19 PNA. Patient was intubated on the morning January 17. Patient remains intubated and sedated. Paralytics stopped 01/27. PEG placed 02/02/21. Trach placed 02/05/21. No issues overni
[2021-02-06] MEDS: ACETAMINOPHEN ELIXIR 325 MG/10.15 ML UDC 650 MG FEED TUBE (17:28)
[2021-02-06 17:44] LABS: Glucose Point of Care 101 mg/dl (65-105)
[2021-02-06] MEDS: PROPOFOL IV EMULSION 100 ML 20.75 MG IV CONT (20:16)
[2021-02-06 20:24] LABS: Glucose Point of Care 134 mg/dl (65-105)
[2021-02-07] VITALS (40 sets, daily range): BP systolic 96–134; BP diastolic 58–77; PULSE 54–95; RESP 15–27; TEMP 36.7–37.9; O2SAT 92–98
[2021-02-07 00:55] LABS: Glucose Point of Care 139 mg/dl (65-105)
[2021-02-07] MEDS: ALBUTEROL SULFATE NEB 2.5 MG/0.5 ML INH INHALATION ×4 (01:29→19:59)
[2021-02-07] MEDS: PROPOFOL IV EMULSION 100 ML 20.75 MG IV CONT (02:08)
[2021-02-07] MEDS: CIPROFLOXACIN 400 MG/D5W 200ML 200 ML 200 MG IVPB ×3 (02:11→17:33)
[2021-02-07] MEDS: CENTRAL LINE FLUSH 10 ML IV PUSH ×3 (06:10→21:12)
[2021-02-07 06:14] LABS: Hematocrit 27.6 % (42.0-52.0); Hemoglobin 8.5 g/dL (14.0-18.0); Mean Corpuscular HGB Conc 30.8 g/dl (32-36); Mean Corpuscular Hemoglobin 29.4 pg (26-34); Mean Corpuscular Volume 95.5 fl (80-100); Mean Platelet Volume 9.2 fl (7.4-10.4); Platelet Count Result 642 k/mm3 (150-375); Red Blood Count 2.89 M/mm3 (4.6-6.20); Red Cell Distribution Width 14.4 % (11.5-14.5); White Blood Count 8.4 K/mm3 (4.5-10.0)
[2021-02-07 06:20] LABS: Anion Gap 3 mmol/L (8-16); Blood Urea Nitrogen 16 mg/dL (9-20); Calcium 8.2 mg/dL (8.4-10.2); Carbon Dioxide 37 mmol/L (22-30); Chloride 97 mmol/L (98-107); Estimated CRCL calculation 126 ml/min; Estimated Glomerular Filt Rate > 60; Glucose 158 mg/dL (65-110); Magnesium 2.2 mg/dL (1.6-2.3); Phosphorus 4.2 mg/dL (2.5-4.5); Potassium 3.3 mmol/L (3.4-5.0); Sodium 137 mmol/L (137-145)
[2021-02-07 06:46] LABS: Band Neutrophils Percent 3 % (0-6); Eosinophils Absolute Manual 0.33 K/mm3 (0.02-0.5); Eosinophils Percent Manual 4 % (0-4); Lymphocytes Absolute Manual 0.67 K/mm3 (1.1-4.5); Monocytes Absolute Manual 0.25 K/mm3 (0.1-0.90); Monocytes Percent Manual 3 % (3-9); Neutrophils Absolute Manual 7.14 K/mm3 (1.3-6.7); Neutrophils Percent Manual 82 % (46-73); Platelet Estimate Increased (Adequate); Total Cells Counted 100
[2021-02-07] MEDS: PROPOFOL IV EMULSION 100 ML 14.82 MG IV CONT (09:08)
[2021-02-07] MEDS: POTASSIUM CHLORIDE 20 MEQ PACKET (FOR LIQUID) 40 MEQ FEED TUBE ×2 (09:09→16:07)
[2021-02-07] MEDS: FUROSEMIDE INJ 40 MG/4 ML VIAL IV PUSH (09:09)
[2021-02-07] MEDS: INSULIN GLARGINE (*BKC) 100 UNITS/ML 10 UNITS SUB-Q ×2 (09:10→21:11)
[2021-02-07] MEDS: ASPIRIN 81 MG ENTERIC TABLET PO (09:10)
[2021-02-07] MEDS: ENOXAPARIN 40 MG/0.4 ML SYRINGE SUB-Q ×2 (09:10→21:10)
[2021-02-07] MEDS: MINERAL OIL/WHITE PETROLATUM OINTMENT 1 APPLIC EACH EYE ×2 (09:11→21:10)
[2021-02-07] MEDS: PANTOPRAZOLE SODIUM IV 40 MG VIAL IV PUSH (09:11)
--- NOTE | 2021-02-07 09:18 | WPDINTPN ---
Progress Note: A&P Assessment and Plan (1) Acute respiratory failure with hypoxia: Code(s): J96.01 - Acute respiratory failure with hypoxia Status: Acute Assessment and Plan: Acute Respiratory failure secondary to COVID-19 pneumonia with worsening hypoxia through the hospital course Bipap 01/16, intubated 01/17. was proned for multiple days - 01/27 NMB infusion discontinued - 01/28 sedation switched to shorter acting propofol - currently on 8 of PEEP and 40% FiO2. - Pt tolerated ASV all day yesterday after his propofol was decreased, patient also follows simple commands in all extremities for the bedside RN - chest x-ray shows no interval change - Patient developed Pseudomonas pneumonia on top of COVID-19 pneumonia which was treated with cefepime, repeat sputum cultures on 02/01/2021 positive and patient was febrile so was started on ciprofloxacin (02/05) - patient was intubated on 01/17 - 02/02/2021: PEG tube placed -02/05/2021, tracheostomy was placed Patient responded well to diuresis yesterday, will repeat diuresis again today (2) Fever: Code(s): R50.9 - Fever, unspecified Status: Acute Assessment and Plan: 01/22/2021: Patient was hypotensive, requiring Levophed, increasing oxygen requirement on mechanical ventilation and slightly worsening chest x-ray - blood cultures coag neg staph - sputum cultures from 01/22 growing pseudomonas, Pansensitive. patient completed a course of cefepime (initiated on 01/22) - Vancomycin was discontinued on 01/24 - afebrile overnight - Lipase is mildly elevated. monitor - Flores was changed on Tuesday - chest x-ray with bilateral diffuse infiltrates, repeat sputum cultures from 02/01/2021 growing Pseudomonas, started on ciprofloxacin on 02/05/2021 -patient remains febrile with a T-max of 100.2?, -02/07/2021: Bilateral upper and lower extremity venous Dopplers were negative for DVT -lipase is normal (3) Pneumonia due to COVID-19 virus: Code(s): U07.1 - COVID-19; J12.82 - Pneumonia due to coronavirus disease 2019 Status: Acute Assessment and Plan: Patient received Moderna vaccine in September of 2020 has still developed significant COVID-19 pneumonia. his COVID-19 PCR and antibody are both reactive. patient has completed a course Rocephin and azithromycin. has completed 10 day course of dexamethasone he has completed a 10 day course of Remdesivir initially his CRP was high 12.1 but his repeat CRP was 5.4 hence not high enough to start Tocilizumab No more isolation as he has been covid positive > 20 days (4) Diabetes mellitus: Code(s): E11.9 - Type 2 diabetes mellitus without complications Status: Acute Assessment and Plan: continue Lantus and sliding scale continue tube feeds (5) Elevated LFTs: Code(s): R79.89 - Other specified abnormal findings of blood chemistry Status: Acute Assessment and Plan: RUQ ultrasound 01/20/2021 showed hepatic steatosis - hepatitis panel was negative - appreciate GI evaluation recommendation - increase in LFTs could be related to septic shock, shock liver, will continue to maintain mean arterial pressures > 65 mmHg for adequate -liver enzymes have normalized Additional Plan DVT prophylaxis - Lovenox Stress ulcer prophylaxis - PPI Nutrition -tube feeds through PEG tube Code Status - Full Code Discussed with , Taryn, at bedside updated her with patient's condition, plan of care. She is aware that he will have to wait for 1 week after his tracheostomy due to insurance issues before being placed in an LTAC facility Total Critical Care Time - 32 minutes Due to a high probability of clinically significant, life threatening deterioration, the patient required my highest level of preparedness to intervene emergently and I personally spent this critical care time directly and personally managing the patient. This critical care time included o
[2021-02-07 09:24] LABS: Lipase 221 U/L (23-300)
[2021-02-07] MEDS: dexmedeTOMIDine 400 MCG/100 ML 400 MCG/100 ML BAG IV CONT (12:11)
[2021-02-07 12:36] LABS: Glucose Point of Care 149 mg/dl (65-105)
--- NOTE | 2021-02-07 15:45 | PM.IMPN ---
Progress Note: A&P Assessment and Plan (1) Acute respiratory failure with hypoxia: Code(s): J96.01 - Acute respiratory failure with hypoxia Status: Acute Assessment and Plan: Patient with acute hypoxic respiratory failure related to COVID-19. CTA chest 01/11 showing no PE but showing findings consistent with COVID. Oxygen requirement was increasing to the point of requiring intubation on 01/17/21. He now has completed 10 days of dexamethasone and Remdesivir. He was on Nimbex for paralysis for better ventilator synchrony but now off off paralytic 01/27. Remains stable on MV. He did not tolerate SBT and gets tachycardic and tachypneic within few minutes of trial. ICU service spoke to the family for needs for tracheostomy and PEG tube placement. Patient's was agreeable so PEG tube was placed 02/02 and tracheostomy placed 02/05. ABG 7.52/ on MV. Vent adjustments per head operator sulfide. Pulmonary and head operator sulfide following along and appreciate their input. Receiving intermittent doses of Lasix IV with good UOP. Labs remaining stable (2) Septic shock: Code(s): A41.9 - Sepsis, unspecified organism; R65.21 - Severe sepsis with septic shock Status: Acute Assessment and Plan: Patient became HoTN requiring pressor therapy with Levophed 01/18 possibly related to sedation. Able to be weaned off but BP dropped again on 01/22 requiring Levophed up to 12mcg/min felt related to septic shock but able to be weaned off again 01/24. Blood pressure remaining stable. Continue to monitor. (3) Pneumonia due to COVID-19 virus: Code(s): U07.1 - COVID-19; J12.82 - Pneumonia due to coronavirus disease 2019 Status: Acute Assessment and Plan: Patient tested COVID-19 positive 01/09/21 after starting have symptoms 01/05/21. He was fully vaccinated with Moderna in September; antibodies present. Completed Remdesivir and Decadron. Sputum was positive for Pseudomonas on 01/22 and noted again 01/27 and on 02/01; all diaz-sensitive. He finished cefepime course for 10 days on 02/01/21. Persistent low-grade fevers and WBC was up slightly to 10.4K so we added Cipro 02/05/21. Fever curve better and WBC normal. Continue supportive care. (4) Type 2 diabetes mellitus without complication, without long-term current use of insulin: Code(s): E11.9 - Type 2 diabetes mellitus without complications Status: Acute Assessment and Plan: A1c 7.4. The patient's blood glucose was reviewed on 02/06 Glucose remains very well controlled. Tolerating TF. Continue AccuCheks covering with sliding scale. Hypoglycemia protocol available as needed. Continue Lantus (5) Essential (primary) hypertension: Code(s): I10 - Essential (primary) hypertension Status: Acute Assessment and Plan: Patient's blood pressure was reviewed on 02/06 Blood pressure stable off Levophed. Amlodipine and valsartan remain on hold (6) Elevated LFTs: Code(s): R79.89 - Other specified abnormal findings of blood chemistry Status: Acute Assessment and Plan: Liver tests became elevated with AST to 739 and ALT 630. RUQ okay. Hepatitis panel negative. [place] related to clinical condition and/or medications. Levels normal now. Follow intermittently. (7) Pressure sore: Code(s): L89.90 - Pressure ulcer of unspecified site, unspecified stage Status: Acute Assessment and Plan: Patietn with facial pressure sore and dark eschar. Wound care consulted and following. Not much change (8) DVT prophylaxis: Code(s): Z29.9 - Encounter for prophylactic measures, unspecified Status: Acute Assessment and Plan: Lovenox Additional Plan DVT prophylaxis - Lovenox q.12 hours Stress ulcer prophylaxis - PPI Nutrition - continue Tube Feeds Code Status - full code Subjective Date/time seen: 02/07/21 15:45 Interval history: 70yo male with DM and HTN here for COVID-19 PNA. Patient was intuba
[2021-02-07 17:41] LABS: Glucose Point of Care 149 mg/dl (65-105)
[2021-02-07 21:20] LABS: Glucose Point of Care 164 mg/dl (65-105)
[2021-02-08] VITALS (32 sets, daily range): BP systolic 95–132; BP diastolic 55–72; PULSE 48–92; RESP 14–26; TEMP 36.8–37.5; O2SAT 91–98
--- NOTE | 2021-02-08 00:33 | PCRCNOTE ---
Inner cannula changed, airway secure and patent, Sp02 98%.
[2021-02-08 00:42] LABS: Glucose Point of Care 159 mg/dl (65-105)
[2021-02-08] MEDS: dexmedeTOMIDine 400 MCG/100 ML 400 MCG/100 ML BAG IV CONT (02:49)
[2021-02-08] MEDS: CIPROFLOXACIN 400 MG/D5W 200ML 200 ML 200 MG IVPB ×3 (02:50→16:59)
[2021-02-08] MEDS: CENTRAL LINE FLUSH 10 ML IV PUSH ×3 (05:31→21:13)
[2021-02-08 05:50] LABS: Hematocrit 27.9 % (42.0-52.0); Hemoglobin 8.5 g/dL (14.0-18.0); Mean Corpuscular HGB Conc 30.5 g/dl (32-36); Mean Corpuscular Hemoglobin 29.1 pg (26-34); Mean Corpuscular Volume 95.5 fl (80-100); Mean Platelet Volume 8.9 fl (7.4-10.4); Platelet Count Result 624 k/mm3 (150-375); Red Blood Count 2.92 M/mm3 (4.6-6.20); Red Cell Distribution Width 14.3 % (11.5-14.5); White Blood Count 7.5 K/mm3 (4.5-10.0)
[2021-02-08 06:15] LABS: Alanine Aminotransferase 48 U/L (4-50); Albumin Level 2.2 g/dL (3.5-5.1); Alkaline Phosphatase 105 U/L (38-126); Anion Gap 2 mmol/L (8-16); Aspartate Amino Transferase 40 U/L (17-59); Bilirubin,Total 0.3 mg/dL (0.2-1.3); Blood Urea Nitrogen 23 mg/dL (9-20); Calcium 8.6 mg/dL (8.4-10.2); Carbon Dioxide 35 mmol/L (22-30); Chloride 103 mmol/L (98-107); Estimated CRCL calculation 107 ml/min; Estimated Glomerular Filt Rate > 60; Glucose 138 mg/dL (65-110); Sodium 140 mmol/L (137-145)
[2021-02-08 06:30] LABS: Band Neutrophils Percent 5 % (0-6); Eosinophils Absolute Manual 0.07 K/mm3 (0.02-0.5); Eosinophils Percent Manual 1 % (0-4); Monocytes Absolute Manual 0.37 K/mm3 (0.1-0.90); Monocytes Percent Manual 5 % (3-9); Neutrophils Absolute Manual 6.15 K/mm3 (1.3-6.7); Neutrophils Percent Manual 77 % (46-73); Total Cells Counted 100
[2021-02-08 06:31] LABS: Hypochromasia 1+ (NORMAL); Platelet Estimate Increased (Adequate)
[2021-02-08] MEDS: ASPIRIN 81 MG ENTERIC TABLET PO (08:30)
[2021-02-08] MEDS: ENOXAPARIN 40 MG/0.4 ML SYRINGE SUB-Q ×2 (08:30→21:12)
[2021-02-08] MEDS: INSULIN GLARGINE (*BKC) 100 UNITS/ML 10 UNITS SUB-Q ×2 (08:30→21:16)
[2021-02-08] MEDS: PANTOPRAZOLE SODIUM IV 40 MG VIAL IV PUSH (08:30)
[2021-02-08] MEDS: ALBUTEROL SULFATE NEB 2.5 MG/0.5 ML INH INHALATION ×3 (09:00→20:37)
--- NOTE | 2021-02-08 09:42 | WPDINTPN ---
Progress Note: A&P Assessment and Plan (1) Acute respiratory failure with hypoxia: Code(s): J96.01 - Acute respiratory failure with hypoxia Status: Acute Assessment and Plan: Acute Respiratory failure secondary to COVID-19 pneumonia with worsening hypoxia through the hospital course Bipap 01/16, intubated 01/17. was proned for multiple days - 01/27 NMB infusion discontinued - 01/28 sedation switched to shorter acting propofol - -02/07: Chest x-ray shows diffuse bilateral airspace disease which may represent pneumonia and/or edema - Patient has been diuresing well, will diurese again today -02/08: Will switch patient to ASV mode as he is much more awake on Precedex, propofol is OFF - Patient developed Pseudomonas pneumonia on top of COVID-19 pneumonia which was treated with cefepime, repeat sputum cultures on 02/01/2021 positive and patient was febrile so was started on ciprofloxacin (02/05) - patient was intubated on 01/17 - 02/02/2021: PEG tube placed -02/05/2021, tracheostomy was placed (2) Fever: Code(s): R50.9 - Fever, unspecified Status: Acute Assessment and Plan: 01/22/2021: Patient was hypotensive, requiring Levophed, increasing oxygen requirement on mechanical ventilation and slightly worsening chest x-ray - blood cultures coag neg staph - sputum cultures from 01/22 growing pseudomonas, Pansensitive. patient completed a course of cefepime (initiated on 01/22) - Vancomycin was discontinued on 01/24 - afebrile overnight - Lipase is mildly elevated. monitor - Flores was changed on Tuesday - chest x-ray with bilateral diffuse infiltrates, repeat sputum cultures from 02/01/2021 growing Pseudomonas, started on ciprofloxacin on 02/05/2021 -patient remains febrile with a T-max of 100.2?, -02/07/2021: Bilateral upper and lower extremity venous Dopplers were negative for DVT -lipase is normal (3) Pneumonia due to COVID-19 virus: Code(s): U07.1 - COVID-19; J12.82 - Pneumonia due to coronavirus disease 2019 Status: Acute Assessment and Plan: Patient received Moderna vaccine in September of 2020 has still developed significant COVID-19 pneumonia. his COVID-19 PCR and antibody are both reactive. patient has completed a course Rocephin and azithromycin. has completed 10 day course of dexamethasone he has completed a 10 day course of Remdesivir initially his CRP was high 12.1 but his repeat CRP was 5.4 hence not high enough to start Tocilizumab No more isolation as he has been covid positive > 20 days (4) Diabetes mellitus: Code(s): E11.9 - Type 2 diabetes mellitus without complications Status: Acute Assessment and Plan: continue Lantus and sliding scale continue tube feeds (5) Elevated LFTs: Code(s): R79.89 - Other specified abnormal findings of blood chemistry Status: Acute Assessment and Plan: RUQ ultrasound 01/20/2021 showed hepatic steatosis - hepatitis panel was negative - appreciate GI evaluation recommendation - increase in LFTs could be related to septic shock, shock liver, will continue to maintain mean arterial pressures > 65 mmHg for adequate -liver enzymes have normalized Additional Plan DVT prophylaxis - Lovenox Stress ulcer prophylaxis - PPI Nutrition -tube feeds through PEG tube Code Status - Full Code Discussed with , Taryn, at bedside updated her with patient's condition, plan of care. She is aware that we are waiting for his transferred to the LTAC facility Total Critical Care Time - 31 minutes Due to a high probability of clinically significant, life threatening deterioration, the patient required my highest level of preparedness to intervene emergently and I personally spent this critical care time directly and personally managing the patient. This critical care time included obtaining a history; examining the patient; pulse oximetry; ordering and review of studies; arranging urgent
[2021-02-08] MEDS: FUROSEMIDE INJ 40 MG/4 ML VIAL IV PUSH (10:38)
[2021-02-08 12:17] LABS: Glucose Point of Care 167 mg/dl (65-105)
[2021-02-08] MEDS: dexmedeTOMIDine 400 MCG/100 ML 400 MCG/100 ML BAG 6.83 MCG IV CONT (15:12)
[2021-02-08 17:03] LABS: Glucose Point of Care 137 mg/dl (65-105)
[2021-02-08] MEDS: MINERAL OIL/WHITE PETROLATUM OINTMENT 1 APPLIC EACH EYE (21:12)
[2021-02-08 21:22] LABS: Glucose Point of Care 159 mg/dl (65-105)
[2021-02-09] VITALS (28 sets, daily range): BP systolic 103–159; BP diastolic 54–97; PULSE 48–120; RESP 14–25; TEMP 36.6–37.8; O2SAT 90–100
[2021-02-09 00:27] LABS: Glucose Point of Care 168 mg/dl (65-105)
[2021-02-09] MEDS: ALBUTEROL SULFATE NEB 2.5 MG/0.5 ML INH INHALATION ×4 (02:02→21:28)
[2021-02-09] MEDS: CIPROFLOXACIN 400 MG/D5W 200ML 200 ML 200 MG IVPB ×3 (02:14→17:34)
[2021-02-09] MEDS: dexmedeTOMIDine 400 MCG/100 ML 400 MCG/100 ML BAG 6.83 MCG IV CONT (04:34)
[2021-02-09 05:46] LABS: Glucose Point of Care 158 mg/dl (65-105)
[2021-02-09] MEDS: CENTRAL LINE FLUSH 10 ML IV PUSH ×3 (07:30→20:22)
[2021-02-09] MEDS: ENOXAPARIN 40 MG/0.4 ML SYRINGE SUB-Q ×2 (08:23→20:22)
[2021-02-09] MEDS: ASPIRIN 81 MG ENTERIC TABLET PO (08:23)
[2021-02-09] MEDS: MINERAL OIL/WHITE PETROLATUM OINTMENT 1 APPLIC EACH EYE ×2 (08:24→20:22)
[2021-02-09] MEDS: PANTOPRAZOLE SODIUM IV 40 MG VIAL IV PUSH (08:24)
[2021-02-09] MEDS: INSULIN GLARGINE (*BKC) 100 UNITS/ML 10 UNITS SUB-Q ×2 (08:30→20:27)
[2021-02-09 08:38] LABS: Glucose Point of Care 144 mg/dl (65-105)
[2021-02-09] MEDS: ALPRAZolam (*CRX) 0.125 MG TABLET PO ×2 (11:11→19:52)
--- NOTE | 2021-02-09 11:46 | PCDIET ---
ICU Rounding Note: Patient tolerating Glucerna 1.2 at 50mL/hr goal rate with 30mL water flush every 6 hours and Pro-Stat flush TID. Last recorded weight is 91.1kg which is increased from last review; decreased from 94.8kg on admission. Bowel Motility: Last documented BM on 02/08/21 x 2. Labs Reviewed: Glu (144) Meds Noted: Albuterol, Cipro, Lantus, Protonix Additional Notes: Upper lip and chin with unstageable ulcers. s/p PEG and tracheostomy. Anticipating transfer to LTAC later this week. Following daily in ICU rounds. Assessing/reassessing every Tuesday/Tuesday.
[2021-02-09 12:21] LABS: Glucose Point of Care 142 mg/dl (65-105)
--- NOTE | 2021-02-09 13:13 | P.PNINT_ITS ---
Progress Note: A&P Assessment and Plan (1) Acute respiratory failure with hypoxia: Code(s): J96.01 - Acute respiratory failure with hypoxia Status: Acute Assessment and Plan: Acute Respiratory failure secondary to COVID-19 pneumonia with worsening hypoxia through the hospital course Bipap 01/16, intubated 01/17. was proned for multiple days - 01/27 NMB infusion discontinued - 01/28 sedation switched to shorter acting propofol - -02/07: Chest x-ray shows diffuse bilateral airspace disease which may represent pneumonia and/or edema - Patient has been diuresing well, will diurese again today -02/08: Will switch patient to ASV mode as he is much more awake on Precedex, propofol is OFF -patient is anxious, will add small dose of Xanax and try to wean off Precedex at some point - Patient developed Pseudomonas pneumonia on top of COVID-19 pneumonia which was treated with cefepime, repeat sputum cultures on 02/01/2021 positive and patient was febrile so was started on ciprofloxacin (02/05) - patient was intubated on 01/17 - 02/02/2021: PEG tube placed -02/05/2021, tracheostomy was placed (2) Fever: Code(s): R50.9 - Fever, unspecified Status: Acute Assessment and Plan: 01/22/2021: Patient was hypotensive, requiring Levophed, increasing oxygen requirement on mechanical ventilation and slightly worsening chest x-ray - blood cultures coag neg staph - sputum cultures from 01/22 growing pseudomonas, Pansensitive. patient completed a course of cefepime (initiated on 01/22) - Vancomycin was discontinued on 01/24 - afebrile overnight - Lipase is mildly elevated. monitor - Flores was changed on Tuesday - chest x-ray with bilateral diffuse infiltrates, repeat sputum cultures from 02/01/2021 growing Pseudomonas, started on ciprofloxacin on 02/05/2021 -patient remains febrile with a T-max of 100.2?, -02/07/2021: Bilateral upper and lower extremity venous Dopplers were negative for DVT -lipase is normal (3) Pneumonia due to COVID-19 virus: Code(s): U07.1 - COVID-19; J12.82 - Pneumonia due to coronavirus disease 2019 Status: Acute Assessment and Plan: Patient received Moderna vaccine in September of 2020 has still developed significant COVID-19 pneumonia. his COVID-19 PCR and antibody are both reactive. patient has completed a course Rocephin and azithromycin. has completed 10 day course of dexamethasone he has completed a 10 day course of Remdesivir initially his CRP was high 12.1 but his repeat CRP was 5.4 hence not high enough to start Tocilizumab No more isolation as he has been covid positive > 20 days (4) Diabetes mellitus: Code(s): E11.9 - Type 2 diabetes mellitus without complications Status: Acute Assessment and Plan: continue Lantus and sliding scale continue tube feeds (5) Elevated LFTs: Code(s): R79.89 - Other specified abnormal findings of blood chemistry Status: Acute Assessment and Plan: RUQ ultrasound 01/20/2021 showed hepatic steatosis - hepatitis panel was negative - appreciate GI evaluation recommendation - increase in LFTs could be related to septic shock, shock liver, will continue to maintain mean arterial pressures > 65 mmHg for adequate -liver enzymes have normalized Additional Plan DVT prophylaxis - Lovenox Stress ulcer prophylaxis - PPI Nutrition -tube feeds through PEG tube Code Status - Full Code Discussed with , Taryn, at bedside updated her with patient's condition, plan of care. She is aware that we are waiting for his transferred to
--- NOTE | 2021-02-09 15:20 | PM.IMPN ---
Progress Note: A&P Assessment and Plan (1) Acute respiratory failure with hypoxia: Code(s): J96.01 - Acute respiratory failure with hypoxia Status: Acute Assessment and Plan: Patient with acute hypoxic respiratory failure related to COVID-19. CTA chest 01/11 showing no PE but showing findings consistent with COVID. Oxygen requirement was increasing to the point of requiring intubation on 01/17/21. He now has completed 10 days of dexamethasone and Remdesivir. He was on Nimbex for paralysis for better ventilator synchrony but now off off paralytic 01/27. He did not tolerate SBT and became tachycardic and tachypneic within few minutes of trial. ICU service spoke to the family for needs for tracheostomy and PEG tube placement. Patient's was agreeable so PEG tube was placed 02/02 and tracheostomy placed 02/05. Vent adjustments per vehicle detailer. Pulmonary and vehicle detailer following along and appreciate their input. Placement being arranged (2) Septic shock: Code(s): A41.9 - Sepsis, unspecified organism; R65.21 - Severe sepsis with septic shock Status: Acute Assessment and Plan: Patient became HoTN requiring pressor therapy with Levophed 01/18 possibly related to sedation. Able to be weaned off but BP dropped again on 01/22 requiring Levophed up to 12mcg/min felt related to septic shock but able to be weaned off again 01/24. Blood pressure remaining stable. Continue to monitor. (3) Pseudomonas pneumonia: Code(s): J15.1 - Pneumonia due to Pseudomonas Status: Acute Assessment and Plan: Sputum was positive for Pseudomonas on 01/22 and noted again 01/27 and on 02/01; all diaz-sensitive. CXR showing diffuse airspace disease. He finished cefepime course for 10 days on 02/01/21. Persistent low-grade fevers and WBC was up slightly to 10.4K so we added Cipro 02/05/21. Fever resolved and WBC normal. Continue supportive care. (4) Pneumonia due to COVID-19 virus: Code(s): U07.1 - COVID-19; J12.82 - Pneumonia due to coronavirus disease 2019 Status: Acute Assessment and Plan: Patient tested COVID-19 positive 01/09/21 after starting have symptoms 01/05/21. He was fully vaccinated with Moderna in September; antibodies present. Completed Remdesivir and Decadron. Continue current care plan. (5) Type 2 diabetes mellitus without complication, without long-term current use of insulin: Code(s): E11.9 - Type 2 diabetes mellitus without complications Status: Acute Assessment and Plan: A1c 7.4. The patient's blood glucose was reviewed on 02/09 Glucose remains very well controlled. Tolerating TF. Continue AccuCheks covering with sliding scale. Hypoglycemia protocol available as needed. Continue Lantus (6) Essential (primary) hypertension: Code(s): I10 - Essential (primary) hypertension Status: Acute Assessment and Plan: Patient's blood pressure was reviewed on 02/09 Blood pressure stable off Levophed. Amlodipine and valsartan remain on hold (7) Elevated LFTs: Code(s): R79.89 - Other specified abnormal findings of blood chemistry Status: Acute Assessment and Plan: Liver tests became elevated with AST to 739 and ALT 630. RUQ okay. Hepatitis panel negative. [place] related to clinical condition and/or medications. Levels normal now. Follow intermittently. (8) Pressure sore: Code(s): L89.90 - Pressure ulcer of unspecified site, unspecified stage Status: Acute Assessment and Plan: Patient with facial pressure sore with dark eschar. The area is slowly improving. Wound care consulted and following. (9) DVT prophylaxis: Code(s): Z29.9 - Encounter for prophylactic measures, unspecified Status: Acute Assessment and Plan: Lovenox Subjective Date/time seen: 02/09/21 15:20 Interval history: 70yo male with DM and HTN here for COVID-19 PNA. Patient was intubated on the morning January 17. Patient
[2021-02-09 17:53] LABS: Glucose Point of Care 113 mg/dl (65-105)
[2021-02-09 20:36] LABS: Glucose Point of Care 146 mg/dl (65-105)
[2021-02-10] VITALS (25 sets, daily range): BP systolic 129–174; BP diastolic 65–89; PULSE 84–118; RESP 18–30; TEMP 37.4–38; O2SAT 25–98
[2021-02-10 01:01] LABS: Glucose Point of Care 132 mg/dl (65-105)
[2021-02-10] MEDS: ALBUTEROL SULFATE NEB 2.5 MG/0.5 ML INH INHALATION ×4 (01:52→22:18)
[2021-02-10] MEDS: CIPROFLOXACIN 400 MG/D5W 200ML 200 ML 200 MG IVPB ×3 (02:23→18:39)
[2021-02-10 04:42] LABS: Alveolar/Arterial O2 Gradient 180.9 mmHg; Base Excess ABG 9.9 mEq/l (+/-2.0); Fractional Inspired Oxygen 40 %; HCO3 ABG 31.5 mEq/l (22.0-26.0); Oxygen Saturation ABG 95.9 % (95.0-100.0); PCO2 ABG 32.8 mmHg (35.0-45.0); PO2 ABG 66.6 mmHg (80.0-100.0); PO2 FiO2 Ratio Arterial Blood 1.66 %
[2021-02-10 04:50] LABS: Device VENTILATOR; Modified Allen's Test Pass; Site Drawn RIGHT RADIAL
[2021-02-10 04:51] LABS: Arterial Blood Gas PEEP 8 cmH2O; Arterial Blood Gas Vent Mode ASV
[2021-02-10 05:35] LABS: Basophils Absolute Auto 0.1 K/mm3 (0.0-0.1); Eosinophils Absolute Auto 0.2 K/mm3 (0-0.3); Eosinophils Percent Auto 1.8 % (0-4.4); Hematocrit 28.1 % (42.0-52.0); Hemoglobin 8.8 g/dL (14.0-18.0); Immature Granulocyte Absolute 0.45 K/mm3 (0.00-0.031); Immature Granulocyte Percent A 4.8 % (0-0.5); Lymphocytes Absolute Auto 0.89 K/mm3 (0.9-3.2); Lymphocytes Percent Auto 9.5 % (18.3-44.2); Mean Corpuscular HGB Conc 31.3 g/dl (32-36); Mean Corpuscular Hemoglobin 29.3 pg (26-34); Mean Corpuscular Volume 93.7 fl (80-100); Mean Platelet Volume 9.5 fl (7.4-10.4); Monocytes Percent Auto 10.9 % (2.6-8.5); Neutrophils Absolute Auto 6.7 K/mm3 (1.3-6.7); Platelet Count Result 780 k/mm3 (150-375); Red Cell Distribution Width 14.1 % (11.5-14.5); White Blood Count 9.3 K/mm3 (4.5-10.0)
[2021-02-10 06:01] LABS: Alanine Aminotransferase 68 U/L (4-50); Albumin Level 2.4 g/dL (3.5-5.1); Alkaline Phosphatase 107 U/L (38-126); Anion Gap 2 mmol/L (8-16); Aspartate Amino Transferase 65 U/L (17-59); Bilirubin,Total 0.3 mg/dL (0.2-1.3); Blood Urea Nitrogen 17 mg/dL (9-20); Calcium 8.6 mg/dL (8.4-10.2); Carbon Dioxide 32 mmol/L (22-30); Chloride 104 mmol/L (98-107); Estimated CRCL calculation 107 ml/min; Estimated Glomerular Filt Rate > 60; Glucose 154 mg/dL (65-110); Phosphorus 3.5 mg/dL (2.5-4.5); Potassium 3.8 mmol/L (3.4-5.0); Sodium 138 mmol/L (137-145)
[2021-02-10 06:15] LABS: Glucose Point of Care 142 mg/dl (65-105)
[2021-02-10] MEDS: CENTRAL LINE FLUSH 10 ML IV PUSH ×3 (06:56→21:57)
--- NOTE | 2021-02-10 09:29 | PM.IMPN ---
Progress Note: A&P Assessment and Plan (1) Acute respiratory failure with hypoxia: Code(s): J96.01 - Acute respiratory failure with hypoxia Status: Acute Assessment and Plan: Patient with acute hypoxic respiratory failure related to COVID-19. CTA chest 01/11 showing no PE but showing findings consistent with COVID. Oxygen requirement was increasing to the point of requiring intubation on 01/17/21. He now has completed 10 days of dexamethasone and Remdesivir. He was on Nimbex for paralysis for better ventilator synchrony but now off off paralytic 01/27. He did not tolerate SBT and became tachycardic and tachypneic within few minutes of trial. ICU service spoke to the family for needs for tracheostomy and PEG tube placement. Patient's was agreeable so PEG tube was placed 02/02 and tracheostomy placed 02/05. ABG noted and felt related to his hyperventilation. Vent adjustments per digester operator. Pulmonary and digester operator following along and appreciate their input. Placement being arranged. Resume Wellbutrin. (2) Septic shock: Code(s): A41.9 - Sepsis, unspecified organism; R65.21 - Severe sepsis with septic shock Status: Acute Assessment and Plan: Patient became HoTN requiring pressor therapy with Levophed 01/18 possibly related to sedation. Able to be weaned off but BP dropped again on 01/22 requiring Levophed up to 12mcg/min felt related to septic shock but able to be weaned off again 01/24. Blood pressure remaining stable. Continue to monitor. (3) Pseudomonas pneumonia: Code(s): J15.1 - Pneumonia due to Pseudomonas Status: Acute Assessment and Plan: Sputum was positive for Pseudomonas on 01/22 and noted again 01/27 and on 02/01; all diaz-sensitive. CXR showing diffuse airspace disease. He finished cefepime course for 10 days on 02/01/21. Persistent low-grade fevers and WBC was up slightly to 10.4K so we added Cipro 02/05/21. WBC normal; fever improved but more elevated overnight - atelectasis? Continue supportive care. (4) Pneumonia due to COVID-19 virus: Code(s): U07.1 - COVID-19; J12.82 - Pneumonia due to coronavirus disease 2019 Status: Acute Assessment and Plan: Patient tested COVID-19 positive 01/09/21 after starting have symptoms 01/05/21. He was fully vaccinated with Moderna in September; antibodies present. Completed Remdesivir and Decadron. Continue current care plan. (5) Type 2 diabetes mellitus without complication, without long-term current use of insulin: Code(s): E11.9 - Type 2 diabetes mellitus without complications Status: Acute Assessment and Plan: A1c 7.4. The patient's blood glucose was reviewed on 02/10 Glucose remains very well controlled. Tolerating TF. Continue AccuCheks covering with sliding scale. Hypoglycemia protocol available as needed. Continue Lantus (6) Essential (primary) hypertension: Code(s): I10 - Essential (primary) hypertension Status: Acute Assessment and Plan: Patient's blood pressure was reviewed on 02/10 Blood pressure stable off Levophed and even elevated at times. Amlodipine and valsartan remain on hold (7) Elevated LFTs: Code(s): R79.89 - Other specified abnormal findings of blood chemistry Status: Acute Assessment and Plan: Liver tests became elevated with AST to 739 and ALT 630. RUQ okay. Hepatitis panel negative. [place] related to clinical condition and/or medications. Levels normalized and up slightly now. Continue to follow intermittently. (8) Pressure sore: Code(s): L89.90 - Pressure ulcer of unspecified site, unspecified stage Status: Acute Assessment and Plan: Patient with facial pressure sore with dark eschar. The area is slowly improving. Wound care consulted and following. (9) DVT prophylaxis: Code(s): Z29.9 - Encounter for prophylactic measures, unspecified Status: Acute Assessment and Plan: Lovenox
[2021-02-10] MEDS: ENOXAPARIN 40 MG/0.4 ML SYRINGE SUB-Q ×2 (09:47→21:56)
[2021-02-10] MEDS: PANTOPRAZOLE SODIUM IV 40 MG VIAL IV PUSH (09:47)
[2021-02-10] MEDS: MINERAL OIL/WHITE PETROLATUM OINTMENT 1 APPLIC EACH EYE (09:47)
[2021-02-10] MEDS: INSULIN GLARGINE (*BKC) 100 UNITS/ML 10 UNITS SUB-Q ×2 (09:51→21:56)
[2021-02-10] MEDS: DORNASE ALFA INH SOLN 1 MG/ML 2.5 ML AMP 2.5 MG INHALATION ×2 (12:33→22:20)
[2021-02-10] MEDS: buPROPion HCL 75 MG TABLET PO ×2 (12:39→21:56)
[2021-02-10] MEDS: ASPIRIN 81 MG CHEWABLE TABLET 324 MG PO (12:39)
[2021-02-10] MEDS: ALPRAZolam (*CRX) 0.125 MG TABLET PO (12:39)
[2021-02-10 12:40] LABS: Glucose Point of Care 101 mg/dl (65-105)
--- NOTE | 2021-02-10 12:41 | PCDIET ---
ICU Rounding Note: Patient tolerating Glucerna 1.2 at 50mL/hr goal rate with 30mL water flush every 6 hours and Pro-Stat flush TID. Last recorded weight is 90.6kg which is stable. Bowel Motility: RN reporting several BM's overnight. Labs Reviewed: RBC (3.00), Hgb (8.8), Hct (28.1), Glu (154), Cr (0.6), Alb (2.4) Meds Noted: Albuterol, Xanax, Cipro, Pulmozyme, Novolog, Lantus, Protonix, Seroquel Additional Notes: Upper lip and chin with deep tissue ulcers. No new recommendations at this time. Following daily in ICU rounds. Assessing/reassessing every Tuesday/Tuesday.
--- NOTE | 2021-02-10 14:19 | WPDINTPN ---
Progress Note: A&P Assessment and Plan (1) Acute respiratory failure with hypoxia: Code(s): J96.01 - Acute respiratory failure with hypoxia Status: Acute Assessment and Plan: Acute Respiratory failure secondary to COVID-19 pneumonia with worsening hypoxia through the hospital course Bipap 01/16, intubated 01/17. was proned for multiple days - 01/27 NMB infusion discontinued - 01/28 sedation switched to shorter acting propofol - -02/07: Chest x-ray shows diffuse bilateral airspace disease which may represent pneumonia and/or edema - Patient has been diuresing well, will diurese again today -02/08: Has been on ASV mode since, will decrease to 90% minute ventilation is patient respiratory alkalosis. Patient is off all sedation -patient is anxious, on p.r.n. Xanax, and try to wean off Precedex at some point -02/10: will also start buspirone which is home medication - Patient developed Pseudomonas pneumonia on top of COVID-19 pneumonia which was treated with cefepime, repeat sputum cultures on 02/01/2021 positive and patient was febrile so was started on ciprofloxacin (02/05) - patient was intubated on 01/17 - 02/02/2021: PEG tube placed -02/05/2021, tracheostomy was placed (2) Fever: Code(s): R50.9 - Fever, unspecified Status: Acute Assessment and Plan: 01/22/2021: Patient was hypotensive, requiring Levophed, increasing oxygen requirement on mechanical ventilation and slightly worsening chest x-ray - blood cultures coag neg staph - sputum cultures from 01/22 growing pseudomonas, Pansensitive. patient completed a course of cefepime (initiated on 01/22) - Vancomycin was discontinued on 01/24 - Lipase is mildly elevated. monitor - Flores was changed on Tuesday - chest x-ray with bilateral diffuse infiltrates, repeat sputum cultures from 02/01/2021 growing Pseudomonas, started on ciprofloxacin on 02/05/2021 -patient remains febrile with a T-max of 100.2?, -02/07/2021: Bilateral upper and lower extremity venous Dopplers were negative for DVT -lipase is normal -continue to have low-grade fevers, could be related to atelectasis, Dopplers have been negative as above, remains on ciprofloxacin for Pseudomonas pneumonia (3) Pneumonia due to COVID-19 virus: Code(s): U07.1 - COVID-19; J12.82 - Pneumonia due to coronavirus disease 2018 Status: Acute Assessment and Plan: Patient received Moderna vaccine in September of 2020 has still developed significant COVID-19 pneumonia. his COVID-19 PCR and antibody are both reactive. patient has completed a course Rocephin and azithromycin. has completed 10 day course of dexamethasone he has completed a 10 day course of Remdesivir initially his CRP was high 12.1 but his repeat CRP was 5.4 hence not high enough to start Tocilizumab No more isolation as he has been covid positive > 20 days (4) Diabetes mellitus: Code(s): E11.9 - Type 2 diabetes mellitus without complications Status: Acute Assessment and Plan: continue Lantus and sliding scale continue tube feeds (5) Elevated LFTs: Code(s): R79.89 - Other specified abnormal findings of blood chemistry Status: Acute Assessment and Plan: RUQ ultrasound 01/20/2021 showed hepatic steatosis - hepatitis panel was negative - appreciate GI evaluation recommendation - increase in LFTs could be related to septic shock, shock liver, will continue to maintain mean arterial pressures > 65 mmHg for adequate -liver enzymes trending up, will continue to monitor Additional Plan DVT prophylaxis - Lovenox Stress ulcer prophylaxis - PPI Nutrition -tube feeds through PEG tube Code Status - Full Code Discussed with , Taryn, at bedside updated her with patient's condition, plan of care. She is aware that we are waiting for his transferred to the LTAC facility Total Critical Care Time - 33 minutes Due to a high probability of clinically significant, lif
[2021-02-10 18:45] LABS: Glucose Point of Care 147 mg/dl (65-105)
[2021-02-10 21:56] LABS: Glucose Point of Care 159 mg/dl (65-105)
[2021-02-10] MEDS: QUEtiapine FUMARATE 12.5 MG TABLET PO (21:56)
[2021-02-11] VITALS (27 sets, daily range): BP systolic 130–157; BP diastolic 69–92; PULSE 60–114; RESP 14–34; TEMP 37.2–38.3; O2SAT 90–96
[2021-02-11 00:34] LABS: Glucose Point of Care 129 mg/dl (65-105)
[2021-02-11] MEDS: CIPROFLOXACIN 400 MG/D5W 200ML 200 ML 200 MG IVPB ×3 (02:10→17:51)
[2021-02-11] MEDS: ACETAMINOPHEN ELIXIR 325 MG/10.15 ML UDC 650 MG FEED TUBE ×2 (04:49→15:51)
[2021-02-11] MEDS: CENTRAL LINE FLUSH 10 ML IV PUSH ×3 (04:49→20:29)
[2021-02-11 05:24] LABS: Basophils Absolute Auto 0.1 K/mm3 (0.0-0.1); Basophils Percent Auto 0.7 % (0.2-1.2); Eosinophils Absolute Auto 0.2 K/mm3 (0-0.3); Eosinophils Percent Auto 1.2 % (0-4.4); Hemoglobin 9.1 g/dL (14.0-18.0); Immature Granulocyte Absolute 0.41 K/mm3 (0.00-0.031); Immature Granulocyte Percent A 3.1 % (0-0.5); Lymphocytes Absolute Auto 0.88 K/mm3 (0.9-3.2); Lymphocytes Percent Auto 6.8 % (18.3-44.2); Mean Corpuscular HGB Conc 31.4 g/dl (32-36); Mean Corpuscular Hemoglobin 29.4 pg (26-34); Mean Corpuscular Volume 93.9 fl (80-100); Mean Platelet Volume 9.5 fl (7.4-10.4); Monocytes Absolute Auto 1.5 K/mm3 (0.1-0.6); Monocytes Percent Auto 11.5 % (2.6-8.5); Neutrophils Percent Auto 76.7 % (45.5-73.1); Nucleated Red Blood Cells Perc 0.2 % (0.0-0.2); Platelet Count Result 761 k/mm3 (150-375); Red Blood Count 3.09 M/mm3 (4.6-6.20); Red Cell Distribution Width 14.2 % (11.5-14.5)
[2021-02-11 05:32] LABS: Lactic Acid Reflex 1.1 mmol/L (0.7-2.1)
[2021-02-11 05:44] LABS: Alanine Aminotransferase 63 U/L (4-50); Albumin Level 2.5 g/dL (3.5-5.1); Alkaline Phosphatase 109 U/L (38-126); Anion Gap 5 mmol/L (8-16); Aspartate Amino Transferase 45 U/L (17-59); Bilirubin,Total 0.4 mg/dL (0.2-1.3); Blood Urea Nitrogen 13 mg/dL (9-20); Calcium 8.5 mg/dL (8.4-10.2); Carbon Dioxide 29 mmol/L (22-30); Chloride 105 mmol/L (98-107); Estimated CRCL calculation 107 ml/min; Estimated Glomerular Filt Rate > 60; Glucose 149 mg/dL (65-110); Magnesium 2.1 mg/dL (1.6-2.3); Phosphorus 3.7 mg/dL (2.5-4.5); Potassium 3.8 mmol/L (3.4-5.0); Sodium 139 mmol/L (137-145)
[2021-02-11 06:07] LABS: Alveolar/Arterial O2 Gradient 160.6 mmHg; Base Excess ABG 5.9 mEq/l (+/-2.0); Carboxyhemoglobin 0.3 % THb (0-2.0); Fractional Inspired Oxygen 40 %; HCO3 ABG 29.3 mEq/l (22.0-26.0); Methemoglobin ABG 0.4 %THb (0-1.5); Oxygen Content ABG 14.5 %vol (16.0-22.0); Oxygen Saturation ABG 96.8 % (95.0-100.0); Oxyhemoglobin 94.9 % THb (90.0-100.0); PCO2 ABG 38.1 mmHg (35.0-45.0); PO2 ABG 80.8 mmHg (80.0-100.0); PO2 FiO2 Ratio Arterial Blood 2.02 %; Reduced Hemoglobin 4.4 %THb (0-5.0); Total Hemoglobin 10.8 g/dL (12.0-18.0); pH ABG 7.504 (7.350-7.450)
[2021-02-11 06:08] LABS: Site Drawn RIGHT RADIAL
[2021-02-11 06:09] LABS: Device VENTILATOR; Modified Allen's Test Pass
[2021-02-11 06:10] LABS: Arterial Blood Gas PEEP 8 cmH2O; Arterial Blood Gas Vent Mode ASV
--- NOTE | 2021-02-11 08:33 | PM.IMPN ---
Progress Note: A&P Assessment and Plan (1) Fever: Code(s): R50.9 - Fever, unspecified Status: Acute Assessment and Plan: Patient with fever to 101 overnight and now with elevated WBC. Concern for infectious etiology. Remains on Cipro for the persistent pseudomonas PNA. CXR showing no significnat change in the bilateral airspace disease. Agree with UA/UCx and CT chest/A/P. Consider BCx if has fever again. If workup unrevealing, consider CTA for PE but feel less likely (UE and LE Doppler negative for DVT 02/07). Follow up on results (2) Acute respiratory failure with hypoxia: Code(s): J96.01 - Acute respiratory failure with hypoxia Status: Acute Assessment and Plan: Patient with acute hypoxic respiratory failure related to COVID-19. CTA chest 01/11 showing no PE but showing findings consistent with COVID. Oxygen requirement was increasing to the point of requiring intubation on 01/17/21. He now has completed 10 days of dexamethasone and Remdesivir. He was placed prone and on Nimbex for paralysis for better ventilator synchrony but now off off paralytic 01/27. He did not tolerate SBT and became tachycardic and tachypneic within few minutes of trial. ICU service spoke to the family for needs for tracheostomy and PEG tube placement. Patient's was agreeable so PEG tube was placed 02/02 and tracheostomy placed 02/05. ABG improved today. Pulmonary and farm machinery assembler following along and appreciate their input. Placement being arranged. (3) Septic shock: Code(s): A41.9 - Sepsis, unspecified organism; R65.21 - Severe sepsis with septic shock Status: Acute Assessment and Plan: Patient became HoTN requiring pressor therapy with Levophed 01/18 possibly related to sedation. Able to be weaned off but BP dropped again on 01/22 requiring Levophed up to 12mcg/min felt related to septic shock but able to be weaned off again 01/24. Blood pressure remaining stable. Continue to monitor. (4) Pseudomonas pneumonia: Code(s): J15.1 - Pneumonia due to Pseudomonas Status: Acute Assessment and Plan: Sputum was positive for Pseudomonas on 01/22 and noted again 01/27 and on 02/01; all diaz-sensitive. CXR showing diffuse airspace disease. He finished cefepime course for 10 days on 02/01/21. Persistent low-grade fevers and WBC was up slightly so we added Cipro 02/05/21. WBC and temperature normalized until overnight; now having recurrent fevers. As above. Continue Cipro for now; continue supportive care. (5) Pneumonia due to COVID-19 virus: Code(s): U07.1 - COVID-19; J12.82 - Pneumonia due to coronavirus disease 2019 Status: Acute Assessment and Plan: Patient tested COVID-19 positive 01/09/21 after starting have symptoms 01/05/21. He was fully vaccinated with Moderna in September; antibodies present. Completed Remdesivir and Decadron. Continue current care plan as detailed above. He is off isolation. (6) Type 2 diabetes mellitus without complication, without long-term current use of insulin: Code(s): E11.9 - Type 2 diabetes mellitus without complications Status: Acute Assessment and Plan: A1c 7.4. The patient's blood glucose was reviewed on 02/11 Glucose remains very well controlled. Tolerating TF. Continue AccuCheks covering with sliding scale. Hypoglycemia protocol available as needed. Continue Lantus (7) Essential (primary) hypertension: Code(s): I10 - Essential (primary) hypertension Status: Acute Assessment and Plan: Patient's blood pressure was reviewed on 02/11 Blood pressure stable off Levophed and even elevated at times. Amlodipine and valsartan remain on hold (8) Elevated LFTs: Code(s): R79.89 - Other specified abnormal findings of blood chemistry Status: Acute Assessment and Plan: Liver tests became elevated with AST to 739 and ALT 630. RUQ okay. Hepatitis panel negative. [place] related to clinical condition and/o
[2021-02-11] MEDS: ALBUTEROL SULFATE NEB 2.5 MG/0.5 ML INH INHALATION ×3 (09:20→20:54)
[2021-02-11] MEDS: DORNASE ALFA INH SOLN 1 MG/ML 2.5 ML AMP 2.5 MG INHALATION ×2 (09:30→20:54)
[2021-02-11 09:46] LABS: Add Urine Microscopic? YES; Amorphous Sediment Urine Few; Appearance Urine Cloudy (Clear); Bacteria Urine Trace /hpf; Bilirubin Urine Negative (Negative); Blood Urine 1+ (Negative); Color Urine Yellow (Yellow); Glucose Urine UA Negative (Negative); Ketones Urine Negative (Negative); Leukocyte Esterase Ur Negative LEU/UL (NEGATIVE); Mucus Urine Rare /lpf; Nitrate Urine Negative (Negative); Protein Urine Negative (Negative); RBC Urine 21-50 /hpf (0-2); Specific Grav Ur 1.016 (1.001-1.035); Squamous Epithelial Cell Urine Rare /hpf (Few); WBC Clumps Urine Present /HPF
[2021-02-11] MEDS: ENOXAPARIN 40 MG/0.4 ML SYRINGE SUB-Q ×2 (09:52→20:28)
[2021-02-11] MEDS: PANTOPRAZOLE SODIUM IV 40 MG VIAL IV PUSH (09:53)
[2021-02-11] MEDS: ASPIRIN 81 MG CHEWABLE TABLET 324 MG PO (09:53)
[2021-02-11] MEDS: buPROPion HCL 75 MG TABLET PO ×2 (09:53→20:29)
[2021-02-11] MEDS: INSULIN GLARGINE (*BKC) 100 UNITS/ML 10 UNITS SUB-Q ×2 (09:57→20:24)
--- NOTE | 2021-02-11 11:46 | P.PNINT_ITS ---
Progress Note: A&P Assessment and Plan (1) Acute respiratory failure with hypoxia: Code(s): J96.01 - Acute respiratory failure with hypoxia Status: Acute Assessment and Plan: Acute Respiratory failure secondary to COVID-19 pneumonia with worsening hypoxia through the hospital course Bipap 01/16, intubated 01/17. was proned for multiple days - 01/27 NMB infusion discontinued - 01/28 sedation switched to shorter acting propofol - -02/07: Chest x-ray shows diffuse bilateral airspace disease which may represent pneumonia and/or edema - Patient has been diuresing well, will diurese again today -02/08: Has been on ASV mode since, will decrease to 90% minute ventilation is patient respiratory alkalosis. Patient is off all sedation -patient is anxious, on p.r.n. Xanax, and try to wean off Precedex at some point -02/10: will also start buspirone which is home medication - Patient developed Pseudomonas pneumonia on top of COVID-19 pneumonia which was treated with cefepime, repeat sputum cultures on 02/01/2021 positive and patient was febrile so was started on ciprofloxacin (02/05) - patient was intubated on 01/17 - 02/02/2021: PEG tube placed -02/05/2021, tracheostomy was placed (2) Fever: Code(s): R50.9 - Fever, unspecified Status: Acute Assessment and Plan: 01/22/2021: Patient was hypotensive, requiring Levophed, increasing oxygen requirement on mechanical ventilation and slightly worsening chest x-ray - blood cultures coag neg staph - sputum cultures from 01/22 growing pseudomonas, Pansensitive. patient completed a course of cefepime (initiated on 01/22) - Vancomycin was discontinued on 01/24 - sputum cultures from 02/01/2021 growing Pseudomonas, started on ciprofloxacin on 02/05/2021 -02/07/2021: Venous Dopplers of bilateral upper and lower extremity were negative for DVTs -02/11/2021, T-max of 101.3?. Pancultured -02/11/2021 CT Ch/A/P returned showing diffuse lung disease, consistent with COVID-19 pneumonia and acute respiratory distress syndrome (ARDS) with small bilateral pleural effusions. Abd/pelvis okay except for small volume of hyperdense material in the bladder. No gross hematuria so hematoma unlikely; fungal ball? (3) Pneumonia due to COVID-19 virus: Code(s): U07.1 - COVID-19; J12.82 - Pneumonia due to coronavirus disease 2018 Status: Acute Assessment and Plan: Patient received Moderna vaccine in September of 2020 has still developed significant COVID-19 pneumonia. his COVID-19 PCR and antibody are both reactive. patient has completed a course Rocephin and azithromycin. has completed 10 day course of dexamethasone he has completed a 10 day course of Remdesivir initially his CRP was high 12.1 but his repeat CRP was 5.4 hence not high enough to start Tocilizumab No more isolation as he has been covid positive > 20 days (4) Diabetes mellitus: Code(s): E11.9 - Type 2 diabetes mellitus without complications Status: Acute Assessment and Plan: continue Lantus and sliding scale continue tube feeds (5) Elevated LFTs: Code(s): R79.89 - Other specified abnormal findings of blood chemistry Status: Acute Assessment and Plan: RUQ ultrasound 01/20/2021 showed hepatic steatosis - hepatitis panel was negative - appreciate GI evaluation recommendation - increase in LFTs could be related to septic shock, shock liver, will continue to maintain mean arterial pressures > 65 mmHg for adequate -liver enzymes trending up, will continue to monitor Additional Plan DVT prophylaxis - Lovenox Stres
[2021-02-11 12:04] LABS: Glucose Point of Care 164 mg/dl (65-105)
--- NOTE | 2021-02-11 12:23 | PCDIET ---
ICU Rounding Note: Patient tolerating Glucerna 1.2 at 50mL/hr with 30mL water flush every 6 hours and Pro-Stat flush TID. Last recorded weight is 88.2kg which is down from last review. -I/O. Bowel Motility: Last documented BM on 02/11/21. Labs Reviewed: WBC (13.0), RBC (3.09), Hgb (9.1), Hct (29.0), Glu (149), Cr (0.6), Alb (2.5) Meds Noted: Albuterol, Cipro, Precedex, Pulmozyme, Novolog, Lantus, Protonix, Miralax, Seroquel Additional Notes: Upper lip and chin with pressure ulcers. Following daily in ICU rounds. Assessing/reassessing every Tuesday/Tuesday.
[2021-02-11 12:47] LABS: CRP 13.8 mg/dL (<1.0)
[2021-02-11] MEDS: ALPRAZolam (*CRX) 0.125 MG TABLET PO (15:51)
[2021-02-11 17:39] LABS: Glucose Point of Care 156 mg/dl (65-105)
[2021-02-11 20:22] LABS: Glucose Point of Care 144 mg/dl (65-105)
[2021-02-11] MEDS: MINERAL OIL/WHITE PETROLATUM OINTMENT 1 APPLIC EACH EYE (20:29)
[2021-02-11] MEDS: fentaNYL CITRATE INJ (*CRX) 100 MCG/2 ML VIAL 25 MCG IV PUSH (21:07)
[2021-02-11] MEDS: ALTEPLASE 2 MG VIAL (CATHFLO) IV PUSH (23:04)
[2021-02-12] VITALS (30 sets, daily range): BP systolic 134–158; BP diastolic 63–84; PULSE 94–115; RESP 15–33; TEMP 37.5–38.1; O2SAT 91–97
[2021-02-12 00:09] LABS: Glucose Point of Care 136 mg/dl (65-105)
[2021-02-12] MEDS: CIPROFLOXACIN 400 MG/D5W 200ML 200 ML 200 MG IVPB ×3 (02:17→17:16)
[2021-02-12] MEDS: ALBUTEROL SULFATE NEB 2.5 MG/0.5 ML INH INHALATION ×5 (04:13→19:54)
[2021-02-12] MEDS: CENTRAL LINE FLUSH 10 ML IV PUSH ×3 (05:32→21:03)
[2021-02-12 05:36] LABS: Glucose Point of Care 164 mg/dl (65-105)
[2021-02-12 05:37] LABS: Basophils Absolute Auto 0.1 K/mm3 (0.0-0.1); Basophils Percent Auto 0.7 % (0.2-1.2); Eosinophils Absolute Auto 0.4 K/mm3 (0-0.3); Eosinophils Percent Auto 3.7 % (0-4.4); Hematocrit 27.6 % (42.0-52.0); Hemoglobin 8.5 g/dL (14.0-18.0); Immature Granulocyte Absolute 0.32 K/mm3 (0.00-0.031); Immature Granulocyte Percent A 2.8 % (0-0.5); Lymphocytes Absolute Auto 1.04 K/mm3 (0.9-3.2); Lymphocytes Percent Auto 9.1 % (18.3-44.2); Mean Corpuscular HGB Conc 30.8 g/dl (32-36); Mean Corpuscular Hemoglobin 28.9 pg (26-34); Mean Corpuscular Volume 93.9 fl (80-100); Monocytes Absolute Auto 1.2 K/mm3 (0.1-0.6); Monocytes Percent Auto 10.5 % (2.6-8.5); Neutrophils Absolute Auto 8.4 K/mm3 (1.3-6.7); Neutrophils Percent Auto 73.2 % (45.5-73.1); Platelet Count Result 664 k/mm3 (150-375); Red Blood Count 2.94 M/mm3 (4.6-6.20); Red Cell Distribution Width 14.1 % (11.5-14.5); White Blood Count 11.4 K/mm3 (4.5-10.0)
[2021-02-12 05:52] LABS: Alanine Aminotransferase 52 U/L (4-50); Albumin Level 2.4 g/dL (3.5-5.1); Alkaline Phosphatase 102 U/L (38-126); Anion Gap 4 mmol/L (8-16); Aspartate Amino Transferase 33 U/L (17-59); Bilirubin,Total 0.3 mg/dL (0.2-1.3); Blood Urea Nitrogen 14 mg/dL (9-20); Calcium 8.6 mg/dL (8.4-10.2); Carbon Dioxide 31 mmol/L (22-30); Chloride 103 mmol/L (98-107); Estimated CRCL calculation 126 ml/min; Estimated Glomerular Filt Rate > 60; Glucose 150 mg/dL (65-110); Magnesium 2.1 mg/dL (1.6-2.3); Phosphorus 3.9 mg/dL (2.5-4.5); Potassium 3.8 mmol/L (3.4-5.0); Sodium 138 mmol/L (137-145)
[2021-02-12 06:13] LABS: CRP 17.6 mg/dL (<1.0)
[2021-02-12] MEDS: ENOXAPARIN 40 MG/0.4 ML SYRINGE SUB-Q ×2 (07:40→21:02)
[2021-02-12] MEDS: buPROPion HCL 75 MG TABLET PO ×2 (07:40→21:02)
[2021-02-12] MEDS: ASPIRIN 81 MG CHEWABLE TABLET 324 MG PO (07:40)
[2021-02-12] MEDS: MINERAL OIL/WHITE PETROLATUM OINTMENT 1 APPLIC EACH EYE ×2 (07:40→21:02)
[2021-02-12] MEDS: PANTOPRAZOLE SODIUM IV 40 MG VIAL IV PUSH (07:40)
[2021-02-12] MEDS: INSULIN GLARGINE (*BKC) 100 UNITS/ML 10 UNITS SUB-Q ×2 (07:43→21:02)
[2021-02-12] MEDS: ALPRAZolam (*CRX) 0.125 MG TABLET PO ×2 (07:50→17:16)
[2021-02-12] MEDS: DORNASE ALFA INH SOLN 1 MG/ML 2.5 ML AMP 2.5 MG INHALATION ×2 (08:20→19:54)
[2021-02-12] MEDS: fentaNYL CITRATE INJ (*CRX) 100 MCG/2 ML VIAL 25 MCG IV PUSH (08:32)
[2021-02-12] MEDS: ACETAMINOPHEN ELIXIR 325 MG/10.15 ML UDC 650 MG FEED TUBE ×3 (11:29→22:18)
[2021-02-12 12:15] LABS: Glucose Point of Care 137 mg/dl (65-105)
--- NOTE | 2021-02-12 13:25 | PCDIET ---
Nutrition Follow-Up Complete: Nutrition Diagnosis: Inadequate oral intake related to oral intubation as evidenced by need for tube feedings. Nutrition Goal: Patient to meet estimated nutritional needs. Goal met. Patient tolerating Glucerna 1.2 at 50mL/hr goal rate with 30mL water flush every 6 hours and Pro-Stat flush TID. Last recorded weight is 89.1 kg which is increased from last review. +I/O. Bowel Motility: Last documented BM on 02/10/21 x 1. Labs Reviewed: WBC (11.4), RBC (2.94), Hgb (8.5), Hct (27.6), Glu (150), Cr (0.5), Alb (2.4) Meds Noted: Albuterol, Cipro, Pulmozyme, Lantus, Protonix Additional Notes: No change in skin documented. Pressure ulcers to upper lip and chin. Will continue to monitor with same goal. Nutrition Monitoring and Evaluation: Follow up every Tuesday/Tuesday. Follow daily in ICU rounds.
--- NOTE | 2021-02-12 14:35 | WPDINTPN ---
Progress Note: A&P Assessment and Plan (1) Acute respiratory failure with hypoxia: Code(s): J96.01 - Acute respiratory failure with hypoxia Status: Acute Assessment and Plan: Acute Respiratory failure secondary to COVID-19 pneumonia with worsening hypoxia through the hospital course Bipap 01/16, intubated 01/17. was proned for multiple days - 01/27 NMB infusion discontinued - 01/28 sedation switched to shorter acting propofol - -02/07: Chest x-ray shows diffuse bilateral airspace disease which may represent pneumonia and/or edema - Patient has been diuresing well, will diurese again today -02/08: Has been on ASV mode since, will decrease to 90% minute ventilation is patient respiratory alkalosis. Patient is off all sedation -patient is anxious, on p.r.n. Xanax, and try to wean off Precedex at some point -02/10: will also start buspirone which is home medication - Patient developed Pseudomonas pneumonia on top of COVID-19 pneumonia which was treated with cefepime, repeat sputum cultures on 02/01/2021 positive and patient was febrile so was started on ciprofloxacin (02/05) - patient was intubated on 01/17 - 02/02/2021: PEG tube placed -02/05/2021, tracheostomy was placed (2) Fever: Code(s): R50.9 - Fever, unspecified Status: Acute Assessment and Plan: 01/22/2021: Patient was hypotensive, requiring Levophed, increasing oxygen requirement on mechanical ventilation and slightly worsening chest x-ray - blood cultures coag neg staph - sputum cultures from 01/22 growing pseudomonas, Pansensitive. patient completed a course of cefepime (initiated on 01/22) - Vancomycin was discontinued on 01/24 - sputum cultures from 02/01/2021 growing Pseudomonas, started on ciprofloxacin on 02/05/2021 -02/07/2021: Venous Dopplers of bilateral upper and lower extremity were negative for DVTs -02/11/2021 blood cultures negative x2, sputum culture negative so far, urine cultures pending -02/11/2021 CT Ch/A/P returned showing diffuse lung disease, consistent with COVID-19 pneumonia and acute respiratory distress syndrome (ARDS) with small bilateral pleural effusions. Abd/pelvis okay except for small volume of hyperdense material in the bladder. No gross hematuria so hematoma unlikely; fungal ball? (3) Pneumonia due to COVID-19 virus: Code(s): U07.1 - COVID-19; J12.82 - Pneumonia due to coronavirus disease 2018 Status: Acute Assessment and Plan: Patient received Moderna vaccine in September of 2020 has still developed significant COVID-19 pneumonia. his COVID-19 PCR and antibody are both reactive. patient has completed a course Rocephin and azithromycin. has completed 10 day course of dexamethasone he has completed a 10 day course of Remdesivir initially his CRP was high 12.1 but his repeat CRP was 5.4 hence not high enough to start Tocilizumab No more isolation as he has been covid positive > 20 days (4) Diabetes mellitus: Code(s): E11.9 - Type 2 diabetes mellitus without complications Status: Acute Assessment and Plan: continue Lantus and sliding scale continue tube feeds (5) Elevated LFTs: Code(s): R79.89 - Other specified abnormal findings of blood chemistry Status: Acute Assessment and Plan: RUQ ultrasound 01/20/2021 showed hepatic steatosis - hepatitis panel was negative - appreciate GI evaluation recommendation - increase in LFTs could be related to septic shock, shock liver, will continue to maintain mean arterial pressures > 65 mmHg for adequate -liver enzymes trending up, will continue to monitor Additional Plan DVT prophylaxis - Lovenox Stress ulcer prophylaxis - PPI Nutrition -tube feeds through PEG tube Code Status - Full Code Discussed with , Taryn, at bedside updated her with patient's condition, plan of care. She is aware that we are waiting for his transferred to the LTAC facility Total Critical Care Time - 31 min
[2021-02-12 17:09] LABS: Glucose Point of Care 134 mg/dl (65-105)
--- NOTE | 2021-02-12 18:33 | PM.IMPN ---
Progress Note: A&P Assessment and Plan (1) Fever: Code(s): R50.9 - Fever, unspecified Status: Acute Assessment and Plan: Patient still with low grade fevers. WBC trending down today. Concern for infectious etiology. Remains on Cipro for the persistent pseudomonas PNA. CXR showing no significant change in the bilateral airspace disease. CRP 17 which is higher today. UCx negative and sputum and blood cultures NGTD. Follow (2) Acute respiratory failure with hypoxia: Code(s): J96.01 - Acute respiratory failure with hypoxia Status: Acute Assessment and Plan: Patient with acute hypoxic respiratory failure related to COVID-19. CTA chest 01/11 showing no PE but showing findings consistent with COVID. Oxygen requirement was increasing to the point of requiring intubation on 01/17/21. He now has completed 10 days of dexamethasone and Remdesivir. He was placed prone and on Nimbex for paralysis for better ventilator synchrony but now off off paralytic 01/27. He did not tolerate SBT and became tachycardic and tachypneic within few minutes of trial. ICU service spoke to the family for needs for tracheostomy and PEG tube placement. Patient's was agreeable so PEG tube was placed 02/02 and tracheostomy placed 02/05. Pulmonary and package drier following along and appreciate their input. Placement being arranged. (3) Septic shock: Code(s): A41.9 - Sepsis, unspecified organism; R65.21 - Severe sepsis with septic shock Status: Acute Assessment and Plan: Patient became HoTN requiring pressor therapy with Levophed 01/18 possibly related to sedation. Able to be weaned off but BP dropped again on 01/22 requiring Levophed up to 12mcg/min felt related to septic shock but able to be weaned off again 01/24. Blood pressure remaining stable. Continue to monitor. (4) Pseudomonas pneumonia: Code(s): J15.1 - Pneumonia due to Pseudomonas Status: Acute Assessment and Plan: Sputum was positive for Pseudomonas on 01/22 and noted again 01/27 and on 02/01; all diaz-sensitive. CXR showing diffuse airspace disease. He finished cefepime course for 10 days on 02/01/21. Persistent low-grade fevers and WBC was up slightly so we added Cipro 02/05/21. WBC and temperature normalized initally but now having recurrent fevers. As above. Continue Cipro for now; continue supportive care. (5) Pneumonia due to COVID-19 virus: Code(s): U07.1 - COVID-19; J12.82 - Pneumonia due to coronavirus disease 2019 Status: Acute Assessment and Plan: Patient tested COVID-19 positive 01/09/21 after starting have symptoms 01/05/21. He was fully vaccinated with Moderna in September; antibodies present. Completed Remdesivir and Decadron. Continue current care plan as detailed above. He is off isolation. (6) Type 2 diabetes mellitus without complication, without long-term current use of insulin: Code(s): E11.9 - Type 2 diabetes mellitus without complications Status: Acute Assessment and Plan: A1c 7.4. The patient's blood glucose was reviewed on 02/12 Glucose remains very well controlled. Tolerating TF. Continue AccuCheks covering with sliding scale. Hypoglycemia protocol available as needed. Continue Lantus (7) Essential (primary) hypertension: Code(s): I10 - Essential (primary) hypertension Status: Acute Assessment and Plan: Patient's blood pressure was reviewed on 02/12 Blood pressure stable off Levophed and even elevated at times. Amlodipine and valsartan remain on hold (8) Elevated LFTs: Code(s): R79.89 - Other specified abnormal findings of blood chemistry Status: Acute Assessment and Plan: Liver tests became elevated with AST to 739 and ALT 630. RUQ okay. Hepatitis panel negative. [place] related to clinical condition and/or medications. Levels were up again but now improving. Continue to follow intermittently. (9) Pressure sore: Code(s):
[2021-02-12 21:10] LABS: Glucose Point of Care 126 mg/dl (65-105)
[2021-02-13] VITALS (27 sets, daily range): BP systolic 130–162; BP diastolic 57–83; PULSE 59–112; RESP 14–36; TEMP 36.9–38.6; O2SAT 92–98
[2021-02-13 01:01] LABS: Glucose Point of Care 159 mg/dl (65-105)
[2021-02-13] MEDS: CIPROFLOXACIN 400 MG/D5W 200ML 200 ML 200 MG IVPB ×3 (02:43→18:23)
[2021-02-13 04:54] LABS: Alveolar/Arterial O2 Gradient 247.8 mmHg; Base Excess ABG 5.7 mEq/l (+/-2.0); Carboxyhemoglobin 0.3 % THb (0-2.0); Fractional Inspired Oxygen 50 %; HCO3 ABG 28.8 mEq/l (22.0-26.0); Methemoglobin ABG 0.4 %THb (0-1.5); Oxygen Content ABG 12.7 %vol (16.0-22.0); Oxygen Saturation ABG 95.4 % (95.0-100.0); Oxyhemoglobin 93.2 % THb (90.0-100.0); PCO2 ABG 35.7 mmHg (35.0-45.0); PO2 ABG 68.5 mmHg (80.0-100.0); PO2 FiO2 Ratio Arterial Blood 1.37 %; Reduced Hemoglobin 6.1 %THb (0-5.0); Total Hemoglobin 9.6 g/dL (12.0-18.0)
[2021-02-13 04:57] LABS: pH ABG 7.524 (7.350-7.450)
[2021-02-13 04:58] LABS: Device VENTILATOR; Modified Allen's Test Pass; Site Drawn RIGHT RADIAL
[2021-02-13 04:59] LABS: Arterial Blood Gas PEEP 5 cmH2O; Arterial Blood Gas Vent Mode ASV
[2021-02-13 05:01] LABS: Basophils Absolute Auto 0.1 K/mm3 (0.0-0.1); Basophils Percent Auto 0.6 % (0.2-1.2); Eosinophils Absolute Auto 0.3 K/mm3 (0-0.3); Eosinophils Percent Auto 1.7 % (0-4.4); Hematocrit 26.8 % (42.0-52.0); Hemoglobin 8.3 g/dL (14.0-18.0); Immature Granulocyte Absolute 0.31 K/mm3 (0.00-0.031); Immature Granulocyte Percent A 1.9 % (0-0.5); Lymphocytes Absolute Auto 0.85 K/mm3 (0.9-3.2); Lymphocytes Percent Auto 5.3 % (18.3-44.2); Mean Corpuscular Hemoglobin 29.2 pg (26-34); Mean Corpuscular Volume 94.4 fl (80-100); Monocytes Absolute Auto 1.1 K/mm3 (0.1-0.6); Monocytes Percent Auto 6.8 % (2.6-8.5); Neutrophils Absolute Auto 13.5 K/mm3 (1.3-6.7); Neutrophils Percent Auto 83.7 % (45.5-73.1); Platelet Count Result 613 k/mm3 (150-375); Red Blood Count 2.84 M/mm3 (4.6-6.20); Red Cell Distribution Width 14.1 % (11.5-14.5); White Blood Count 16.1 K/mm3 (4.5-10.0)
[2021-02-13 05:18] LABS: Alanine Aminotransferase 48 U/L (4-50); Albumin Level 2.4 g/dL (3.5-5.1); Alkaline Phosphatase 102 U/L (38-126); Anion Gap 4 mmol/L (8-16); Aspartate Amino Transferase 39 U/L (17-59); Bilirubin,Total 0.3 mg/dL (0.2-1.3); Blood Urea Nitrogen 15 mg/dL (9-20); Calcium 8.3 mg/dL (8.4-10.2); Carbon Dioxide 31 mmol/L (22-30); Chloride 102 mmol/L (98-107); Estimated CRCL calculation 126 ml/min; Estimated Glomerular Filt Rate > 60; Glucose 159 mg/dL (65-110); Magnesium 1.9 mg/dL (1.6-2.3); Phosphorus 3.7 mg/dL (2.5-4.5); Potassium 3.8 mmol/L (3.4-5.0); Sodium 137 mmol/L (137-145)
[2021-02-13] MEDS: ACETAMINOPHEN ELIXIR 325 MG/10.15 ML UDC 650 MG FEED TUBE ×2 (05:25→23:43)
[2021-02-13] MEDS: CENTRAL LINE FLUSH 10 ML IV PUSH ×3 (05:26→20:55)
[2021-02-13 05:31] LABS: Glucose Point of Care 151 mg/dl (65-105)
[2021-02-13] MEDS: ASPIRIN 81 MG CHEWABLE TABLET 324 MG PO (08:03)
[2021-02-13] MEDS: ENOXAPARIN 40 MG/0.4 ML SYRINGE SUB-Q ×2 (08:03→20:54)
[2021-02-13] MEDS: INSULIN GLARGINE (*BKC) 100 UNITS/ML 10 UNITS SUB-Q ×2 (08:03→20:58)
[2021-02-13] MEDS: MINERAL OIL/WHITE PETROLATUM OINTMENT 1 APPLIC EACH EYE ×2 (08:04→20:55)
[2021-02-13] MEDS: buPROPion HCL 75 MG TABLET PO ×2 (08:04→20:54)
[2021-02-13] MEDS: PANTOPRAZOLE SODIUM IV 40 MG VIAL IV PUSH (08:04)
[2021-02-13] MEDS: ALBUTEROL SULFATE NEB 2.5 MG/0.5 ML INH INHALATION ×3 (08:10→20:23)
[2021-02-13] MEDS: DORNASE ALFA INH SOLN 1 MG/ML 2.5 ML AMP 2.5 MG INHALATION ×2 (08:20→20:14)
--- NOTE | 2021-02-13 11:04 | PCDIET ---
Nutrition Follow-Up Complete: Nutrition Diagnosis: Inadequate oral intake related to oral intubation as evidenced by need for tube feedings. Nutrition Goal: Patient to meet estimated nutritional needs. Goal met. Patient tolerating Glucerna 1.2 at 50mL/hr with 30mL water flush every 6 hours and Pro-Stat flush TID. Last recorded weight is 84.9 kg which is down from last review. I/O positive. Will monitor. Bowel Motility: BM x 2 today. Labs Reviewed: WBC (16.1), RBC (2.84), Hgb (8.3), Hct (26.8), Glu (159), Cr (0.5), Alb (2.4) Meds Noted: Cipro, Pulmozyme, Novolog, Lantus, Protonix Additional Notes: Upper lip and chin ulcers reportedly improving. Plan for transfer to LTAC pending insurance. Nutrition Monitoring and Evaluation: Follow up every Tuesday/Tuesday. Follow daily in ICU rounds.
--- NOTE | 2021-02-13 11:47 | WPDINTPN ---
Progress Note: A&P Assessment and Plan (1) Acute respiratory failure with hypoxia: Code(s): J96.01 - Acute respiratory failure with hypoxia Status: Acute Assessment and Plan: Acute Respiratory failure secondary to COVID-19 pneumonia with worsening hypoxia through the hospital course Bipap 01/16, intubated 01/17. was proned for multiple days - 01/27 NMB infusion discontinued -Chest x-ray shows persistent diffuse bilateral airspace disease which may represent pneumonia and/or edema -02/08: Has been on ASV mode since, will decrease to 90% minute ventilation is patient respiratory alkalosis. Patient is off all sedation - Patient developed Pseudomonas pneumonia on top of COVID-19 pneumonia which was treated with cefepime, repeat sputum cultures on 02/01/2021 positive and patient was febrile so was started on ciprofloxacin (02/05) - patient was intubated on 01/17 - 02/02/2021: PEG tube placed -02/05/2021, tracheostomy was placed 02/13 patient again failed his weaning trial today. Patient was placed on 5/ pressure support and immediately his RSBI increased and is tidal volumes were low. -patient awaits LTAC placement (2) Fever: Code(s): R50.9 - Fever, unspecified Status: Acute Assessment and Plan: 01/22/2021: Patient was hypotensive, requiring Levophed, increasing oxygen requirement on mechanical ventilation and slightly worsening chest x-ray - blood cultures coag neg staph - sputum cultures from 01/22 growing pseudomonas, Pansensitive. patient completed a course of cefepime (initiated on 01/22) Vancomycin was discontinued on 01/24 - sputum cultures from 02/01/2021 growing Pseudomonas, started on ciprofloxacin on 02/05/2021 -02/07/2021: Venous Dopplers of bilateral upper and lower extremity were negative for DVTs -02/11/2021 blood cultures negative x2, sputum culture negative so far, urine cultures pending and negative for now -02/11/2021 CT Ch/A/P returned showing diffuse lung disease, consistent with COVID-19 pneumonia and acute respiratory distress syndrome (ARDS) with small bilateral pleural effusions. Abd/pelvis okay except for small volume of hyperdense material in the bladder. No gross hematuria so hematoma unlikely; fungal ball? -lipase has normalized - Will obtain peripheral IV access and remove PICC line (3) Pneumonia due to COVID-19 virus: Code(s): U07.1 - COVID-19; J12.82 - Pneumonia due to coronavirus disease 2019 Status: Acute Assessment and Plan: Patient received Moderna vaccine in September of 2020 has still developed significant COVID-19 pneumonia. his COVID-19 PCR and antibody are both reactive. patient has completed a course Rocephin and azithromycin. has completed 10 day course of dexamethasone he has completed a 10 day course of Remdesivir initially his CRP was high 12.1 but his repeat CRP was 5.4 hence not high enough to start Tocilizumab No more isolation as he has been covid positive > 20 days (4) Diabetes mellitus: Code(s): E11.9 - Type 2 diabetes mellitus without complications Status: Acute Assessment and Plan: continue Lantus and sliding scale continue tube feeds (5) Elevated LFTs: Code(s): R79.89 - Other specified abnormal findings of blood chemistry Status: Acute Assessment and Plan: RUQ ultrasound 01/20/2021 showed hepatic steatosis - hepatitis panel was negative - appreciate GI evaluation recommendation - increase in LFTs could be related to septic shock, shock liver, will continue to maintain mean arterial pressures > 65 mmHg for adequate -l levels have normalized now Additional Plan DVT prophylaxis - Lovenox Stress ulcer prophylaxis - PPI Nutrition -tube feeds through PEG tube Code Status - Full Code She is aware that we are waiting for his transferred to the LTAC facility Total Critical Care Time - 30 minutes Due to a high probability of clinically significant, life threatening deterioration
[2021-02-13 13:14] LABS: Glucose Point of Care 168 mg/dl (65-105)
--- NOTE | 2021-02-13 13:41 | PM.IMPN ---
Progress Note: A&P Assessment and Plan (1) Fever: Code(s): R50.9 - Fever, unspecified Status: Acute Assessment and Plan: Patient still with low grade fevers. WBC trending higher today. Concern for infectious etiology. Remains on Cipro Day 9 for the persistent pseudomonas PNA. CXR today showing no significant change in the bilateral airspace disease. CRP 17 yesterday. UCx negative; sputum and blood cultures NGTD. Follow. Consider re-culturing off abx if fevers persist. Plan to remove PICC line after Cipro complete. (2) Acute respiratory failure with hypoxia: Code(s): J96.01 - Acute respiratory failure with hypoxia Status: Acute Assessment and Plan: Patient with acute hypoxic respiratory failure related to COVID-19. CTA chest 01/11 showing no PE but showing findings consistent with COVID. Oxygen requirement was increasing to the point of requiring intubation on 01/17/21. He now has completed 10 days of dexamethasone and Remdesivir. He was placed prone and on Nimbex for paralysis for better ventilator synchrony but now off of paralytic agents 01/27. He did not tolerate SBT and became tachycardic and tachypneic within few minutes of trial. ICU service spoke to the family for needs for tracheostomy and PEG tube placement. Patient's was agreeable so PEG tube placed 02/02 and tracheostomy placed 02/05. Plan now is to perform weaning trials prior to to being evaluated for LTAC. [employer] following along and appreciate their input. (3) Septic shock: Code(s): A41.9 - Sepsis, unspecified organism; R65.21 - Severe sepsis with septic shock Status: Acute Assessment and Plan: Patient became HoTN requiring pressor therapy with Levophed 01/18 possibly related to sedation. Able to be weaned off but BP dropped again on 01/22 requiring Levophed up to 12mcg/min felt related to septic shock but able to be weaned off again 01/24. Blood pressure remaining stable. Continue to monitor. (4) Pseudomonas pneumonia: Code(s): J15.1 - Pneumonia due to Pseudomonas Status: Acute Assessment and Plan: Sputum was positive for Pseudomonas on 01/22 and noted again 01/27 and on 02/01; all diaz-sensitive. CXR showing diffuse airspace disease. He finished cefepime course for 10 days on 02/01/21. Persistent low-grade fevers and WBC was up slightly so we added Cipro 02/05/21. WBC and temperature normalized initally but now having recurrent fevers and elevated WBC. Sputum 02/11 NGTD. BCx 02/11 NGTD. As above. Continue Cipro for now. Continue supportive care. (5) Pneumonia due to COVID-19 virus: Code(s): U07.1 - COVID-19; J12.82 - Pneumonia due to coronavirus disease 2019 Status: Acute Assessment and Plan: Patient tested COVID-19 positive 01/09/21 after starting to have symptoms 01/05/21. He was fully vaccinated with Moderna in September; antibodies present. Completed Remdesivir and Decadron. Continue current care plan as detailed above. He is off isolation. (6) Type 2 diabetes mellitus without complication, without long-term current use of insulin: Code(s): E11.9 - Type 2 diabetes mellitus without complications Status: Acute Assessment and Plan: A1c 7.4. The patient's blood glucose was reviewed on 02/13 Glucose remains very well controlled. Tolerating TF. Continue AccuCheks covering with sliding scale. Hypoglycemia protocol available as needed. Continue Lantus (7) Essential (primary) hypertension: Code(s): I10 - Essential (primary) hypertension Status: Acute Assessment and Plan: Patient's blood pressure was reviewed on 02/13 Blood pressure stable off Levophed and even elevated more regularly now with SBP 140-160. Amlodipine and valsartan remain on hold. Will hold on resuming meds for now and follow. (8) Elevated LFTs: Code(s): R79.89 - Other specified abnormal findings of blood chemistry Status: Acute Assessment and Plan:
[2021-02-13 18:28] LABS: Glucose Point of Care 134 mg/dl (65-105)
[2021-02-13] MEDS: FAMOTIDINE 20 MG TABLET FEED TUBE (20:54)
[2021-02-13 21:08] LABS: Glucose Point of Care 141 mg/dl (65-105)
[2021-02-13 23:48] LABS: Glucose Point of Care 130 mg/dl (65-105)
[2021-02-14] VITALS (25 sets, daily range): BP systolic 86–161; BP diastolic 50–84; PULSE 58–107; RESP 21–38; TEMP 37.1–38.1; O2SAT 91–98
[2021-02-14] MEDS: CIPROFLOXACIN 400 MG/D5W 200ML 200 ML 200 MG IVPB ×3 (01:59→17:12)
[2021-02-14] MEDS: CENTRAL LINE FLUSH 10 ML IV PUSH ×3 (05:52→21:19)
[2021-02-14 06:11] LABS: Basophils Absolute Auto 0.1 K/mm3 (0.0-0.1); Basophils Percent Auto 0.6 % (0.2-1.2); Eosinophils Absolute Auto 0.4 K/mm3 (0-0.3); Eosinophils Percent Auto 2.5 % (0-4.4); Hemoglobin 8.1 g/dL (14.0-18.0); Immature Granulocyte Absolute 0.33 K/mm3 (0.00-0.031); Immature Granulocyte Percent A 2.2 % (0-0.5); Lymphocytes Absolute Auto 0.97 K/mm3 (0.9-3.2); Lymphocytes Percent Auto 6.4 % (18.3-44.2); Mean Corpuscular HGB Conc 32.4 g/dl (32-36); Mean Corpuscular Hemoglobin 29.3 pg (26-34); Mean Corpuscular Volume 90.6 fl (80-100); Mean Platelet Volume 9.3 fl (7.4-10.4); Monocytes Absolute Auto 1.2 K/mm3 (0.1-0.6); Neutrophils Absolute Auto 12.1 K/mm3 (1.3-6.7); Neutrophils Percent Auto 80.3 % (45.5-73.1); Platelet Count Result 612 k/mm3 (150-375); Red Blood Count 2.76 M/mm3 (4.6-6.20); Red Cell Distribution Width 14.1 % (11.5-14.5); White Blood Count 15.1 K/mm3 (4.5-10.0)
[2021-02-14 06:38] LABS: Alanine Aminotransferase 49 U/L (4-50); Albumin Level 2.3 g/dL (3.5-5.1); Alkaline Phosphatase 102 U/L (38-126); Anion Gap 3 mmol/L (8-16); Aspartate Amino Transferase 42 U/L (17-59); Bilirubin,Total 0.3 mg/dL (0.2-1.3); Blood Urea Nitrogen 15 mg/dL (9-20); Calcium 8.4 mg/dL (8.4-10.2); Carbon Dioxide 31 mmol/L (22-30); Chloride 102 mmol/L (98-107); Estimated CRCL calculation 126 ml/min; Estimated Glomerular Filt Rate > 60; Glucose 136 mg/dL (65-110); Potassium 3.9 mmol/L (3.4-5.0); Sodium 136 mmol/L (137-145)
[2021-02-14 06:54] LABS: CRP 23.8 mg/dL (<1.0)
[2021-02-14] MEDS: ENOXAPARIN 40 MG/0.4 ML SYRINGE SUB-Q ×2 (09:10→21:19)
[2021-02-14] MEDS: INSULIN GLARGINE (*BKC) 100 UNITS/ML 10 UNITS SUB-Q ×2 (09:10→21:18)
[2021-02-14] MEDS: FAMOTIDINE 20 MG TABLET FEED TUBE ×2 (09:10→21:17)
[2021-02-14] MEDS: buPROPion HCL 75 MG TABLET PO ×2 (09:10→21:16)
[2021-02-14] MEDS: ASPIRIN 81 MG CHEWABLE TABLET 324 MG PO (09:10)
[2021-02-14] MEDS: MINERAL OIL/WHITE PETROLATUM OINTMENT 1 APPLIC EACH EYE (09:10)
[2021-02-14] MEDS: DORNASE ALFA INH SOLN 1 MG/ML 2.5 ML AMP 2.5 MG INHALATION (09:24)
[2021-02-14] MEDS: ALBUTEROL SULFATE NEB 2.5 MG/0.5 ML INH INHALATION ×3 (09:24→20:54)
--- NOTE | 2021-02-14 11:55 | WPDINTPN ---
Progress Note: A&P Assessment and Plan (1) Acute respiratory failure with hypoxia: Code(s): J96.01 - Acute respiratory failure with hypoxia Status: Acute Assessment and Plan: Acute Respiratory failure secondary to COVID-19 pneumonia with worsening hypoxia through the hospital course Bipap 01/16, intubated 01/17. was proned for multiple days - 01/27 NMB infusion discontinued -Chest x-ray shows persistent diffuse bilateral airspace disease which may represent pneumonia and/or edema -02/08: Has been on ASV mode since, will decrease to 90% minute ventilation is patient respiratory alkalosis. Patient is off all sedation - Patient developed Pseudomonas pneumonia on top of COVID-19 pneumonia which was treated with cefepime, repeat sputum cultures on 02/01/2021 positive and patient was febrile so was started on ciprofloxacin (02/05) which he will complete today - patient was intubated on 01/17 - 02/02/2021: PEG tube placed -02/05/2021, tracheostomy was placed 02/13 patient again failed his weaning trial today. Patient was placed on 11/05 pressure support and immediately his RSBI increased and is tidal volumes were low. 02/14 patient was placed again on pressure support weaning trial and failed immediately with tidal volume only in 100s. Was placed back on ASV mode -patient awaits LTAC placement due to insurance issues (2) Fever: Code(s): R50.9 - Fever, unspecified Status: Acute Assessment and Plan: 01/22/2021: Patient was hypotensive, requiring Levophed, increasing oxygen requirement on mechanical ventilation and slightly worsening chest x-ray - blood cultures coag neg staph - sputum cultures from 01/22 growing pseudomonas, Pansensitive. patient completed a course of cefepime (initiated on 01/22) Vancomycin was discontinued on 01/24 - sputum cultures from 02/01/2021 growing Pseudomonas, started on ciprofloxacin on 02/05/2021 -02/07/2021: Venous Dopplers of bilateral upper and lower extremity were negative for DVTs -02/11/2021 blood cultures negative x2, urine cultures pending and negative for now 02/11-sputum culture is again growing Pseudomonas -02/11/2021 CT Ch/A/P returned showing diffuse lung disease, consistent with COVID-19 pneumonia and acute respiratory distress syndrome (ARDS) with small bilateral pleural effusions. Abd/pelvis okay except for small volume of hyperdense material in the bladder. No gross hematuria so hematoma unlikely; fungal ball? -lipase has normalized -will consult ID for further guidance (3) Pneumonia due to COVID-19 virus: Code(s): U07.1 - COVID-19; J12.82 - Pneumonia due to coronavirus disease 2019 Status: Acute Assessment and Plan: Patient received Moderna vaccine in September of 2020 has still developed significant COVID-19 pneumonia. his COVID-19 PCR and antibody are both reactive. patient has completed a course Rocephin and azithromycin. has completed 10 day course of dexamethasone he has completed a 10 day course of Remdesivir initially his CRP was high 12.1 but his repeat CRP was 5.4 hence not high enough to start Tocilizumab No more isolation as he has been covid positive > 20 days (4) Diabetes mellitus: Code(s): E11.9 - Type 2 diabetes mellitus without complications Status: Acute Assessment and Plan: continue Lantus and sliding scale continue tube feeds (5) Elevated LFTs: Code(s): R79.89 - Other specified abnormal findings of blood chemistry Status: Acute Assessment and Plan: RUQ ultrasound 01/20/2021 showed hepatic steatosis - hepatitis panel was negative - appreciate GI evaluation recommendation - increase in LFTs could be related to septic shock, shock liver, will continue to maintain mean arterial pressures > 65 mmHg for adequate -l levels have normalized now Additional Plan DVT prophylaxis - Lovenox Stress ulcer prophylaxis - PPI Nutrition -tube feeds through PEG tube Code Status - Full Code I
[2021-02-14 13:08] LABS: Glucose Point of Care 134 mg/dl (65-105)
[2021-02-14] MEDS: ACETAMINOPHEN ELIXIR 325 MG/10.15 ML UDC 650 MG FEED TUBE ×2 (13:08→21:26)
[2021-02-14 18:16] LABS: Glucose Point of Care 142 mg/dl (65-105)
[2021-02-14] MEDS: ALPRAZolam (*CRX) 0.125 MG TABLET PO (21:16)
[2021-02-14 23:31] LABS: Glucose Point of Care 149 mg/dl (65-105)
[2021-02-15] VITALS (38 sets, daily range): BP systolic 117–155; BP diastolic 66–93; PULSE 62–113; RESP 17–35; TEMP 37–38.6; O2SAT 91–100
[2021-02-15] MEDS: CIPROFLOXACIN 400 MG/D5W 200ML 200 ML 200 MG IVPB (01:02)
--- NOTE | 2021-02-15 02:40 | PC.NURSE ---
Patient noted to be tachypnic and pulling low VtE of 200's ml. Patient is restless and talking around trache. RT notified and manometer revealed cuff pressures to be low despite resealing. SpO2 noted to be 89-92% on 50% FiO2. FiO2 increased to 70%. Sats increased to greater than 92%. Dr. Donnelly present. Dr. Israel called. No return call. Dr Corado notified. Awaiting response.
[2021-02-15 03:24] LABS: Base Excess ABG 8.6 mEq/l (+/-2.0); Carboxyhemoglobin 0.3 % THb (0-2.0); Fractional Inspired Oxygen 50 %; HCO3 ABG 32.5 mEq/l (22.0-26.0); Methemoglobin ABG 0.4 %THb (0-1.5); Oxygen Content ABG 12.1 %vol (16.0-22.0); Oxygen Saturation ABG 91.4 % (95.0-100.0); Oxyhemoglobin 89.3 % THb (90.0-100.0); PCO2 ABG 42.4 mmHg (35.0-45.0); PO2 ABG 55.8 mmHg (80.0-100.0); PO2 FiO2 Ratio Arterial Blood 1.12 %; Total Hemoglobin 9.6 g/dL (12.0-18.0)
[2021-02-15 03:28] LABS: Device VENTILATOR; Modified Allen's Test Pass; Site Drawn RIGHT RADIAL; pH ABG 7.503 (7.350-7.450)
[2021-02-15 03:30] LABS: Arterial Blood Gas PEEP 8 cmH2O; Arterial Blood Gas Vent Mode ASV
[2021-02-15] MEDS: ALBUTEROL SULFATE NEB 2.5 MG/0.5 ML INH INHALATION ×4 (03:30→20:15)
--- NOTE | 2021-02-15 03:32 | PC.NURSE ---
Dr. Corado called again. Awaiting response.
[2021-02-15] MEDS: PROPOFOL IV EMULSION 100 ML 2.72 MG IV CONT (03:59)
[2021-02-15] MEDS: ALPRAZolam (*CRX) 0.125 MG TABLET PO (04:35)
[2021-02-15] MEDS: ACETAMINOPHEN ELIXIR 325 MG/10.15 ML UDC 650 MG FEED TUBE ×2 (04:35→19:28)
[2021-02-15] MEDS: CENTRAL LINE FLUSH 10 ML IV PUSH ×3 (05:19→20:36)
[2021-02-15 05:20] LABS: Glucose Point of Care 129 mg/dl (65-105)
--- NOTE | 2021-02-15 08:53 | WPDINTPN ---
Progress Note: A&P Assessment and Plan (1) Acute respiratory failure with hypoxia: Code(s): J96.01 - Acute respiratory failure with hypoxia Status: Acute Assessment and Plan: Acute Respiratory failure secondary to COVID-19 pneumonia with worsening hypoxia through the hospital course Bipap 01/16, intubated 01/17. was proned for multiple days - 01/27 NMB infusion discontinued -02/08: Has been on ASV mode since, will decrease to 90% minute ventilation is patient respiratory alkalosis. Patient is off all sedation - patient was intubated on 01/17 - 02/02/2021: PEG tube placed -02/05/2021, tracheostomy was placed 02/13 patient again failed his weaning trial today. Patient was placed on / pressure support and immediately his RSBI increased and is tidal volumes were low. 02/14 patient was placed again on pressure support weaning trial and failed immediately with tidal volume only in 100s. Was placed back on ASV mode -patient awaits LTAC placement due to insurance issues 02/15 as above mentioned patient developed leak around his trach cuff. Patient was also coughing and asynchronous with ventilator and had to be started on propofol. I have increase PEEP to 8. I spoke to Dr. Elliott of ENT and he will replace the trach tube this morning. Patient obviously is not a candidate for weaning trial today. Continue propofol sedation for now. Chest x-ray reviewed and does not show any significant change (2) Fever: Code(s): R50.9 - Fever, unspecified Status: Acute Assessment and Plan: 01/22/2021: Patient was hypotensive, requiring Levophed, increasing oxygen requirement on mechanical ventilation and slightly worsening chest x-ray - blood cultures coag neg staph - sputum cultures from 01/22 growing pseudomonas, Pansensitive. patient completed a course of cefepime (initiated on 01/22) Vancomycin was discontinued on 01/24 - sputum cultures from 02/01/2021 growing Pseudomonas, started on ciprofloxacin on 02/05/2021 -02/07/2021: Venous Dopplers of bilateral upper and lower extremity were negative for DVTs -02/11/2021 blood cultures negative x2, urine cultures pending and negative for now 02/11-sputum culture is again growing Pseudomonas -02/11/2021 CT Ch/A/P returned showing diffuse lung disease, consistent with COVID-19 pneumonia and acute respiratory distress syndrome (ARDS) with small bilateral pleural effusions. Abd/pelvis okay except for small volume of hyperdense material in the bladder. No gross hematuria so hematoma unlikely; fungal ball? -lipase has normalized -spoke to who was covering for and he recommended switching to meropenem. Spoke to pharmacy and meropenem is not available. Will start imipenem (3) Pneumonia due to COVID-19 virus: Code(s): U07.1 - COVID-19; J12.82 - Pneumonia due to coronavirus disease 2018 Status: Acute Assessment and Plan: Patient received Moderna vaccine in September of 2020 has still developed significant COVID-19 pneumonia. his COVID-19 PCR and antibody are both reactive. patient has completed a course Rocephin and azithromycin. has completed 10 day course of dexamethasone he has completed a 10 day course of Remdesivir initially his CRP was high 12.1 but his repeat CRP was 5.4 hence not high enough to start Tocilizumab He is currently not in any isolation as he has been covid positive > 20 days (4) Diabetes mellitus: Code(s): E11.9 - Type 2 diabetes mellitus without complications Status: Acute Assessment and Plan: continue Lantus and sliding scale continue tube feeds (5) Elevated LFTs: Code(s): R79.89 - Other specified abnormal findings of blood chemistry Status: Acute Assessment and Plan: RUQ ultrasound 01/20/2021 showed hepatic steatosis - hepatitis panel was negative - appreciate GI evaluation recommendation - increase in LFTs could be related to septic shock, shock liver, will continue
[2021-02-15] MEDS: ASPIRIN 81 MG CHEWABLE TABLET 324 MG PO (09:41)
[2021-02-15] MEDS: ALPRAZolam (*CRX) 0.5 MG TABLET PO ×2 (09:41→19:29)
[2021-02-15] MEDS: ENOXAPARIN 40 MG/0.4 ML SYRINGE SUB-Q ×2 (09:41→20:34)
[2021-02-15] MEDS: FAMOTIDINE 20 MG TABLET FEED TUBE ×2 (09:41→20:35)
[2021-02-15] MEDS: buPROPion HCL 75 MG TABLET PO ×2 (09:41→20:35)
[2021-02-15] MEDS: PROPOFOL IV EMULSION 100 ML 13.61 MG IV CONT (09:42)
[2021-02-15] MEDS: MINERAL OIL/WHITE PETROLATUM OINTMENT 1 APPLIC EACH EYE ×2 (09:43→20:35)
[2021-02-15] MEDS: INSULIN GLARGINE (*BKC) 100 UNITS/ML 10 UNITS SUB-Q ×2 (09:43→20:35)
--- NOTE | 2021-02-15 10:44 | WPDCN ---
Assessment and Plan Assessment and plan (1) Acute respiratory failure with hypoxia: Code(s): J96.01 - Acute respiratory failure with hypoxia Status: Acute Assessment and Plan: Portillo has a 10 day old tracheostomy tube that started leaking overnight. Was confirmed to be leaking so we changed it out for a fresh 6-0 DCT shiley tracheostomy tube at the bedside uneventfully. He had a good seal with no leak afterwards. Anticipate no further issues with the tracheostomy tube itself, please call if there are concerns. HPI Data of Consult Date/Time: 02/15/21 10:44 Requesting Physician: Kimberly Adams PA-C Primary Care Provider: Thanh Robles MD Consult Narrative Reason for consult: Tracheostomy leak Narrative: Mr. Cooley is a 70y M who was vaccinated in September 2020 but developed COVID-19 in January, respiratory failure and subsequently underwent tracheotomy placement on Feb 05 2021. That was 10 days ago and there had been no issues with the tracheostomy tube until overnight where a leak was noted. Attempts to reposition, remove sutures and re-inflate the cuff did not improve ventilation and he would soon leak further. I was called to assess. Review of Systems Review of Systems: ROS unobtainable: Yes unobtainable due to endotracheal tube PMFSH Past Medical History Medical History Acute bronchitis Acute non-recurrent maxillary sinusitis Acute pain of left shoulder Arthritis Arthritis of both hands BMI 30.0-30.9,adult Carpal tunnel syndrome on both sides COVID-19 (01/03/21) COVID-19 01/03/2021 after being fully vaccinated in September 2020 Essential (primary) hypertension Feeding difficulty in adult Hearing loss Leukocytosis Male erectile dysfunction, unspecified Osteoporosis Surgical History Surgical History H/O shoulder surgery left, Dr. eugene History of appendectomy History of cholecystectomy History of lumbar surgery 09/25/2018, Dr. Mi S/P left rotator cuff repair Status post bilateral knee replacements 05-12-09, Dr. Gonzalez Family History Family History Sibling Patient's sister is , Onset Age: 65 Family history of lung cancer Mother Family history of malignant neoplasm Family history of congestive heart failure, Onset Age: 96 Other Diabetes mellitus Family history of coronary artery disease Family history of malignant neoplasm of gastrointestinal tract Social History Social History Social History: patient used to smoke cigarettes but quit in 1983. Prior to that he was smoking 2 packs per day. He also quit drinking in 1982. He does not do marijuana or any drugs. 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 If he is unable to make decisions for himself he would like his , sapphire, to make decisions for him. He would like to be a full code unless I am brain then I want to be taken off . Smoking packs per day: 1.5 Smoking cigarettes per day: 30.0 Smoking status: Former smoker Tobacco type: cigarettes Alcohol intake: never Substance use: never Gender identity (if verbalized by the patient): Male Spiritual care concerns: No Meds Home Medications and Allergies Home Medications Medication Instructions Recorded Confirmed Type aspirin 81 mg tablet,delayed 81 mg PO DAILY 05/14/19 01/11/21 History release cholecalciferol (vitamin D3) 75 1,000 unit PO DAILY 05/14/19 01/11/21 History mcg (3,000 unit) tablet cinnamon bark 500 mg capsule 1,000 mg PO DAILY 05/14/19 01/11/21 History cyanocobalamin (vitamin B-12) 1,000 mcg PO DAILY #30 tablet 05/14/19 01/11/21 Rx 1,000 mcg tablet amlodipine 10 mg tablet 10 mg PO DAILY #90 tablet 05/22/20 01/11/21 Rx bupropion HCl 300 mg 24 hr tablet, 300 mg PO QAM #90 tablet 05/22/2001/11
--- NOTE | 2021-02-15 11:16 | PC.NURSE ---
Dr. Elliott here and replaced trach with same size, #6 shiley at bedside with respiratory therapist and this nurse, exchange went smoothly without complications in room prior to exchange and Earl Tracey explained the procedure and why to her. old trach quickly deflated with pressure, back in room after, weaning propofol to off
[2021-02-15 12:05] LABS: Glucose Point of Care 127 mg/dl (65-105)
[2021-02-15 17:47] LABS: Glucose Point of Care 145 mg/dl (65-105)
[2021-02-15] MEDS: ONDANSETRON INJ 4 MG/2 ML VIAL IV PUSH (19:28)
[2021-02-15 23:22] LABS: Glucose Point of Care 129 mg/dl (65-105)
[2021-02-16] VITALS (26 sets, daily range): BP systolic 113–134; BP diastolic 62–79; PULSE 66–99; RESP 17–34; TEMP 36.7–37.9; O2SAT 91–100
[2021-02-16] MEDS: ACETAMINOPHEN ELIXIR 325 MG/10.15 ML UDC 650 MG FEED TUBE ×2 (02:13→08:59)
[2021-02-16] MEDS: ALPRAZolam (*CRX) 0.5 MG TABLET PO (02:13)
[2021-02-16] MEDS: ALBUTEROL SULFATE NEB 2.5 MG/0.5 ML INH INHALATION ×4 (02:39→21:02)
[2021-02-16 04:17] LABS: Hematocrit 25.4 % (42.0-52.0); Hemoglobin 7.9 g/dL (14.0-18.0); Mean Corpuscular HGB Conc 31.1 g/dl (32-36); Mean Corpuscular Hemoglobin 29.2 pg (26-34); Mean Corpuscular Volume 93.7 fl (80-100); Mean Platelet Volume 9.3 fl (7.4-10.4); Platelet Count Result 553 k/mm3 (150-375); Red Blood Count 2.71 M/mm3 (4.6-6.20); Red Cell Distribution Width 14.5 % (11.5-14.5); White Blood Count 12.7 K/mm3 (4.5-10.0)
[2021-02-16 04:27] LABS: Alanine Aminotransferase 51 U/L (4-50); Albumin Level 2.3 g/dL (3.5-5.1); Alkaline Phosphatase 106 U/L (38-126); Anion Gap 1 mmol/L (8-16); Aspartate Amino Transferase 37 U/L (17-59); Bilirubin,Total 0.1 mg/dL (0.2-1.3); Blood Urea Nitrogen 13 mg/dL (9-20); Calcium 8.4 mg/dL (8.4-10.2); Carbon Dioxide 34 mmol/L (22-30); Chloride 102 mmol/L (98-107); Estimated CRCL calculation 126 ml/min; Estimated Glomerular Filt Rate > 60; Glucose 116 mg/dL (65-110); Magnesium 2.3 mg/dL (1.6-2.3); Potassium 3.9 mmol/L (3.4-5.0); Sodium 137 mmol/L (137-145)
[2021-02-16] MEDS: CENTRAL LINE FLUSH 10 ML IV PUSH ×3 (05:43→22:20)
[2021-02-16] MEDS: FAMOTIDINE 20 MG TABLET FEED TUBE ×2 (08:59→20:56)
[2021-02-16] MEDS: ENOXAPARIN 40 MG/0.4 ML SYRINGE SUB-Q ×2 (08:59→20:56)
[2021-02-16] MEDS: ALPRAZolam (*CRX) 0.5 MG TABLET 1 MG PO ×2 (08:59→22:20)
[2021-02-16] MEDS: ASPIRIN 81 MG CHEWABLE TABLET 324 MG PO (08:59)
[2021-02-16] MEDS: buPROPion HCL 75 MG TABLET PO ×2 (08:59→20:57)
--- NOTE | 2021-02-16 11:06 | PCDIET ---
Nutrition Follow-Up Complete: Nutrition Diagnosis: Inadequate oral intake related to oral intubation as evidenced by need for tube feedings. Nutrition Goal: Patient to meet estimated nutritional needs. Goal met. Patient tolerating Glucerna 1.2 at 50mL/hr goal rate with 30mL water flush every 6 hours and Pro-Stat flush TID. Last recorded weight is 87.8 kg which is increased from last review. +I/O. Bowel Motility: BM x 2 today. Labs Reviewed: WBC (12.7), RBC (2.71), Hgb (7.9), Hct (25.4), Glu (116), Cr (0.5), Alb (2.3) Meds Noted: Albuterol, Pepcid, Primaxin, Lantus Additional Notes: Pressure ulcers to lip and chin. Agree with continuing Pro-Stat flush TID. Will continue to monitor with same goal. Nutrition Monitoring and Evaluation: Follow up every Tuesday/Tuesday. Follow daily in ICU rounds.
--- NOTE | 2021-02-16 12:45 | WPDINTPN ---
Progress Note: A&P Assessment and Plan (1) Acute respiratory failure with hypoxia: Code(s): J96.01 - Acute respiratory failure with hypoxia Status: Acute Assessment and Plan: Acute Respiratory failure secondary to COVID-19 pneumonia with worsening hypoxia through the hospital course Bipap 01/16, intubated 01/17. was proned for multiple days - 01/27 NMB infusion discontinued -02/08: Has been on ASV mode since, will decrease to 90% minute ventilation is patient respiratory alkalosis. Patient is off all sedation - patient was intubated on 01/17 - 02/02/2021: PEG tube placed -02/05/2021, tracheostomy was placed 02/13 patient again failed his weaning trial today. Patient was placed on 11/05 pressure support and immediately his RSBI increased and is tidal volumes were low. 02/14 patient was placed again on pressure support weaning trial and failed immediately with tidal volume only in 100s. Was placed back on ASV mode -patient awaits LTAC placement due to insurance issues 02/15 trach change due to cuff leak 02/16 failed again PSV trial due to low tidal volumes and apnea ventilation (2) Fever: Code(s): R50.9 - Fever, unspecified Status: Acute Assessment and Plan: 01/22/2021: Patient was hypotensive, requiring Levophed, increasing oxygen requirement on mechanical ventilation and slightly worsening chest x-ray - blood cultures coag neg staph - sputum cultures from 01/22 growing pseudomonas, Pansensitive. patient completed a course of cefepime (initiated on 01/22) Vancomycin was discontinued on 01/24 - sputum cultures from 02/01/2021 growing Pseudomonas, started on ciprofloxacin on 02/05/2021 -02/07/2021: Venous Dopplers of bilateral upper and lower extremity were negative for DVTs -02/11/2021 blood cultures negative x2, urine cultures pending and negative for now 02/11-sputum culture is again growing Pseudomonas -02/11/2021 CT Ch/A/P returned showing diffuse lung disease, consistent with COVID-19 pneumonia and acute respiratory distress syndrome (ARDS) with small bilateral pleural effusions. Abd/pelvis okay except for small volume of hyperdense material in the bladder. No gross hematuria so hematoma unlikely; fungal ball? -lipase has normalized -04/17 spoke to who was covering for and he recommended switching to meropenem. Spoke to pharmacy and meropenem is not available. patient was started on imipenem. continue. afebrile today (3) Pneumonia due to COVID-19 virus: Code(s): U07.1 - COVID-19; J12.82 - Pneumonia due to coronavirus disease 2018 Status: Acute Assessment and Plan: Patient received Moderna vaccine in September of 2020 has still developed significant COVID-19 pneumonia. his COVID-19 PCR and antibody are both reactive. patient has completed a course Rocephin and azithromycin. has completed 10 day course of dexamethasone he has completed a 10 day course of Remdesivir initially his CRP was high 12.1 but his repeat CRP was 5.4 hence not high enough to start Tocilizumab He is currently not in any isolation as he has been covid positive > 20 days (4) Diabetes mellitus: Code(s): E11.9 - Type 2 diabetes mellitus without complications Status: Acute Assessment and Plan: continue Lantus and sliding scale decrease Lantus dose continue tube feeds (5) Elevated LFTs: Code(s): R79.89 - Other specified abnormal findings of blood chemistry Status: Acute Assessment and Plan: RUQ ultrasound 01/20/2021 showed hepatic steatosis - hepatitis panel was negative - appreciate GI evaluation recommendation - increase in LFTs could be related to septic shock, shock liver, will continue to maintain mean arterial pressures > 65 mmHg for adequate -l levels have normalized now Additional Plan DVT prophylaxis - Lovenox Stress ulcer prophylaxis - PPI Nutrition -tube feeds through PEG tube Code Status - Full Code Patient is waiting for
[2021-02-16 13:14] LABS: Glucose Point of Care 151 mg/dl (65-105)
--- NOTE | 2021-02-16 16:18 | PM.IMPN ---
Progress Note: A&P Assessment and Plan (1) Fever: Code(s): R50.9 - Fever, unspecified Status: Acute Assessment and Plan: Patient still with low grade fevers. WBC trending down now since Imipenem added for the persistent pseudomonas PNA per ID input. Contineu to monitor temp curve and WBC. (2) Acute respiratory failure with hypoxia: Code(s): J96.01 - Acute respiratory failure with hypoxia Status: Acute Assessment and Plan: Patient with acute hypoxic respiratory failure related to COVID-19. CTA chest 01/11 showing no PE but showing findings consistent with COVID. Oxygen requirement was increasing to the point of requiring intubation on 01/17/21. He now has completed 10 days of dexamethasone and Remdesivir. He was placed prone and on Nimbex for paralysis for better ventilator synchrony but now off of paralytic agents 01/27. He did not tolerate SBT and became tachycardic and tachypneic within few minutes of trial. ICU service spoke to the family for needs for tracheostomy and PEG tube placement. Patient's was agreeable so PEG tube placed 02/02 and tracheostomy placed 02/05. Plan performing weaning trials. Sales Development Manager following along and appreciate their input. (3) Septic shock: Code(s): A41.9 - Sepsis, unspecified organism; R65.21 - Severe sepsis with septic shock Status: Acute Assessment and Plan: Patient became HoTN requiring pressor therapy with Levophed 01/18 possibly related to sedation. Able to be weaned off but BP dropped again on 01/22 requiring Levophed up to 12mcg/min felt related to septic shock but able to be weaned off again 01/24. Blood pressure remaining stable. Continue to monitor. (4) Pseudomonas pneumonia: Code(s): J15.1 - Pneumonia due to Pseudomonas Status: Acute Assessment and Plan: Sputum was positive for Pseudomonas on 01/22 and noted again 01/27 and on 02/01; all diaz-sensitive. CXR showing diffuse airspace disease. He finished cefepime course for 10 days on 02/01/21. Persistent low-grade fevers and WBC was up slightly so we added Cipro 02/05/21. WBC and temperature normalized initally but now having recurrent fevers and elevated WBC. Blood Cx 02/11 NGTD. Sputum Cx 02/11 also positive for pseudomonas - colonization? Discussed with ID and they recommended Imipenem which was started. (5) Pneumonia due to COVID-19 virus: Code(s): U07.1 - COVID-19; J12.82 - Pneumonia due to coronavirus disease 2019 Status: Acute Assessment and Plan: Patient tested COVID-19 positive 01/09/21 after starting to have symptoms 01/05/21. He was fully vaccinated with Moderna in September; antibodies present. Completed Remdesivir and Decadron. Continue current care plan as detailed above. He is off isolation. (6) Type 2 diabetes mellitus without complication, without long-term current use of insulin: Code(s): E11.9 - Type 2 diabetes mellitus without complications Status: Acute Assessment and Plan: A1c 7.4. The patient's blood glucose was reviewed on 02/16 Glucose remains very well controlled. Tolerating TF. Morning dose of Lantus has been held so Lantus now has been decreased to just qhs dosing. Continue AccuCheks covering with sliding scale. Hypoglycemia protocol available as needed. Monitor on lower dose of Lantus (7) Essential (primary) hypertension: Code(s): I10 - Essential (primary) hypertension Status: Acute Assessment and Plan: Patient's blood pressure was reviewed on 02/16 Blood pressure stable off Levophed and even elevated more regularly now with SBP 110-130. Amlodipine and valsartan remain on hold. Will hold on resuming meds for now and follow. (8) Elevated LFTs: Code(s): R79.89 - Other specified abnormal findings of blood chemistry Status: Acute Assessment and Plan: Liver tests became elevated with AST to 739 and ALT 630. RUQ okay. Hepatitis panel negative. [place] related to clinica
--- NOTE | 2021-02-16 16:36 | PM.DS ---
DS: Admitting Diagnosis Admitting Diagnosis Shortness of breath DS: Discharge Diagnosis Discharge Diagnosis (1) Fever: Code(s): R50.9 - Fever, unspecified Status: Acute Assessment and Plan: Patient developed low grade fevers toward the end of his hospital course. He continued to have pseudomonas in his sputum. ID consulted and Imipenem started. WBC trended down now since Imipenem added. (2) Acute respiratory failure with hypoxia: Code(s): J96.01 - Acute respiratory failure with hypoxia Status: Acute Assessment and Plan: Patient had acute hypoxic respiratory failure related to COVID-19. CTA chest 01/11 showing no PE but showing findings consistent with COVID. Oxygen requirement was increasing to the point of requiring intubation on 01/17/21. He completed 10 days of dexamethasone and Remdesivir. He was placed prone and on Nimbex for paralysis for better ventilator synchrony but now off of paralytic agents since 01/27. He did not tolerate breathing trials by becoming tachycardic and tachypneic within few minutes of trial. ICU service spoke to the family for needs for tracheostomy and PEG tube placement. Patient's was agreeable so PEG tube placed 02/02 and tracheostomy placed 02/05. We did perform weaning trials. Spinning Lathe Operator followed along and appreciated their input. (3) Septic shock: Code(s): A41.9 - Sepsis, unspecified organism; R65.21 - Severe sepsis with septic shock Status: Acute Assessment and Plan: Patient became HoTN requiring pressor therapy with Levophed 01/18 possibly related to sedation. Able to be weaned off but BP dropped again on 01/22 requiring Levophed up to 12mcg/min felt related to septic shock due to pseudomonas PNA but Levophed able to be weaned off again 01/24. Blood pressure remained stable since. (4) Pseudomonas pneumonia: Code(s): J15.1 - Pneumonia due to Pseudomonas Status: Acute Assessment and Plan: Sputum was positive for Pseudomonas on 01/22 and noted again 01/27 and on 02/01; all diaz-sensitive. CXR showing diffuse airspace disease. He finished a 10-day course of cefepime on 02/01/21. Persistent low-grade fevers and WBC was up slightly so we added Cipro 02/05/21. WBC and temperature normalized initially but then began to have recurrent fevers and elevated WBC. Blood Cx 02/11 negative. Sputum Cx 02/11 again showing pseudomonas. Discussed with ID and they recommended Imipenem which was started. (5) Pneumonia due to COVID-19 virus: Code(s): U07.1 - COVID-19; J12.82 - Pneumonia due to coronavirus disease 2019 Status: Acute Assessment and Plan: Patient tested COVID-19 positive 01/09/21 after starting to have symptoms 01/05/21. He was fully vaccinated with Moderna in September; antibodies present. Completed Remdesivir and Decadron. Current care plan as detailed above. He is off isolation. (6) Type 2 diabetes mellitus without complication, without long-term current use of insulin: Code(s): E11.9 - Type 2 diabetes mellitus without complications Status: Acute Assessment and Plan: A1c 7.4. The patient's blood glucose was monitored closely with AccuCheks covering with sliding scale. Hypoglycemia protocol was available as needed. Glucose remained very well controlled. He was tolerating Tube feedings. We adjusted Lantus dose. (7) Essential (primary) hypertension: Code(s): I10 - Essential (primary) hypertension Status: Acute Assessment and Plan: Patient's blood pressure was monitored closely. Blood pressure remained stable off Levophed. (8) Elevated LFTs: Code(s): R79.89 - Other specified abnormal findings of blood chemistry Status: Acute Assessment and Plan: Liver tests became elevated with AST to 739 and ALT 630. RUQ ultrasound okay. Hepatitis panel negative. [place] related to clinical condition and/or medications. Levels were up again slightly before normalizing aga
[2021-02-16 18:02] LABS: Glucose Point of Care 105 mg/dl (65-105)
[2021-02-16 20:57] LABS: Glucose Point of Care 85 mg/dl (65-105)
[2021-02-16] MEDS: INSULIN GLARGINE (*BKC) 100 UNITS/ML 10 UNITS SUB-Q (20:57)
== END 2021-02-16 22:45 | DRG 4 ==
LOC: ANHED 21:27 → ANH3MEDSUR 23:35 → ANHICU 02-02 06:40 → ANH3MEDSUR 02-17 16:50 → ANHICU 02-17 16:50 → ANHIMU 02-17 16:50
PROVIDERS: Internal Medicine; Internal Medicine Gastroenterology; Internal Medicine Infectious Disease; Nurse Practitioner; Otolaryngology; Admitting Provider Internal Medicine; Emergency Provider Emergency Medicine; PCP Family Medicine; Visit Provider Physician Assistant
PROC: 0DH63UZ Insertion of Feeding Device into Stomach, Percutaneous Approach (ICD-10-PCS; CPT 43246; principal; 2021-02-02 13:30)
PROC: 0B110F4 Bypass Trachea to Cutaneous with Tracheostomy Device, Open Approach (ICD-10-PCS; principal; 2021-02-05 10:30)
DX: U07.1 COVID-19 (principal); J12.82 Pneumonia due to coronavirus disease 2019; A41.9 Sepsis, unspecified organism; R65.21 Severe sepsis with septic shock; J15.1 Pneumonia due to Pseudomonas; J80 Acute respiratory distress syndrome; J15.9 Unspecified bacterial pneumonia; K72.00 Acute and subacute hepatic failure without coma; E87.0 Hyperosmolality and hypernatremia; J95.851 Ventilator associated pneumonia; J95.812 Postprocedural air leak; E11.65 Type 2 diabetes mellitus with hyperglycemia; M19.90 Unspecified osteoarthritis, unspecified site; M81.0 Age-related osteoporosis without current pathological fracture; I10 Essential (primary) hypertension; Z96.653 Presence of artificial knee joint, bilateral; R13.19 Other dysphagia; Z90.49 Acquired absence of other specified parts of digestive tract; Z87.891 Personal history of nicotine dependence; K76.0 Fatty (change of) liver, not elsewhere classified; E87.6 Hypokalemia; R63.3 Feeding difficulties; L89.899 Pressure ulcer of other site, unspecified stage
CPT/HCPCS: 31500; 36415; 36569; 36600; 43246; 71045; 71250; 71275; 74176; 76705; 80048; 80053; 80074; 80076; 80202; 81001; 82375; 82565; 82728; 82805; 82948; 83036; 83050; 83605; 83615; 83690; 83735; 83880; 84100; 84460; 84478; 85025; 85027; 85380; 85610; 85730; 86140; 86413; 86769; 87040; 87070; 87077; 87086; 87088; 87186; 87205; 93005; 93970; 94002; 94003; 94640; 94660; 96365; 96367; 96372; 96375; 96376; 97165; 99285; A9270; C1751; C9113; G0378; J0456; J0690; J0692; J0696; J0743; J0744; J1100; J1650; J1815; J1940; J2060; J2250; J2370; J2405; J2704; J2997; J3010; J3370; J7040; J7050; Q9967